=== PATIENT | male | born 1960 | race Caucasian/White ===

== ENCOUNTER 2016-12-16 00:48 | Inpatient (IN) | payer MEDICAID ==
[2016-12-16 01:35] LABS: HEMATOCRIT 40.6 % (37.9-51.0); HEMOGLOBIN 13.3 g/dL (13.5-17.0); HGB HCT DIFFERENCE -0.7; MEAN CORPUSCULAR HEMOGLOBIN 31.7 pg (27.0-33.4); MEAN CORPUSCULAR HGB CONC 32.8 g/dL (32.0-36.0); MEAN CORPUSCULAR VOLUME 97 fl (80-97); RED BLOOD COUNT 4.21 10^6/uL (4.35-5.55); WHITE BLOOD COUNT 7.3 10^3/uL (4.0-10.5)
[2016-12-16 01:45] LABS: ALANINE AMINOTRANSFERASE 27 U/L (21-72); ALBUMIN 4.4 g/dL (3.5-5.0); ALKALINE PHOSPHATASE 61 U/L (38-126); ANION GAP 14 (5-19); ASPARTATE AMINO TRANSFERASE 22 U/L (17-59); BILIRUBIN,TOTAL 0.7 mg/dL (0.2-1.3); BLOOD UREA NITROGEN 18 mg/dL (7-20); CALCIUM 9.4 mg/dL (8.4-10.2); CARBON DIOXIDE 29 mmol/L (22-30); CHLORIDE 100 mmol/L (98-107); CREATININE RESULT 1.23 mg/dL (0.52-1.25); GLUCOSE 163 mg/dL (75-110); POTASSIUM 4.7 mmol/L (3.6-5.0); SODIUM 142.6 mmol/L (137-145); TOTAL PROTEIN 7.7 g/dL (6.3-8.2)
[2016-12-16 01:57] LABS: BAND NEUTROPHILS % (MANUAL) 8 % (3-5); BASOPHILS % (MANUAL) 0 % (0-2); EOSINOPHILS % (MANUAL) 0 % (0-6); LYMPHOCYTES % (MANUAL) 5 % (13-45); TOTAL CELLS COUNTED 100
[2016-12-16 01:58] LABS: ANISOCYTOSIS 2+; TOXIC GRANULATION SLIGHT; TOXIC VACUOLATION PRESENT
[2016-12-16] MEDS ORDERED: ALBUTEROL SULFATE 0.083% NEB 2.5 MG/3 ML AMPUL NEB ONE ×2 (02:32→04:13)
--- NOTE | 2016-12-16 02:34 | ER Document Report ---
ED Respiratory Problem - General Chief Complaint: Breathing Difficulty Stated Complaint: DIFFICULTY BREATHING Time seen by provider: 02:32 Mode of Arrival: Stretcher Information source: Patient TRAVEL OUTSIDE OF THE [place] IN LAST 30 DAYS: No - HPI Patient complains to provider of: COPD, Cough, Short of breath Onset: Just prior to arrival Duration: Better Quality of pain: No pain Severity: Mild Context: Hx COPD Short of Breath: Moderate Chest pain/discomfort: Tightness Cough: Nonproductive Sputum amount: None EMS treatments: Bronchodilators, Solumedrol Associated symptoms: Congestion, Cough, Extertional dyspnea, Wheezing. denies: Chest pain/discomfort Similar symptoms previously: Yes Recently seen / treated by doctor: Yes Notes: Patient is a 56-year-old male with a history of COPD and lung cancer, he was brought to the emergency room by EMS for difficulty breathing that started shortly before arrival, he denies any chest pain, he reports a nonproductive cough, and 2 episodes of vomiting while in route to the hospital, patient denies a fever, he reports he was walking to the bathroom and on his way back to bed he feels as though he lost his breath, he became very panicky and has a history of anxiety attacks as well, which seemed to escalate his symptoms, he denies any chest pain, no abdominal pain, no nausea at the current time - Related Data Allergies/Adverse Reactions: No Known Allergies Allergy (Verified 10/09/13 20:20) Past Medical History - Social History Smoking Status: Current Every Day Smoker Frequency of alcohol use: None Drug Abuse: None Family History: DM, Hypertension - Past Medical History Cardiac Medical History: Reports: Hx Hypercholesterolemia, Hx Hypertension Pulmonary Medical History: Reports: Hx COPD Neurological Medical History: Denies: Hx Cerebrovascular Accident Endocrine Medical History: Reports: Hx Diabetes Mellitus Type 2 Renal/ Medical History: Denies: Hx Peritoneal Dialysis Malignancy Medical History: Reports Hx Bone Cancer, Reports Hx Lung Cancer GI Medical History: Denies: Hx Liver Failure Past Surgical History: Reports: Hx Vascular Surgery - Immunizations Hx Diphtheria, Pertussis, Tetanus Vaccination: Yes Physical Exam - Vital signs Vitals: Resp Pulse Ox 25 H 88 L 12/16/16 00:55 12/16/16 00:55 Course - Re-evaluation Re-evalutation: 12/16/16 04:13 Nursing staff attempted ambulate patient with pulse ox, he became short of breath, hypoxic and lightheaded, he was immediately returned to his stretcher, he has a history of cancer, he is a former smoker, however on exam I do not hear a great deal of wheezing, he is also hypotensive slightly, therefore a CTA has been ordered to rule out pulmonary emboli or other intrathoracic pathology 12/16/16 06:44 Patient continues to have hypotension despite 2 L of IV fluids, although his blood pressure is improved, he is resting comfortably, reports his breathing feels quite a bit better, however at times he has periods of hypoxia and requires oxygen at the present time, CTA shows no evidence of pulmonary embolism , see report for full details, plan to admit patient to hospitalist service for further evaluation and treatment 12/16/16 07:08 Patient was discussed with oncologist, Dr. Bojorquez and advised that patient will be admitted, he is in agreement 12/16/16 07:09 Shearer Helper requested to page Dr. Sullivan 12/16/16 07:14 Patient was discussed with Dr. Sullivan who knows patient well, recommends patient continue receiving IV fluids, 1 g of cefepime, agrees with admission - Vital Signs Vital signs: Temp Pulse Resp BP Pulse Ox 99.2 F 21 H 81/61 L 94 12/16/16 01:28 12/16/16 07:01 12/16/16 07:00 12/16/16 07:01 - Laboratory Result Diagrams: 12/16/16 01:10 12/16/16 01:10 Laboratory results interpreted by me: 12/16/16 12/16/16 12/16/16 01:10 01:10 02:35 RBC 4.21 L Hgb 13.3 L RDW 18.0 H Plt Count 126 L Seg Neuts % (Manual) 86 H Band Neutrophils % 8 H Lymphocytes % (Manual) 5 L Monocytes % (Manual) 1 L Abs Lymphs (Manual) 0.4 L Glucose 163 H Urine Protein 30 H - Diagnostic Test Radiology reviewed: Image reviewed, Reports reviewed - EKG Interpretation by Me EKG shows normal: Sinus rhythm Rate: Tachycardia Heart block present: 1st Degree - Transfer of Care Care transferred to following provider: Dr Sullivan Critical Care Note - Critical Care Note Total time excluding time spent on procedures (mins): 60 Comments: Patient with hypoxia, oxygen dependent, and hypotensive, requiring admission, consultation with specialists and primary care provider Discharge - Discharge Clinical Impression: COPD exacerbation, Hypoxia Hypotension Qualifiers: Hypotension type: unspecified hypotension type Qualified Code(s): I95.9 - Hypotension, unspecified Condition: Serious Disposition: ADMITTED INPATIENT Admitting Provider: Nick Unit Admitted: IM Referrals: JAMES SULLIVAN MD [Primary Care Provider] - Follow up as needed
[2016-12-16 02:57] LABS: APPEARANCE,URINE CLEAR; BILIRUBIN,URINE NEGATIVE (NEGATIVE); GLUCOSE, URINE NEGATIVE (NEGATIVE); KETONES,URINE NEGATIVE (NEGATIVE); LEUKOCYTE ESTERASE,URINE NEGATIVE (NEGATIVE); NITRITE,URINE NEGATIVE (NEGATIVE); PROTEIN,URINE 30 mg/dL (NEGATIVE); URINE SPECIFIC GRAVITY 1.017; UROBILINOGEN,URINE NEGATIVE mg/dL (<2.0)
[2016-12-16] MEDS: NORMAL SALINE 1000 ML 1,000 ML IV PRN ×4 (04:40→22:34)
[2016-12-16] MEDS ORDERED: NORMAL SALINE 1000 ML 1,000 ML IV PRN ×3 (05:33→07:16)
[2016-12-16] MEDS ORDERED: IPRATROPIUM/ALBUTEROL 0.5-2.5 MG/3 ML AMPUL NEB ONE (06:45)
[2016-12-16 06:53] LABS: CREATINE KINASE MB 2.14 ng/mL (<4.55)
[2016-12-16 06:54] LABS: TROPONIN I < 0.012 ng/mL
--- NOTE | 2016-12-16 08:09 | EKG REPORT ---
SEVERITY:- ABNORMAL ECG - SINUS TACHYCARDIA FIRST DEGREE AV BLOCK LEFT ANTERIOR FASCICULAR BLOCK LOW VOLTAGE IN FRONTAL LEADS BORDERLINE T ABNORMALITIES, ANT-LAT LEADS : Confirmed by: Chas Patino MD 16-Dec-2016 08:08:47
[2016-12-16] MEDS ORDERED: ONDANSETRON HCL INJ/PF 4 MG/2 ML SDV IV PRN (08:17)
[2016-12-16] MEDS ORDERED: ACETAMINOPHEN 325 MG TABLET PO PRN (08:17)
[2016-12-16] MEDS ORDERED: OXYCODONE-ACETAMINOPHEN 5-325 MG TABLET PO PRN (08:20)
--- NOTE | 2016-12-16 09:15 | PDOC H&P ---
History of Present Illness Admission Date/PCP: 12/16/16 08:17 JAMES SULLIVAN MD Patient complains of: Shortness of the breath History of Present Illness: ADRIEN BELTRAN is a 56 year old malT is a 56-year-old male with a significant history of a stage IV lung cancer currently immunotherapy also history of the COPD and hypothyroidism and a history of the stroke came to the emergency department with the complaining of shortness of the breath since last couple of days with cough and congestions with a yellowish greenish productivity. denied any fever. In the emergency departments patient was hypoxic and patient was hypotensive also and patient's also underwent for the CT angiogram to rule out any pulmonary embolism and it was negative patient also received 3 L of IV fluid and patient's current systolic blood pressure is 90. Patient's denied any chest pain denied any abdominal pain no nausea no vomiting. Patients also have a significant history of the anxiety attack currently put on a BuSpar for that. His last immunotherapy was 2 weeks back. I saw the patient's patient is comfortably lying in a bed and denied any chest pain no short of breath and feeling okay. At this point admitting in the IMCU for further evaluations for the hypoxia and hypotension and rule out any sepsis. Past Medical History Cardiac Medical History: Reports: Hyperlipidema, Hypertension Pulmonary Medical History: Reports: Chronic Obstructive Pulmonary Disease (COPD) Neurological Medical History: Reports: Ischemic CVA Endocrine Medical History: Reports: Diabetes Mellitus Type 2 Malignancy Medical History: Reports: Bone Cancer, Lung Cancer Musculoskeltal Medical History: Reports: Arthritis, Other - Chronic back pain Psychiatric Medical History: Reports: Depression, Other Psychiatric History Note: Panic anxiety disorder Past Surgical History Past Surgical History: Reports: Vascular Surgery Social History Smoking Status: Current Every Day Smoker Frequency of Alcohol Use: Occasional Hx Recreational Drug Use: No Hx Prescription Drug Abuse: No - Advance Directive Resuscitation Status: Full Code Family History Family History: Reviewed & Not Pertinent, DM, Hypertension Parental Family History Reviewed: Yes Children Family History Reviewed: Yes Sibling(s) Family History Reviewed.: Yes Medication/Allergy Home Medications: Oxycodone HCl/Acetaminophen [Percocet 5-325 mg Tablet] 1 - 2 tab PO ASDIR PRN # 25 tablet 02/10/14 Oxycodone HCl/Acetaminophen [Percocet 5-325 mg Tablet] 1 - 2 tab PO ASDIR PRN # 15 tablet 03/06/14 Magnesium Oxide [Magox] 400 mg PO BID #30 tablet 10/24/16 Allergies/Adverse Reactions: No Known Allergies Allergy (Verified 10/09/13 20:20) Review of Systems Constitutional: PRESENT: fatigue, weakness Cardiovascular: PRESENT: dyspnea on exertion Respiratory: PRESENT: cough, dyspnea, sputum Gastrointestinal: ABSENT: as per HPI, abdominal pain, bloating, coffee ground emesis, constipation, diarrhea, dysphagia, heartburn, hematemesis, hematochezia , melena, nausea, vomiting, other Genitourinary: ABSENT: as per HPI, difficulty urinating, dysuria, hematuria, nocturia, other Musculoskeletal: PRESENT: back pain Integumentary: ABSENT: as per HPI, diaphoresis, erythema, lesions, pruritus, rash, wounds, other Neurological: ABSENT: as per HPI, abnormal gait, abnormal movements, abnormal speech, confusion, convulsions, dizziness, focal weakness, frequent falls, lack of coordination, memory loss, numbness, paresthesias, restless legs, syncope, tingling, tremor(s), vertigo, weakness, other Psychiatric: PRESENT: anxiety Physical Exam Vital Signs: Temp Pulse Resp BP Pulse Ox 99.2 F 20 100/68 95 12/16/16 01:28 12/16/16 08:01 12/16/16 08:11 12/16/16 08:01 General appearance: PRESENT: no acute distress Head exam: PRESENT: normocephalic Eye exam: PRESENT: PERRLA Mouth exam: PRESENT: neck supple Respiratory exam: PRESENT: decreased breath sounds, wheezes Cardiovascular exam: PRESENT: +S1, +S2, tachycardia GI/Abdominal exam: PRESENT: normal bowel sounds, soft. ABSENT: tenderness Extremities exam: ABSENT: pedal edema Neurological exam: PRESENT: alert, awake, oriented to person, oriented to place , oriented to time, reflexes normal, normal gait Skin exam: PRESENT: dry Results Impressions: Chest X-Ray 12/16/16 01:19 IMPRESSION: NO ACUTE RADIOGRAPHIC FINDING IN THE CHEST. Chest/Abdomen CTA 12/16/16 04:13 IMPRESSION: UNREMARKABLE CTA CHEST WITHOUT PULMONARY EMBOLI IDENTIFIED. ENLARGING CLUSTER OF ADJACENT NODULES WITHIN THE LEFT UPPER LOBE RAISING CONCERN FOR NEOPLASTIC PROCESS. BIOPSY IS RECOMMENDED. NEW 4 MM PULMONARY NODULE LEFT LOWER LOBE. RECOMMEND ATTENTION ON FOLLOW-UP STUDIES. Assessment & Plan - Diagnosis (1) Hypotension Qualifiers: Hypotension type: unspecified hypotension type Qualified Code(s): I95.9 - Hypotension, unspecified Is this a current diagnosis for this admission?: YesPlan: Continues to IV fluid rule out the sepsis start the patient on IV antibiotic until the cultures come back (2) COPD exacerbation Is this a current diagnosis for this admission?: YesPlan: Start the patient in the nebulizer treatment (3) Lung cancer Qualifiers: Lung location: unspecified part of lung Is this a current diagnosis for this admission?: YesPlan: Stage IV lung cancer currently on immunotherapy (4) Type 2 diabetes mellitus Qualifiers: Diabetes mellitus complication status: with unspecified complications Is this a current diagnosis for this admission?: YesPlan: Continues the sliding scale and hold the metformin due to the IV contrast (5) Anxiety disorder Qualifiers: Anxiety disorder type: generalized anxiety disorder Qualified Code(s ): F41.1 - Generalized anxiety disorder Is this a current diagnosis for this admission?: YesPlan: Continues the BuSpar 5 mg p.o. q. 8 (6) Hypoxia Is this a current diagnosis for this admission?: YesPlan: Patient was not on oxygen in the past patient CTA is negative for any pulmonary emboli will order the echocardiogram and also for the patient on 3 L nasal cannula (7) Thyroid disorder Is this a current diagnosis for this admission?: YesPlan: Patient was hyperthyroidism but currently running hypo-and patient is currently on levothyroxine supplement will get the ultrasound of the thyroid - Time Time Spent: 50 to 70 Minutes Medications reviewed and adjusted accordingly: Yes Anticipated discharge: Home - Inpatient Certification Medical Necessity: Significant Comorbidiites Make Outpatient Treatment Too Risky , Need For IV Fluids, Need for IV Antibiotics Post Hospital Care: D/C Policy Change Clerk Documentation - Plan Summary Plan Summary: Admit the patient in IMCU to rule out sepsis start patient on broad-spectrum antibiotic and await further culture also patient was put on the COPD with acute exacerbations protocol and continues to monitor the patient discussed with the patient and the family emergency department with consult to Dr. Vo and also ordered a 2D echo
[2016-12-16 10:03] LABS: CREATINE KINASE MB 2.29 ng/mL (<4.55)
[2016-12-16 10:07] LABS: TROPONIN I < 0.012 ng/mL
--- NOTE | 2016-12-16 10:17 | XCELERA REPORT ---
[address] [address] Transthoracic Echocardiogram Report Name: ADRIEN BELTRAN Age: 56 yrs Gender: Male : 1960 Patient Status: Inpatient Patient Location: [id number] Study Date: 12/16/2016 09:10 AM Height: 71 in Weight: 220 lb BSA: 2.2 m2 Procedure: A complete two-dimensional transthoracic echocardiogram was performed (2D, M-mode, spectral and color flow Doppler). The study was technically difficult with many images being suboptimal in quality. Reason For Study: hypotension Ordering Physician: JAMES SULLIVAN Performed By: Hillary Hanna Interpretation Summary The study was technically difficult with many images being suboptimal in quality. The left ventricular ejection fraction is normal. There is borderline concentric left ventricular hypertrophy. The left ventricle is grossly normal size. LV diastolic function could not be adequately assessed. Wall motion cannot be accurately commented on, but no definite regional wall motion abnormalities noted. The right ventricle appears to be hypertrophied The right ventricle is mildly dilated. The right ventricular systolic function is normal. Borderline right atrial enlargement. The left atrial size is normal. There is no mitral valve stenosis. There is a trace amount of mitral regurgitation There is no aortic valve stenosis No aortic regurgitation is present. There is a trace or physiologic amount of tricuspid regurgitation Tricuspid regurgitation jet envelope not well defined to measure RV systolic pressure accurately. The aortic root is not well visualized. The inferior vena cava was not visualized There is no pericardial effusion. MMode/2D Measurements \T\ Calculations RVDd: 3.2 cm LVIDd: 4.9 cm FS: 37.2 % Ao root diam: 2.6 cm IVSd: 1.0 cm LVIDs: 3.1 cm EDV(Teich): 110.5 ml LVPWd: 0.97 cm ESV(Teich): 36.5 ml Ao root area: 5.4 cm2 EF(Teich): 67.0 % LA dimension: 2.9 cm Doppler Measurements \T\ Calculations MV E max alejandrina: MV P1/2t max alejandrina: Ao V2 max: LV V1 max P.2 cm/sec 99.7 cm/sec 159.8 cm/sec 2.4 mmHg MV A max alejandrina: MV P1/2t: 75.4 msec Ao max PG: LV V1 max: 74.0 cm/sec 10.2 mmHg 77.0 cm/sec MV E/A: 1.3 MVA(P1/2t): 2.9 cm2 MV dec slope: 387.4 cm/sec2 MV dec time: 0.24 sec PA V2 max: TR max alejandrina: 86.4 cm/sec 259.7 cm/sec PA max PG: TR max P.0 mmHg 3.0 mmHg Left Ventricle The left ventricle is grossly normal size. There is borderline concentric left ventricular hypertrophy. The left ventricular ejection fraction is normal. LV diastolic function could not be adequately assessed. Wall motion cannot be accurately commented on, but no definite regional wall motion abnormalities noted. Right Ventricle The right ventricle is mildly dilated. The right ventricle appears to be hypertrophied. The right ventricular systolic function is normal. Atria Borderline right atrial enlargement. The left atrial size is normal. Interarterial septum not well visualized and not well dopplered. Cannot comment on ASD/PFO presence. Mitral Valve The mitral valve is grossly normal. There is no mitral valve stenosis. There is a trace amount of mitral regurgitation. Aortic Valve The aortic valve is grossly normal. There is no aortic valve stenosis. No aortic regurgitation is present. Tricuspid Valve The tricuspid valve is not well visualized, but is grossly normal. There is no tricuspid stenosis. There is a trace or physiologic amount of tricuspid regurgitation. Tricuspid regurgitation jet envelope not well defined to measure RV systolic pressure accurately. Pulmonic Valve The pulmonic valve is not well visualized. Great Vessels The aortic root is not well visualized. The inferior vena cava was not visualized. Effusions There is no pericardial effusion. : JAMES SULLIVAN > Eva Schafer
[2016-12-16] MEDS: DOCUSATE SODIUM 100 MG CAPSULE PO SCH ×2 (11:18→17:30)
[2016-12-16] MEDS: CEFEPIME 1 GM/D5W RTU 50 ML IV SCH ×2 (11:19→22:32)
[2016-12-16] MEDS: MAGNESIUM OXIDE 400 MG TABLET PO SCH ×2 (11:19→17:30)
[2016-12-16] MEDS: IPRATROPIUM/ALBUTEROL 0.5-2.5 MG/3 ML AMPUL NEB SCH ×2 (13:51→20:03)
[2016-12-16 15:25] LABS: CREATINE KINASE MB 2.41 ng/mL (<4.55)
[2016-12-16 15:29] LABS: TROPONIN I < 0.012 ng/mL
[2016-12-16] MEDS: LANSOPRAZOLE 15 MG TAB.RAP.DR PO SCH (17:00)
[2016-12-16] MEDS ORDERED: (PENDING PHARMACY ID) (Buspirone Hcl [Buspar 5 Mg Tablet] 5 MG) PO SCH (18:00)
[2016-12-16 21:20] LABS: CREATINE KINASE MB 3.43 ng/mL (<4.55)
[2016-12-16 21:25] LABS: TROPONIN I < 0.012 ng/mL
[2016-12-16] MEDS: BUSPIRONE HCL 10 MG TABLET PO SCH (22:33)
[2016-12-16] MEDS: ATORVASTATIN CALCIUM 10 MG TABLET PO SCH (22:33)
[2016-12-17] MEDS: BUSPIRONE HCL 10 MG TABLET PO SCH ×3 (05:27→21:22)
[2016-12-17] MEDS: LANSOPRAZOLE 15 MG TAB.RAP.DR PO SCH ×2 (05:28→16:35)
[2016-12-17 05:43] LABS: ALANINE AMINOTRANSFERASE 30 U/L (21-72); ALKALINE PHOSPHATASE 41 U/L (38-126); ANION GAP 8 (5-19); ASPARTATE AMINO TRANSFERASE 22 U/L (17-59); BILIRUBIN,TOTAL 0.4 mg/dL (0.2-1.3); BLOOD UREA NITROGEN 23 mg/dL (7-20); CALCIUM 8.1 mg/dL (8.4-10.2); CARBON DIOXIDE 26 mmol/L (22-30); CHLORIDE 104 mmol/L (98-107); CREATININE RESULT 1.21 mg/dL (0.52-1.25); GLUCOSE 118 mg/dL (75-110); MAGNESIUM 2.2 mg/dL (1.6-2.3); POTASSIUM 4.8 mmol/L (3.6-5.0); SODIUM 138.2 mmol/L (137-145); TOTAL PROTEIN 5.8 g/dL (6.3-8.2)
[2016-12-17 05:44] LABS: HEMATOCRIT 28.3 % (37.9-51.0); HGB HCT DIFFERENCE 0.5; MEAN CORPUSCULAR HEMOGLOBIN 32.1 pg (27.0-33.4); MEAN CORPUSCULAR HGB CONC 33.9 g/dL (32.0-36.0); MEAN CORPUSCULAR VOLUME 95 fl (80-97); RED BLOOD COUNT 2.99 10^6/uL (4.35-5.55); RED CELL DISTRIBUTION WIDTH 17.7 % (11.5-14.0); WHITE BLOOD COUNT 6.1 10^3/uL (4.0-10.5)
[2016-12-17 06:20] LABS: HEMOGLOBIN 9.6 g/dL (13.5-17.0)
[2016-12-17 06:23] LABS: BAND NEUTROPHILS % (MANUAL) 1 % (3-5); BASOPHILS % (MANUAL) 0 % (0-2); EOSINOPHILS % (MANUAL) 0 % (0-6); LYMPHOCYTES % (MANUAL) 2 % (13-45); TOTAL CELLS COUNTED 100
[2016-12-17 06:24] LABS: ANISOCYTOSIS 1+
[2016-12-17] MEDS ORDERED: DEXTROSE 50%-WATER 25 GM/50 ML DISP.SYRIN IV PRN ×2 (07:54)
[2016-12-17] MEDS ORDERED: DEXTROSE 40% GEL 15 GM TUBE PO PRN ×2 (07:54)
[2016-12-17] MEDS ORDERED: GLUCAGON,HUMAN RECOMB 1 MG INJ IM PRN (07:54)
[2016-12-17] MEDS ORDERED: INSULIN LISPRO 100 UNIT/ML 3 ML VIAL SUBCUT PRN (07:54)
[2016-12-17] MEDS ORDERED: POLYETHYLENE GLYCOL 3350 POWDER 17 GM/1 PACKET PO PRN (07:54)
--- NOTE | 2016-12-17 08:10 | PDOC PROGRESS REPORT ---
Subjective Progress Note for:: 12/17/16 Subjective:: Patient is is doing fair complaining some mild cough and congestions other than that denied any abdominal pain no chest pain no shortness of the breath .his blood processes still running in 90 range. Patient's initial all blood cultures so far negative. Patient's otherwise no fever. Physical Exam Vital Signs: Temp Pulse Resp BP Pulse Ox 98.0 F 65 24 H 95/50 L 100 12/17/16 07:24 12/17/16 07:24 12/17/16 07:24 12/17/16 07:24 12/17/16 07:24 Intake & Output 12/16/16 12/17/16 12/18/16 06:59 06:59 06:59 Intake Total 3292 Output Total 2000 Balance 1292 Weight 104.1 kg General appearance: PRESENT: no acute distress, well-developed, well-nourished Head exam: PRESENT: atraumatic, normocephalic Eye exam: PRESENT: conjunctiva pink, EOMI, PERRLA. ABSENT: scleral icterus Ear exam: PRESENT: normal external ear exam Mouth exam: PRESENT: moist, tongue midline Neck exam: PRESENT: full ROM. ABSENT: carotid bruit, JVD, lymphadenopathy, thyromegaly Cardiovascular exam: PRESENT: RRR. ABSENT: diastolic murmur, rubs, systolic murmur Pulses: PRESENT: normal dorsalis pedis pul, +2 pedal pulses bilateral Vascular exam: PRESENT: normal capillary refill GI/Abdominal exam: PRESENT: normal bowel sounds, soft. ABSENT: distended, guarding, mass, organolmegaly, rebound, tenderness Rectal exam: PRESENT: deferred Neurological exam: PRESENT: alert, awake, oriented to person, oriented to place , oriented to time, oriented to situation, CN II-XII grossly intact. ABSENT: motor sensory deficit Psychiatric exam: PRESENT: appropriate affect, normal mood. ABSENT: homicidal ideation, suicidal ideation Skin exam: PRESENT: dry, intact, warm. ABSENT: cyanosis, rash Results Laboratory Results: 12/17/16 05:13 12/17/16 05:13 12/16/16 12/16/16 12/17/16 10:45 15:35 05:13 WBC 6.1 RBC 2.99 L Hgb 9.6 L D Hct 28.3 L MCV 95 MCH 32.1 MCHC 33.9 RDW 17.7 H Plt Count 95 L Seg Neutrophils % Not Reportable Lymphocytes % Not Reportable Monocytes % Not Reportable Eosinophils % Not Reportable Basophils % Not Reportable Absolute Neutrophils Not Reportable Absolute Lymphocytes Not Reportable Absolute Monocytes Not Reportable Absolute Eosinophils Not Reportable Absolute Basophils Not Reportable Sodium Potassium Chloride Carbon Dioxide Anion Gap BUN Creatinine Est GFR ( Amer) Est GFR (Non-Af Amer) Glucose Lactic Acid 2.3 H 2.5 H Calcium Magnesium Total Bilirubin AST ALT Alkaline Phosphatase Total Protein Albumin 12/17/16 05:13 WBC RBC Hgb Hct MCV MCH MCHC RDW Plt Count Seg Neutrophils % Lymphocytes % Monocytes % Eosinophils % Basophils % Absolute Neutrophils Absolute Lymphocytes Absolute Monocytes Absolute Eosinophils Absolute Basophils Sodium 138.2 Potassium 4.8 Chloride 104 Carbon Dioxide 26 Anion Gap 8 BUN 23 H Creatinine 1.21 Est GFR ( Amer) > 60 Est GFR (Non-Af Amer) > 60 Glucose 118 H Lactic Acid Calcium 8.1 L Magnesium 2.2 Total Bilirubin 0.4 AST 22 ALT 30 Alkaline Phosphatase 41 Total Protein 5.8 L Albumin 3.0 L 12/16/16 12/16/16 12/16/16 09:06 09:06 14:34 Creatine Kinase 104 109 CK-MB (CK-2) 2.29 Troponin I < 0.012 12/16/16 12/16/16 12/16/16 14:34 20:35 20:35 Creatine Kinase 131 CK-MB (CK-2) 2.41 3.43 Troponin I < 0.012 < 0.012 Impressions: Chest X-Ray 12/16/16 01:19 IMPRESSION: NO ACUTE RADIOGRAPHIC FINDING IN THE CHEST. Chest/Abdomen CTA 12/16/16 04:13 IMPRESSION: UNREMARKABLE CTA CHEST WITHOUT PULMONARY EMBOLI IDENTIFIED. ENLARGING CLUSTER OF ADJACENT NODULES WITHIN THE LEFT UPPER LOBE RAISING CONCERN FOR NEOPLASTIC PROCESS. BIOPSY IS RECOMMENDED. NEW 4 MM PULMONARY NODULE LEFT LOWER LOBE. RECOMMEND ATTENTION ON FOLLOW-UP STUDIES. Assessment & Plan - Diagnosis (1) Hypotension Qualifiers: Hypotension type: unspecified hypotension type Qualified Code(s): I95.9 - Hypotension, unspecified Is this a current diagnosis for this admission?: YesPlan: Unclear etiology echocardiogram is stable. Possible sepsis with the elevated band 8 will continues to IV antibiotic and IV fluid and ordered a CT of the abdomen and pelvis rule out other etiology (2) COPD exacerbation Is this a current diagnosis for this admission?: YesPlan: With acute bronchitis continues the nebulizer treatments and add the Zithromax (3) Lung cancer Qualifiers: Lung location: unspecified part of lung Is this a current diagnosis for this admission?: YesPlan: Stage IV lung cancer currently on immunotherapy (4) Type 2 diabetes mellitus Qualifiers: Diabetes mellitus complication status: with unspecified complications Is this a current diagnosis for this admission?: YesPlan: Continues the sliding scale and hold the metformin due to the IV contrast (5) Anxiety disorder Qualifiers: Anxiety disorder type: generalized anxiety disorder Qualified Code(s ): F41.1 - Generalized anxiety disorder Is this a current diagnosis for this admission?: YesPlan: Continues the BuSpar 5 mg p.o. q. 8 (6) Hypoxia Is this a current diagnosis for this admission?: YesPlan: Patient was not on oxygen in the past patient CTA is negative for any pulmonary emboli will order the echocardiogram and also for the patient on 3 L nasal cannula (7) Thyroid disorder Is this a current diagnosis for this admission?: YesPlan: Patient was hyperthyroidism but currently running hypo-and patient is currently on levothyroxine supplement will get the ultrasound of the thyroid - Time Time Spent with patient: 15-24 minutes Medications reviewed and adjusted accordingly: Yes Anticipated discharge: Home Within: Other - Inpatient Certification Medical Necessity: Need For IV Fluids, Need for IV Antibiotics Post Hospital Care: D/C Criminal Justice Professor Documentation - Plan Summary Plan Summary: Part of the CT head and CT abdomen and pelvis check the urine culture and continues the current medication
[2016-12-17] MEDS: IPRATROPIUM/ALBUTEROL 0.5-2.5 MG/3 ML AMPUL NEB SCH ×3 (08:32→20:20)
--- NOTE | 2016-12-17 08:35 | PDOC CONSULTATION ---
Consultation Consult Date: 12/17/16 Attending physician:: JAMES SULLIVAN Consult reason:: Known stage IV lung cancer, here with acute onset shortness of breath, cough, hypotension History of Present Illness Admission Date/PCP: 12/16/16 08:17 JAMES SULLIVAN MD Patient complains of: As above History of Present Illness: 56-year-old male with known history of stage IV lung cancer, currently on immunotherapy with OPDIVO, tolerating it well with stable disease noted on recent imaging. He E presented with acute onset shortness of breath. Over the last couple weeks he's been having increasing shortness of breath, rapid breathing, his TSH was very elevated consistent with hypothyroidism, adjustments were made in medications so initially that was thought to be the issue, however 24 hours prior to admission, he had acute onset shortness of breath, presented to the ED, was hypoxic in the 70s and 80s, was also hypotensive and tachycardic, there was concern of sepsis. He had a CT of the chest, there is no pneumonia noted, there is no PE, there is no pneumonitis noted, there are pulmonary nodules that looked generally stable to me. Past Medical History Cardiac Medical History: Reports: Hyperlipidema, Hypertension Pulmonary Medical History: Reports: Chronic Obstructive Pulmonary Disease (COPD) Neurological Medical History: Reports: Ischemic CVA Endocrine Medical History: Reports: Diabetes Mellitus Type 2 Malignancy Medical History: Reports: Bone Cancer, Lung Cancer Musculoskeltal Medical History: Reports: Arthritis, Other - Chronic back pain Psychiatric Medical History: Reports: Depression, Other Past Surgical History Past Surgical History: Reports: Vascular Surgery Social History Smoking Status: Former Smoker Frequency of Alcohol Use: Occasional Hx Recreational Drug Use: No Hx Prescription Drug Abuse: No - Advance Directive Resuscitation Status: Full Code Family History Family History: Reviewed & Not Pertinent, DM, Hypertension Parental Family History Reviewed: Yes Children Family History Reviewed: Yes Sibling(s) Family History Reviewed.: Yes Medication/Allergy Home Medications: Buspirone HCl [Buspar 5 mg Tablet] 5 mg PO TID 12/16/16 Clopidogrel Bisulfate [Plavix] 75 mg PO DAILY 12/16/16 Levothyroxine Sodium [Synthroid 0.05 mg Tablet] 0.05 mg PO DAILY 12/16/16 Metoprolol Succinate [Toprol Xl 50 mg Tab.sr] 50 mg PO DAILY 12/16/16 Pravastatin Sodium [Pravachol] 20 mg PO DAILY 12/16/16 Allergies/Adverse Reactions: No Known Allergies Allergy (Verified 10/09/13 20:20) Review of Systems Constitutional: ABSENT: chills, fever(s), headache(s), weight gain, weight loss Eyes: ABSENT: visual disturbances Ears: ABSENT: hearing changes Cardiovascular: PRESENT: dyspnea on exertion Respiratory: PRESENT: cough, dyspnea, sputum Gastrointestinal: ABSENT: abdominal pain, constipation, diarrhea, hematemesis, hematochezia, nausea, vomiting Genitourinary: ABSENT: dysuria, hematuria Musculoskeletal: ABSENT: joint swelling Integumentary: ABSENT: rash, wounds Neurological: ABSENT: abnormal gait, abnormal speech, confusion, dizziness, focal weakness, syncope Psychiatric: ABSENT: anxiety, depression, homidical ideation, suicidal ideation Endocrine: ABSENT: cold intolerance, heat intolerance, polydipsia, polyuria Hematologic/Lymphatic: ABSENT: easy bleeding, easy bruising Physical Exam Vital Signs: Temp Pulse Resp BP Pulse Ox 98.0 F 65 24 H 95/50 L 100 12/17/16 07:24 12/17/16 07:24 12/17/16 07:24 12/17/16 07:24 12/17/16 07:24 Intake & Output 12/16/16 12/17/16 12/18/16 06:59 06:59 06:59 Intake Total 3292 Output Total 2000 Balance 1292 Weight 104.1 kg General appearance: PRESENT: no acute distress, well-developed, well-nourished Head exam: PRESENT: atraumatic, normocephalic Eye exam: PRESENT: conjunctiva pink, EOMI, PERRLA. ABSENT: scleral icterus Ear exam: PRESENT: normal external ear exam Mouth exam: PRESENT: moist, tongue midline Neck exam: ABSENT: carotid bruit, JVD, lymphadenopathy, thyromegaly Respiratory exam: PRESENT: crackles, rhonchi Cardiovascular exam: PRESENT: RRR. ABSENT: diastolic murmur, rubs, systolic murmur Pulses: PRESENT: normal dorsalis pedis pul Vascular exam: PRESENT: normal capillary refill GI/Abdominal exam: PRESENT: normal bowel sounds, soft. ABSENT: distended, guarding, mass, organolmegaly, rebound, tenderness Rectal exam: PRESENT: deferred Extremities exam: PRESENT: full ROM. ABSENT: calf tenderness, clubbing, pedal edema Neurological exam: PRESENT: alert, awake, oriented to person, oriented to place , oriented to time, oriented to situation, CN II-XII grossly intact. ABSENT: motor sensory deficit Psychiatric exam: PRESENT: appropriate affect, normal mood. ABSENT: homicidal ideation, suicidal ideation Skin exam: PRESENT: dry, intact, warm. ABSENT: cyanosis, rash Results Laboratory Results: 12/17/16 05:13 12/17/16 05:13 12/16/16 12/16/16 12/17/16 10:45 15:35 05:13 WBC 6.1 RBC 2.99 L Hgb 9.6 L D Hct 28.3 L MCV 95 MCH 32.1 MCHC 33.9 RDW 17.7 H Plt Count 95 L Seg Neutrophils % Not Reportable Lymphocytes % Not Reportable Monocytes % Not Reportable Eosinophils % Not Reportable Basophils % Not Reportable Absolute Neutrophils Not Reportable Absolute Lymphocytes Not Reportable Absolute Monocytes Not Reportable Absolute Eosinophils Not Reportable Absolute Basophils Not Reportable Sodium Potassium Chloride Carbon Dioxide Anion Gap BUN Creatinine Est GFR ( Amer) Est GFR (Non-Af Amer) Glucose Lactic Acid 2.3 H 2.5 H Calcium Magnesium Total Bilirubin AST ALT Alkaline Phosphatase Total Protein Albumin 12/17/16 05:13 WBC RBC Hgb Hct MCV MCH MCHC RDW Plt Count Seg Neutrophils % Lymphocytes % Monocytes % Eosinophils % Basophils % Absolute Neutrophils Absolute Lymphocytes Absolute Monocytes Absolute Eosinophils Absolute Basophils Sodium 138.2 Potassium 4.8 Chloride 104 Carbon Dioxide 26 Anion Gap 8 BUN 23 H Creatinine 1.21 Est GFR ( Amer) > 60 Est GFR (Non-Af Amer) > 60 Glucose 118 H Lactic Acid Calcium 8.1 L Magnesium 2.2 Total Bilirubin 0.4 AST 22 ALT 30 Alkaline Phosphatase 41 Total Protein 5.8 L Albumin 3.0 L 12/16/16 12/16/16 12/16/16 09:06 09:06 14:34 Creatine Kinase 104 109 CK-MB (CK-2) 2.29 Troponin I < 0.012 12/16/16 12/16/16 12/16/16 14:34 20:35 20:35 Creatine Kinase 131 CK-MB (CK-2) 2.41 3.43 Troponin I < 0.012 < 0.012 Impressions: Chest X-Ray 12/16/16 01:19 IMPRESSION: NO ACUTE RADIOGRAPHIC FINDING IN THE CHEST. Chest/Abdomen CTA 12/16/16 04:13 IMPRESSION: UNREMARKABLE CTA CHEST WITHOUT PULMONARY EMBOLI IDENTIFIED. ENLARGING CLUSTER OF ADJACENT NODULES WITHIN THE LEFT UPPER LOBE RAISING CONCERN FOR NEOPLASTIC PROCESS. BIOPSY IS RECOMMENDED. NEW 4 MM PULMONARY NODULE LEFT LOWER LOBE. RECOMMEND ATTENTION ON FOLLOW-UP STUDIES. Status: Image reviewed by me Assessment & Plan - Diagnosis (1) Hypoxia Is this a current diagnosis for this admission?: YesPlan: Patient with hypoxia, possibly multifactorial, probably related to COPD exacerbation, bronchitis, unlikely related to drug effect. Continue with current management per primary team. (2) Lung cancer Qualifiers: Laterality: right Lung location: upper lobe of lung Qualified Code(s): C34.11 - Malignant neoplasm of upper lobe, right bronchus or lung Is this a current diagnosis for this admission?: YesPlan: Stage IV lung cancer, currently on immunotherapy, don't believe the immunotherapies having any relation with current symptomatology, continue with current management, continue therapy as an outpatient. He is due for treatment this week, we will reschedule. (3) Pain, neoplasm-related Plan: Pain related to bone metastasis, Dr. Sullivan will restart his fentanyl patch, we will watch the hypotension closely. - Time Time Spent: Greater than 70 Minutes Critical Time spent with patient: 35 or more minutes Medications reviewed and adjusted accordingly: Yes - Inpatient Certification Based on my medical assessment, after consideration of the patient's comorbidities, presenting symptoms, or acuity I expect that the services needed warrant INPATIENT care.: Yes I certify that my determination is in accordance with my understanding of Medicare's requirements for reasonable and necessary INPATIENT services [42 CFR 412.3e].: Yes Medical Necessity: Failure to Improve With Outpatient Therapy, Need For Continuous Telemetry Monitoring, Risk of Complication if Not Cared For in Hospital
[2016-12-17] MEDS ORDERED: METOPROLOL SUCCINATE 50 MG TAB.SR.24H PO SCH (10:00)
[2016-12-17] MEDS: CLOPIDOGREL BISULFATE 75 MG TABLET PO SCH (10:55)
[2016-12-17] MEDS: CEFEPIME 1 GM/D5W RTU 50 ML IV SCH ×2 (10:56→21:22)
[2016-12-17] MEDS: MAGNESIUM OXIDE 400 MG TABLET PO SCH ×2 (10:56→16:35)
[2016-12-17] MEDS: AZITHROMYCIN 250 MG TABLET PO SCH (10:56)
[2016-12-17] MEDS: DOCUSATE SODIUM 100 MG CAPSULE PO SCH ×2 (10:56→16:34)
[2016-12-17] MEDS: LEVOTHYROXINE SODIUM 0.05 MG TABLET PO SCH (10:56)
[2016-12-17] MEDS: FENTANYL 50 MCG/HR PATCH.TD72 TD SCH (12:15)
--- NOTE | 2016-12-17 14:00 | PDOC CONSULTATION ---
History of Present Illness Admission Date/PCP: 12/16/16 08:17 JAMES SULLIVAN MD History of Present Illness: 56-year-old male with stage IV lung cancer currently undergoing was sounds like immunotherapy currently in the hospital for evaluation of the respiratory symptoms. Patient was noted to be hypotensive and was given copious amount of IV fluids last night. Following which the his hematocrit the decreased CONSISTENT with hemodilution. A CT scan was ordered of his abdomen. However patient has had no GI complaints. No abdominal pain. No bowel habit changes. No loss of appetite. CT scan demonstrated a dilated appendix was small amount of fluid in this area but there was also mild amount of fluid noted on the opposite side as well. Again patient is completely asymptomatic in regards to his abdomen. Past Medical History Cardiac Medical History: Reports: Hyperlipidema, Hypertension Pulmonary Medical History: Reports: Chronic Obstructive Pulmonary Disease (COPD) Neurological Medical History: Reports: Ischemic CVA Endocrine Medical History: Reports: Diabetes Mellitus Type 2 Malignancy Medical History: Reports: Bone Cancer, Lung Cancer Musculoskeltal Medical History: Reports: Arthritis, Other - Chronic back pain Psychiatric Medical History: Reports: Depression, Other Past Surgical History Past Surgical History: Reports: Vascular Surgery Social History Smoking Status: Former Smoker Frequency of Alcohol Use: Occasional Hx Recreational Drug Use: No Hx Prescription Drug Abuse: No - Advance Directive Resuscitation Status: Full Code Family History Family History: Reviewed & Not Pertinent, DM, Hypertension Parental Family History Reviewed: No Children Family History Reviewed: No Sibling(s) Family History Reviewed.: No Medication/Allergy Home Medications: Buspirone HCl [Buspar 5 mg Tablet] 5 mg PO TID 12/16/16 Clopidogrel Bisulfate [Plavix] 75 mg PO DAILY 12/16/16 Levothyroxine Sodium [Synthroid 0.05 mg Tablet] 0.05 mg PO DAILY 12/16/16 Metoprolol Succinate [Toprol Xl 50 mg Tab.sr] 50 mg PO DAILY 12/16/16 Pravastatin Sodium [Pravachol] 20 mg PO DAILY 12/16/16 Allergies/Adverse Reactions: No Known Allergies Allergy (Verified 10/09/13 20:20) Physical Exam Vital Signs: Temp Pulse Resp BP Pulse Ox 98.8 F 64 24 H 92/47 L 97 12/17/16 11:33 12/17/16 11:33 12/17/16 11:33 12/17/16 11:33 12/17/16 11:33 Intake & Output 12/16/16 12/17/16 12/18/16 06:59 06:59 06:59 Intake Total 3292 Output Total 1999 Balance 1292 Weight 104.1 kg General appearance: PRESENT: no acute distress, cooperative GI/Abdominal exam: PRESENT: other - soft, nondistended, nontender to palpation. Specifically absolutely no right lower quadrant abdominal tenderness. Neurological exam: PRESENT: alert, awake Psychiatric exam: PRESENT: appropriate affect Results Laboratory Results: 12/17/16 05:13 12/17/16 05:13 12/16/16 12/17/16 12/17/16 15:35 05:13 05:13 WBC 6.1 RBC 2.99 L Hgb 9.6 L D Hct 28.3 L MCV 95 MCH 32.1 MCHC 33.9 RDW 17.7 H Plt Count 95 L Seg Neutrophils % Not Reportable Lymphocytes % Not Reportable Monocytes % Not Reportable Eosinophils % Not Reportable Basophils % Not Reportable Absolute Neutrophils Not Reportable Absolute Lymphocytes Not Reportable Absolute Monocytes Not Reportable Absolute Eosinophils Not Reportable Absolute Basophils Not Reportable Sodium 138.2 Potassium 4.8 Chloride 104 Carbon Dioxide 26 Anion Gap 8 BUN 23 H Creatinine 1.21 Est GFR ( Amer) > 60 Est GFR (Non-Af Amer) > 60 Glucose 118 H Lactic Acid 2.5 H Calcium 8.1 L Magnesium 2.2 Total Bilirubin 0.4 AST 22 ALT 30 Alkaline Phosphatase 41 Total Protein 5.8 L Albumin 3.0 L 12/16/16 12/16/16 12/16/16 09:06 09:06 14:34 Creatine Kinase 104 109 CK-MB (CK-2) 2.29 Troponin I < 0.012 12/16/16 12/16/16 12/16/16 14:34 20:35 20:35 Creatine Kinase 131 CK-MB (CK-2) 2.41 3.43 Troponin I < 0.012 < 0.012 Impressions: Chest X-Ray 12/16/16 01:19 IMPRESSION: NO ACUTE RADIOGRAPHIC FINDING IN THE CHEST. Chest/Abdomen CTA 12/16/16 04:13 IMPRESSION: UNREMARKABLE CTA CHEST WITHOUT PULMONARY EMBOLI IDENTIFIED. ENLARGING CLUSTER OF ADJACENT NODULES WITHIN THE LEFT UPPER LOBE RAISING CONCERN FOR NEOPLASTIC PROCESS. BIOPSY IS RECOMMENDED. NEW 4 MM PULMONARY NODULE LEFT LOWER LOBE. RECOMMEND ATTENTION ON FOLLOW-UP STUDIES. Abdomen/Pelvis CT 12/17/16 00:00 IMPRESSION: Question acute appendicitis. Findings discussed with Dr. Sullivan Head CT 12/17/16 00:00 IMPRESSION: Old stable infarcts in the left posterior temporal/ occipital white matter, and inferior right cerebellar hemisphere. Assessment & Plan - Diagnosis (1) Abnormal finding on CT scan Is this a current diagnosis for this admission?: YesPlan: CT scan demonstrating mildly dilated appendix the but no real inflammatory changes seen, only small amount of fluid in this area that is also seen on the other side CONSISTENT with the aggressive fluid resuscitation patient received yesterday. Patient has no abdominal pain and has no tenderness on exam therefore I do not think he has appendicitis. I do not recommend any surgical intervention. Furthermore I am skeptical of the diagnosis of sepsis. Patient had no tachycardia and no leukocytosis. He was only noted with hypotension which has many possible etiologies other than sepsis. I do recommend the outpatient referral to gastroenterology for his anemia however. Please call us if there is any concerns or problems
[2016-12-17] MEDS: ATORVASTATIN CALCIUM 10 MG TABLET PO SCH (21:22)
[2016-12-18] MEDS: LANSOPRAZOLE 15 MG TAB.RAP.DR PO SCH ×2 (05:35→17:40)
[2016-12-18] MEDS: BUSPIRONE HCL 10 MG TABLET PO SCH ×3 (05:35→22:13)
[2016-12-18 06:08] LABS: HEMATOCRIT 28.7 % (37.9-51.0); HEMOGLOBIN 9.7 g/dL (13.5-17.0); HGB HCT DIFFERENCE 0.4; MEAN CORPUSCULAR HEMOGLOBIN 31.7 pg (27.0-33.4); MEAN CORPUSCULAR HGB CONC 33.7 g/dL (32.0-36.0); MEAN CORPUSCULAR VOLUME 94 fl (80-97); RED BLOOD COUNT 3.06 10^6/uL (4.35-5.55); RED CELL DISTRIBUTION WIDTH 17.7 % (11.5-14.0); WHITE BLOOD COUNT 4.1 10^3/uL (4.0-10.5)
[2016-12-18 06:29] LABS: BASOPHILS % (MANUAL) 0 % (0-2); EOSINOPHILS % (MANUAL) 5 % (0-6); LYMPHOCYTES % (MANUAL) 8 % (13-45); TOTAL CELLS COUNTED 100
[2016-12-18 06:30] LABS: ANISOCYTOSIS 1+; OVALOCYTES SLIGHT; TEAR DROP CELLS SLIGHT; TOXIC GRANULATION SLIGHT
--- NOTE | 2016-12-18 08:00 | PDOC PROGRESS REPORT ---
Subjective Progress Note for:: 12/18/16 Subjective:: Still feeling SOB at times, positional sometimes, does not seem worsened on exertion Physical Exam Vital Signs: Temp Pulse Resp BP Pulse Ox 98.6 F 69 20 107/65 98 12/18/16 04:24 12/18/16 07:00 12/18/16 04:24 12/18/16 04:24 12/18/16 04:24 Intake & Output 12/17/16 12/18/16 12/19/16 06:59 06:59 06:59 Intake Total 3292 3430 Output Total 2000 2500 Balance 1292 930 Weight 104.1 kg 104.4 kg General appearance: PRESENT: no acute distress, well-developed, well-nourished Head exam: PRESENT: atraumatic, normocephalic Eye exam: PRESENT: conjunctiva pink, EOMI, PERRLA. ABSENT: scleral icterus Ear exam: PRESENT: normal external ear exam Mouth exam: PRESENT: moist, tongue midline Neck exam: ABSENT: carotid bruit, JVD, lymphadenopathy, thyromegaly Respiratory exam: PRESENT: clear to auscultation leida. ABSENT: rales, rhonchi, wheezes Cardiovascular exam: PRESENT: RRR. ABSENT: diastolic murmur, rubs, systolic murmur Pulses: PRESENT: normal dorsalis pedis pul Vascular exam: PRESENT: normal capillary refill GI/Abdominal exam: PRESENT: normal bowel sounds, soft. ABSENT: distended, guarding, mass, organolmegaly, rebound, tenderness Rectal exam: PRESENT: deferred Extremities exam: PRESENT: full ROM. ABSENT: calf tenderness, clubbing, pedal edema Neurological exam: PRESENT: alert, awake, oriented to person, oriented to place , oriented to time, oriented to situation, CN II-XII grossly intact. ABSENT: motor sensory deficit Psychiatric exam: PRESENT: appropriate affect, normal mood. ABSENT: homicidal ideation, suicidal ideation Skin exam: PRESENT: dry, intact, warm. ABSENT: cyanosis, rash Results Laboratory Results: 12/18/16 05:16 12/17/16 05:13 12/17/16 12/18/16 14:00 05:16 WBC 4.1 RBC 3.06 L Hgb 9.7 L Hct 28.7 L MCV 94 MCH 31.7 MCHC 33.7 RDW 17.7 H Plt Count 95 L Seg Neutrophils % Not Reportable Lymphocytes % Not Reportable Monocytes % Not Reportable Eosinophils % Not Reportable Basophils % Not Reportable Absolute Neutrophils Not Reportable Absolute Lymphocytes Not Reportable Absolute Monocytes Not Reportable Absolute Eosinophils Not Reportable Absolute Basophils Not Reportable Stool Occult Blood NEGATIVE 12/16/16 12/16/16 12/16/16 09:06 09:06 14:34 Creatine Kinase 104 109 CK-MB (CK-2) 2.29 Troponin I < 0.012 12/16/16 12/16/16 12/16/16 14:34 20:35 20:35 Creatine Kinase 131 CK-MB (CK-2) 2.41 3.43 Troponin I < 0.012 < 0.012 Impressions: Chest X-Ray 12/16/16 01:19 IMPRESSION: NO ACUTE RADIOGRAPHIC FINDING IN THE CHEST. Chest/Abdomen CTA 12/16/16 04:13 IMPRESSION: UNREMARKABLE CTA CHEST WITHOUT PULMONARY EMBOLI IDENTIFIED. ENLARGING CLUSTER OF ADJACENT NODULES WITHIN THE LEFT UPPER LOBE RAISING CONCERN FOR NEOPLASTIC PROCESS. BIOPSY IS RECOMMENDED. NEW 4 MM PULMONARY NODULE LEFT LOWER LOBE. RECOMMEND ATTENTION ON FOLLOW-UP STUDIES. Abdomen/Pelvis CT 12/17/16 00:00 IMPRESSION: Question acute appendicitis. Findings discussed with Dr. 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 Assessment & Plan - Diagnosis (1) Hypoxia Is this a current diagnosis for this admission?: YesPlan: Still likely related to bronchitis vs COPD exac but pneumonitis maybe possibility, will be holding OPDIVO as outpt until this resolves (2) Lung cancer Qualifiers: Laterality: right Lung location: upper lobe of lung Qualified Code(s): C34.11 - Malignant neoplasm of upper lobe, right bronchus or lung Is this a current diagnosis for this admission?: YesPlan: OPDIVO being held, overall stable disease (3) Pain, neoplasm-related Plan: Con't w/ current regimen, seems to be controlling pain well - Time Time Spent with patient: 15-24 minutes Critical Time spent with patient: 15-24 minutes - Inpatient Certification Based on my medical assessment, after consideration of the patient's comorbidities, presenting symptoms, or acuity I expect that the services needed warrant INPATIENT care.: Yes I certify that my determination is in accordance with my understanding of Medicare's requirements for reasonable and necessary INPATIENT services [42 CFR 412.3e].: Yes Medical Necessity: Failure to Improve With Outpatient Therapy, Need for IV Antibiotics
[2016-12-18] MEDS: IPRATROPIUM/ALBUTEROL 0.5-2.5 MG/3 ML AMPUL NEB SCH ×3 (08:20→20:34)
[2016-12-18] MEDS: LEVOTHYROXINE SODIUM 0.05 MG TABLET PO SCH (09:13)
[2016-12-18] MEDS: AZITHROMYCIN 250 MG TABLET PO SCH (09:13)
[2016-12-18] MEDS: DOCUSATE SODIUM 100 MG CAPSULE PO SCH ×2 (09:13→17:40)
[2016-12-18] MEDS: CLOPIDOGREL BISULFATE 75 MG TABLET PO SCH (09:13)
[2016-12-18] MEDS: CEFEPIME 1 GM/D5W RTU 50 ML IV SCH ×2 (09:14→22:13)
[2016-12-18] MEDS: MAGNESIUM OXIDE 400 MG TABLET PO SCH ×2 (09:14→17:40)
--- NOTE | 2016-12-18 13:10 | PDOC PROGRESS REPORT ---
Subjective Progress Note for:: 12/18/16 Subjective:: Patient is doing fair patient is CT abdomen and pelvis so some appendicitis patient does not have any abdominal symptoms and was seen by general surgeon and suggest no need for any further intervention. Patient's denied any chest without any shortness of the. Still have a lot of anxiety. His blood pressures remained stable Physical Exam Vital Signs: Temp Pulse Resp BP Pulse Ox 98.9 F 72 16 107/63 98 12/18/16 07:48 12/18/16 08:20 12/18/16 08:20 12/18/16 07:48 12/18/16 08:20 Intake & Output 12/17/16 12/18/16 12/19/16 06:59 06:59 06:59 Intake Total 3292 3430 Output Total 2000 2500 Balance 1292 930 Weight 104.1 kg 104.4 kg General appearance: PRESENT: no acute distress, well-developed, well-nourished Head exam: PRESENT: atraumatic, normocephalic Eye exam: PRESENT: conjunctiva pink, EOMI, PERRLA. ABSENT: scleral icterus Ear exam: PRESENT: normal external ear exam Mouth exam: PRESENT: moist, tongue midline Neck exam: PRESENT: full ROM. ABSENT: carotid bruit, JVD, lymphadenopathy, thyromegaly Cardiovascular exam: PRESENT: RRR. ABSENT: diastolic murmur, rubs, systolic murmur Pulses: PRESENT: normal dorsalis pedis pul, +2 pedal pulses bilateral Vascular exam: PRESENT: normal capillary refill GI/Abdominal exam: PRESENT: normal bowel sounds, soft. ABSENT: distended, guarding, mass, organolmegaly, rebound, tenderness Rectal exam: PRESENT: deferred Neurological exam: PRESENT: alert, awake, oriented to person, oriented to place , oriented to time, oriented to situation, CN II-XII grossly intact. ABSENT: motor sensory deficit Psychiatric exam: PRESENT: appropriate affect, normal mood. ABSENT: homicidal ideation, suicidal ideation Skin exam: PRESENT: dry, intact, warm. ABSENT: cyanosis, rash Results Laboratory Results: 12/18/16 05:16 12/17/16 05:13 12/17/16 12/18/16 14:00 05:16 WBC 4.1 RBC 3.06 L Hgb 9.7 L Hct 28.7 L MCV 94 MCH 31.7 MCHC 33.7 RDW 17.7 H Plt Count 95 L Seg Neutrophils % Not Reportable Lymphocytes % Not Reportable Monocytes % Not Reportable Eosinophils % Not Reportable Basophils % Not Reportable Absolute Neutrophils Not Reportable Absolute Lymphocytes Not Reportable Absolute Monocytes Not Reportable Absolute Eosinophils Not Reportable Absolute Basophils Not Reportable Stool Occult Blood NEGATIVE 12/16/16 12/16/16 12/16/16 09:06 09:06 14:34 Creatine Kinase 104 109 CK-MB (CK-2) 2.29 Troponin I < 0.012 12/16/16 12/16/16 12/16/16 14:34 20:35 20:35 Creatine Kinase 131 CK-MB (CK-2) 2.41 3.43 Troponin I < 0.012 < 0.012 Impressions: Chest X-Ray 12/16/16 01:19 IMPRESSION: NO ACUTE RADIOGRAPHIC FINDING IN THE CHEST. Chest/Abdomen CTA 12/16/16 04:13 IMPRESSION: UNREMARKABLE CTA CHEST WITHOUT PULMONARY EMBOLI IDENTIFIED. ENLARGING CLUSTER OF ADJACENT NODULES WITHIN THE LEFT UPPER LOBE RAISING CONCERN FOR NEOPLASTIC PROCESS. BIOPSY IS RECOMMENDED. NEW 4 MM PULMONARY NODULE LEFT LOWER LOBE. RECOMMEND ATTENTION ON FOLLOW-UP STUDIES. Abdomen/Pelvis CT 12/17/16 00:00 IMPRESSION: Question acute appendicitis. Findings discussed with Dr. 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 Assessment & Plan - Diagnosis (1) Hypotension Qualifiers: Hypotension type: unspecified hypotension type Qualified Code(s): I95.9 - Hypotension, unspecified Is this a current diagnosis for this admission?: YesPlan: No sign of any infection so far will stop the IV fluid I think he probably most likely a from the pain medication fentanyl patch (2) COPD exacerbation Is this a current diagnosis for this admission?: YesPlan: With acute bronchitis continues the nebulizer treatments and add the Zithromax (3) Lung cancer Qualifiers: Laterality: right Lung location: upper lobe of lung Qualified Code(s): C34.11 - Malignant neoplasm of upper lobe, right bronchus or lung Is this a current diagnosis for this admission?: YesPlan: Stage IV lung cancer currently on immunotherapy (4) Type 2 diabetes mellitus Qualifiers: Diabetes mellitus complication status: with unspecified complications Is this a current diagnosis for this admission?: YesPlan: Continues the sliding scale and hold the metformin due to the IV contrast (5) Anxiety disorder Qualifiers: Anxiety disorder type: generalized anxiety disorder Qualified Code(s ): F41.1 - Generalized anxiety disorder Is this a current diagnosis for this admission?: YesPlan: Continues the BuSpar 5 mg p.o. q. 8 (6) Hypoxia Is this a current diagnosis for this admission?: YesPlan: Still needed 3 L of oxygen (7) Thyroid disorder Is this a current diagnosis for this admission?: YesPlan: Patient was hyperthyroidism but currently running hypo-and patient is currently on levothyroxine supplement will get the ultrasound of the thyroid - Time Time Spent with patient: 15-24 minutes Medications reviewed and adjusted accordingly: Yes Anticipated discharge: Home - Inpatient Certification Medical Necessity: Significant Comorbidiites Make Outpatient Treatment Too Risky Post Hospital Care: D/C [employer] Documentation - Plan Summary Plan Summary: Stop the IV fluid physical therapy evaluation and wean him from the oxygen. Maybe consider stop the IV antibiotic if remains afebrile and start on the Keflex and he feels remained stable and be discharged home soon
[2016-12-18] MEDS: ATORVASTATIN CALCIUM 10 MG TABLET PO SCH (22:13)
[2016-12-19 04:43] LABS: ABSOLUTE EOSINOPHILS # (AUTO) 0.1 10^3/uL (0.0-0.6); ABSOLUTE LYMPHOCYTES (AUTO) 0.3 10^3/uL (0.5-4.7); ABSOLUTE NEUT (AUTO) 2.2 10^3/uL (1.7-8.2); HEMOGLOBIN 10.2 g/dL (13.5-17.0)
[2016-12-19 04:57] LABS: ABSOLUTE MONOCYTES (AUTO) 0.3 10^3/uL (0.1-1.4); BASOPHILS % (AUTO) 0.4 % (0-2); EOSINOPHILS % (AUTO) 2.4 % (0-6); HEMATOCRIT 29.3 % (37.9-51.0); HGB HCT DIFFERENCE 1.3; LYMPHOCYTES % (AUTO) 10.9 % (13-45); MEAN CORPUSCULAR HGB CONC 34.7 g/dL (32.0-36.0); MEAN CORPUSCULAR VOLUME 92 fl (80-97); MONOCYTES % (AUTO) 9.2 % (3-13); RED BLOOD COUNT 3.17 10^6/uL (4.35-5.55); RED CELL DISTRIBUTION WIDTH 17.5 % (11.5-14.0); SEGMENTED NEUTROPHILS % (AUTO) 77.1 % (42-78)
[2016-12-19 04:59] LABS: WHITE BLOOD COUNT 2.8 10^3/uL (4.0-10.5)
[2016-12-19] MEDS: BUSPIRONE HCL 10 MG TABLET PO SCH ×3 (05:38→21:47)
[2016-12-19] MEDS: LANSOPRAZOLE 15 MG TAB.RAP.DR PO SCH ×2 (05:39→17:01)
[2016-12-19] MEDS: LEVOTHYROXINE SODIUM 0.05 MG TABLET PO SCH (08:15)
[2016-12-19] MEDS: IPRATROPIUM/ALBUTEROL 0.5-2.5 MG/3 ML AMPUL NEB SCH ×3 (08:17→20:37)
--- NOTE | 2016-12-19 10:08 | PDOC PROGRESS REPORT ---
Subjective Progress Note for:: 12/19/16 Subjective:: Feels better and thinks he may go home today. Wants to make sure that he gets the lower dose of Fentanyl patches Physical Exam Vital Signs: Temp Pulse Resp BP Pulse Ox 97.9 F 65 22 H 101/58 L 99 12/19/16 07:29 12/19/16 07:29 12/19/16 07:29 12/19/16 07:29 12/19/16 07:29 Intake & Output 12/18/16 12/19/16 12/20/16 06:59 06:59 06:59 Intake Total 3430 1137 Output Total 2500 750 Balance 930 387 Weight 104.4 kg 100.3 kg General appearance: PRESENT: no acute distress Head exam: PRESENT: normocephalic Eye exam: PRESENT: EOMI, PERRLA Ear exam: PRESENT: normal external ear exam Respiratory exam: PRESENT: clear to auscultation leida, unlabored Cardiovascular exam: PRESENT: RRR GI/Abdominal exam: PRESENT: normal bowel sounds, soft Neurological exam: PRESENT: alert, awake, oriented to person, oriented to place , oriented to time, oriented to situation Results Laboratory Results: 12/19/16 04:23 12/17/16 05:13 12/19/16 04:23 WBC 2.8 L D RBC 3.17 L Hgb 10.2 L Hct 29.3 L MCV 92 MCH 32.0 MCHC 34.7 RDW 17.5 H Plt Count 106 L Seg Neutrophils % 77.1 Lymphocytes % 10.9 L Monocytes % 9.2 Eosinophils % 2.4 Basophils % 0.4 Absolute Neutrophils 2.2 Absolute Lymphocytes 0.3 L Absolute Monocytes 0.3 Absolute Eosinophils 0.1 Absolute Basophils 0.0 12/16/16 12/16/16 12/16/16 09:06 09:06 14:34 Creatine Kinase 104 109 CK-MB (CK-2) 2.29 Troponin I < 0.012 12/16/16 12/16/16 12/16/16 14:34 20:35 20:35 Creatine Kinase 131 CK-MB (CK-2) 2.41 3.43 Troponin I < 0.012 < 0.012 Impressions: Chest X-Ray 12/16/16 01:19 IMPRESSION: NO ACUTE RADIOGRAPHIC FINDING IN THE CHEST. Chest/Abdomen CTA 12/16/16 04:13 IMPRESSION: UNREMARKABLE CTA CHEST WITHOUT PULMONARY EMBOLI IDENTIFIED. ENLARGING CLUSTER OF ADJACENT NODULES WITHIN THE LEFT UPPER LOBE RAISING CONCERN FOR NEOPLASTIC PROCESS. BIOPSY IS RECOMMENDED. NEW 4 MM PULMONARY NODULE LEFT LOWER LOBE. RECOMMEND ATTENTION ON FOLLOW-UP STUDIES. Abdomen/Pelvis CT 12/17/16 00:00 IMPRESSION: Question acute appendicitis. Findings discussed with Dr. 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 Assessment & Plan - Diagnosis (1) Hypoxia Is this a current diagnosis for this admission?: YesPlan: Improved (2) Lung cancer Qualifiers: Laterality: right Lung location: upper lobe of lung Qualified Code(s): C34.11 - Malignant neoplasm of upper lobe, right bronchus or lung Is this a current diagnosis for this admission?: YesPlan: Reassess as an outpatient prior to resuming Opdivo (3) Pain, neoplasm-related Is this a current diagnosis for this admission?: YesPlan: Reduce Fentanyl patch dosing on discharge and continue breakthrough - Time Time Spent with patient: 25-34 minutes Critical Time spent with patient: 15-24 minutes Medications reviewed and adjusted accordingly: Yes Anticipated discharge: Home Within: within 48 hours
[2016-12-19] MEDS: AZITHROMYCIN 250 MG TABLET PO SCH (10:32)
[2016-12-19] MEDS: DOCUSATE SODIUM 100 MG CAPSULE PO SCH ×2 (10:33→17:02)
[2016-12-19] MEDS: CEFEPIME 1 GM/D5W RTU 50 ML IV SCH ×2 (10:33→21:47)
[2016-12-19] MEDS: MAGNESIUM OXIDE 400 MG TABLET PO SCH ×2 (10:33→17:01)
[2016-12-19] MEDS: CLOPIDOGREL BISULFATE 75 MG TABLET PO SCH (10:33)
[2016-12-19] MEDS: FENTANYL 50 MCG/HR PATCH.TD72 TD SCH (10:35)
--- NOTE | 2016-12-19 16:08 | PDOC PROGRESS REPORT ---
Subjective Progress Note for:: 12/19/16 Subjective:: Patient continue to request oxygen supplementation. There is associated chest congestion with minimally productive coughing. He denied any chest pain. No nausea, vomiting or abdominal pain. Patient denied fever or chills. Physical Exam Vital Signs: Temp Pulse Resp BP Pulse Ox 98.1 F 69 14 107/66 98 12/19/16 11:59 12/19/16 13:56 12/19/16 13:56 12/19/16 11:59 12/19/16 13:56 Intake & Output 12/18/16 12/19/16 12/20/16 06:59 06:59 06:59 Intake Total 3430 1137 237 Output Total 2500 750 Balance 930 387 237 Weight 104.4 kg 100.3 kg Physical Exam: General appearance: PRESENT: no acute distress, well-developed, well-nourished Head exam: PRESENT: atraumatic, normocephalic Eye exam: PRESENT: conjunctiva pink, EOMI, PERRLA. ABSENT: scleral icterus Ear exam: PRESENT: normal external ear exam Mouth exam: PRESENT: moist, tongue midline Neck exam: PRESENT: full ROM. ABSENT: carotid bruit, JVD, lymphadenopathy, thyromegaly Cardiovascular exam: PRESENT: RRR. ABSENT: diastolic murmur, rubs, systolic murmur Pulses: PRESENT: normal dorsalis pedis pul, +2 pedal pulses bilateral Vascular exam: PRESENT: normal capillary refill GI/Abdominal exam: PRESENT: normal bowel sounds, soft. ABSENT: distended, guarding, mass, organolmegaly, rebound, tenderness Rectal exam: PRESENT: deferred Neurological exam: PRESENT: alert, awake, oriented to person, oriented to place , oriented to time, oriented to situation, CN II-XII grossly intact. ABSENT: motor sensory deficit Psychiatric exam: PRESENT: appropriate affect, normal mood. ABSENT: homicidal ideation, suicidal ideation Skin exam: PRESENT: dry, intact, warm. ABSENT: cyanosis, rash Results Laboratory Results: 12/19/16 04:23 12/17/16 05:13 12/19/16 04:23 WBC 2.8 L D RBC 3.17 L Hgb 10.2 L Hct 29.3 L MCV 92 MCH 32.0 MCHC 34.7 RDW 17.5 H Plt Count 106 L Seg Neutrophils % 77.1 Lymphocytes % 10.9 L Monocytes % 9.2 Eosinophils % 2.4 Basophils % 0.4 Absolute Neutrophils 2.2 Absolute Lymphocytes 0.3 L Absolute Monocytes 0.3 Absolute Eosinophils 0.1 Absolute Basophils 0.0 12/16/16 12/16/16 12/16/16 09:06 09:06 14:34 Creatine Kinase 104 109 CK-MB (CK-2) 2.29 Troponin I < 0.012 12/16/16 12/16/16 12/16/16 14:34 20:35 20:35 Creatine Kinase 131 CK-MB (CK-2) 2.41 3.43 Troponin I < 0.012 < 0.012 Impressions: Chest X-Ray 12/16/16 01:19 IMPRESSION: NO ACUTE RADIOGRAPHIC FINDING IN THE CHEST. Chest/Abdomen CTA 12/16/16 04:13 IMPRESSION: UNREMARKABLE CTA CHEST WITHOUT PULMONARY EMBOLI IDENTIFIED. ENLARGING CLUSTER OF ADJACENT NODULES WITHIN THE LEFT UPPER LOBE RAISING CONCERN FOR NEOPLASTIC PROCESS. BIOPSY IS RECOMMENDED. NEW 4 MM PULMONARY NODULE LEFT LOWER LOBE. RECOMMEND ATTENTION ON FOLLOW-UP STUDIES. Abdomen/Pelvis CT 12/17/16 00:00 IMPRESSION: Question acute appendicitis. Findings discussed with Dr. 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 Assessment & Plan - Diagnosis (1) COPD exacerbation Is this a current diagnosis for this admission?: YesPlan: Continue current medical management. Obtain ambulatory pulse oximetry to qualify for home oxygen upon discharge. (2) Lung cancer Qualifiers: Laterality: right Lung location: upper lobe of lung Qualified Code(s): C34.11 - Malignant neoplasm of upper lobe, right bronchus or lung Is this a current diagnosis for this admission?: YesPlan: Continue current medical management. (3) Type 2 diabetes mellitus Qualifiers: Diabetes mellitus complication status: with unspecified complications Is this a current diagnosis for this admission?: Yes - Time Time Spent with patient: 25-34 minutes Medications reviewed and adjusted accordingly: Yes Anticipated discharge: Home with Homehealth - Inpatient Certification Based on my medical assessment, after consideration of the patient's comorbidities, presenting symptoms, or acuity I expect that the services needed warrant INPATIENT care.: Yes I certify that my determination is in accordance with my understanding of Medicare's requirements for reasonable and necessary INPATIENT services [42 CFR 412.3e].: Yes Medical Necessity: Need For IV Fluids, Need for Nebulizer Therapy and Monitoring of Response, Need for IV Antibiotics, Risk of Diagnosis Which Will Require Inpatient Eval/Care/Monitoring 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
[2016-12-19] MEDS: ATORVASTATIN CALCIUM 10 MG TABLET PO SCH (21:47)
[2016-12-20] MEDS: LANSOPRAZOLE 15 MG TAB.RAP.DR PO SCH ×2 (05:37→17:50)
[2016-12-20] MEDS: BUSPIRONE HCL 10 MG TABLET PO SCH ×3 (05:38→21:35)
[2016-12-20] MEDS: LEVOTHYROXINE SODIUM 0.05 MG TABLET PO SCH (07:19)
[2016-12-20] MEDS: IPRATROPIUM/ALBUTEROL 0.5-2.5 MG/3 ML AMPUL NEB SCH ×3 (08:25→20:08)
[2016-12-20] MEDS: MAGNESIUM OXIDE 400 MG TABLET PO SCH ×2 (09:20→17:50)
[2016-12-20] MEDS: AZITHROMYCIN 250 MG TABLET PO SCH (09:20)
[2016-12-20] MEDS: CEFEPIME 1 GM/D5W RTU 50 ML IV SCH ×2 (09:20→21:33)
[2016-12-20] MEDS: CLOPIDOGREL BISULFATE 75 MG TABLET PO SCH (09:20)
[2016-12-20] MEDS: DOCUSATE SODIUM 100 MG CAPSULE PO SCH ×2 (09:21→17:50)
--- NOTE | 2016-12-20 15:54 | PDOC PROGRESS REPORT ---
Subjective Progress Note for:: 12/20/16 Subjective:: Patient continue to request oxygen supplementation with ambulation. Her demonstrated desaturation off supplemental oxygen to around 89% off supplemental oxygen. He denied any chest pain. Improved chest congestion. No nausea, vomiting or abdominal pain. Patient denied fever or chills. Physical Exam Vital Signs: Temp Pulse Resp BP Pulse Ox 98.6 F 77 14 92/54 L 95 12/20/16 11:42 12/20/16 14:03 12/20/16 14:03 12/20/16 11:42 12/20/16 14:03 Intake & Output 12/19/16 12/20/16 12/21/16 06:59 06:59 06:59 Intake Total 1137 1172 237 Output Total 750 Balance 387 1172 237 Weight 100.3 kg 99.2 kg Physical Exam: General appearance: PRESENT: no acute distress, well-developed, well-nourished Head exam: PRESENT: atraumatic, normocephalic Eye exam: PRESENT: conjunctiva pink, EOMI, PERRLA. ABSENT: scleral icterus Ear exam: PRESENT: normal external ear exam Mouth exam: PRESENT: moist, tongue midline Neck exam: PRESENT: full ROM. ABSENT: carotid bruit, JVD, lymphadenopathy, thyromegaly Cardiovascular exam: PRESENT: RRR. ABSENT: diastolic murmur, rubs, systolic murmur Pulses: PRESENT: normal dorsalis pedis pul, +2 pedal pulses bilateral Vascular exam: PRESENT: normal capillary refill GI/Abdominal exam: PRESENT: normal bowel sounds, soft. ABSENT: distended, guarding, mass, organolmegaly, rebound, tenderness Rectal exam: PRESENT: deferred Neurological exam: PRESENT: alert, awake, oriented to person, oriented to place , oriented to time, oriented to situation, CN II-XII grossly intact. ABSENT: motor sensory deficit Psychiatric exam: PRESENT: appropriate affect, normal mood. ABSENT: homicidal ideation, suicidal ideation Skin exam: PRESENT: dry, intact, warm. ABSENT: cyanosis, rash Results Laboratory Results: 12/19/16 04:23 12/17/16 05:13 12/16/16 12/16/16 12/16/16 09:06 09:06 14:34 Creatine Kinase 104 109 CK-MB (CK-2) 2.29 Troponin I < 0.012 12/16/16 12/16/16 12/16/16 14:34 20:35 20:35 Creatine Kinase 131 CK-MB (CK-2) 2.41 3.43 Troponin I < 0.012 < 0.012 Impressions: Chest X-Ray 12/16/16 01:19 IMPRESSION: NO ACUTE RADIOGRAPHIC FINDING IN THE CHEST. Chest/Abdomen CTA 12/16/16 04:13 IMPRESSION: UNREMARKABLE CTA CHEST WITHOUT PULMONARY EMBOLI IDENTIFIED. ENLARGING CLUSTER OF ADJACENT NODULES WITHIN THE LEFT UPPER LOBE RAISING CONCERN FOR NEOPLASTIC PROCESS. BIOPSY IS RECOMMENDED. NEW 4 MM PULMONARY NODULE LEFT LOWER LOBE. RECOMMEND ATTENTION ON FOLLOW-UP STUDIES. Abdomen/Pelvis CT 12/17/16 00:00 IMPRESSION: Question acute appendicitis. Findings discussed with Dr. 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 Assessment & Plan - Diagnosis (1) COPD exacerbation Is this a current diagnosis for this admission?: YesPlan: Continue current medical management. (2) Lung cancer Qualifiers: Laterality: right Lung location: upper lobe of lung Qualified Code(s): C34.11 - Malignant neoplasm of upper lobe, right bronchus or lung Is this a current diagnosis for this admission?: YesPlan: Continue current medical management. (3) Type 2 diabetes mellitus Qualifiers: Diabetes mellitus complication status: with unspecified complications Diabetes mellitus shelter insulin use: without termite treater helper use Qualified Code(s): E11.8 - Type 2 diabetes mellitus with unspecified complications Is this a current diagnosis for this admission?: YesPlan: See covering attending physician orders. 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
[2016-12-20] MEDS: ATORVASTATIN CALCIUM 10 MG TABLET PO SCH (21:35)
[2016-12-21 05:04] LABS: ABSOLUTE EOSINOPHILS # (AUTO) 0.1 10^3/uL (0.0-0.6); ABSOLUTE LYMPHOCYTES (AUTO) 0.6 10^3/uL (0.5-4.7); ABSOLUTE MONOCYTES (AUTO) 0.3 10^3/uL (0.1-1.4); ABSOLUTE NEUT (AUTO) 2.3 10^3/uL (1.7-8.2); BASOPHILS % (AUTO) 0.6 % (0-2); EOSINOPHILS % (AUTO) 3.2 % (0-6); HEMATOCRIT 28.5 % (37.9-51.0); HGB HCT DIFFERENCE 1.5; LYMPHOCYTES % (AUTO) 17.5 % (13-45); MEAN CORPUSCULAR VOLUME 92 fl (80-97); MONOCYTES % (AUTO) 7.9 % (3-13); RED BLOOD COUNT 3.11 10^6/uL (4.35-5.55); RED CELL DISTRIBUTION WIDTH 17.2 % (11.5-14.0); SEGMENTED NEUTROPHILS % (AUTO) 70.8 % (42-78); WHITE BLOOD COUNT 3.3 10^3/uL (4.0-10.5)
[2016-12-21 05:23] LABS: ANION GAP 11 (5-19); BLOOD UREA NITROGEN 16 mg/dL (7-20); CALCIUM 8.9 mg/dL (8.4-10.2); CARBON DIOXIDE 27 mmol/L (22-30); CHLORIDE 102 mmol/L (98-107); CREATININE RESULT 1.05 mg/dL (0.52-1.25); GLUCOSE 92 mg/dL (75-110); POTASSIUM 3.6 mmol/L (3.6-5.0); SODIUM 140.1 mmol/L (137-145)
[2016-12-21] MEDS: LANSOPRAZOLE 15 MG TAB.RAP.DR PO SCH ×2 (06:07→18:17)
[2016-12-21] MEDS: BUSPIRONE HCL 10 MG TABLET PO SCH ×3 (06:07→22:00)
--- NOTE | 2016-12-21 07:43 | PDOC PROGRESS REPORT ---
Subjective Progress Note for:: 12/21/16 Subjective:: Feeling better today, some increased pain today Physical Exam Vital Signs: Temp Pulse Resp BP Pulse Ox 98.0 F 69 16 98/65 L 97 12/21/16 03:31 12/21/16 03:31 12/21/16 03:31 12/21/16 03:31 12/21/16 03:31 Intake & Output 12/20/16 12/21/16 12/22/16 06:59 06:59 06:59 Intake Total 1172 1882 Balance 1172 1882 Weight 99.2 kg 98.1 kg General appearance: PRESENT: no acute distress, well-developed, well-nourished Head exam: PRESENT: atraumatic, normocephalic Eye exam: PRESENT: conjunctiva pink, EOMI, PERRLA. ABSENT: scleral icterus Ear exam: PRESENT: normal external ear exam Mouth exam: PRESENT: moist, tongue midline Neck exam: ABSENT: carotid bruit, JVD, lymphadenopathy, thyromegaly Respiratory exam: PRESENT: clear to auscultation leida. ABSENT: rales, rhonchi, wheezes Cardiovascular exam: PRESENT: RRR. ABSENT: diastolic murmur, rubs, systolic murmur Pulses: PRESENT: normal dorsalis pedis pul Vascular exam: PRESENT: normal capillary refill GI/Abdominal exam: PRESENT: normal bowel sounds, soft. ABSENT: distended, guarding, mass, organolmegaly, rebound, tenderness Rectal exam: PRESENT: deferred Extremities exam: PRESENT: full ROM. ABSENT: calf tenderness, clubbing, pedal edema Neurological exam: PRESENT: alert, awake, oriented to person, oriented to place , oriented to time, oriented to situation, CN II-XII grossly intact. ABSENT: motor sensory deficit Psychiatric exam: PRESENT: appropriate affect, normal mood. ABSENT: homicidal ideation, suicidal ideation Skin exam: PRESENT: dry, intact, warm. ABSENT: cyanosis, rash Results Laboratory Results: 12/21/16 04:34 12/21/16 04:34 12/21/16 12/21/16 04:34 04:34 WBC 3.3 L RBC 3.11 L Hgb 10.0 L Hct 28.5 L MCV 92 MCH 32.0 MCHC 35.0 RDW 17.2 H Plt Count 111 L Seg Neutrophils % 70.8 Lymphocytes % 17.5 Monocytes % 7.9 Eosinophils % 3.2 Basophils % 0.6 Absolute Neutrophils 2.3 Absolute Lymphocytes 0.6 Absolute Monocytes 0.3 Absolute Eosinophils 0.1 Absolute Basophils 0.0 Sodium 140.1 Potassium 3.6 Chloride 102 Carbon Dioxide 27 Anion Gap 11 BUN 16 Creatinine 1.05 Est GFR ( Amer) > 60 Est GFR (Non-Af Amer) > 60 Glucose 92 Calcium 8.9 12/16/16 12/16/16 12/16/16 09:06 09:06 14:34 Creatine Kinase 104 109 CK-MB (CK-2) 2.29 Troponin I < 0.012 12/16/16 12/16/16 12/16/16 14:34 20:35 20:35 Creatine Kinase 131 CK-MB (CK-2) 2.41 3.43 Troponin I < 0.012 < 0.012 Impressions: Chest X-Ray 12/16/16 01:19 IMPRESSION: NO ACUTE RADIOGRAPHIC FINDING IN THE CHEST. Chest/Abdomen CTA 12/16/16 04:13 IMPRESSION: UNREMARKABLE CTA CHEST WITHOUT PULMONARY EMBOLI IDENTIFIED. ENLARGING CLUSTER OF ADJACENT NODULES WITHIN THE LEFT UPPER LOBE RAISING CONCERN FOR NEOPLASTIC PROCESS. BIOPSY IS RECOMMENDED. NEW 4 MM PULMONARY NODULE LEFT LOWER LOBE. RECOMMEND ATTENTION ON FOLLOW-UP STUDIES. Abdomen/Pelvis CT 12/17/16 00:00 IMPRESSION: Question acute appendicitis. Findings discussed with Dr. 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 Assessment & Plan - Diagnosis (1) Hypoxia Is this a current diagnosis for this admission?: YesPlan: Likely COPD exacerbation, now improved, setting up home 02 today (2) Lung cancer Qualifiers: Laterality: right Lung location: upper lobe of lung Qualified Code(s): C34.11 - Malignant neoplasm of upper lobe, right bronchus or lung Is this a current diagnosis for this admission?: YesPlan: Further rx as outpt, pt will have f/u in office this wednesday for treatment continuation. (3) Pain, neoplasm-related Is this a current diagnosis for this admission?: YesPlan: Fentanyl continued, adding back dilaudid today - Time Time Spent with patient: 25-34 minutes Critical Time spent with patient: 25-34 minutes Anticipated discharge: Home Within: within 24 hours
[2016-12-21] MEDS: IPRATROPIUM/ALBUTEROL 0.5-2.5 MG/3 ML AMPUL NEB SCH ×3 (08:15→20:53)
[2016-12-21] MEDS: LEVOTHYROXINE SODIUM 0.05 MG TABLET PO SCH (08:44)
[2016-12-21] MEDS: MAGNESIUM OXIDE 400 MG TABLET PO SCH ×2 (09:29→18:17)
[2016-12-21] MEDS: DOCUSATE SODIUM 100 MG CAPSULE PO SCH ×2 (09:30→18:18)
[2016-12-21] MEDS: CLOPIDOGREL BISULFATE 75 MG TABLET PO SCH (09:30)
[2016-12-21] MEDS: CEFEPIME 1 GM/D5W RTU 50 ML IV SCH ×2 (09:30→22:01)
[2016-12-21] MEDS: AZITHROMYCIN 250 MG TABLET PO SCH (09:30)
[2016-12-21] MEDS: HYDROMORPHONE HCL 2 MG TABLET PO PRN (09:31)
--- NOTE | 2016-12-21 10:26 | PDOC PROGRESS REPORT ---
Subjective Progress Note for:: 12/21/16 Subjective:: Patient is doing much better patient's blood pressure is stable patients denied any abdominal no nausea no vomiting. Patient still needed oxygen Physical Exam Vital Signs: Temp Pulse Resp BP Pulse Ox 97.8 F 72 18 105/63 99 12/21/16 08:00 12/21/16 08:15 12/21/16 08:15 12/21/16 08:00 12/21/16 08:15 Intake & Output 12/20/16 12/21/16 12/22/16 06:59 06:59 06:59 Intake Total 1172 1882 Balance 1172 1882 Weight 99.2 kg 98.1 kg General appearance: PRESENT: no acute distress, well-developed, well-nourished Head exam: PRESENT: atraumatic, normocephalic Eye exam: PRESENT: conjunctiva pink, EOMI, PERRLA. ABSENT: scleral icterus Ear exam: PRESENT: normal external ear exam Mouth exam: PRESENT: moist, tongue midline Neck exam: PRESENT: full ROM. ABSENT: carotid bruit, JVD, lymphadenopathy, thyromegaly Cardiovascular exam: PRESENT: RRR. ABSENT: diastolic murmur, rubs, systolic murmur Pulses: PRESENT: normal dorsalis pedis pul, +2 pedal pulses bilateral Vascular exam: PRESENT: normal capillary refill GI/Abdominal exam: PRESENT: normal bowel sounds, soft. ABSENT: distended, guarding, mass, organolmegaly, rebound, tenderness Rectal exam: PRESENT: deferred Neurological exam: PRESENT: alert, awake, oriented to person, oriented to place , oriented to time, oriented to situation, CN II-XII grossly intact. ABSENT: motor sensory deficit Psychiatric exam: PRESENT: appropriate affect, normal mood. ABSENT: homicidal ideation, suicidal ideation Skin exam: PRESENT: dry, intact, warm. ABSENT: cyanosis, rash Results Laboratory Results: 12/21/16 04:34 12/21/16 04:34 12/21/16 12/21/16 04:34 04:34 WBC 3.3 L RBC 3.11 L Hgb 10.0 L Hct 28.5 L MCV 92 MCH 32.0 MCHC 35.0 RDW 17.2 H Plt Count 111 L Seg Neutrophils % 70.8 Lymphocytes % 17.5 Monocytes % 7.9 Eosinophils % 3.2 Basophils % 0.6 Absolute Neutrophils 2.3 Absolute Lymphocytes 0.6 Absolute Monocytes 0.3 Absolute Eosinophils 0.1 Absolute Basophils 0.0 Sodium 140.1 Potassium 3.6 Chloride 102 Carbon Dioxide 27 Anion Gap 11 BUN 16 Creatinine 1.05 Est GFR ( Amer) > 60 Est GFR (Non-Af Amer) > 60 Glucose 92 Calcium 8.9 12/16/16 12/16/16 12/16/16 09:06 09:06 14:34 Creatine Kinase 104 109 CK-MB (CK-2) 2.29 Troponin I < 0.012 12/16/16 12/16/16 12/16/16 14:34 20:35 20:35 Creatine Kinase 131 CK-MB (CK-2) 2.41 3.43 Troponin I < 0.012 < 0.012 Impressions: Chest X-Ray 12/16/16 01:19 IMPRESSION: NO ACUTE RADIOGRAPHIC FINDING IN THE CHEST. Chest/Abdomen CTA 12/16/16 04:13 IMPRESSION: UNREMARKABLE CTA CHEST WITHOUT PULMONARY EMBOLI IDENTIFIED. ENLARGING CLUSTER OF ADJACENT NODULES WITHIN THE LEFT UPPER LOBE RAISING CONCERN FOR NEOPLASTIC PROCESS. BIOPSY IS RECOMMENDED. NEW 4 MM PULMONARY NODULE LEFT LOWER LOBE. RECOMMEND ATTENTION ON FOLLOW-UP STUDIES. Abdomen/Pelvis CT 12/17/16 00:00 IMPRESSION: Question acute appendicitis. Findings discussed with Dr. 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 Assessment & Plan - Diagnosis (1) Hypotension Qualifiers: Hypotension type: unspecified hypotension type Qualified Code(s): I95.9 - Hypotension, unspecified Is this a current diagnosis for this admission?: YesPlan: Currently all stableNo sign of any sepsis (2) COPD exacerbation Is this a current diagnosis for this admission?: YesPlan: With acute bronchitis continues the nebulizer treatments and add the Zithromax (3) Lung cancer Qualifiers: Laterality: right Lung location: upper lobe of lung Qualified Code(s): C34.11 - Malignant neoplasm of upper lobe, right bronchus or lung Is this a current diagnosis for this admission?: YesPlan: Stage IV lung cancer currently on immunotherapy (4) Type 2 diabetes mellitus Qualifiers: Diabetes mellitus complication status: with unspecified complications Diabetes mellitus parts counterman insulin use: without alf use Qualified Code(s): E11.8 - Type 2 diabetes mellitus with unspecified complications; Z79.4 - intermodal dispatcher (current) use of insulin Is this a current diagnosis for this admission?: YesPlan: Continues the sliding scale and hold the metformin due to the IV contrast (5) Anxiety disorder Qualifiers: Anxiety disorder type: generalized anxiety disorder Qualified Code(s ): F41.1 - Generalized anxiety disorder Is this a current diagnosis for this admission?: YesPlan: Continues the BuSpar 5 mg p.o. q. 8 (6) Hypoxia Is this a current diagnosis for this admission?: YesPlan: Arrange the oxygen at home (7) Thyroid disorder Is this a current diagnosis for this admission?: Yes - Time Time Spent with patient: 15-24 minutes Medications reviewed and adjusted accordingly: Yes Anticipated discharge: Home Within: within 24 hours - Inpatient Certification Medical Necessity: Significant Comorbidiites Make Outpatient Treatment Too Risky - Plan Summary Plan Summary: We will make arrangement for the oxygen and hopefully patients can discharge next 24 hours
[2016-12-21] MEDS: ATORVASTATIN CALCIUM 10 MG TABLET PO SCH (22:01)
[2016-12-22] MEDS: HYDROMORPHONE HCL 2 MG TABLET PO PRN (01:11)
[2016-12-22] MEDS: LANSOPRAZOLE 15 MG TAB.RAP.DR PO SCH (06:03)
[2016-12-22] MEDS: BUSPIRONE HCL 10 MG TABLET PO SCH (06:03)
--- NOTE | 2016-12-22 07:49 | PDOC PROGRESS REPORT ---
Subjective Progress Note for:: 12/22/16 Subjective:: No acute events overnight, pt w/ con't SOB but ok on , home o2 being set up Physical Exam Vital Signs: Temp Pulse Resp BP Pulse Ox 98.0 F 67 16 94/59 L 96 12/22/16 04:08 12/22/16 04:08 12/22/16 04:08 12/22/16 04:08 12/22/16 04:08 Intake & Output 12/21/16 12/22/16 12/23/16 06:59 06:59 06:59 Intake Total 1882 2122 Balance 1882122 Weight 98.1 kg 99.7 kg General appearance: PRESENT: no acute distress, well-developed, well-nourished Head exam: PRESENT: atraumatic, normocephalic Eye exam: PRESENT: conjunctiva pink, EOMI, PERRLA. ABSENT: scleral icterus Ear exam: PRESENT: normal external ear exam Mouth exam: PRESENT: moist, tongue midline Neck exam: ABSENT: carotid bruit, JVD, lymphadenopathy, thyromegaly Respiratory exam: PRESENT: clear to auscultation leida. ABSENT: rales, rhonchi, wheezes Cardiovascular exam: PRESENT: RRR. ABSENT: diastolic murmur, rubs, systolic murmur Pulses: PRESENT: normal dorsalis pedis pul Vascular exam: PRESENT: normal capillary refill GI/Abdominal exam: PRESENT: normal bowel sounds, soft. ABSENT: distended, guarding, mass, organolmegaly, rebound, tenderness Rectal exam: PRESENT: deferred Extremities exam: PRESENT: full ROM. ABSENT: calf tenderness, clubbing, pedal edema Neurological exam: PRESENT: alert, awake, oriented to person, oriented to place , oriented to time, oriented to situation, CN II-XII grossly intact. ABSENT: motor sensory deficit Psychiatric exam: PRESENT: appropriate affect, normal mood. ABSENT: homicidal ideation, suicidal ideation Skin exam: PRESENT: dry, intact, warm. ABSENT: cyanosis, rash Results Laboratory Results: 12/21/16 04:34 12/21/16 04:34 12/16/16 12/16/16 12/16/16 09:06 09:06 14:34 Creatine Kinase 104 109 CK-MB (CK-2) 2.29 Troponin I < 0.012 02/06/2412/16/16 12/16/16 14:34 20:35 20:35 Creatine Kinase 131 CK-MB (CK-2) 2.41 3.43 Troponin I < 0.012 < 0.012 Impressions: Chest X-Ray 12/16/16 01:19 IMPRESSION: NO ACUTE RADIOGRAPHIC FINDING IN THE CHEST. Chest/Abdomen CTA 12/16/16 04:13 IMPRESSION: UNREMARKABLE CTA CHEST WITHOUT PULMONARY EMBOLI IDENTIFIED. ENLARGING CLUSTER OF ADJACENT NODULES WITHIN THE LEFT UPPER LOBE RAISING CONCERN FOR NEOPLASTIC PROCESS. BIOPSY IS RECOMMENDED. NEW 4 MM PULMONARY NODULE LEFT LOWER LOBE. RECOMMEND ATTENTION ON FOLLOW-UP STUDIES. Abdomen/Pelvis CT 12/17/16 00:00 IMPRESSION: Question acute appendicitis. Findings discussed with Dr. 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 Assessment & Plan - Diagnosis (1) Hypoxia Is this a current diagnosis for this admission?: YesPlan: Most likely COPD exac, con't per medical team but hopeful d/c soon on home (2) Lung cancer Qualifiers: Laterality: right Lung location: upper lobe of lung Qualified Code(s): C34.11 - Malignant neoplasm of upper lobe, right bronchus or lung Is this a current diagnosis for this admission?: YesPlan: Further rx w/ [facility] as outpt, has f/u this wednesday (3) Pain, neoplasm-related Is this a current diagnosis for this admission?: YesPlan: Cont current regimen, does have pain meds at home as well so should not need rx - Time Time Spent with patient: 25-34 minutes Critical Time spent with patient: 25-34 minutes Anticipated discharge: Home Within: within 24 hours
[2016-12-22] MEDS: IPRATROPIUM/ALBUTEROL 0.5-2.5 MG/3 ML AMPUL NEB SCH (08:48)
[2016-12-22] MEDS: DOCUSATE SODIUM 100 MG CAPSULE PO SCH (09:49)
[2016-12-22] MEDS: LEVOTHYROXINE SODIUM 0.05 MG TABLET PO SCH (09:49)
[2016-12-22] MEDS: AZITHROMYCIN 250 MG TABLET PO SCH (09:49)
[2016-12-22] MEDS: CLOPIDOGREL BISULFATE 75 MG TABLET PO SCH (09:50)
[2016-12-22] MEDS: MAGNESIUM OXIDE 400 MG TABLET PO SCH (09:50)
[2016-12-22] MEDS: CEFEPIME 1 GM/D5W RTU 50 ML IV SCH (09:52)
[2016-12-22] MEDS ORDERED: FENTANYL 50 MCG/HR PATCH.TD72 TD SCH (10:00)
[2016-12-22 10:20] VITALS: BP 100/68
--- NOTE | 2016-12-22 12:57 | PDOC DISCHARGE SUMMARY ---
General - Admit/Disc Date/PCP Admission Date/Primary Care Provider: 12/16/16 08:17 JAMES SULLIVAN MD Discharge Date: 12/22/16 - Discharge Diagnosis (1) Hypotension Is this a current diagnosis for this admission?: YesSummary: All stable and no sign of any sepsis possible from the pain medications (2) COPD exacerbation Is this a current diagnosis for this admission?: YesSummary: All improving continues on as needed nebulizer and start the patient's on the anro elipta (3) Lung cancer Is this a current diagnosis for this admission?: YesSummary: Currently on immunotherapy (4) Type 2 diabetes mellitus Is this a current diagnosis for this admission?: YesSummary: Continues the current medications (5) Anxiety disorder Is this a current diagnosis for this admission?: YesSummary: Continues on the BuSpar (6) Hypoxia Is this a current diagnosis for this admission?: YesSummary: From COPD will start the patient on 3 L nasal cannula (7) Thyroid disorder Is this a current diagnosis for this admission?: Yes - Additional Information Resuscitation Status: Full Code Discharge Diet: Regular Discharge Activity: Activity As Tolerated Home Medications: Buspirone HCl [Buspar 5 mg Tablet] 5 mg PO TID 12/16/16 Clopidogrel Bisulfate [Plavix] 75 mg PO DAILY 12/16/16 Levothyroxine Sodium [Synthroid 0.05 mg Tablet] 0.05 mg PO DAILY 12/16/16 Pravastatin Sodium [Pravachol] 20 mg PO DAILY 12/16/16 History of Present Illness History of Present Illness: ADRIEN BELTRAN is a 56 year old malThis is a 56-year-old male with a significant history of a stage IV lung cancer currently immunotherapy also history of the COPD and hypothyroidism and a history of the stroke came to the emergency department with the complaining of shortness of the breath since last couple of days with cough and congestions with a yellowish greenish productivity. denied any fever. In the emergency departments patient was hypoxic and patient was hypotensive also and patient's also underwent for the CT angiogram to rule out any pulmonary embolism and it was negative patient also received 3 L of IV fluid and patient's current systolic blood pressure is 90. Patient's denied any chest pain denied any abdominal pain no nausea no vomiting. Patients also have a significant history of the anxiety attack currently put on a BuSpar for that. His last immunotherapy was 2 weeks back. I saw the patient's patient is comfortably lying in a bed and denied any chest pain no short of breath and feeling okay. At this point admitting in the IMCU for further evaluations for the hypoxia and hypotension and rule out any sepsis. Hospital Course Hospital Course: This is a 56-year-old male is with a significant history of lung cancer COPD and history of the thyroid disorder came to the emergency department with complaint of shortness of the and not feeling and patient's initial workup was all stable Patient was hypoxic and patient's blood pressure was low. She was admitted to rule out any sepsis due to the immunotherapy and also the CT angiogram is negative for any pulmonary embolism and also did a CT abdomen and pelvis is also negative. There was some concern on the CT scan about a pending but patient does not have any symptoms in the general surgery was consulted and suggested no need for further intervention. Patient's otherwise remained stable p.o. intake is good patient's date of physical therapy around in the patient's need oxygen at home and the patient's blood pressure medication was DC 'd and followed in the follow in the outpatient in 1 week. Discussed with the family about the patient's current condition and make an arrangement with the home health and oxygen arrangement at home to Physical Exam Vital Signs: Temp Pulse Resp BP Pulse Ox 97.9 F 78 16 100/68 98 12/22/16 10:18 12/22/16 10:18 12/22/16 10:18 12/22/16 10:18 12/22/16 10:18 Intake & Output 12/21/16 12/22/16 12/23/16 06:59 06:59 06:59 Intake Total 1881 2122 Balance 1881 2122 Weight 98.1 kg 99.7 kg General appearance: PRESENT: no acute distress, well-developed, well-nourished Head exam: PRESENT: atraumatic, normocephalic Eye exam: PRESENT: conjunctiva pink, EOMI, PERRLA. ABSENT: scleral icterus Ear exam: PRESENT: normal external ear exam Mouth exam: PRESENT: moist, tongue midline Neck exam: PRESENT: full ROM. ABSENT: carotid bruit, JVD, lymphadenopathy, thyromegaly Respiratory exam: PRESENT: clear to auscultation leida Cardiovascular exam: PRESENT: RRR. ABSENT: diastolic murmur, rubs, systolic murmur Pulses: PRESENT: normal dorsalis pedis pul, +2 pedal pulses bilateral Vascular exam: PRESENT: normal capillary refill GI/Abdominal exam: PRESENT: normal bowel sounds, soft. ABSENT: distended, guarding, mass, organolmegaly, rebound, tenderness Rectal exam: PRESENT: deferred Neurological exam: PRESENT: alert, awake, oriented to person, oriented to place , oriented to time, oriented to situation, CN II-XII grossly intact. ABSENT: motor sensory deficit Psychiatric exam: PRESENT: appropriate affect, normal mood. ABSENT: homicidal ideation, suicidal ideation Skin exam: PRESENT: dry, intact, warm. ABSENT: cyanosis, rash Results Laboratory Results: 12/21/16 04:34 12/21/16 04:34 12/16/16 12/16/16 12/16/16 09:06 09:06 14:34 Creatine Kinase 104 109 CK-MB (CK-2) 2.29 Troponin I < 0.012 12/16/16 12/16/16 12/16/16 14:34 20:35 20:35 Creatine Kinase 131 CK-MB (CK-2) 2.41 3.43 Troponin I < 0.012 < 0.012 Impressions: Chest X-Ray 12/16/16 01:19 IMPRESSION: NO ACUTE RADIOGRAPHIC FINDING IN THE CHEST. Chest/Abdomen CTA 12/16/16 04:13 IMPRESSION: UNREMARKABLE CTA CHEST WITHOUT PULMONARY EMBOLI IDENTIFIED. ENLARGING CLUSTER OF ADJACENT NODULES WITHIN THE LEFT UPPER LOBE RAISING CONCERN FOR NEOPLASTIC PROCESS. BIOPSY IS RECOMMENDED. NEW 4 MM PULMONARY NODULE LEFT LOWER LOBE. RECOMMEND ATTENTION ON FOLLOW-UP STUDIES. Abdomen/Pelvis CT 12/17/16 00:00 IMPRESSION: Question acute appendicitis. Findings discussed with Dr. Sullivan Head CT 12/17/16 00:00 IMPRESSION: Old stable infarcts in the left posterior temporal/ occipital white matter, and inferior right cerebellar hemisphere. Plan Time Spent: Greater than 30 Minutes - Patient had a very extensive workup including a CT scan echocardiogram and all cultures everything was negative so far and patients remained stable and I think back to the baseline and discharged home and follow as outpatients
== END 2016-12-22 12:27 | disposition home health service (06) | DRG 315 ==
LOC: ER 00:48 → UNDOADMIN 08:05 → EH 08:05 → 3W 09:42
PROVIDERS: ADMIT Family Medicine; ATTEND Family Medicine
DX: I95.9 Hypotension, unspecified (principal); J44.1 Chronic obstructive pulmonary disease with (acute) exacerbation; C41.9 Malignant neoplasm of bone and articular cartilage, unspecified; C34.11 Malignant neoplasm of upper lobe, right bronchus or lung; R09.02 Hypoxemia; G89.3 Neoplasm related pain (acute) (chronic); E07.9 Disorder of thyroid, unspecified; E78.5 Hyperlipidemia, unspecified; I10 Essential (primary) hypertension; E11.9 Type 2 diabetes mellitus without complications; F32.9 Major depressive disorder, single episode, unspecified; F41.0 Panic disorder [episodic paroxysmal anxiety]; M19.90 Unspecified osteoarthritis, unspecified site; Z86.73 Personal history of transient ischemic attack (TIA), and cerebral infarction without residual deficits
CPT/HCPCS: 36415; 70450; 71010; 71275; 74177; 80048; 80053; 81001; 82272; 82550; 82553; 82962; 83605; 83735; 83880; 84484; 85025; 87040; 87804; 93005; 93010; 93306; 94640; 96360; 96361; 99291; J0692; J3490; J7030; J7620

== ENCOUNTER 2017-01-12 21:23 | Emergency (ER) | payer MEDICAID ==
[2017-01-12 21:49] LABS: ABSOLUTE BASOPHILS # (AUTO) 0.1 10^3/uL (0.0-0.2); ABSOLUTE EOSINOPHILS # (AUTO) 0.1 10^3/uL (0.0-0.6); ABSOLUTE LYMPHOCYTES (AUTO) 0.6 10^3/uL (0.5-4.7); ABSOLUTE MONOCYTES (AUTO) 0.2 10^3/uL (0.1-1.4); ABSOLUTE NEUT (AUTO) 2.5 10^3/uL (1.7-8.2); BASOPHILS % (AUTO) 1.5 % (0-2); EOSINOPHILS % (AUTO) 4.1 % (0-6); HEMATOCRIT 33.1 % (37.9-51.0); HEMOGLOBIN 11.2 g/dL (13.5-17.0); HGB HCT DIFFERENCE 0.5; LYMPHOCYTES % (AUTO) 17.1 % (13-45); MEAN CORPUSCULAR HEMOGLOBIN 31.9 pg (27.0-33.4); MEAN CORPUSCULAR VOLUME 94 fl (80-97); MONOCYTES % (AUTO) 6.2 % (3-13); RED BLOOD COUNT 3.52 10^6/uL (4.35-5.55); RED CELL DISTRIBUTION WIDTH 17.3 % (11.5-14.0); SEGMENTED NEUTROPHILS % (AUTO) 71.1 % (42-78); WHITE BLOOD COUNT 3.5 10^3/uL (4.0-10.5)
[2017-01-12 22:11] LABS: ALANINE AMINOTRANSFERASE 29 U/L (21-72); ALBUMIN 4.6 g/dL (3.5-5.0); ALKALINE PHOSPHATASE 57 U/L (38-126); ANION GAP 12 (5-19); ASPARTATE AMINO TRANSFERASE 22 U/L (17-59); BILIRUBIN,TOTAL 0.6 mg/dL (0.2-1.3); BLOOD UREA NITROGEN 17 mg/dL (7-20); CALCIUM 10.6 mg/dL (8.4-10.2); CARBON DIOXIDE 33 mmol/L (22-30); CHLORIDE 97 mmol/L (98-107); CREATINE KINASE 78 U/L (55-170); CREATININE RESULT 1.01 mg/dL (0.52-1.25); GLUCOSE 113 mg/dL (75-110); POTASSIUM 4.4 mmol/L (3.6-5.0); SODIUM 141.8 mmol/L (137-145); TOTAL PROTEIN 7.6 g/dL (6.3-8.2)
[2017-01-12 22:22] LABS: CREATINE KINASE MB 1.92 ng/mL (<4.55)
[2017-01-12 22:23] LABS: TROPONIN I < 0.012 ng/mL
--- NOTE | 2017-01-12 22:36 | ER Document Report ---
ED General - General Chief Complaint: Shortness Of Breath Stated Complaint: SHORTNESS OF BREATH Notes: Patient is a 56-year-old male with past medical history of stage IV lung cancer and COPD with a baseline oxygen requirement of 2 L by nasal cannula who presents with a brief episode of shortness of breath. States that he began to feel one of his "typical panic attacks" earlier this evening. States that he is normally able to "fight it off on my own" but became more anxious and decided to contact EMS. States that while EMS was at his house he had a brief "twinge" in his chest that lasted for several seconds and then spontaneously resolved. States that the episode is identical to prior episodes of panic attacks. Nothing and improves his symptoms when they are present. He denies any obvious trigger for today's episode. He has not seen his primary care doctor regarding today's concerns. At time of my evaluation he denies any complaints. TRAVEL OUTSIDE OF THE [place] IN LAST 30 DAYS: No - Related Data Allergies/Adverse Reactions: No Known Allergies Allergy (Verified 10/09/13 20:20) Past Medical History - General Information source: Patient - Social History Smoking Status: Former Smoker Frequency of alcohol use: None Drug Abuse: None Lives with: Alone Family History: Reviewed & Not Pertinent, DM, Hypertension - Past Medical History Cardiac Medical History: Reports: Hx Hypercholesterolemia, Hx Hypertension Pulmonary Medical History: Reports: Hx COPD Neurological Medical History: Denies: Hx Cerebrovascular Accident Endocrine Medical History: Reports: Hx Diabetes Mellitus Type 2 Renal/ Medical History: Denies: Hx Peritoneal Dialysis Malignancy Medical History: Reports Hx Bone Cancer, Reports Hx Lung Cancer GI Medical History: Denies: Hx Liver Failure Musculoskeltal Medical History: Reports Hx Arthritis Psychiatric Medical History: Reports: Hx Depression Past Surgical History: Reports: Hx Vascular Surgery - Immunizations Hx Diphtheria, Pertussis, Tetanus Vaccination: Yes Review of Systems - Review of Systems Notes: Constitutional: Negative for fever. HENT: Negative for sore throat. Eyes: Negative for visual changes. Cardiovascular: Negative for chest pain. Respiratory: Negative for shortness of breath. Gastrointestinal: Negative for abdominal pain, vomiting or diarrhea. Genitourinary: Negative for dysuria. Musculoskeletal: Negative for back pain. Skin: Negative for rash. Neurological: Negative for headaches, weakness or numbness. 10 point ROS negative except as marked above and in HPI. Physical Exam - Vital signs Vitals: Pulse Ox 98 03/07/17 21:27 Interpretation: Normal Notes: PHYSICAL EXAMINATION: GENERAL: Well-appearing, but appears older than stated age. No distress. HEAD: Atraumatic, normocephalic. EYES: Pupils equal round and reactive to light, extraocular movements intact, sclera anicteric, conjunctiva are normal. ENT: nares patent, oropharynx clear without exudates. Moist mucous membranes. NECK: Normal range of motion, supple without lymphadenopathy LUNGS: Breath sounds clear to auscultation bilaterally and equal. No wheezes rales or rhonchi. HEART: Regular rate and rhythm without murmurs ABDOMEN: Soft, nontender, normoactive bowel sounds. No guarding, no rebound. No masses appreciated. EXTREMITIES: Normal range of motion, no pitting or edema. No cyanosis. NEUROLOGICAL: No focal neurological deficits. Moves all extremities spontaneously and on command. PSYCH: Normal mood, normal affect. SKIN: Warm, Dry, normal turgor, no rashes or lesions noted. Course - Re-evaluation Re-evalutation: 01/12/17 22:33 Patient presents with concerns of shortness of breath which he describes as being typical for one of his panic attacks. At the time of my evaluation, the patient denies any complaints at all sitting he feels like himself and like to go home. Denies any shortness of breath or chest pain. States and EMS was initially on site, he felt "a twinge" in his chest but it resolved after just several seconds. EKG is unremarkable here without ST changes and unchanged from prior. EKG from EMS was likewise reviewed and noted to not show any signs of ischemia. Chest x-ray is clear. Patient's laboratories obtained in triage are likewise unremarkable including a troponin. I do not suspect pulmonary embolus, ACS, acute pneumonia, or pneumothorax based on patient's clinical history, exam, vitals, and evaluation with laboratories and imaging here today. At this time will discharge with return precautions and follow-up recommendations. Verbal discharge instructions given a the bedside and opportunity for questions given. Medication warnings reviewed. Patient is in agreement with this plan and has verbalized understanding of return precautions and the need for primary care follow-up in the next 24-72 hours. - Vital Signs Vital signs: Temp Pulse Resp BP Pulse Ox 98 F 12 119/75 98 01/12/17 22:41 01/12/17 22:41 01/12/17 22:41 01/12/17 22:41 - Laboratory Result Diagrams: 01/12/17 21:36 01/12/17 21:36 Laboratory results interpreted by me: 01/12/17 01/12/17 21:36 21:36 WBC 3.5 L RBC 3.52 L Hgb 11.2 L Hct 33.1 L RDW 17.3 H Chloride 97 L Carbon Dioxide 33 H Glucose 113 H Calcium 10.6 H - Diagnostic Test Radiology reviewed: Image reviewed, Reports reviewed Radiology results interpreted by me: 01/12/17 22:34 Chest x-ray: No acute infiltrate or pneumothorax - EKG Interpretation by Me Additional EKG results interpreted by me: 01/12/17 22:34 Normal sinus rhythm. Rate 71. No ST elevations or depressions. QTC is 426. There is a first-degree AV block. Discharge - Discharge Clinical Impression: Shortness of breath Condition: Good Disposition: HOME, SELF-CARE Additional Instructions: Please follow-up with your primary care doctor at your earliest ability.Please return to the emergency room immediately if you experience any concerning symptoms including high fevers, severe headache, chest pain, difficulty breathing, abdominal pain, slurred speech, numbness or weakness in your arms or legs, or any other symptom that concerns you. Referrals: JAMES SULLIVAN MD [Primary Care Provider] - Follow up as needed
--- NOTE | 2017-01-12 22:50 | EKG REPORT ---
SEVERITY:- ABNORMAL ECG - SINUS RHYTHM FIRST DEGREE AV BLOCK LAD, CONSIDER LEFT ANTERIOR FASCICULAR BLOCK LOW VOLTAGE THROUGHOUT BORDERLINE T ABNORMALITIES, ANT-LAT LEADS : Confirmed by: Eva Schafer 12-Jan-2017 22:50:23
[2017-01-12 22:52] VITALS: BP 119/75
== END 2017-01-12 23:10 | disposition home or self-care (01) ==
LOC: ER 21:23
DX: R06.02 Shortness of breath (principal); J44.9 Chronic obstructive pulmonary disease, unspecified; Z87.891 Personal history of nicotine dependence; F41.9 Anxiety disorder, unspecified
CPT/HCPCS: 36415; 71010; 80053; 82550; 82553; 84484; 85025; 93005; 93010; 99285

== ENCOUNTER → 2017-03-17 | Outpatient (CLI) | payer MEDICAID | LOC: RAD 09:31 | PROVIDERS: ATTEND Internal Medicine | DX: C34.12 Malignant neoplasm of upper lobe, left bronchus or lung (principal) | CPT/HCPCS: 71260; 74177 ==

== ENCOUNTER → 2017-04-26 | Outpatient (CLI) | payer MEDICAID ==
--- NOTE | 2017-04-26 11:16 | RADIOLOGY REPORT (SQ) ---
EXAM DESCRIPTION: SHOULDER LEFT 2 OR MORE VIEWS COMPLETED DATE/TIME: 04/26/2017 10:18 am REASON FOR STUDY: LEFT SHOULDER PAIN (M25.512) M25.512 PAIN IN LEFT SHOULDER COMPARISON: None. NUMBER OF VIEWS: Three views. TECHNIQUE: Internal rotation, external rotation, and Y view images acquired of the left shoulder. LIMITATIONS: None. FINDINGS: MINERALIZATION: Normal. BONES: There is remodeling of the proximal humerus probably related to old injury. There is no acute fracture dislocation. No suspicious lesions. JOINTS: No dislocation. VISUALIZED LUNGS AND RIBS: No pneumothorax. No rib fracture. SOFT TISSUES: No radiopaque foreign body. OTHER: [id number] is in place. IMPRESSION: No acute findings in the left shoulder. TECHNICAL DOCUMENTATION: JOB ID: [id number]- All Rights Reserved
== END ==
LOC: RAD 09:56
PROVIDERS: ATTEND Specialist
DX: M25.512 Pain in left shoulder (principal)

== ENCOUNTER → 2017-06-21 | Outpatient (CLI) | payer MEDICAID ==
--- NOTE | 2017-06-21 16:29 | RADIOLOGY REPORT (SQ) ---
EXAM DESCRIPTION: CT CHEST WITH COMPLETED DATE/TIME: 06/21/2017 3:42 pm REASON FOR STUDY: LUNG CA C34.12 MALIGNANT NEOPLASM OF UPPER LOBE, LEFT BRONCHUS OR SHARON COMPARISON: 03/17/2017 TECHNIQUE: CT scan of the chest performed using helical scanning technique with dynamic intravenous contrast injection. Images reviewed with lung, soft tissue and bone windows. Reconstructed coronal and sagittal MPR images reviewed. All images stored on PACS. All CT scanners at this facility use dose modulation, iterative reconstruction, and/or weight based d osing when appropriate to reduce radiation dose to as low as reasonably achievable (ALARA). [facility]: Dose Right [facility]: CareDose [facility]: Dose Right [facility]: Teradose 4D [facility]: [employer] CONTRAST TYPE AND DOSE: 100 cc Isovue 370- low osmolar. RENAL FUNCTION: Creatinine 1.0 BUN 14 RADIATION DOSE: Up-to-date CT equipment and radiation dose reduction techniques were employed. CTDIv ol: 18.4 - 22.5 mGy. DLP: 3310 mGy-cm. . LIMITATIONS: None. FINDINGS: LUNGS AND PLEURA: There is an 11 mm paramediastinal nodule on image 30 series 6 on the lef t. This is new. A couple of ill-defined 5 mm nodules seen in the medial left upper lobe on image 41 . These are slightly more prominent. Stable 4 mm subpleural nodule in the right lower lobe on image 81. HILAR AND MEDIASTINAL STRUCTURES: No identified masses or abnormal nodes. HEART AND VASCULAR STRUCTURES: No aneurysm or dissection. No central pulmonary emboli. No pericardi al effusion. HARDWARE: None in the chest. UPPER ABDOMEN: See separate report of the CT of the abdomen. THYROID AND OTHER SOFT TISSUES: No masses. No adenopathy. BONES: There appear to be perhaps old thoracotomy changes in the right posterior ribs versus old rib fractures. OTHER: No other significant finding. IMPRESSION: There are some small pulmonary nodules as described. The most significant finding is th at of an 11 mm paramediastinal nodule at the level of the aortic arch on the left. This is a new fin ding. Recommend PET-CT TECHNICAL DOCUMENTATION: JOB ID: [id number] Quality ID # 436: Final reports with documentation of one or more dose reduction techniques (e.g., Au tomated exposure control, adjustment of the mA and/or kV according to patient size, use of iterative reconstruction technique) 2010 [employer]- All Rights Reserved
--- NOTE | 2017-06-21 16:43 | RADIOLOGY REPORT (SQ) ---
EXAM DESCRIPTION: CT ABD/PELVIS WITH IV ONLY COMPLETED DATE/TIME: 06/21/2017 3:42 pm REASON FOR STUDY: LUNG CA C34.12 MALIGNANT NEOPLASM OF UPPER LOBE, LEFT BRONCHUS OR SHARON COMPARISON: 03/17/2017 TECHNIQUE: CT scan of the abdomen and pelvis performed using helical scanning technique with dynamic intravenous contrast injection. No oral contrast. Images reviewed with lung, soft tissue, and bone windows. Reconstructed coronal and sagittal MPR images reviewed. Delayed images for evaluation of the urinary system also acquired. All images stored on PACS. All CT scanners at this facility use dose modulation, iterative reconstruction, and/or weight based d osing when appropriate to reduce radiation dose to as low as reasonably achievable (ALARA). [facility]: Dose Right [facility]: CareDose [facility]: Dose Right [facility]: Teradose 4D [facility]: [employer] CONTRAST TYPE AND DOSE: contrast/concentration: Isovue 370.00 mg/ml; Total Contrast Delivered: 100.0 ml; Total Saline Delivered: 69.0 ml RENAL FUNCTION: Creatinine 1.0 BUN 14 RADIATION DOSE: 3309.7 mGy cm total DLP for both studies. LIMITATIONS: None. FINDINGS: LOWER CHEST: See separate report of the CT of the chest. LIVER: Normal size. No masses. No dilated ducts. SPLEEN: Normal size. No focal lesions. PANCREAS: No masses. No significant calcifications. No adjacent inflammation or peripancreatic fluid collections. Pancreatic duct not dilated. GALLBLADDER: No identified stones by CT criteria. No inflammatory changes to suggest cholecystitis. ADRENAL GLANDS: No significant masses or asymmetry. RIGHT KIDNEY AND URETER: No solid masses. No significant calcifications. No hydronephrosis or hyd roureter. LEFT KIDNEY AND URETER: No solid masses. No significant calcifications. No hydronephrosis or hydr oureter. AORTA AND VESSELS: Moderate aortoiliac atherosclerosis. No significant stenosis of the celiac, SMA, renal arteries. RETROPERITONEUM: No retroperitoneal adenopathy, hemorrhage or masses. BOWEL AND PERITONEAL CAVITY: No masses or inflammatory changes. No free fluid or peritoneal masses. APPENDIX: Normal. PELVIS: The urinary bladder is normal. The prostate gland and seminal vesicles appear normal. ABDOMINAL WALL: No masses. No hernias. BONES: There is irregular mineralization of the posterior elements of the L3 vertebra. This appears stable back to 10/28/2016. There is heterogeneous mineralization of the right femoral neck. This ap pears stable. OTHER: No other significant finding. IMPRESSION: 1. No metastases seen within the abdomen or pelvis. 2. There is heterogeneous mineralization of the posterior elements of L3 vertebra and of the right f emoral neck. These findings appear stable but metastatic disease cannot be excluded. Consider nucle wi medicine bone scan for further evaluation. TECHNICAL DOCUMENTATION: JOB ID: [id number] Quality ID # 436: Final reports with documentation of one or more dose reduction techniques (e.g., Au tomated exposure control, adjustment of the mA and/or kV according to patient size, use of iterative reconstruction technique) 2010 [employer]- All Rights Reserved
== END ==
LOC: RAD 15:01
PROVIDERS: ATTEND Internal Medicine Hematology & Oncology
DX: C34.12 Malignant neoplasm of upper lobe, left bronchus or lung (principal)
CPT/HCPCS: 71260; 74177

== ENCOUNTER 2017-08-10 09:40 | Outpatient (CLI) | payer MEDICAID ==
[~2017-08-10 09:40] MED LIST: NIVOLUMAB IV PRN; NORMAL SALINE 250 ML IV PRN; NORMAL SALINE IV PRN
[2017-08-10 10:09] LABS: ABSOLUTE EOSINOPHILS # (AUTO) 0.1 10^3/uL (0.0-0.6); ABSOLUTE LYMPHOCYTES (AUTO) 0.6 10^3/uL (0.5-4.7); ABSOLUTE MONOCYTES (AUTO) 0.3 10^3/uL (0.1-1.4); ABSOLUTE NEUT (AUTO) 5.2 10^3/uL (1.7-8.2); BASOPHILS % (AUTO) 0.6 % (0-2); EOSINOPHILS % (AUTO) 2.3 % (0-6); HEMATOCRIT 37.3 % (37.9-51.0); HEMOGLOBIN 12.6 g/dL (13.5-17.0); HGB HCT DIFFERENCE 0.5; LYMPHOCYTES % (AUTO) 9.5 % (13-45); MEAN CORPUSCULAR HEMOGLOBIN 29.9 pg (27.0-33.4); MEAN CORPUSCULAR HGB CONC 33.8 g/dL (32.0-36.0); MEAN CORPUSCULAR VOLUME 88 fl (80-97); MONOCYTES % (AUTO) 4.8 % (3-13); RED BLOOD COUNT 4.22 10^6/uL (4.35-5.55); RED CELL DISTRIBUTION WIDTH 17.3 % (11.5-14.0); SEGMENTED NEUTROPHILS % (AUTO) 82.8 % (42-78); WHITE BLOOD COUNT 6.3 10^3/uL (4.0-10.5)
[2017-08-10 10:47] VITALS: BP 139/85
== END 2017-08-10 13:30 | disposition home or self-care (01) ==
LOC: II 09:40 → 5TH 09:41 → II 13:30
PROVIDERS: ATTEND Internal Medicine
PROC: 3E0430M Introduction of Antineoplastic, Monoclonal Antibody, into Central Vein, Percutaneous Approach (ICD-10-PCS; principal; 2017-08-10)
DX: Z51.11 Encounter for antineoplastic chemotherapy (principal); C34.12 Malignant neoplasm of upper lobe, left bronchus or lung
CPT/HCPCS: 36415; 83735; 85025; 96413; 96375; J9299

== ENCOUNTER 2017-08-24 13:45 | Outpatient (CLI) | payer MEDICAID ==
[~2017-08-24 13:45] MED LIST changes: +NIVOLUMAB 200 MG, NIVOLUMAB 40 MG in NORMAL SALINE 100 ML IV PRN; -NIVOLUMAB IV PRN; -NORMAL SALINE IV PRN
[2017-08-24 14:28] VITALS: BP 118/72
[2017-08-24 14:45] LABS: ALANINE AMINOTRANSFERASE 49 U/L (21-72); ALBUMIN 4.8 g/dL (3.5-5.0); ALKALINE PHOSPHATASE 57 U/L (38-126); ANION GAP 13 (5-19); ASPARTATE AMINO TRANSFERASE 32 U/L (17-59); BILIRUBIN,DIRECT 0.4 mg/dL (0.0-0.4); BILIRUBIN,TOTAL 0.5 mg/dL (0.2-1.3); BLOOD UREA NITROGEN 17 mg/dL (7-20); CALCIUM 9.9 mg/dL (8.4-10.2); CARBON DIOXIDE 32 mmol/L (22-30); CHLORIDE 98 mmol/L (98-107); CREATININE RESULT 0.96 mg/dL (0.52-1.25); GLUCOSE 112 mg/dL (75-110); MAGNESIUM 1.7 mg/dL (1.6-2.3); POTASSIUM 4.6 mmol/L (3.6-5.0); SODIUM 143.2 mmol/L (137-145); TOTAL PROTEIN 7.5 g/dL (6.3-8.2)
== END 2017-08-24 16:34 | disposition home or self-care (01) ==
LOC: II 13:45 → 5TH 13:50 → II 16:34
PROVIDERS: ATTEND Internal Medicine
PROC: 3E0330M Introduction of Antineoplastic, Monoclonal Antibody, into Peripheral Vein, Percutaneous Approach (ICD-10-PCS; principal; 2017-08-24)
DX: Z51.11 Encounter for antineoplastic chemotherapy (principal); C34.12 Malignant neoplasm of upper lobe, left bronchus or lung; J44.9 Chronic obstructive pulmonary disease, unspecified; Z99.81 Dependence on supplemental oxygen; Z79.899 Other long term (current) drug therapy
CPT/HCPCS: 36415; 83735; 80053; 96413; 96375; J9299 ×2

== ENCOUNTER → 2017-12-27 | Outpatient (CLI) | payer MEDICARE, MEDICAID ==
--- NOTE | 2017-12-27 17:10 | RADIOLOGY REPORT (SQ) ---
EXAM DESCRIPTION: CT CHEST WITH; CT ABD/PELVIS WITH IV ONLY COMPLETED DATE/TIME: 12/27/2017 10:34 am REASON FOR STUDY: LUNG CA W/METS (C34.12, C79.51) C34.12 MALIGNANT NEOPLASM OF UPPER LOBE, LEFT BRO NCHUS OR SHARON COMPARISON: CT chest abdomen and pelvis 10/28/2016, 03/17/2017, 06/21/2017, 09/23/2017 CONTRAST TYPE AND DOSE: contrast/concentration: Isovue 370.00 mg/ml; Total Contrast Delivered: 98.0 ml; Total Saline Delivered: 72.0 ml RENAL FUNCTION: Creatinine 1.0 TECHNIQUE: CT scan of the chest performed using helical scanning technique with dynamic intravenous contrast injection. Images reviewed with lung, soft tissue and bone windows. Reconstructed coronal a nd sagittal MPR images reviewed. All images stored on PACS. CT scan of the abdomen and pelvis performed with intravenous and with oral contrastusing helical scan khalida technique with dynamic intravenous contrast injection. Images reviewed with lung, soft tissue a nd bone windows. Reconstructed coronal and sagittal MPR images reviewed. Delayed images for evaluat ion of the urinary system also acquired and evaluated. All images stored on PACS. All CT scanners at this facility use dose modulation, iterative reconstruction, and/or weight based d osing when appropriate to reduce radiation dose to as low as reasonably achievable (ALARA). [facility]: Dose Right [facility]: CareDose [facility]: Dose Right [facility]: Teradose 4D [facility]: [employer] RADIATION DOSE: CT Rad equipment meets quality standard of care and radiation dose reduction techniq ues were employed. CTDIvol: 14.0 - 19.8 mGy. DLP: 2772 mGy-cm. . LIMITATIONS: None. FINDINGS: CHEST: LUNGS AND PLEURA: On axial images 37-43, a stable small cluster of less than 5 mm noncalcified nodule s is present. These are smaller as compared to chest CT exams dating back to 10/24/2016. No CT evid ence of acute infiltrates. No pleural effusion. No pneumothorax. Stable bandlike scarring at the l ingular apex. No pleural calcifications. No pleural nodules. HILAR AND MEDIASTINAL STRUCTURES: No identified masses or abnormal nodes. HEART AND VASCULAR STRUCTURES: No aneurysm or dissection. No central pulmonary emboli. No pericardi al effusion. HARDWARE: None. THYROID AND OTHER SOFT TISSUES: No masses. No adenopathy. BONES: Old trauma, with old healed right and left rib fractures and old right clavicle fracture. OTHER: No other significant finding. ABDOMEN AND PELVIS: LIVER: Normal size. No masses. No dilated ducts. Low attenuation from fatty infiltration. SPLEEN: Normal size. No focal lesions. PANCREAS: No masses. No significant calcifications. No adjacent inflammation or peripancreatic fluid collections. Pancreatic duct not dilated. GALLBLADDER: No identified stones by CT criteria. No inflammatory changes to suggest cholecystitis. ADRENAL GLANDS: No significant masses or asymmetry. RIGHT KIDNEY AND URETER: No solid masses. No significant calcification. No hydronephrosis or hydroure ter. LEFT KIDNEY AND URETER: No solid masses. No significant calcification. No hydronephrosis or hydrouret er. AORTA AND VESSELS: No aneurysm. No dissection. Renal arteries, SMA, celiac without stenosis. RETROPERITONEUM: No retroperitoneal adenopathy, hemorrhage or masses. BOWEL AND PERITONEAL CAVITY: No masses or inflammatory changes. No free fluid or peritoneal masses. APPENDIX: Normal. ABDOMINAL WALL: No masses. No hernias. PELVIS: No mass or free fluid. Normal bladder. BONES: No significant or acute findings. OTHER: No other significant finding. IMPRESSION: Tiny cluster of less than 5 mm nodules in the medial left upper lobe, smaller than on pr evious exams. Old posttraumatic changes of the right clavicle and bilateral ribs No CT evidence of metastatic disease to the abdomen or pelvis. TECHNICAL DOCUMENTATION: JOB ID: [id number] Quality ID # [id number]: Final reports with documentation of one or more dose reduction techniques (e.g., Au tomated exposure control, adjustment of the mA and/or kV according to patient size, use of iterative reconstruction technique) 2010 [employer]- All Rights Reserved
== END ==
LOC: RAD 09:20
PROVIDERS: ATTEND Internal Medicine
DX: C34.12 Malignant neoplasm of upper lobe, left bronchus or lung (principal); C79.51 Secondary malignant neoplasm of bone
CPT/HCPCS: 71260; 74177

== ENCOUNTER → 2018-01-20 | Outpatient (CLI) | payer MEDICARE, MEDICAID ==
--- NOTE | 2018-01-20 18:36 | XCELERA REPORT ---
[address] [address] Transthoracic Echocardiogram Report Name: ADRIEN BELTRAN Age: 57 yrs Gender: Male : 1960 Patient Status: Outpatient Patient Location: Study Date: 01/20/2018 01:14 PM Height: 71 in Weight: 245 lb BSA: 2.3 m2 Procedure: A complete two-dimensional transthoracic echocardiogram was performed (2D, M-mode, spectral and color flow Doppler). The study was technically difficult with many images being suboptimal in quality. Reason For Study: SOB Ordering Physician: JAMES SULLIVAN Performed By: Analilia Hernandez Interpretation Summary The study was technically difficult with many images being suboptimal in quality. The left ventricular ejection fraction is preserved. Consider additional methods to assess LVEF such as MUGA scan, CTA heart, cardiac MRI, MATT, etc. if clinically indicated. Doppler measurements suggest impaired left ventricular relaxation, which is associated with grade I/IV or mild diastolic dysfunction There is borderline concentric left ventricular hypertrophy. The left ventricle is grossly normal size. Regional wall motion abnormalities cannot be excluded due to limited visualization. The right ventricular systolic function is normal. The left atrial size is normal. The right atrium is normal. There is no mitral regurgitation noted. There is no mitral valve stenosis. No aortic regurgitation is present. There is no aortic valve stenosis No tricuspid regurgitation. There is no tricuspid stenosis. The aortic root is not well visualized but is probably normal size. The inferior vena cava was not well visualized There is no pericardial effusion. MMode/2D Measurements & Calculations RVDd: 4.2 cm LVIDd: 4.6 cm FS: 39.8 % Ao root diam: 3.0 cm IVSd: 1.0 cm LVIDs: 2.8 cm EDV(Teich): 97.9 ml LVPWd: 1.00 cm ESV(Teich): 28.9 ml Ao root area: 7.2 cm2 EF(Teich): 70.4 % LA dimension: 3.3 cm Doppler Measurements & Calculations MV E max alejandrina: MV P1/2t max alejandrina: Ao V2 max: LV V1 max P.6 cm/sec 71.3 cm/sec 113.2 cm/sec 2.1 mmHg MV A max alejandrina: MV P1/2t: 74.7 msec Ao max PG: LV V1 max: 94.5 cm/sec 5.1 mmHg 73.3 cm/sec MV E/A: 0.75 MVA(P1/2t): 2.9 cm2 MV dec slope: 279.9 cm/sec2 PA V2 max: 100.7 cm/sec PA max P.1 mmHg Left Ventricle The left ventricle is grossly normal size. There is borderline concentric left ventricular hypertrophy. The left ventricular ejection fraction is preserved. Consider additional methods to assess LVEF such as MUGA scan, CTA heart, cardiac MRI, MATT, etc. if clinically indicated. Doppler measurements suggest impaired left ventricular relaxation, which is associated with grade I/IV or mild diastolic dysfunction. Regional wall motion abnormalities cannot be excluded due to limited visualization. Right Ventricle The right ventricle is grossly normal size. There is normal right ventricular wall thickness. The right ventricular systolic function is normal. Atria The right atrium is normal. The left atrial size is normal. Interarterial septum not well visualized and not well dopplered. Cannot comment on ASD/PFO presence. Mitral Valve The mitral valve leaflets are sclerotic, but show no functional abnormalities. There is no mitral valve stenosis. There is no mitral regurgitation noted. Aortic Valve The aortic valve is not well visualized secondary to technical limitations. There is no aortic valve stenosis. No aortic regurgitation is present. Tricuspid Valve The tricuspid valve is not well visualized secondary to technical limitations. There is no tricuspid stenosis. No tricuspid regurgitation. Pulmonic Valve The pulmonic valve is not well visualized. Great Vessels The aortic root is not well visualized but is probably normal size. The inferior vena cava was not well visualized. Effusions There is no pericardial effusion. : JAMES SULLIVAN > Eva Schafer
== END ==
LOC: SP 13:01
PROVIDERS: ATTEND Family Medicine
DX: R06.02 Shortness of breath (principal)
CPT/HCPCS: 93306

== ENCOUNTER 2018-02-10 10:23 | Outpatient (CLI) | payer MEDICARE, MEDICAID ==
[2018-02-10 10:39] VITALS: BP 146/72
== END 2018-02-10 12:13 | disposition home or self-care (01) ==
LOC: II 10:23 → 5TH 10:26 → II 12:13
PROVIDERS: ATTEND Internal Medicine
PROC: 3E0430M Introduction of Antineoplastic, Monoclonal Antibody, into Central Vein, Percutaneous Approach (ICD-10-PCS; principal; 2018-02-10)
DX: Z51.11 Encounter for antineoplastic chemotherapy (principal); C34.12 Malignant neoplasm of upper lobe, left bronchus or lung
CPT/HCPCS: 36415; 83735; 96413; J9299 ×2; 96374

== ENCOUNTER 2018-02-24 11:36 | Outpatient (CLI) | payer MEDICARE, MEDICAID ==
[2018-02-24 12:02] VITALS: BP 122/81
== END 2018-02-24 13:54 | disposition home or self-care (01) ==
LOC: II 11:36 → 5TH 11:38 → II 13:54
PROVIDERS: ATTEND Internal Medicine
PROC: 3E0430M Introduction of Antineoplastic, Monoclonal Antibody, into Central Vein, Percutaneous Approach (ICD-10-PCS; principal; 2018-02-24)
DX: Z51.11 Encounter for antineoplastic chemotherapy (principal); C34.12 Malignant neoplasm of upper lobe, left bronchus or lung
CPT/HCPCS: 96413; J9299 ×2

== ENCOUNTER 2018-03-10 10:20 | Outpatient (CLI) | payer MEDICARE, MEDICAID ==
[~2018-03-10 10:20] MED LIST changes: +FERRIC CARBOXYMALTOSE 750 MG in NORMAL SALINE 250 ML IV PRN
[2018-03-10 10:44] VITALS: BP 120/80
== END 2018-03-10 12:52 | disposition home or self-care (01) ==
LOC: II 10:20 → 5TH 11:17 → II 12:52
PROVIDERS: ATTEND Internal Medicine
PROC: 3E0430M Introduction of Antineoplastic, Monoclonal Antibody, into Central Vein, Percutaneous Approach (ICD-10-PCS; principal; 2018-03-10)
PROC: 3E043GC Introduction of Other Therapeutic Substance into Central Vein, Percutaneous Approach (ICD-10-PCS; 2018-03-10)
DX: Z51.11 Encounter for antineoplastic chemotherapy (principal); C34.12 Malignant neoplasm of upper lobe, left bronchus or lung; D50.8 Other iron deficiency anemias; K90.9 Intestinal malabsorption, unspecified
CPT/HCPCS: 96413; 96365; 96374; J7050; J9299 ×2; J1439; 96367

== ENCOUNTER 2018-03-17 10:11 | Outpatient (CLI) | payer MEDICARE, MEDICAID ==
[~2018-03-17 10:11] MED LIST changes: -NIVOLUMAB 200 MG, NIVOLUMAB 40 MG in NORMAL SALINE 100 ML IV PRN
[2018-03-17 10:27] VITALS: BP 136/72
== END 2018-03-17 11:21 | disposition home or self-care (01) ==
LOC: II 10:11 → 5TH 10:24 → II 11:21
PROVIDERS: ATTEND Internal Medicine
PROC: 3E043GC Introduction of Other Therapeutic Substance into Central Vein, Percutaneous Approach (ICD-10-PCS; principal; 2018-03-17)
DX: D50.8 Other iron deficiency anemias (principal)
CPT/HCPCS: 96365; 96374; J7050; J1439

== ENCOUNTER → 2018-03-22 | Outpatient (CLI) | payer MEDICARE, MEDICAID ==
--- NOTE | 2018-03-22 16:16 | RADIOLOGY REPORT (SQ) ---
EXAM DESCRIPTION: CT CHEST WITH; CT ABD/PELVIS WITH IV ONLY COMPLETED DATE/TIME: 03/22/2018 1:06 pm REASON FOR STUDY: LUNG CANCER C34.12 MALIGNANT NEOPLASM OF UPPER LOBE, LEFT BRONCHUS OR SHARON COMPARISON: CT chest 10/24/2016 CT angio chest 12/16/2016 CT chest abdomen pelvis 06/21/2017, 09/13/2017, 12/27/2017 CONTRAST TYPE AND DOSE: 100 mL of IV Isovue 370- low osmolar. RENAL FUNCTION: Creatinine 1.0 TECHNIQUE: CT scan of the chest performed using helical scanning technique with dynamic intravenous contrast injection. Images reviewed with lung, soft tissue and bone windows. Reconstructed coronal a nd sagittal MPR images reviewed. All images stored on PACS. CT scan of the abdomen and pelvis performed with intravenous and with oral contrastusing helical scan khalida technique with dynamic intravenous contrast injection. Images reviewed with lung, soft tissue a nd bone windows. Reconstructed coronal and sagittal MPR images reviewed. Delayed images for evaluat ion of the urinary system also acquired and evaluated. All images stored on PACS. All CT scanners at this facility use dose modulation, iterative reconstruction, and/or weight based d osing when appropriate to reduce radiation dose to as low as reasonably achievable (ALARA). [facility]: Dose Right [facility]: CareDose [facility]: Dose Right [facility]: Teradose 4D [facility]: [employer] RADIATION DOSE: 60 mGy . LIMITATIONS: None. FINDINGS: CHEST: LUNGS AND PLEURA: Subcentimeter nodules in the medial left upper lobe on axial images 38 through 43 a re stable compared to previous exams. Lungs are hyperlucent and hyperinflated from obstructive disease. No pleural effusion. No pneumotho rax. Airways are patent. HILAR AND MEDIASTINAL STRUCTURES: No identified masses or abnormal nodes. HEART AND VASCULAR STRUCTURES: No aneurysm or dissection. No central pulmonary emboli. No pericardi al effusion. HARDWARE: Left-sided permanent central line tip superior vena cava THYROID AND OTHER SOFT TISSUES: No masses. No adenopathy. BONES: Multiple old bilateral rib fractures. Old right clavicle fracture OTHER: No other significant finding. ABDOMEN AND PELVIS: LIVER: Normal size. No masses. No dilated ducts. SPLEEN: Normal size. No focal lesions. PANCREAS: No masses. No significant calcifications. No adjacent inflammation or peripancreatic fluid collections. Pancreatic duct not dilated. GALLBLADDER: No identified stones by CT criteria. No inflammatory changes to suggest cholecystitis. ADRENAL GLANDS: No significant masses or asymmetry. RIGHT KIDNEY AND URETER: No solid masses. No significant calcification. No hydronephrosis or hydroure ter. LEFT KIDNEY AND URETER: No solid masses. No significant calcification. No hydronephrosis or hydrouret er. AORTA AND VESSELS: No aneurysm. No dissection. Renal arteries, SMA, celiac without stenosis. RETROPERITONEUM: No retroperitoneal adenopathy, hemorrhage or masses. BOWEL AND PERITONEAL CAVITY: No masses or inflammatory changes. No free fluid or peritoneal masses. APPENDIX: Normal. ABDOMINAL WALL: No masses. No hernias. PELVIS: No mass or free fluid. Normal bladder. BONES: No significant or acute findings. OTHER: No other significant finding. IMPRESSION: Stable small medial left upper lobe pulmonary nodules. No CT evidence of metastatic disease to the abdomen or pelvis TECHNICAL DOCUMENTATION: JOB ID: [id number] Quality ID # [id number]: Final reports with documentation of one or more dose reduction techniques (e.g., Au tomated exposure control, adjustment of the mA and/or kV according to patient size, use of iterative reconstruction technique) 2010 [employer]- All Rights Reserved Reading location - IP/workstation name: [email or web address]
== END ==
LOC: RAD 12:41
PROVIDERS: ATTEND Physician Assistant Medical
DX: C34.12 Malignant neoplasm of upper lobe, left bronchus or lung (principal)
CPT/HCPCS: 71260; 74177

== ENCOUNTER 2018-03-24 11:20 | Outpatient (CLI) | payer MEDICARE, MEDICAID ==
[~2018-03-24 11:20] MED LIST changes: -FERRIC CARBOXYMALTOSE 750 MG in NORMAL SALINE 250 ML IV PRN; +NIVOLUMAB 200 MG, NIVOLUMAB 40 MG in NORMAL SALINE 100 ML IV PRN
[2018-03-24 12:47] VITALS: BP 132/71
== END 2018-03-24 13:51 | disposition home or self-care (01) ==
LOC: II 11:20 → 5TH 11:23 → II 13:51
PROVIDERS: ATTEND Internal Medicine
PROC: 3E0430M Introduction of Antineoplastic, Monoclonal Antibody, into Central Vein, Percutaneous Approach (ICD-10-PCS; principal; 2018-03-24)
DX: Z51.11 Encounter for antineoplastic chemotherapy (principal); C34.12 Malignant neoplasm of upper lobe, left bronchus or lung
CPT/HCPCS: 96413; J9299 ×2

== ENCOUNTER 2018-04-07 09:59 | Outpatient (CLI) | payer MEDICARE, MEDICAID ==
[2018-04-07 10:10] VITALS: BP 128/76
== END 2018-04-07 12:05 | disposition home or self-care (01) ==
LOC: II 09:59 → 5TH 10:11 → II 12:05
PROVIDERS: ATTEND Internal Medicine
PROC: 3E0430M Introduction of Antineoplastic, Monoclonal Antibody, into Central Vein, Percutaneous Approach (ICD-10-PCS; principal; 2018-04-07)
DX: Z51.11 Encounter for antineoplastic chemotherapy (principal); C34.12 Malignant neoplasm of upper lobe, left bronchus or lung
CPT/HCPCS: 96413; 96374; J9299 ×2

== ENCOUNTER 2018-04-21 12:22 | Outpatient (CLI) | payer MEDICARE, MEDICAID ==
[2018-04-21 12:37] VITALS: BP 152/83
== END 2018-04-21 14:06 | disposition home or self-care (01) ==
LOC: II 12:22 → 5TH 12:31 → II 14:06
PROVIDERS: ATTEND Internal Medicine
PROC: 3E0430M Introduction of Antineoplastic, Monoclonal Antibody, into Central Vein, Percutaneous Approach (ICD-10-PCS; principal; 2018-04-21)
DX: Z51.11 Encounter for antineoplastic chemotherapy (principal); C34.12 Malignant neoplasm of upper lobe, left bronchus or lung
CPT/HCPCS: 96413; 96374; J9299 ×2

== ENCOUNTER 2018-05-05 10:06 | Outpatient (CLI) | payer MEDICARE, MEDICAID ==
[2018-05-05 10:21] VITALS: BP 103/85
== END 2018-05-05 11:41 | disposition home or self-care (01) ==
LOC: II 10:06 → 5TH 10:21 → II 11:41
PROVIDERS: ATTEND Internal Medicine
PROC: 3E0430M Introduction of Antineoplastic, Monoclonal Antibody, into Central Vein, Percutaneous Approach (ICD-10-PCS; principal; 2018-05-05)
DX: Z51.11 Encounter for antineoplastic chemotherapy (principal); C34.12 Malignant neoplasm of upper lobe, left bronchus or lung
CPT/HCPCS: 96413; 96374; J9299 ×2

== ENCOUNTER 2018-05-19 10:12 | Outpatient (CLI) | payer MEDICARE, MEDICAID ==
[2018-05-19 11:08] VITALS: BP 145/75
== END 2018-05-19 12:00 | disposition home or self-care (01) ==
LOC: II 10:12 → 5TH 10:16 → II 12:00
PROVIDERS: ATTEND Internal Medicine
PROC: 3E0430M Introduction of Antineoplastic, Monoclonal Antibody, into Central Vein, Percutaneous Approach (ICD-10-PCS; principal; 2018-05-19)
DX: Z51.11 Encounter for antineoplastic chemotherapy (principal); C34.12 Malignant neoplasm of upper lobe, left bronchus or lung
CPT/HCPCS: 96413; J9299 ×2

== ENCOUNTER 2018-06-02 10:04 | Outpatient (CLI) | payer MEDICARE, MEDICAID ==
[2018-06-02 10:28] VITALS: BP 105/67
== END 2018-06-02 12:16 | disposition home or self-care (01) ==
LOC: II 10:04 → 5TH 10:10 → II 12:16
PROVIDERS: ATTEND Internal Medicine
PROC: 3E0430M Introduction of Antineoplastic, Monoclonal Antibody, into Central Vein, Percutaneous Approach (ICD-10-PCS; principal; 2018-06-02)
DX: Z51.11 Encounter for antineoplastic chemotherapy (principal); C34.12 Malignant neoplasm of upper lobe, left bronchus or lung
CPT/HCPCS: 96413; J9299 ×2; 96374

== ENCOUNTER 2018-06-16 11:51 | Outpatient (CLI) | payer MEDICARE, MEDICAID ==
[2018-06-16 13:59] VITALS: BP 131/84
== END 2018-06-16 14:05 | disposition home or self-care (01) ==
LOC: II 11:51 → 5TH 11:54 → II 14:05
PROVIDERS: ATTEND Internal Medicine
PROC: 3E0430M Introduction of Antineoplastic, Monoclonal Antibody, into Central Vein, Percutaneous Approach (ICD-10-PCS; principal; 2018-06-16)
DX: Z51.11 Encounter for antineoplastic chemotherapy (principal); C34.12 Malignant neoplasm of upper lobe, left bronchus or lung
CPT/HCPCS: 96413; J9299 ×2

== ENCOUNTER → 2018-06-28 | Outpatient (CLI) | payer MEDICAID, MEDICARE ==
--- NOTE | 2018-06-28 10:00 | RADIOLOGY REPORT (SQ) ---
EXAM DESCRIPTION: CTA CHEST; CTA ABDOMEN COMPLETED DATE/TIME: 06/28/2018 9:15 am REASON FOR STUDY: LUNG CA (C34.12) C34.12 MALIGNANT NEOPLASM OF UPPER LOBE, LEFT BRONCHUS OR SHARON COMPARISON: None. CONTRAST TYPE AND DOSE: contrast/concentration: Isovue 350.00 mg/ml; Total Contrast Delivered: 61.0 ml; Total Saline Delivered: 80.0 ml RENAL FUNCTION: Creatinine 1.2 TECHNIQUE: CT ANGIO of the chest performed using helical scanning technique with dynamic intravenous contrast injection. Images reviewed with lung, soft tissue and bone windows. Reconstructed coronal and sagittal MPR through the pulmonary arteries and thoracic aorta images reviewed. All images store d on PACS. CT angio of the abdomen and pelvis performed with intravenous and without oral contrastusing helical scanning technique with dynamic intravenous contrast injection. Images reviewed with lung, soft tiss ue and bone windows. Reconstructed coronal and sagittal MPR images through the abdominal aorta revie wed. Delayed images for evaluation of the urinary system also acquired and evaluated. All images sto red on PACS. All CT scanners at this facility use dose modulation, iterative reconstruction, and/or weight based d osing when appropriate to reduce radiation dose to as low as reasonably achievable (ALARA). [facility]: Dose Right [facility]: CareDose [facility]: Dose Right [facility]: Teradose 4D [facility]: [employer] RADIATION DOSE: CT Rad equipment meets quality standard of care and radiation dose reduction techniq ues were employed. CTDIvol: 15.4 - 18.8 mGy. DLP: 1376 mGy-cm. . LIMITATIONS: None. FINDINGS: CHEST: LUNGS AND PLEURA: In the medial left upper lobe, abutting the mediastinum on axial image 26, there is a 1.4 x 1.1 cm nodule (was 0.7 x 0.[address] 09/13/2017). This would be difficult to biopsy because of its close proximity to the ascending aorta. Consider PET-CT for followup. Remainder of the lungs are otherwise unremarkable. No pleural effusions or pneumothorax. HILAR AND MEDIASTINAL STRUCTURES: No identified masses or abnormal nodes. HEART AND VASCULAR STRUCTURES: No aneurysm or dissection. No central pulmonary emboli. No pericardi al effusion. HARDWARE: Left-sided permanent central line tip superior vena cava THYROID AND OTHER SOFT TISSUES: No masses. No adenopathy. BONES: Multiple old posterior right rib fractures MULTIPLANAR RECONSTRUCTIONS/MPR: No other significant finding. ABDOMEN AND PELVIS: LIVER: Normal size. No masses. No dilated ducts. SPLEEN: Normal size. No focal lesions. PANCREAS: No masses. No significant calcifications. No adjacent inflammation or peripancreatic fluid collections. Pancreatic duct not dilated. GALLBLADDER: No identified stones by CT criteria. No inflammatory changes to suggest cholecystitis. ADRENAL GLANDS: No significant masses or asymmetry. RIGHT KIDNEY AND URETER: No solid masses. No significant calcification. No hydronephrosis or hydroure ter. LEFT KIDNEY AND URETER: No solid masses. No significant calcification. No hydronephrosis or hydrouret er. AORTA AND VESSELS: No aneurysm. No dissection. Renal arteries, SMA, celiac without stenosis. RETROPERITONEUM: No retroperitoneal adenopathy, hemorrhage or masses. BOWEL AND PERITONEAL CAVITY: No gross bowel obstruction. No upper abdominal free air or free fluid APPENDIX: Not in the field of view ABDOMINAL WALL: No masses. No hernias. BONES: No significant or acute findings. MULTIPLANAR RECONSTRUCTIONS/MPR: No other significant finding. IMPRESSION: Compared to imaging from 2017, there is increase in size of the nodule in the medial lef t upper lobe for which PET-CT is indicated for followup. Nodule is currently 1.4 x [address] evidence of metastatic disease to the abdomen given history of lung cancer. NORMAL CT OF THE ABDOMEN AND PELVIS WITH ORAL AND INTRAVENOUS CONTRAST. TECHNICAL DOCUMENTATION: JOB ID: [id number] Quality ID # [id number]: Final reports with documentation of one or more dose reduction techniques (e.g., Au tomated exposure control, adjustment of the mA and/or kV according to patient size, use of iterative reconstruction technique) 2010 [employer] ([employer])- All Rights Reserved Reading location - IP/workstation name: [facility]
== END ==
LOC: RAD 08:24
PROVIDERS: ATTEND Physician Assistant Medical
DX: C34.12 Malignant neoplasm of upper lobe, left bronchus or lung (principal)
CPT/HCPCS: 71275; 74175

== ENCOUNTER 2018-06-30 10:09 | Outpatient (CLI) | payer MEDICARE, MEDICAID ==
[2018-06-30 10:26] VITALS: BP 119/72
== END 2018-06-30 12:28 | disposition home or self-care (01) ==
LOC: 5TH 10:09 → II 10:09
PROVIDERS: ATTEND Internal Medicine
PROC: 3E0430M Introduction of Antineoplastic, Monoclonal Antibody, into Central Vein, Percutaneous Approach (ICD-10-PCS; principal; 2018-06-30)
DX: Z51.11 Encounter for antineoplastic chemotherapy (principal); C34.12 Malignant neoplasm of upper lobe, left bronchus or lung
CPT/HCPCS: 96413; J9299 ×2

== ENCOUNTER 2018-07-14 10:06 | Outpatient (CLI) | payer MEDICARE, MEDICAID ==
[2018-07-14 11:29] VITALS: BP 126/70
== END 2018-07-14 12:08 | disposition home or self-care (01) ==
LOC: II 10:06 → 5TH 11:27 → II 12:08
PROVIDERS: ATTEND Internal Medicine
PROC: 3E0430M Introduction of Antineoplastic, Monoclonal Antibody, into Central Vein, Percutaneous Approach (ICD-10-PCS; principal; 2018-07-14)
DX: Z51.11 Encounter for antineoplastic chemotherapy (principal); C34.12 Malignant neoplasm of upper lobe, left bronchus or lung
CPT/HCPCS: 96413; 96374; J9299 ×2

== ENCOUNTER 2018-07-22 20:33 | Emergency (ER) | payer MEDICARE, MEDICAID ==
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
--- NOTE | 2018-07-22 21:35 | RADIOLOGY REPORT (SQ) ---
XR CHEST 1 VIEW HISTORY: SOB. COMPARISON: None. FINDINGS/IMPRESSION: Left central venous catheter with the tip terminating near the cavoatrial junction. Normal cardiomediastinal silhouette. No pulmonary vascular congestion is seen. Atelectasis at the left lung base. No large pleural effusion. No acute osseous findings.
[2018-07-22 22:30] LABS: ABSOLUTE BASOPHILS # (AUTO) 0.1 10^3/uL (0.0-0.2); ABSOLUTE EOSINOPHILS # (AUTO) 0.2 10^3/uL (0.0-0.6); ABSOLUTE LYMPHOCYTES (AUTO) 0.7 10^3/uL (0.5-4.7); ABSOLUTE MONOCYTES (AUTO) 0.3 10^3/uL (0.1-1.4); ABSOLUTE NEUT (AUTO) 7.1 10^3/uL (1.7-8.2); BASOPHILS % (AUTO) 0.8 % (0-2); EOSINOPHILS % (AUTO) 2.1 % (0-6); HEMATOCRIT 37.2 % (37.9-51.0); HEMOGLOBIN 12.6 g/dL (13.5-17.0); MEAN CORPUSCULAR HEMOGLOBIN 29.2 pg (27.0-33.4); MEAN CORPUSCULAR HGB CONC 33.7 g/dL (32.0-36.0); MEAN CORPUSCULAR VOLUME 87 fl (80-97); MONOCYTES % (AUTO) 3.1 % (3-13); PLATELET COUNT 218 10^3/uL (150-450); RED CELL DISTRIBUTION WIDTH 16.1 % (11.5-14.0); TOTAL CELLS COUNTED % (AUTO) 100 %; WHITE BLOOD COUNT 8.2 10^3/uL (4.0-10.5)
[2018-07-22 22:55] LABS: ALANINE AMINOTRANSFERASE 41 U/L (21-72); ALBUMIN 4.6 g/dL (3.5-5.0); ALKALINE PHOSPHATASE 64 U/L (38-126); ANION GAP 11 (5-19); ASPARTATE AMINO TRANSFERASE 46 U/L (17-59); BILIRUBIN,DIRECT 0.5 mg/dL (0.0-0.4); BILIRUBIN,TOTAL 0.6 mg/dL (0.2-1.3); BLOOD UREA NITROGEN 26 mg/dL (7-20); CALCIUM 9.8 mg/dL (8.4-10.2); CARBON DIOXIDE 32 mmol/L (22-30); CHLORIDE 94 mmol/L (98-107); GLUCOSE 133 mg/dL (75-110); POTASSIUM 4.4 mmol/L (3.6-5.0); SODIUM 136.5 mmol/L (137-145); TOTAL PROTEIN 7.8 g/dL (6.3-8.2)
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
[2018-07-22 23:33] VITALS: BP 132/85
--- NOTE | 2018-07-22 23:59 | EKG REPORT ---
SEVERITY:- ABNORMAL ECG - SINUS RHYTHM LAHB : Confirmed by: Eva Schafer 22-Jul-2018 23:57:51
== END 2018-07-22 23:40 | disposition home or self-care (01) ==
LOC: ER 20:33
DX: J44.9 Chronic obstructive pulmonary disease, unspecified (principal); F41.9 Anxiety disorder, unspecified; I10 Essential (primary) hypertension; R06.02 Shortness of breath; E11.9 Type 2 diabetes mellitus without complications; Z85.830 Personal history of malignant neoplasm of bone; Z85.118 Personal history of other malignant neoplasm of bronchus and lung; Z65.5 Exposure to disaster, war and other hostilities
CPT/HCPCS: 36415; 71045; 80053; 84484; 85025; 93005; 93010; 99285

== ENCOUNTER 2018-07-28 10:31 | Outpatient (CLI) | payer MEDICARE, MEDICAID ==
[~2018-07-28 10:31] MED LIST changes: -NIVOLUMAB 200 MG, NIVOLUMAB 40 MG in NORMAL SALINE 100 ML IV PRN; +NIVOLUMAB IV PRN; +NORMAL SALINE IV PRN
[2018-07-28 11:43] VITALS: BP 133/86
[2018-07-28 12:15] LABS: ALANINE AMINOTRANSFERASE 42 U/L (21-72); ALBUMIN 4.3 g/dL (3.5-5.0); ALKALINE PHOSPHATASE 58 U/L (38-126); ANION GAP 10 (5-19); ASPARTATE AMINO TRANSFERASE 27 U/L (17-59); BILIRUBIN,DIRECT 0.5 mg/dL (0.0-0.4); BILIRUBIN,TOTAL 0.5 mg/dL (0.2-1.3); BLOOD UREA NITROGEN 12 mg/dL (7-20); CALCIUM 9.8 mg/dL (8.4-10.2); CARBON DIOXIDE 34 mmol/L (22-30); CHLORIDE 94 mmol/L (98-107); GLUCOSE 120 mg/dL (75-110); POTASSIUM 4.5 mmol/L (3.6-5.0); SODIUM 138.1 mmol/L (137-145); TOTAL PROTEIN 7.2 g/dL (6.3-8.2)
== END 2018-07-28 13:16 | disposition home or self-care (01) ==
LOC: II 10:31 → 5TH 10:32 → II 13:16
PROVIDERS: ATTEND Internal Medicine
PROC: 3E0430M Introduction of Antineoplastic, Monoclonal Antibody, into Central Vein, Percutaneous Approach (ICD-10-PCS; principal; 2018-07-28)
DX: Z51.11 Encounter for antineoplastic chemotherapy (principal); C34.12 Malignant neoplasm of upper lobe, left bronchus or lung
CPT/HCPCS: 36415; 83735; 80053; 96413; 96374; J9299

== ENCOUNTER 2018-08-11 10:03 | Outpatient (CLI) | payer MEDICARE, MEDICAID ==
[2018-08-11 10:19] VITALS: BP 114/77
== END 2018-08-11 12:04 | disposition home or self-care (01) ==
LOC: II 10:03 → 5TH 10:07 → II 12:04
PROVIDERS: ATTEND Internal Medicine
PROC: 3E0430M Introduction of Antineoplastic, Monoclonal Antibody, into Central Vein, Percutaneous Approach (ICD-10-PCS; principal; 2018-08-11)
DX: Z51.11 Encounter for antineoplastic chemotherapy (principal); C34.12 Malignant neoplasm of upper lobe, left bronchus or lung
CPT/HCPCS: 96413; 96374; J9299

== ENCOUNTER 2018-08-25 09:38 | Outpatient (CLI) | payer MEDICARE, MEDICAID ==
[2018-08-25 11:37] VITALS: BP 128/64
== END 2018-08-25 11:38 | disposition home or self-care (01) ==
LOC: II 09:38
PROVIDERS: ATTEND Internal Medicine
PROC: 3E0430M Introduction of Antineoplastic, Monoclonal Antibody, into Central Vein, Percutaneous Approach (ICD-10-PCS; principal; 2018-08-25)
DX: Z51.11 Encounter for antineoplastic chemotherapy (principal); C34.12 Malignant neoplasm of upper lobe, left bronchus or lung
CPT/HCPCS: 96413; 96374; 96360; J9299

== ENCOUNTER 2018-09-08 09:23 | Outpatient (CLI) | payer MEDICARE, MEDICAID ==
[~2018-09-08 09:23] MED LIST changes: +NIVOLUMAB 240 MG in NORMAL SALINE 50 ML IV PRN; -NIVOLUMAB IV PRN; -NORMAL SALINE IV PRN
[2018-09-08 09:58] VITALS: BP 118/66
== END 2018-09-08 11:25 | disposition home or self-care (01) ==
LOC: II 09:23 → 5TH 09:23 → II 11:25
PROVIDERS: ATTEND Internal Medicine
PROC: 3E0430M Introduction of Antineoplastic, Monoclonal Antibody, into Central Vein, Percutaneous Approach (ICD-10-PCS; principal; 2018-09-08)
DX: Z51.11 Encounter for antineoplastic chemotherapy (principal); C34.12 Malignant neoplasm of upper lobe, left bronchus or lung
CPT/HCPCS: 96413; J9299

== ENCOUNTER → 2018-09-18 | Outpatient (CLI) | payer MEDICAID, MEDICARE ==
--- NOTE | 2018-09-19 10:18 | RADIOLOGY REPORT (SQ) ---
EXAM DESCRIPTION: PET CT SKULL/THIGH COMPLETED DATE/TIME: 09/18/2018 10:15 pm REASON FOR STUDY: LUNG CANCER C34.12 MALIGNANT NEOPLASM OF UPPER LOBE, LEFT BRONCHUS OR SHARON COMPARISON: CT chest abdomen pelvis 06/28/2018, 03/22/2018, 12/27/2017, 09/13/2017 RADIONUCLIDE AND DOSE: 11.9 mCi F18 FDG The route of agent administration: Intravenous FASTING BLOOD SUGAR: 134 mg/dl CONTRAST TYPE AND DOSE: No CT contrast given. TECHNIQUE: Blood glucose level was verified. Above dose of FDG was injected intravenously. 2-D seg mented attenuation correction images were obtained from the base of the skull to the midthighs. Nonc ontrast CT images were obtained for attenuation correction and fusion with emission images. CT image s were performed without oral or intravenous contrast and are not sensitive for parenchymal lesions. A series of overlapping emission PET images were obtained. Images reviewed and manipulated at [facility] work station by the radiologist. Images stored on PACS. LIMITATIONS: None. FINDINGS: HEAD AND NECK: No areas of abnormal metabolic activity in the soft tissues of the head and neck. CHEST: No areas of abnormal metabolic activity in the chest. No lung parenchymal masses are identifi ed. No mediastinal adenopathy ABDOMEN AND PELVIS: In the right lower quadrant, there is diffuse inflammatory change at the expected location of the appendix, and increased activity along the cecum and appendix ranging from 4.388.3 S UV. Findings are worrisome for chronic inflammation. Tumor along the cecum could not be excluded. PROXIMAL LOWER EXTREMITIES: No areas of abnormal metabolic activity in the soft tissues of the lower extremities. BONES: No abnormal metabolic activity in the visualized skeleton. ADDITIONAL CT FINDINGS: Old nonunited right clavicle and multiple right posterior rib fractures. Lef t permanent central line tip superior vena cava. OTHER: Liver background activity 2.4 SUV. Blood pool background activity 1.9 SUV IMPRESSION: No PET-CT evidence of metastatic disease given history of lung cancer. Abnormal increased metabolic uptake along the right lower quadrant cecum and appendix with surroundin g inflammatory change in the adjacent right lower quadrant fat. Chronic inflammation is suspected. Tumor could not entirely be excluded. TECHNICAL DOCUMENTATION: JOB ID: [id number] [employer]- All Rights Reserved Reading location - IP/workstation name: [facility]
== END ==
LOC: RAD 09-11 17:13
PROVIDERS: ATTEND Internal Medicine
DX: C34.12 Malignant neoplasm of upper lobe, left bronchus or lung (principal)
CPT/HCPCS: 78815; A9552

== ENCOUNTER 2018-09-22 10:11 | Outpatient (CLI) | payer MEDICARE ==
[2018-09-22 10:32] VITALS: BP 134/68
== END 2018-09-22 11:50 | disposition home or self-care (01) ==
LOC: II 10:11 → 5TH 10:15 → II 11:50
PROVIDERS: ATTEND Internal Medicine
DX: Z51.11 Encounter for antineoplastic chemotherapy (principal); C34.12 Malignant neoplasm of upper lobe, left bronchus or lung
CPT/HCPCS: 96413; 96374; J9299

== ENCOUNTER 2018-10-04 15:10 | Day surgery (SDC) | payer MEDICARE, MEDICAID ==
[2018-10-04] MEDS ORDERED: DIPHENHYDRAMINE HCL 50 MG/ML VIAL ONE (15:47)
[2018-10-04] MEDS ORDERED: ONDANSETRON HCL INJ/PF 4 MG/2 ML SDV ONE (15:47)
[2018-10-04] MEDS ORDERED: NALOXONE HCL INJ/PF 0.4 MG/1 ML SDV ONE (15:48)
[2018-10-04] MEDS ORDERED: FLUMAZENIL INJ 0.5 MG/5 ML VIAL ONE (15:48)
[2018-10-04] MEDS ORDERED: EPINEPHRINE INJ 1 MG/10 ML DISP.SYRIN ONE (15:48)
[2018-10-04] MEDS ORDERED: FENTANYL CITRATE INJ/PF 100 MCG/2 ML AMPUL ONE (15:48)
[2018-10-04] MEDS ORDERED: GLUCAGON,HUMAN RECOMB 1 MG INJ ONE (15:49)
[2018-10-04] MEDS: MIDAZOLAM 2 MG/2 ML INJ ONE ×2 (16:00→16:03)
--- NOTE | 2018-10-04 16:40 | Operative Report ---
Operative Report DATE OF SURGERY: 10/04/18 Operative Report: Pre-op diagnosis: Abnormal right colon on a PET scan Post-op diagnosis: 1. Antral gastritis 2. Rectal polyp 3. Descending and ascending colon polyps 4. Cecal mass Surgery: Upper endoscopy with biopsy, Colonoscopy with polypectomy and biopsy Medications: Versed 4mg, Fentanyl 100mcg IV push Tissue removed: Antral and gastric body biopsy, colon polyps and colon mass biopsy Procedure: After informed consent obtained from patient, patient's pharynx was sprayed with Hurricane and conscious sedation was achieved. The upper endoscope was then inserted into the esophagus under direct vision and advanced into the stomach and further into the duodenum. Detailed examination of the duodenum, stomach and the esophagus was then performed. A digital rectal examination was performed and this was unremarkable. The colonoscope was inserted into the rectum and advanced to the terminal ileum. The appendiceal orifice and the terminal ileum were both identified. The mucosa was examined into details as the colonoscope was slowly pulled out of the patient. The endoscope was retroflexed in the rectum. Patient tolerated the procedure well. Findings Esophagus: Normal Stomach: Mild erythema in the antrum Duodenum: Normal Terminal ileum: This was entered and found to be normal Cecum: A bulky, friable, ulcerated mass was noted involving most of the cecum. Biopsy was taken Ascending colon: Multiple sessile polyps ranging from 10-18 mm. The 10 mm polyp was removed but there were 2 other poly[address] left in place. Transverse colon: Normal Descending colon: 6 mm polyp removed with a hot snare Sigmoid colon: Normal Rectum: 15 mm pedunculated polyp removed from the proximal rectal with a hot snare. Some hemorrhoids were also noted Plan: Await pathology. Would need referral to a surgeon and follow-up with Dr. Bojorquez OPERATION: .
[2018-10-04 17:34] VITALS: BP 126/82
== END 2018-10-04 17:25 | disposition home or self-care (01) ==
LOC: END 15:10
PROVIDERS: ATTEND Internal Medicine Gastroenterology
DX: C18.0 Malignant neoplasm of cecum (principal); D12.2 Benign neoplasm of ascending colon; D12.4 Benign neoplasm of descending colon; D12.8 Benign neoplasm of rectum; K59.01 Slow transit constipation; R10.10 Upper abdominal pain, unspecified; K29.50 Unspecified chronic gastritis without bleeding; K64.8 Other hemorrhoids; J44.9 Chronic obstructive pulmonary disease, unspecified; E11.9 Type 2 diabetes mellitus without complications; E78.00 Pure hypercholesterolemia, unspecified; E03.9 Hypothyroidism, unspecified; E66.9 Obesity, unspecified; Z86.73 Personal history of transient ischemic attack (TIA), and cerebral infarction without residual deficits; Z86.718 Personal history of other venous thrombosis and embolism; Z79.01 Long term (current) use of anticoagulants; Z85.118 Personal history of other malignant neoplasm of bronchus and lung; Z68.33 Body mass index [BMI] 33.0-33.9, adult; Z99.81 Dependence on supplemental oxygen
CPT/HCPCS: 43239; 45385; 82962; 88342 ×2; 88305 ×2; J2250; J3010; J0171; J1200; J1610; J2310; J2405; J3490

== ENCOUNTER 2018-10-27 23:48 | Emergency (ER) | payer MEDICARE, MEDICAID ==
--- NOTE | 2018-10-28 00:21 | ER Document Report ---
ED General - General Stated Complaint: BLOOD PRESSURE ISSUE Time Seen by Provider: 10/27/18 23:57 Notes: Patient is a 58-year-old male with a past medical history of stage IV metastatic lung cancer, colonic cancer COPD, hypertension, who presents with complaints of having felt warm and flushed earlier this evening. Patient states that he was sitting in his recliner when this occurred. States that he checked his blood pressure and found it to be high prompting him to contact 911. The patient denies any current symptoms at the time of my assessment although EMS does report that he had multiple PVCs in route to the hospital and each time he would have these to complain of a recurring sensation of either heat or feeling flushed. Patient denies a history of similar symptoms in the past. Nothing seems to improve or worsen his symptoms. Denies any new medication or medication noncompliance. He has not contacted his primary care physician regarding today's concerns. He denies any associated shortness of breath, chest pain, lightheadedness or syncope. At the time of my evaluation he denies any symptoms of any kind. TRAVEL OUTSIDE OF THE [place] IN LAST 30 DAYS: No - Related Data Allergies/Adverse Reactions: No Known Allergies Allergy (Verified 10/04/18 15:41) Past Medical History - General Information source: Patient - Social History Smoking Status: Former Smoker Frequency of alcohol use: None Drug Abuse: None - Please also Lives with: Alone Family History: Reviewed & Not Pertinent, DM, Hypertension - Past Medical History Cardiac Medical History: Reports: Hx Hypercholesterolemia, Hx Hypertension Denies: Hx Coronary Artery Disease, Hx Heart Attack Pulmonary Medical History: Reports: Hx COPD Denies: Hx Asthma, Hx Bronchitis, Hx Pneumonia Neurological Medical History: Reports: Hx Cerebrovascular Accident. Denies: Hx Seizures Endocrine Medical History: Reports: Hx Diabetes Mellitus Type 2 Renal/ Medical History: Denies: Hx Peritoneal Dialysis Malignancy Medical History: Reports Hx Bone Cancer, Reports Hx Lung Cancer GI Medical History: Denies: Hx Liver Failure Musculoskeletal Medical History: Reports Hx Arthritis Psychiatric Medical History: Reports: Hx Depression Past Surgical History: Reports: Hx Vascular Surgery - Immunizations Hx Diphtheria, Pertussis, Tetanus Vaccination: Yes Review of Systems - Review of Systems Notes: Constitutional: Negative for fever. HENT: Negative for sore throat. Eyes: Negative for visual changes. Cardiovascular: Negative for chest pain. Positive palpitations Respiratory: Negative for shortness of breath. Gastrointestinal: Negative for abdominal pain, vomiting or diarrhea. Genitourinary: Negative for dysuria. Musculoskeletal: Negative for back pain. Skin: Negative for rash. Neurological: Negative for headaches, weakness or numbness. 10 point ROS negative except as marked above and in HPI. Physical Exam - Vital signs Vitals: Resp BP 21 H 176/91 H 10/27/18 23:53 10/27/18 23:53 Interpretation: Hypertensive Notes: PHYSICAL EXAMINATION: GENERAL: Appears older than stated age but in no acute distress HEAD: Atraumatic, normocephalic. EYES: Pupils equal round and reactive to light, extraocular movements intact, sclera anicteric, conjunctiva are normal. ENT: nares patent, oropharynx clear without exudates. Moderately dry mucous membranes. NECK: Normal range of motion, supple without lymphadenopathy LUNGS: Breath sounds clear to auscultation bilaterally and equal. Faint wheezing in all lung carr[place]. HEART: Regular rate and rhythm without murmurs ABDOMEN: Soft, nontender, normoactive bowel sounds. No guarding, no rebound. No masses appreciated. EXTREMITIES: Normal range of motion, no pitting or edema. No cyanosis. NEUROLOGICAL: No focal neurological deficits. Moves all extremities spo ntaneously and on command. PSYCH: Normal mood, normal affect. SKIN: Warm, Dry, normal turgor, no rashes or lesions noted. Course - Re-evaluation Re-evalutation: 10/27/18 23:58 Patient presents with complaints of intermittent chest tightness that started earlier tonight. He checked his blood pressure, found to be elevated prompting him to call 911. The patient currently denies any symptoms of any kind including shortness of breath or chest tightness. EMS reports the patient starts to state that he feels "bad" each time he throws multiple PVCs in a row and then his symptoms resolved thereafter. The patient denies any pleuritic pain, unilateral leg swelling, or any dyspnea of any kind. He does have a history of cancer but his clinical history is overall not suspicious for an acute pulmonary embolus and I will not pursue this diagnosis based on his current exam. Clinical history is likewise not suspicious for ACS. EKG without ischemic changes. Troponin assay pending. Chest x-ray pending will reassess after initial laboratories and x-ray have been completed. 10/28/18 01:57 Patient has remained completely symptomatic throughout his duration here in the emergency department over the last 2 hours. Laboratories head as well as chest x-ray are unremarkable. Patient continues to deny any chest pain or shortness of breath. States he continues to feel completely fine. I do not see an indication for repeat troponin as a testing as the patient never endorsed chest pain at any time and said complaining more about a sensation of heat or dizziness. I do suspect some of the symptoms may have been related to frequent PVCs as when he was having symptoms for EMS he was having recurrent PVCs and while he has been here he has had no notable PVCs on monitor and does not had any additional symptoms. At this time will discharge with return precautions and follow-up recommendations. Verbal discharge instructions given a the bedside and opportunity for questions given. Medication warnings reviewed. Patient is in agreement with this plan and has verbalized understanding of return precautions and the need for primary care follow-up in the next 24-72 hours. - Vital Signs Vital signs: Temp Pulse Resp BP Pulse Ox 98.8 F 101 H 24 H 163/92 H 95 10/28/18 00:02 10/28/18 00:02 10/28/18 01:27 10/28/18 01:27 10/28/18 01:27 - Laboratory Result Diagrams: 10/28/18 00:30 10/28/18 00:30 Laboratory results interpreted by me: 10/28/18 10/28/18 00:30 00:30 Hgb 10.8 L Hct 34.2 L MCV 79 L MCH 24.7 L MCHC 31.5 L RDW 18.5 H Seg Neuts % (Manual) 86 H Lymphocytes % (Manual) 6 L Monocytes % (Manual) 2 L Abs Neuts (Manual) 8.6 H Sodium 133.8 L Chloride 91 L Carbon Dioxide 34 H Glucose 142 H - Diagnostic Test Radiology reviewed: Image reviewed, Reports reviewed Radiology results interpreted by me: 10/28/18 01:57 Chest x-ray: No acute infiltrate or pneumothorax - EKG Interpretation by Me Additional EKG results interpreted by me: 10/28/18 01:58 Sinus rhythm. Rate 98. No ST elevations or depressions. Left fascicular block present. Unchanged from prior. QTC 450. Discharge - Discharge Clinical Impression: Palpitations Hypertension Qualifiers: Hypertension type: unspecified Qualified Code(s): I10 - Essential (primary) hypertension Condition: Good Disposition: HOME, SELF-CARE Additional Instructions: Please follow-up with your primary care doctor or a mounted police officer regarding your palpitations. Return if you develop chest pain, shortness of breath, pass out, or have any other symptoms that are worrisome to you.
[2018-10-28 00:45] LABS: HEMATOCRIT 34.2 % (37.9-51.0); HEMOGLOBIN 10.8 g/dL (13.5-17.0); MEAN CORPUSCULAR HEMOGLOBIN 24.7 pg (27.0-33.4); MEAN CORPUSCULAR HGB CONC 31.5 g/dL (32.0-36.0); MEAN CORPUSCULAR VOLUME 79 fl (80-97); PLATELET COUNT 311 10^3/uL (150-450); RED BLOOD COUNT 4.35 10^6/uL (4.35-5.55); RED CELL DISTRIBUTION WIDTH 18.5 % (11.5-14.0)
[2018-10-28 00:55] LABS: ANION GAP 9 (5-19); BLOOD UREA NITROGEN 12 mg/dL (7-20); CALCIUM 8.9 mg/dL (8.4-10.2); CARBON DIOXIDE 34 mmol/L (22-30); CHLORIDE 91 mmol/L (98-107); GLUCOSE 142 mg/dL (75-110); POTASSIUM 4.4 mmol/L (3.6-5.0); SODIUM 133.8 mmol/L (137-145)
[2018-10-28 01:03] LABS: ABSOLUTE LYMPHOCYTES# (MANUAL) 0.6 10^3/uL (0.5-4.7); ABSOLUTE MONOCYTES # (MANUAL) 0.2 10^3/uL (0.1-1.4); ABSOLUTE NEUTROPHILS# (MANUAL) 8.6 10^3/uL (1.7-8.2); BASOPHILS % (MANUAL) 0 % (0-2); EOSINOPHILS % (MANUAL) 6 % (0-6); LYMPHOCYTES % (MANUAL) 6 % (13-45); MONOCYTES % (MANUAL) 2 % (3-13); SEGMENTED NEUTROPHILS % (MAN) 86 % (42-78); TOTAL CELLS COUNTED 100
[2018-10-28 01:04] LABS: ANISOCYTOSIS 2+; POIKILOCYTOSIS SLIGHT; SCHISTOCYTES 1+; TEAR DROP CELLS SLIGHT; TOXIC GRANULATION 1+
[2018-10-28 01:05] LABS: PLATELET COMMENT ADEQUATE; PLATELET LARGE PRESENT
--- NOTE | 2018-10-28 01:35 | RADIOLOGY REPORT (SQ) ---
XR CHEST 1 VIEW HISTORY: Chest tightness. COMPARISON: 07/22/2018 FINDINGS: Stable left IJ line. Normal heart size. The lungs are clear. No pleural effusion or pneumothorax is identified. There are multiple old right-sided rib fractures. IMPRESSION: No acute cardiopulmonary abnormality.
[2018-10-28 02:38] VITALS: BP 159/90
--- NOTE | 2018-10-28 07:54 | EKG REPORT ---
SEVERITY:- ABNORMAL ECG - SINUS RHYTHM LEFT ANTERIOR FASCICULAR BLOCK BORDERLINE T ABNORMALITIES, ANT-LAT LEADS : Confirmed by: Chas Patino MD 28-Oct-2018 07:54:07
== END 2018-10-28 03:30 | disposition home or self-care (01) ==
LOC: ER 23:48
DX: R00.2 Palpitations (principal); I10 Essential (primary) hypertension; E78.00 Pure hypercholesterolemia, unspecified; E11.9 Type 2 diabetes mellitus without complications; J44.9 Chronic obstructive pulmonary disease, unspecified; Z86.73 Personal history of transient ischemic attack (TIA), and cerebral infarction without residual deficits; Z85.118 Personal history of other malignant neoplasm of bronchus and lung; Z85.830 Personal history of malignant neoplasm of bone
CPT/HCPCS: 36415; 71045; 80048; 84484; 85025; 93005; 93010; 99285

== ENCOUNTER 2018-11-08 16:59 | Emergency (ER) | payer MEDICARE, MEDICAID ==
[2018-11-08] MEDS ORDERED: ONDANSETRON HCL INJ/PF 4 MG/2 ML SDV IV ONE (18:49)
--- NOTE | 2018-11-08 18:49 | ER Document Report ---
ED Medical Screen (RME) - General Chief Complaint: Abdominal Pain Stated Complaint: NAUSEA/VOMITING Time Seen by Provider: 11/08/18 18:45 Notes: Patient says he has been vomiting for the past 4 days, about twice a day, anytime he puts food in his stomach. He is unable to keep anything down. He says he has had some watery diarrhea. Has not seen blood in either the vomitus or the bowel movements. Has some abdominal pains throughout the entire abdomen. Patient says he was diagnosed with colon cancer by colonoscopy about 6 weeks ago. He is being evaluated to determine if he is capable of undergoing the surgery for the cancer. He also has a history of previous lung cancer and is getting chemotherapy under the care of Dr. Bojorquez. Patient was brought in by EMS and they gave him 8 mg of Zofran and 500 mL of saline IV on the TRAVEL OUTSIDE OF THE [place] IN LAST 30 DAYS: No - Related Data Allergies/Adverse Reactions: No Known Allergies Allergy (Verified 10/04/18 15:41) Past Medical History - Social History Chew tobacco use (# tins/day): No Frequency of alcohol use: None Drug Abuse: None - Past Medical History Cardiac Medical History: Reports: Hx Hypercholesterolemia, Hx Hypertension Denies: Hx Coronary Artery Disease, Hx Heart Attack Pulmonary Medical History: Reports: Hx COPD Denies: Hx Asthma, Hx Bronchitis, Hx Pneumonia Neurological Medical History: Reports: Hx Cerebrovascular Accident. Denies: Hx Seizures Endocrine Medical History: Reports: Hx Diabetes Mellitus Type 2 Renal/ Medical History: Denies: Hx Peritoneal Dialysis Malignancy Medical History: Reports Hx Bone Cancer, Reports Hx Lung Cancer GI Medical History: Denies: Hx Liver Failure Musculoskeltal Medical History: Reports Hx Arthritis Psychiatric Medical History: Reports: Hx Depression Past Surgical History: Reports: Hx Vascular Surgery - Immunizations Hx Diphtheria, Pertussis, Tetanus Vaccination: Yes Physical Exam - Vital signs Vitals: Temp Pulse Resp BP Pulse Ox 97.8 F 96 18 141/69 H 93 11/08/18 17:06 11/08/18 17:06 11/08/18 17:06 11/08/18 17:06 11/08/18 17:06 Course - Vital Signs Vital signs: Temp Pulse Resp BP Pulse Ox 97.8 F 96 18 141/69 H 93 11/08/18 17:06 11/08/18 17:06 11/08/18 17:06 11/08/18 17:06 11/08/18 17:06 Doctor's Discharge - Discharge Referrals: JAMES SULLIVAN MD [Primary Care Provider] - Follow up as needed
[2018-11-08 19:09] LABS: HEMATOCRIT 35.8 % (37.9-51.0); HEMOGLOBIN 11.3 g/dL (13.5-17.0); MEAN CORPUSCULAR HEMOGLOBIN 23.9 pg (27.0-33.4); MEAN CORPUSCULAR HGB CONC 31.4 g/dL (32.0-36.0); MEAN CORPUSCULAR VOLUME 76 fl (80-97); PLATELET COUNT 478 10^3/uL (150-450); RED BLOOD COUNT 4.72 10^6/uL (4.35-5.55); RED CELL DISTRIBUTION WIDTH 19.5 % (11.5-14.0); WHITE BLOOD COUNT 15.2 10^3/uL (4.0-10.5)
[2018-11-08 19:23] LABS: ALANINE AMINOTRANSFERASE 17 U/L (21-72); ALKALINE PHOSPHATASE 82 U/L (38-126); ANION GAP 16 (5-19); ASPARTATE AMINO TRANSFERASE 52 U/L (17-59); BILIRUBIN,DIRECT 0.4 mg/dL (0.0-0.4); BILIRUBIN,TOTAL 0.6 mg/dL (0.2-1.3); BLOOD UREA NITROGEN 34 mg/dL (7-20); CALCIUM 9.5 mg/dL (8.4-10.2); CARBON DIOXIDE 34 mmol/L (22-30); CHLORIDE 81 mmol/L (98-107); GLUCOSE 135 mg/dL (75-110); LIPASE 208.3 U/L (23-300); POTASSIUM 4.7 mmol/L (3.6-5.0); SODIUM 131.1 mmol/L (137-145); TOTAL PROTEIN 7.1 g/dL (6.3-8.2)
[2018-11-08 19:27] LABS: ABSOLUTE LYMPHOCYTES# (MANUAL) 0.5 10^3/uL (0.5-4.7); ABSOLUTE MONOCYTES # (MANUAL) 0.3 10^3/uL (0.1-1.4); ABSOLUTE NEUTROPHILS# (MANUAL) 14.3 10^3/uL (1.7-8.2); BASOPHILS % (MANUAL) 0 % (0-2); EOSINOPHILS % (MANUAL) 1 % (0-6); LYMPHOCYTES % (MANUAL) 3 % (13-45); MONOCYTES % (MANUAL) 2 % (3-13); SEGMENTED NEUTROPHILS % (MAN) 94 % (42-78); TOTAL CELLS COUNTED 100
[2018-11-08 19:28] LABS: PLATELET COMMENT ADEQUATE; PLATELET LARGE PRESENT
[2018-11-08 19:29] LABS: ANISOCYTOSIS 2+; OVALOCYTES SLIGHT; POIKILOCYTOSIS SLIGHT
[2018-11-08 19:31] LABS: AMORPHOUS SEDIMENT,URINE TRACE /HPF; APPEARANCE,URINE CLOUDY; BILIRUBIN,URINE NEGATIVE (NEGATIVE); COLOR,URINE YELLOW; GLUCOSE, URINE NEGATIVE (NEGATIVE); KETONES,URINE TRACE mg/dL (NEGATIVE); LEUKOCYTE ESTERASE,URINE NEGATIVE (NEGATIVE); NITRITE,URINE NEGATIVE (NEGATIVE); PROTEIN,URINE 30 mg/dL (NEGATIVE); URINE SPECIFIC GRAVITY 1.021; UROBILINOGEN,URINE NEGATIVE mg/dL (<2.0)
--- NOTE | 2018-11-08 22:31 | ER Document Report ---
ED GI/ - General Chief Complaint: Abdominal Pain Stated Complaint: NAUSEA/VOMITING Time Seen by Provider: 11/08/18 22:31 Information source: Patient Notes: Patient is a 58-year-old male with a history of COPD, hypertension, lung cancer, metastatic colon cancer currently on chemotherapy who presents with abdominal pa in associated with nonbloody and nonbilious emesis. Patient reports last normal bowel movement was approximately 1 week ago, since then he has had intermittent episodes of liquid stool, abdominal pain started 2 days ago and got worse today. He has had several episodes of nausea and reports that he "cannot keep anything down." He denies known injury or trauma. He denies chest pain, shortness of breath, fevers, chills, or new medications. TRAVEL OUTSIDE OF THE [place] IN LAST 30 DAYS: No - HPI Patient complains to provider of: Abdominal pain Onset: Yesterday Timing/Duration: Sudden Quality of pain: Achy Severity at maximum: Moderate Severity in ED: Mild Pain Level: 2 Context: Other - History of colon cancer Location: RUQ, RLQ Sexual history: Inactive Associated symptoms: Diarrhea, Nausea, Vomiting. denies: Blood in emesis, Blood in stool Exacerbated by: Denies Relieved by: Denies Similar symptoms previously: No Recently seen / treated by doctor: No - Related Data Allergies/Adverse Reactions: No Known Allergies Allergy (Verified 10/04/18 15:41) Past Medical History - General Information source: Patient - Social History Smoking Status: Former Smoker Chew tobacco use (# tins/day): No Frequency of alcohol use: None Drug Abuse: None Lives with: Alone Family History: Reviewed & Not Pertinent, DM, Hypertension Patient has suicidal ideation: No Patient has homicidal ideation: No - Past Medical History Cardiac Medical History: Reports: Hx Hypercholesterolemia, Hx Hypertension Denies: Hx Coronary Artery Disease, Hx Heart Attack Pulmonary Medical History: Reports: Hx COPD Denies: Hx Asthma, Hx Bronchitis, Hx Pneumonia EENT Medical History: Reports: None Neurological Medical History: Reports: Hx Cerebrovascular Accident. Denies: Hx Seizures Endocrine Medical History: Reports: Hx Diabetes Mellitus Type 2 Renal/ Medical History: Reports: None. Denies: Hx Peritoneal Dialysis Malignancy Medical History: Reports Hx Bone Cancer, Reports Hx Lung Cancer GI Medical History: Reports: Other - History of colon cancer. Denies: Hx Liver Failure Musculoskeletal Medical History: Reports Hx Arthritis Skin Medical History: Reports None Psychiatric Medical History: Reports: Hx Depression Traumatic Medical History: Reports: None Infectious Medical History: Reports: None Past Surgical History: Reports: Hx Vascular Surgery - Immunizations Immunizations up to date: Yes Hx Diphtheria, Pertussis, Tetanus Vaccination: Yes Review of Systems - Review of Systems Constitutional: No symptoms reported EENT: No symptoms reported Cardiovascular: No symptoms reported Respiratory: No symptoms reported Gastrointestinal: See HPI, Abdominal pain, Diarrhea, Nausea, Vomiting, Constipation. denies: Blood in vomit, Black stools, Rectal bleeding Genitourinary: No symptoms reported Male Genitourinary: No symptoms reported Musculoskeletal: No symptoms reported Skin: No symptoms reported Hematologic/Lymphatic: No symptoms reported Neurological/Psychological: No symptoms reported Physical Exam - Vital signs Vitals: Temp Pulse Resp BP Pulse Ox 97.8 F 96 18 141/69 H 93 11/08/18 17:06 11/08/18 17:06 11/08/18 17:06 11/08/18 17:06 11/08/18 17:06 Interpretation: Normal - Notes Notes: Patient appears uncomfortable but is in no acute distress - General General appearance: Appears well, Alert - HEENT Head: Normocephalic, Atraumatic Eyes: Normal Pupils: PERRL - Respiratory Respiratory status: No respiratory distress Chest status: Nontender Breath sounds: Normal Chest palpation: Normal - Cardiovascular Rhythm: Regular Heart sounds: Normal auscultation Murmur: No - Abdominal Inspection: Normal Distension: Distended - Mild. No: Tympanitic Bowel sounds: Normal Tenderness: Tender - Mild tenderness throughout. No: Guarding, Rebound Organomegaly: No organomegaly - Rectal Notes: Deferred - Genitourinary Notes: Deferred - Back Back: Normal, Nontender - Extremities General upper extremity: Normal inspection, Nontender, Normal color, Normal ROM, Normal temperature General lower extremity: Normal inspection, Nontender, Normal color, Normal ROM, Normal temperature, Normal weight bearing. No: Maria Del Carmen's sign - Neurological Neuro grossly intact: Yes Cognition: Normal Orientation: AAOx4 [place] Coma Scale Eye Opening: Spontaneous [place] Coma Scale Verbal: Oriented [place] Coma Scale Motor: Obeys Commands [place] Coma Scale Total: 15 Speech: Normal Motor strength normal: LUE, RUE, LLE, RLE Sensory: Normal - Psychological Associated symptoms: Normal affect, Normal mood - Skin Skin Temperature: Warm Skin Moisture: Dry Skin Color: Normal Course - Re-evaluation Re-evalutation: 11/08/17 23:51 Concern for intra-abdominal pathology such as obstruction versus colitis. Will obtain CT scan, labs, and reassess. 11/09/18 01:07 CT scan shows evidence of small bowel obstruction. Labs are grossly unremarkable. Patient has been admitted by surgery. - Vital Signs Vital signs: Temp Pulse Resp BP Pulse Ox 97.9 F 93 17 144/88 H 93 11/09/18 00:10 11/09/18 00:10 11/09/18 00:10 11/09/18 00:10 11/09/18 00:10 - Laboratory Result Diagrams: 11/08/18 16:25 11/08/18 16:25 Laboratory results interpreted by me: 11/08/18 11/08/18 11/08/18 16:25 16:25 19:05 WBC 15.2 H Hgb 11.3 L Hct 35.8 L MCV 76 L MCH 23.9 L MCHC 31.4 L RDW 19.5 H Plt Count 478 H Seg Neuts % (Manual) 94 H Lymphocytes % (Manual) 3 L Monocytes % (Manual) 2 L Abs Neuts (Manual) 14.3 H Sodium 131.1 L Chloride 81 L Carbon Dioxide 34 H BUN 34 H Glucose 135 H ALT 17 L Urine Protein 30 H Urine Ketones TRACE H - Diagnostic Test Radiology reviewed: Reports reviewed - Consults Dr. Rome Time consulted: 00:31 - place NGT, will admit Consulted provider: will come to ER Discharge - Discharge Clinical Impression: Small bowel obstruction Abdominal pain Qualifiers: Abdominal location: generalized Qualified Code(s): R10.84 - Generalized abdominal pain Condition: Stable Disposition: ADMITTED INPATIENT Admitting Provider: Surgicalist Unit Admitted: Surgical Floor Referrals: JAMES SULLIVAN MD [Primary Care Provider] - Follow up as needed
--- NOTE | 2018-11-08 22:44 | RADIOLOGY REPORT (SQ) ---
CT ABDOMEN PELVIS WITH IV CONTRAST HISTORY: Abdominal pain, Hx colon cancer Dx 6 wks. COMPARISON: None. TECHNIQUE: CT scan of the abdomen and pelvis with IV contrast. This exam was performed according to our departmental dose-optimization program, which includes automated exposure control, adjustment of the mA and/or kV according to patient size and/or use of iterative reconstruction technique. FINDINGS: There is a small area of groundglass opacity at the left lung base. No pleural or pericardial effusions. The liver has nodular contour consistent with cirrhosis. No gallstones by CT criteria. No adrenal masses are identified. Both kidneys are symmetric, without hydronephrosis. The prostate gland and seminal vesicles are unremarkable. There are dilated loops of small bowel measuring up to 4.2 cm predominantly in the left abdomen. There are also collapsed distal small bowel loops in the right lower quadrant is a significant transition point in this region. The colon is fluid-filled suggesting a diarrheal illness. There is diffuse soft tissue nodules throughout the peritoneum and omentum likely representing metastatic disease. There is a moderate amount of abdominal and pelvic free fluid. No free air is seen however. The aorta is normal caliber and contains atherosclerotic calcifications. No suspicious IMPRESSION: 1. Small bowel obstruction with a transition point in the right lower quadrant. 2. Metastatic disease involving the omentum and peritoneum. Correlate with prior PET scan. 3. Fluid-filled colon suggesting a diarrheal illness. 4. Nodular contour of the liver which may represent cirrhosis. 5. Moderate abdominal and pelvic ascites.
[2018-11-09] MEDS ORDERED: PIPERACILLIN/TAZOBACTAM 3.375 GM VIAL IV ONE (00:17)
[2018-11-09] MEDS ORDERED: MORPHINE SULFATE 10 MG/ML INJ IV PRN (00:17)
[2018-11-09] MEDS ORDERED: METOCLOPRAMIDE HCL INJ/PF 10 MG/2 ML SDV IV ONE (00:17)
[2018-11-09 01:00] LABS: INTERNATIONAL RATION (INR) 1.47; PROTHROMBIN TIME 18.6 SEC (11.4-15.4)
--- NOTE | 2018-11-09 02:26 | PDOC CONSULTATION ---
Consultation Consult Date: 11/09/18 Attending physician:: ASHOK BERRIOS Consult reason:: Small bowel obstruction History of Present Illness Admission Date/PCP: 11/09/18 01:16 JAMES SULLIVAN MD Patient complains of: Abdominal pain nausea and vomiting History of Present Illness: ADRIEN BELTRAN is a 58 year old male Who presents to the emergency department via ground rescue complaining of a several week history of abdominal pain nausea vomiting, difficulty moving his bowels. He was evaluated in the emergency department where he had a CT scan of the abdomen and pelvis with IV and oral contrast which suggested findings of a small bowel obstruction with a transition point in the right lower quadrant. CT scan also interpreted as having evidence of metastatic disease. Surgery was consulted, and opinion sought. Placement of nasogastric tube was recommended. Of note the patient has a history of left upper lobe lung malignancy, status post chemo and immunotherapy, originally diagnosed 3 years ago, managed by [facility] oncology group. Patient has had multiple CT and PET scans as recently as September, showing no evidence of metastatic disease; there was an area of increased uptake in the right colon prompting a colonoscopy by Dr. Msaon Alberto, intermediate card tender, on number [id number] which revealed a cecal mass and multiple polyps. 2 of the polyps were removed revealing tubular adenomas, cecal mass biopsy showed moderately differentiated adenocarcinoma of the colon. Patient was seen at [facility] recently. Past Medical History Cardiac Medical History: Reports: Hyperlipidema, Hypertension Denies: Coronary Artery Disease, Myocardial Infarction Pulmonary Medical History: Reports: Chronic Obstructive Pulmonary Disease (COPD) Denies: Asthma, Bronchitis, Pneumonia EENT Medical History: Reports: None Neurological Medical History: Denies: Seizures Endocrine Medical History: Reports: Diabetes Mellitus Type 2 Renal/ Medical History: Reports: None Malignancy Medical History: Reports: Bone Cancer, Lung Cancer GI Medical History: Reports: Other - History of colon cancer Musculoskeltal Medical History: Reports: Arthritis Skin Medical History: Reports: None Psychiatric Medical History: Reports: Depression Traumatic Medical History: Reports: None Hematology: Denies: Anemia Infectious Medical History: Reports: None Past Surgical History Past Surgical History: Reports: Vascular Surgery Social History Lives with: Alone Smoking Status: Former Smoker Frequency of Alcohol Use: Occasional Hx Recreational Drug Use: No Hx Prescription Drug Abuse: No Family History Family History: Reviewed & Not Pertinent, DM, Hypertension Parental Family History Reviewed: Yes Children Family History Reviewed: Yes Sibling(s) Family History Reviewed.: Yes Medication/Allergy Home Medications: Buspirone HCl [Buspar 5 mg Tablet] 5 mg PO TID 12/16/16 Clopidogrel Bisulfate [Plavix] 75 mg PO DAILY 12/16/16 Levothyroxine Sodium [Synthroid 0.05 mg Tablet] 0.05 mg PO DAILY 12/16/16 Pravastatin Sodium [Pravachol] 20 mg PO QHS 12/16/16 Albuterol Sulfate [Proair Hfa Inhalation Aerosol 8.5 gm Mdi] 200 puff IH ASDIR PRN 10/04/18 Aspirin [Aspirin 325 mg Tablet] 325 mg PO DAILY 10/04/18 Calcium Carbonate/Vitamin D3 [Calcium 600 + Vit D Tablet] 1 tab PO BID 10/04/18 Cholecalciferol (Vitamin D3) [Vitamin D3] 5,000 unit PO DAILY 10/04/18 Fentanyl [Duragesic 50 Mcg/Hr Transdermal Patch] 1 each TD Q3D 10/04/18 Fluticasone/Umeclidin/Vilanter [Trelegy 100-62.5-25 Mcg Ellipta 14 Dose/Dpi] 1 each IH DAILY 10/04/18 Gabapentin [Neurontin 300 mg Capsule] 300 mg PO TID 10/04/18 Hydromorphone HCl 4 mg PO TID 10/04/18 Ipratropium/Albuterol Sulfate [Duoneb 3 ml Ampul] 3 ml NEB RTQ6 10/04/18 Magnesium Oxide [Magnesium] 400 mg PO BID 10/04/18 Metformin HCl 1,000 mg PO BID 10/04/18 Pyridoxine HCl [Vitamin B-6] 100 mg PO DAILY 10/04/18 Allergies/Adverse Reactions: No Known Allergies Allergy (Verified 10/04/18 15:41) Review of Systems Constitutional: PRESENT: as per HPI Eyes: ABSENT: visual disturbances Ears: ABSENT: hearing changes Gastrointestinal: PRESENT: as per HPI Physical Exam Vital Signs: Temp Pulse Resp BP Pulse Ox 97.9 F 93 17 144/88 H 93 11/09/18 00:10 11/09/18 00:10 11/09/18 00:10 11/09/18 00:10 11/09/18 00:10 Intake & Output 11/07/18 11/08/18 11/09/18 06:59 06:59 06:59 Weight 108.862 kg General appearance: PRESENT: other - Patient looks chronically ill, chronic shortness of breath Head exam: PRESENT: normocephalic Eye exam: PRESENT: EOMI Mouth exam: PRESENT: dry mucosa Neck exam: PRESENT: full ROM Respiratory exam: PRESENT: other - Chronic shortness of breath bilaterally Cardiovascular exam: PRESENT: RRR Pulses: PRESENT: normal carotid pulses, normal radial pulses, normal femoral pulses Rectal exam: PRESENT: deferred Extremities exam: PRESENT: +2 edema Neurological exam: PRESENT: alert, awake, oriented to person, oriented to place Psychiatric exam: PRESENT: anxious Results Laboratory Results: 11/08/18 16:25 11/08/18 16:25 11/08/18 11/08/18 11/08/18 16:25 16:25 19:05 WBC 15.2 H RBC 4.72 Hgb 11.3 L Hct 35.8 L MCV 76 L MCH 23.9 L MCHC 31.4 L RDW 19.5 H Plt Count 478 H Seg Neutrophils % Not Reportable Lymphocytes % Not Reportable Monocytes % Not Reportable Eosinophils % Not Reportable Basophils % Not Reportable Absolute Neutrophils Not Reportable Absolute Lymphocytes Not Reportable Absolute Monocytes Not Reportable Absolute Eosinophils Not Reportable Absolute Basophils Not Reportable Sodium 131.1 L Potassium 4.7 Chloride 81 L Carbon Dioxide 34 H Anion Gap 16 BUN 34 H Creatinine 1.14 Est GFR ( Amer) > 60 Est GFR (Non-Af Amer) > 60 Glucose 135 H Calcium 9.5 Total Bilirubin 0.6 AST 52 ALT 17 L Alkaline Phosphatase 82 Total Protein 7.1 Albumin 4.0 Lipase 208.3 Urine Color YELLOW Urine Appearance CLOUDY Urine pH 6.0 Ur Specific [place] 1.021 Urine Protein 30 H Urine Glucose (UA) NEGATIVE Urine Ketones TRACE H Urine Blood NEGATIVE Urine Nitrite NEGATIVE Ur Leukocyte Esterase NEGATIVE Urine WBC (Auto) 1 Urine RBC (Auto) 3 Blood Type Antibody Screen 11/09/18 00:39 WBC RBC Hgb Hct MCV MCH MCHC RDW Plt Count Seg Neutrophils % Lymphocytes % Monocytes % Eosinophils % Basophils % Absolute Neutrophils Absolute Lymphocytes Absolute Monocytes Absolute Eosinophils Absolute Basophils Sodium Potassium Chloride Carbon Dioxide Anion Gap BUN Creatinine Est GFR ( Amer) Est GFR (Non-Af Amer) Glucose Calcium Total Bilirubin AST ALT Alkaline Phosphatase Total Protein Albumin Lipase Urine Color Urine Appearance Urine pH Ur Specific [place] Urine Protein Urine Glucose (UA) Urine Ketones Urine Blood Urine Nitrite Ur Leukocyte Esterase Urine WBC (Auto) Urine RBC (Auto) Blood Type B POSITIVE Antibody Screen NEGATIVE Impressions: Abdomen/Pelvis CT 11/08/18 00:00 IMPRESSION: 1. Small bowel obstruction with a transition point in the right lower quadrant. 2. Metastatic disease involving the omentum and peritoneum. Correlate with prior PET scan. 3. Fluid-filled colon suggesting a diarrheal illness. 4. Nodular contour of the liver which may represent cirrhosis. 5. Moderate abdominal and pelvic ascites. Assessment & Plan - Diagnosis (1) Carcinoma of cecum Is this a current diagnosis for this admission?: Yes Plan: Impression: Recently diagnosed on colonoscopy by Dr. Kim, October 04, 2018, moderately differentiated histology; seen at [facility]. Now with CAT scan demonstrating ascites, and masses suggesting diffuse intra- abdominal metastases Recommendations: 1. Patient needs admission to the hospital, clarification of extent of malignancy specifically the patient has intra-abdominal metastatic. If so, the patient's prognosis is extremely poor, and palliative care may be the most appropriate direction; patient most appropriately managed by a medical service with surgery consulting and this was discussed with Dr. Ashok Berrios 2. Conversely ascites may be secondary to liver insufficiency, and alternative management may be appropriate. 3. The interpretation of a bowel obstruction may also need to be revisited; patient may benefit from nasogastric decompression. 4. No immediate indication for surgical intervention until above issues clarified. (3) Abdominal pain Qualifiers: Abdominal location: generalized Qualified Code(s): R10.84 - Generalized abdominal pain Is this a current diagnosis for this admission?: Yes (5) COPD exacerbation Is this a current diagnosis for this admission?: Yes (6) Lung cancer Qualifiers: Laterality: left Lung location: upper lobe of lung Qualified Code(s): C34.12 - Malignant neoplasm of upper lobe, left bronchus or lung Is this a current diagnosis for this admission?: No Plan: Previously treated with chemo and immunotherapy via left subclavian port; PET scan September 18 showing no evidence of metastatic disease. (7) Anasarca Is this a current diagnosis for this admission?: Yes (8) Ascites Is this a current diagnosis for this admission?: Yes (9) Former smoker Is this a current diagnosis for this admission?: Yes (10) Alcohol abuse Is this a current diagnosis for this admission?: Yes - Time Time Spent: 50 to 70 Minutes Smoking Cessation Education: over 10 minutes Medications reviewed and adjusted accordingly: Yes Anticipated discharge: Home - Inpatient Certification Based on my medical assessment, after consideration of the patient's comorbidities, presenting symptoms, or acuity I expect that the services needed warrant INPATIENT care.: Yes I certify that my determination is in accordance with my understanding of Medicare's requirements for reasonable and necessary INPATIENT services [42 CFR 412.3e].: Yes Medical Necessity: Need For IV Fluids, Need for Pain Control
[2018-11-09] MEDS ORDERED: FENTANYL CITRATE INJ/PF 100 MCG/2 ML AMPUL IV ONE (09:56)
--- NOTE | 2018-11-09 09:57 | ER Document Report ---
Doctor's Note Notes: 11/09/18 09:56 Patient seen and examined, just prior to transport, transfer team from [facility] has arrived, transfer care given, patient was having some discomfort, 50 mcg of IV fentanyl was ordered, questions answered from patient and patient is stable for discharge at this time.
[2018-11-09 10:07] VITALS: BP 144/87
== END 2018-11-09 10:07 | disposition short-term general hospital (02) ==
LOC: ER 16:59 → EH 11-09 01:16 → UNDOADMIN 11-09 01:16
DX: K56.609 Unspecified intestinal obstruction, unspecified as to partial versus complete obstruction (principal); C78.5 Secondary malignant neoplasm of large intestine and rectum; K59.00 Constipation, unspecified; R10.84 Generalized abdominal pain; J44.9 Chronic obstructive pulmonary disease, unspecified; R11.2 Nausea with vomiting, unspecified; R19.7 Diarrhea, unspecified; E11.9 Type 2 diabetes mellitus without complications; I10 Essential (primary) hypertension; Z87.891 Personal history of nicotine dependence
CPT/HCPCS: 99285; 96375; 96365; 86900; 86901; 36415; 86850; 83690; 85025; 85610; 80053; 81001; 74177; J3010; J2765; J2270; J2405; J2543

== ENCOUNTER 2018-12-07 07:31 | Day surgery (SDC) | payer MEDICARE, MEDICAID ==
[2018-12-07 08:46] LABS: INTERNATIONAL RATION (INR) 1.07; PROTHROMBIN TIME 14.5 SEC (11.4-15.4)
[2018-12-07 08:47] LABS: HEMATOCRIT 32.4 % (37.9-51.0); HEMOGLOBIN 10.2 g/dL (13.5-17.0); MEAN CORPUSCULAR HGB CONC 31.5 g/dL (32.0-36.0); MEAN CORPUSCULAR VOLUME 76 fl (80-97); PARTIAL THROMBOPLASTIN TIME 31.5 SEC (23.5-35.8); PLATELET COUNT 241 10^3/uL (150-450); RED BLOOD COUNT 4.25 10^6/uL (4.35-5.55); WHITE BLOOD COUNT 8.6 10^3/uL (4.0-10.5)
[2018-12-07 08:55] LABS: BLOOD UREA NITROGEN 21 mg/dL (7-20)
[2018-12-07] MEDS ORDERED: ALBUMIN HUMAN 25 GM/100 ML RTUINJ IV PRN ×2 (12:00)
--- NOTE | 2018-12-07 12:28 | RADIOLOGY REPORT (SQ) ---
EXAM DESCRIPTION: U/S ABD PARACENTESIS COMPLETED DATE/TIME: 12/07/2018 11:37 am REASON FOR STUDY: ASCITES COMPARISON CT abdomen and pelvis 11/08/2018 LIMITATIONS: None. PROCEDURE: After obtaining informed consent, the patient was brought to the ultrasound suite. The p rocedure was performed with the patient on a gurney. Ultrasound was used to identify a prominent poc ket of ascites in the right lower quadrant. An appropriate access site was selected. The patient wa s prepped and draped in usual sterile fashion. The access site was anesthetized with 7 mL 1% lidoca ine. A Txyf-O-Jknoptox needle was advanced into the fluid. After aspiration of fluid the needle, th e catheter was advanced off the needle into the fluid. A total of 7,500 mL of clear yellow fluid was removed. The patient tolerated the procedure well left the department in satisfactory condition. Patient received IV albumin after the procedure IMPRESSION: Successful ultrasound-guided paracentesis COMMENT: Patient medication list reviewed: Yes- Quality ID# [id number]:Eligible professional attests to doc umenting in the medical record they obtained, updated, or reviewed the patient's current medications. TECHNICAL DOCUMENTATION: JOB ID: [id number] [employer]- All Rights Reserved Reading location - IP/workstation name: [email or web address]
[2018-12-07 13:28] VITALS: BP 120/74
== END 2018-12-07 13:15 | disposition home or self-care (01) ==
LOC: RAD 07:31
PROVIDERS: ATTEND Family Medicine
DX: R18.0 Malignant ascites (principal); Z85.038 Personal history of other malignant neoplasm of large intestine; E11.9 Type 2 diabetes mellitus without complications; I10 Essential (primary) hypertension; J44.9 Chronic obstructive pulmonary disease, unspecified; E78.5 Hyperlipidemia, unspecified; I73.9 Peripheral vascular disease, unspecified; Z86.73 Personal history of transient ischemic attack (TIA), and cerebral infarction without residual deficits; Z79.82 Long term (current) use of aspirin; Z79.891 Long term (current) use of opiate analgesic; Z79.899 Other long term (current) drug therapy; Z79.51 Long term (current) use of inhaled steroids; Z79.02 Long term (current) use of antithrombotics/antiplatelets; Z79.84 Long term (current) use of oral hypoglycemic drugs
CPT/HCPCS: 36415; 82962; 84520; 82565; 85027; 85610; 85730; 49083; P9047

== ENCOUNTER 2018-12-08 09:18 | Inpatient (IN) | payer MEDICARE, MEDICAID ==
--- NOTE | 2018-12-08 09:42 | ER Document Report ---
ED General - General Chief Complaint: Nausea/Vomiting Stated Complaint: NAUSEA/VOMITING Time Seen by Provider: 12/08/18 09:23 Mode of Arrival: Medic Information source: Patient Notes: This is a 58-year-old man with a history of lung cancer, stage IV colon cancer with metastatic disease. Patient is brought in by EMS because of nausea and vomiting. Patient completed chemotherapy 2 days ago (5-FU, leucovorin, Oxaloplatin). Patient also had a large volume paracentesis yesterday. Patient denies fever. Patient does have chronic pain. He denies any increased in any of his pain. TRAVEL OUTSIDE OF THE [place] IN LAST 30 DAYS: No - HPI Onset: Last week Onset/Duration: Gradual Quality of pain: Dull Severity: Moderate Pain Level: 2 Associated symptoms: Nausea, Vomiting. denies: Diarrhea, Fever, Shortness of breath Exacerbated by: Denies Relieved by: Denies Similar symptoms previously: Yes Recently seen / treated by doctor: Yes - Related Data Allergies/Adverse Reactions: No Known Allergies Allergy (Verified 12/08/18 09:38) Past Medical History - General Information source: Patient - Social History Smoking Status: Unknown if Ever Smoked Cigarette use (# per day): No Chew tobacco use (# tins/day): No Frequency of alcohol use: None Drug Abuse: None Lives with: Family Family History: Reviewed & Not Pertinent, DM, Hypertension Patient has suicidal ideation: No Patient has homicidal ideation: No - Past Medical History Cardiac Medical History: Reports: Hx Coronary Artery Disease, Hx Hypercholesterolemia, Hx Hypertension Denies: Hx Heart Attack Pulmonary Medical History: Reports: Hx COPD Denies: Hx Asthma, Hx Bronchitis, Hx Pneumonia Neurological Medical History: Denies: Hx Cerebrovascular Accident, Hx Seizures Endocrine Medical History: Reports: Hx Diabetes Mellitus Type 2 Renal/ Medical History: Denies: Hx Peritoneal Dialysis Malignancy Medical History: Reports Hx Bone Cancer, Reports Hx Lung Cancer GI Medical History: Denies: Hx Liver Failure Musculoskeletal Medical History: Reports Hx Arthritis Psychiatric Medical History: Reports: Hx Depression Past Surgical History: Reports: Hx Vascular Surgery - LEFT CHEST PORT - Immunizations Immunizations up to date: Yes Hx Diphtheria, Pertussis, Tetanus Vaccination: No Review of Systems - Review of Systems Constitutional: denies: Chills, Fever EENT: No symptoms reported Cardiovascular: No symptoms reported Respiratory: No symptoms reported Gastrointestinal: See HPI Genitourinary: No symptoms reported Male Genitourinary: No symptoms reported Musculoskeletal: No symptoms reported Skin: No symptoms reported Hematologic/Lymphatic: No symptoms reported Neurological/Psychological: No symptoms reported Physical Exam - Vital signs Vitals: Temp BP 98.3 F 120/83 12/08/18 09:20 12/08/18 09:20 Notes: Physical exam: GENERAL: She is alert and oriented x3, he does appear dehydrated. Complaining of nausea. HEAD: Atraumatic, normocephalic. EYES: Pupils equal round and reactive to light, extraocular movements intact, sclera anicteric, conjunctiva are normal. ENT: TMs normal, nares patent, oropharynx clear without exudates. Moist mucous membranes. NECK: Normal range of motion, supple without obvious mass or JVD. LUNGS: Breath sounds clear to auscultation bilaterally and equal. No wheezes rales or rhonchi. HEART: Regular rate and rhythm without murmurs, rubs or gallops. ABDOMEN: Soft, normoactive bowel sounds. She has paracentesis site which is clear. There is some ascites in his abdomen but its relatively soft (i.e. no tense ascites). No tenderness to palpation. No guarding, no rebound. No masses appreciated. EXTREMITIES: Normal range of motion, no pitting or edema. No clubbing or cyanosis. NEUROLOGICAL: Cranial nerves II through XII grossly intact. Normal speech, moving all extremities. PSYCH: Normal mood, normal affect. SKIN: Warm, Dry, normal turgor, no rashes or lesions noted. Course - Re-evaluation Re-evalutation: 12/08/18 12:41 Note: Patient is persisted to have nausea and just does not feel well. He does have bowel sounds on exam. He does not have any significant abdominal tenderness on exam. I discussed the case with Dr. De Luna who is covering for Dr. Bojorquez who agreed to see the patient in consult and that the patient should be admitted. Dr. Lamar is covering for Dr. Romero and he is willing to see the patient in the hospital. I will admit the patient to Dr. Romero service with Dr. Lamar covering. - Vital Signs Vital signs: Temp Pulse Resp BP Pulse Ox 98.3 F 90 17 143/92 H 98 12/08/18 16:48 12/08/18 16:48 12/08/18 16:48 12/08/18 16:48 12/08/18 16:48 - Laboratory Result Diagrams: 12/08/18 09:20 12/08/18 09:20 Laboratory results interpreted by me: 12/08/18 12/08/18 09:20 09:20 WBC 11.3 H RBC 4.29 L Hgb 10.4 L Hct 32.8 L MCV 76 L MCH 24.2 L MCHC 31.6 L RDW 22.0 H Seg Neuts % (Manual) 92 H Band Neutrophils % 2 L Lymphocytes % (Manual) 5 L Monocytes % (Manual) 1 L Abs Neuts (Manual) 10.6 H Sodium 133.3 L Chloride 91 L Carbon Dioxide 32 H BUN 21 H Glucose 123 H Calcium 8.0 L AST 61 H ALT 20 L Lactate Dehydrogenase 276 H Total Protein 5.3 L Albumin 3.0 L - Diagnostic Test Radiology reviewed: Image reviewed, Reports reviewed - Chest x-ray shows no infiltrates - EKG Interpretation by Me Rate: Normal Rhythm: NSR - EKG shows normal sinus rhythm with a rate of 98, no acute ST-T wave changes Discharge - Discharge Clinical Impression: Intractable nausea and vomiting, Status post chemotherapy Condition: Stable Disposition: ADMITTED OBSERVATION Admitting Provider: Nick Bonner is covering Unit Admitted: Telemetry
[2018-12-08] MEDS ORDERED: HYDROMORPHONE HCL INJ/PF 2 MG/ML AMPULE IV ONE ×2 (09:43→13:22)
[2018-12-08] MEDS ORDERED: NORMAL SALINE 1000 ML 1,000 ML IV ONE (09:43)
[2018-12-08] MEDS ORDERED: METOCLOPRAMIDE HCL INJ/PF 10 MG/2 ML SDV IV ONE (09:43)
[2018-12-08] MEDS ORDERED: DIPHENHYDRAMINE HCL 50 MG/ML VIAL IV ONE (09:44)
[2018-12-08 09:51] LABS: HEMATOCRIT 32.8 % (37.9-51.0); HEMOGLOBIN 10.4 g/dL (13.5-17.0); MEAN CORPUSCULAR HEMOGLOBIN 24.2 pg (27.0-33.4); MEAN CORPUSCULAR HGB CONC 31.6 g/dL (32.0-36.0); MEAN CORPUSCULAR VOLUME 76 fl (80-97); PLATELET COUNT 242 10^3/uL (150-450); RED BLOOD COUNT 4.29 10^6/uL (4.35-5.55); WHITE BLOOD COUNT 11.3 10^3/uL (4.0-10.5)
[2018-12-08 09:57] LABS: INTERNATIONAL RATION (INR) 1.07; PROTHROMBIN TIME 14.5 SEC (11.4-15.4)
[2018-12-08 10:08] LABS: ALANINE AMINOTRANSFERASE 20 U/L (21-72); ALKALINE PHOSPHATASE 86 U/L (38-126); ANION GAP 10 (5-19); ASPARTATE AMINO TRANSFERASE 61 U/L (17-59); BILIRUBIN,DIRECT 0.4 mg/dL (0.0-0.4); BILIRUBIN,TOTAL 0.6 mg/dL (0.2-1.3); BLOOD UREA NITROGEN 21 mg/dL (7-20); CARBON DIOXIDE 32 mmol/L (22-30); CHLORIDE 91 mmol/L (98-107); GLUCOSE 123 mg/dL (75-110); LIPASE 110.3 U/L (23-300); POTASSIUM 4.7 mmol/L (3.6-5.0); SODIUM 133.3 mmol/L (137-145); TOTAL PROTEIN 5.3 g/dL (6.3-8.2)
[2018-12-08 11:01] LABS: ABSOLUTE LYMPHOCYTES# (MANUAL) 0.6 10^3/uL (0.5-4.7); ABSOLUTE MONOCYTES # (MANUAL) 0.1 10^3/uL (0.1-1.4); ABSOLUTE NEUTROPHILS# (MANUAL) 10.6 10^3/uL (1.7-8.2); BAND NEUTROPHILS % (MANUAL) 2 % (3-5); BASOPHILS % (MANUAL) 0 % (0-2); EOSINOPHILS % (MANUAL) 0 % (0-6); LYMPHOCYTES % (MANUAL) 5 % (13-45); MONOCYTES % (MANUAL) 1 % (3-13); SEGMENTED NEUTROPHILS % (MAN) 92 % (42-78); TOTAL CELLS COUNTED 100
--- NOTE | 2018-12-08 11:01 | RADIOLOGY REPORT (SQ) ---
EXAM DESCRIPTION: CHEST SINGLE VIEW COMPLETED DATE/TIME: 12/08/2018 10:47 am REASON FOR STUDY: chest pain COMPARISON: CT chest 12/27/2017, 03/22/2018, 06/28/2018 Chest films 07/22/2018 EXAM PARAMETERS: NUMBER OF VIEWS: One view. TECHNIQUE: Single frontal radiographic view of the chest acquired. RADIATION DOSE: NA LIMITATIONS: None. FINDINGS: LUNGS AND PLEURA: No opacities, masses or pneumothorax. No pleural effusion. MEDIASTINUM AND HILAR STRUCTURES: No masses. Contour normal. HEART AND VASCULAR STRUCTURES: Heart normal in size. Normal vasculature. BONES: Multiple old healed right rib fractures, old right clavicle fracture. HARDWARE: Left-sided permanent central line tip superior vena cava OTHER: No other significant finding. IMPRESSION: NO ACUTE RADIOGRAPHIC FINDING IN THE CHEST. TECHNICAL DOCUMENTATION: JOB ID: [id number] [employer]- All Rights Reserved Reading location - IP/workstation name: [email or web address]
[2018-12-08 11:02] LABS: ANISOCYTOSIS 2+; PLATELET COMMENT ADEQUATE; POLYCHROMASIA 1+; TOXIC GRANULATION 2+; TOXIC VACUOLATION PRESENT
[2018-12-08] MEDS ORDERED: CALCIUM GLUCONATE 1000 MG/10 ML INJ IV ONE (12:40)
--- NOTE | 2018-12-08 13:24 | EKG REPORT ---
SEVERITY:- ABNORMAL ECG - SINUS RHYTHM MULTIPLE PREMATURE COMPLEXES, SUPRAVEN LEFT AXIS DEVIATION BORDERLINE T ABNORMALITIES, ANT-LAT LEADS : Confirmed by: Chas Patino MD 08-Dec-2018 13:23:47
[2018-12-08] MEDS ORDERED: ONDANSETRON HCL INJ/PF 4 MG/2 ML SDV IV ONE (13:58)
[2018-12-08 16:11] LABS: APPEARANCE,URINE SLIGHTLY-CLOUDY; BILIRUBIN,URINE NEGATIVE (NEGATIVE); COLOR,URINE YELLOW; GLUCOSE, URINE NEGATIVE (NEGATIVE); KETONES,URINE 20 mg/dL (NEGATIVE); LEUKOCYTE ESTERASE,URINE NEGATIVE (NEGATIVE); NITRITE,URINE NEGATIVE (NEGATIVE); PROTEIN,URINE 30 mg/dL (NEGATIVE); URINE SPECIFIC GRAVITY 1.028; UROBILINOGEN,URINE NEGATIVE mg/dL (<2.0)
[2018-12-08] MEDS ORDERED: ONDANSETRON HCL 8 MG TABLET PO PRN (18:21)
[2018-12-08] MEDS: PROMETHAZINE HCL 25 MG TABLET PO PRN (19:04)
[2018-12-08] MEDS ORDERED: HYDROMORPHONE HCL 2 MG TABLET PO PRN (19:04)
[2018-12-08] MEDS: HYDROMORPHONE HCL INJ/PF 2 MG/ML AMPULE IV PRN (20:50)
[2018-12-08] MEDS: ONDANSETRON HCL INJ/PF 4 MG/2 ML SDV IV PRN (20:51)
--- NOTE | 2018-12-08 21:21 | PDOC H&P ---
History of Present Illness Admission Date/PCP: 12/08/18 13:04 JAMES SULLIVAN MD History of Present Illness: ADRIEN BELTRAN is a 58 year old male,Unfortunate male with history of stage IV colon cancer on active chemotherapy, he also recently had large volume abdominal paracentesis done, he came to the emergency room for evaluation of persistent, intractable vomiting Past Medical History Cardiac Medical History: Reports: Coronary Artery Disease, Hyperlipidema, Hypertension Pulmonary Medical History: Reports: Chronic Obstructive Pulmonary Disease (COPD) Endocrine Medical History: Reports: Diabetes Mellitus Type 2 Malignancy Medical History: Reports: Bone Cancer, Colorectal Cancer, Lung Cancer Musculoskeltal Medical History: Reports: Arthritis Psychiatric Medical History: Reports: Depression Hematology: Denies: Anemia Past Surgical History Past Surgical History: Reports: Vascular Surgery - LEFT CHEST PORT Social History Lives with: Family Smoking Status: Unknown if Ever Smoked Frequency of Alcohol Use: Occasional Hx Recreational Drug Use: No Hx Prescription Drug Abuse: No Family History Family History: Reviewed & Not Pertinent, DM, Hypertension Parental Family History Reviewed: Yes Children Family History Reviewed: Yes Sibling(s) Family History Reviewed.: Yes Medication/Allergy Home Medications: Buspirone HCl [Buspar 10 mg Tablet] 10 mg PO Q8 12/08/18 Clopidogrel Bisulfate [Plavix 75 mg Tablet] 75 mg PO DAILY 12/08/18 Diltiazem HCl [Diltiazem 24Hr ER] 120 mg PO DAILY 12/08/18 Fentanyl [Duragesic 50 Mcg/Hr Transdermal Patch] 50 mcg TOP Q3D 12/08/18 Fluticasone/Umeclidin/Vilanter [Trelegy 100-62.5-25 Mcg Ellipta 14 Dose/Dpi] 1 puff IH DAILY 12/08/18 Gabapentin [Neurontin 300 mg Capsule] 300 mg PO Q8 12/08/18 Hydromorphone HCl [Dilaudid] 4 mg PO Q8HP PRN 12/08/18 Levothyroxine Sodium [Synthroid] 175 mcg PO Q6AM 12/08/18 Metformin HCl [Glucophage] 1,000 mg PO BID 12/08/18 Ondansetron HCl [Zofran] 8 mg PO Q8HP PRN 12/08/18 Pantoprazole Sodium [Protonix] 40 mg PO DAILY 12/08/18 Promethazine HCl [Phenergan 25 mg Tablet] 25 mg PO Q6HP PRN 12/08/18 Allergies/Adverse Reactions: No Known Allergies Allergy (Verified 12/08/18 09:38) Review of Systems Constitutional: PRESENT: anorexia. ABSENT: chills, fever(s), headache(s), weight gain, weight loss Eyes: ABSENT: visual disturbances Ears: ABSENT: hearing changes Cardiovascular: ABSENT: chest pain, dyspnea on exertion, edema, orthropnea, palpitations Respiratory: ABSENT: cough, hemoptysis Gastrointestinal: PRESENT: vomiting. ABSENT: abdominal pain, constipation, diarrhea, hematemesis, hematochezia, nausea Genitourinary: ABSENT: dysuria, hematuria Musculoskeletal: PRESENT: back pain. ABSENT: joint swelling Integumentary: ABSENT: rash, wounds Neurological: ABSENT: abnormal gait, abnormal speech, confusion, dizziness, focal weakness, syncope Psychiatric: ABSENT: anxiety, depression, homidical ideation, suicidal ideation Endocrine: ABSENT: cold intolerance, heat intolerance, menstrual abnormalities, polydipsia, polyuria Hematologic/Lymphatic: ABSENT: easy bleeding, easy bruising, lymphadenopathy Physical Exam Vital Signs: Temp Pulse Resp BP Pulse Ox 98.3 F 90 17 143/92 H 98 12/08/18 16:48 12/08/18 16:48 12/08/18 16:48 12/08/18 16:48 12/08/18 16:48 Intake & Output 12/07/18 12/08/18 12/09/18 06:59 06:59 06:59 Intake Total 1000 Balance 1000 Weight 108.862 kg General appearance: PRESENT: mild distress Head exam: PRESENT: atraumatic, normocephalic Eye exam: PRESENT: PERRLA Ear exam: PRESENT: normal external ear exam Mouth exam: PRESENT: moist, tongue midline Neck exam: PRESENT: full ROM Respiratory exam: PRESENT: clear to auscultation leida Cardiovascular exam: PRESENT: RRR, +S1, +S2 Vascular exam: PRESENT: normal capillary refill GI/Abdominal exam: PRESENT: normal bowel sounds, soft Rectal exam: PRESENT: deferred Neurological exam: PRESENT: alert, CN II-XII grossly intact Psychiatric exam: PRESENT: appropriate affect, normal mood Skin exam: PRESENT: dry, intact, warm Results Laboratory Results: 12/08/18 09:20 12/08/18 09:20 12/08/18 12/08/18 12/08/18 09:20 09:20 15:50 WBC 11.3 H RBC 4.29 L Hgb 10.4 L Hct 32.8 L MCV 76 L MCH 24.2 L MCHC 31.6 L RDW 22.0 H Plt Count 242 Seg Neutrophils % Not Reportable Lymphocytes % Not Reportable Monocytes % Not Reportable Eosinophils % Not Reportable Basophils % Not Reportable Absolute Neutrophils Not Reportable Absolute Lymphocytes Not Reportable Absolute Monocytes Not Reportable Absolute Eosinophils Not Reportable Absolute Basophils Not Reportable Sodium 133.3 L Potassium 4.7 Chloride 91 L Carbon Dioxide 32 H Anion Gap 10 BUN 21 H Creatinine 0.92 Est GFR ( Amer) > 60 Est GFR (Non-Af Amer) > 60 Glucose 123 H Calcium 8.0 L Total Bilirubin 0.6 AST 61 H ALT 20 L Alkaline Phosphatase 86 Total Protein 5.3 L Albumin 3.0 L Lipase 110.3 Urine Color YELLOW Urine Appearance SLIGHTLY-CLOUDY Urine pH 6.0 Ur Specific [place] 1.028 Urine Protein 30 H Urine Glucose (UA) NEGATIVE Urine Ketones 20 H Urine Blood NEGATIVE Urine Nitrite NEGATIVE Ur Leukocyte Esterase NEGATIVE Urine WBC (Auto) 2 Urine RBC (Auto) 0 Impressions: Chest X-Ray 12/08/18 10:19 IMPRESSION: NO ACUTE RADIOGRAPHIC FINDING IN THE CHEST. Assessment & Plan - Diagnosis (1) Intractable vomiting Qualifiers: Vomiting type: unspecified Nausea presence: with nausea Qualified Code(s): R11.2 - Nausea with vomiting, unspecified Is this a current diagnosis for this admission?: Yes Plan: Patient is admitted for management (2) Colon cancer metastasized to lung Is this a current diagnosis for this admission?: Yes Plan: Per oncology
[2018-12-09] MEDS: BUSPIRONE HCL 10 MG TABLET PO SCH ×4 (01:16→22:35)
[2018-12-09] MEDS: GABAPENTIN 300 MG CAPSULE PO SCH ×4 (01:16→22:34)
[2018-12-09] MEDS: HYDROMORPHONE HCL INJ/PF 2 MG/ML AMPULE IV PRN ×6 (01:18→22:33)
[2018-12-09] MEDS: ONDANSETRON HCL INJ/PF 4 MG/2 ML SDV IV PRN ×6 (01:19→22:34)
[2018-12-09] MEDS: NORMAL SALINE 1000 ML 1,000 ML IV PRN ×2 (01:42→17:13)
[2018-12-09] MEDS: ENOXAPARIN SODIUM INJ 40 MG/0.4 ML DISP.SYRIN SUBCUT SCH ×2 (01:54→22:35)
[2018-12-09] MEDS: LANSOPRAZOLE 30 MG TAB.RAP.DR PO SCH (05:24)
[2018-12-09] MEDS: LEVOTHYROXINE SODIUM 0.1 MG TABLET PO SCH (05:24)
[2018-12-09] MEDS: LEVOTHYROXINE SODIUM 0.075 MG TABLET PO SCH (05:26)
[2018-12-09] MEDS ORDERED: (PENDING PHARMACY ID) (Levothyroxine Sodium [Synthroid] 175 MCG) PO SCH (06:00)
[2018-12-09] MEDS: METFORMIN HCL 500 MG TABLET PO SCH ×2 (08:39→17:14)
--- NOTE | 2018-12-09 09:00 | PDOC CONSULTATION ---
Consultation Consult Date: 12/09/18 Consult reason:: Hematology/Oncology consultation was requested for patient on active chemotherapy for colon cancer. History of Present Illness Admission Date/PCP: 12/08/18 13:04 JAMES SULLIVAN MD History of Present Illness: ADRIEN BELTRAN is a 58 year old unfortunate male who was originally diagnosed with Stage IV Lung cancer in 08/2015. He was treated for this and remained with stable disease until 09/2018 when he was found to have a new primary colon cancer, stage IV with omental mets. He was started on FOLFOX chemotherapy for the colon cancer and received Cycle #2 12/05/2018. He presented to the ED last night with intractable nausea and vomiting, thought to be due to chemo. This morning, he states that he is still nauseated, but the medications are helping. He denies any other complaints. His last BM was 2 days ago. Past Medical History Cardiac Medical History: Reports: Coronary Artery Disease, Hyperlipidema, Hypertension Denies: Myocardial Infarction Pulmonary Medical History: Reports: Chronic Obstructive Pulmonary Disease (COPD) Denies: Asthma, Bronchitis, Pneumonia Neurological Medical History: Denies: Seizures Endocrine Medical History: Reports: Diabetes Mellitus Type 2 Malignancy Medical History: Reports: Bone Cancer, Colorectal Cancer, Lung Cancer Musculoskeltal Medical History: Reports: Arthritis Psychiatric Medical History: Reports: Depression Hematology: Denies: Anemia Past Surgical History Past Surgical History: Reports: Vascular Surgery - LEFT CHEST PORT Social History Lives with: Family Smoking Status: Unknown if Ever Smoked Frequency of Alcohol Use: Occasional Hx Recreational Drug Use: No Drugs: None Hx Prescription Drug Abuse: No - Advance Directive Resuscitation Status: Full Code Family History Family History: Reviewed & Not Pertinent, DM, Hypertension Parental Family History Reviewed: Yes - Both . Children Family History Reviewed: No Sibling(s) Family History Reviewed.: No Medication/Allergy Home Medications: Buspirone HCl [Buspar 10 mg Tablet] 10 mg PO Q8 12/08/18 Clopidogrel Bisulfate [Plavix 75 mg Tablet] 75 mg PO DAILY 12/08/18 Diltiazem HCl [Diltiazem 24Hr ER] 120 mg PO DAILY 12/08/18 Fentanyl [Duragesic 50 Mcg/Hr Transdermal Patch] 50 mcg TOP Q3D 12/08/18 Fluticasone/Umeclidin/Vilanter [Trelegy 100-62.5-25 Mcg Ellipta 14 Dose/Dpi] 1 puff IH DAILY 12/08/18 Gabapentin [Neurontin 300 mg Capsule] 300 mg PO Q8 12/08/18 Hydromorphone HCl [Dilaudid] 4 mg PO Q8HP PRN 12/08/18 Levothyroxine Sodium [Synthroid] 175 mcg PO Q6AM 12/08/18 Metformin HCl [Glucophage] 1,000 mg PO BID 12/08/18 Ondansetron HCl [Zofran] 8 mg PO Q8HP PRN 12/08/18 Pantoprazole Sodium [Protonix] 40 mg PO DAILY 12/08/18 Promethazine HCl [Phenergan 25 mg Tablet] 25 mg PO Q6HP PRN 12/08/18 Allergies/Adverse Reactions: No Known Allergies Allergy (Verified 12/08/18 09:38) Review of Systems Constitutional: ABSENT: fever(s), headache(s) Eyes: ABSENT: visual disturbances Ears: ABSENT: hearing changes Nose, Mouth, and Throat: ABSENT: sore throat Cardiovascular: ABSENT: chest pain Respiratory: ABSENT: dyspnea Gastrointestinal: PRESENT: nausea, vomiting Genitourinary: ABSENT: dysuria Musculoskeletal: ABSENT: back pain Integumentary: ABSENT: rash Neurological: PRESENT: weakness Physical Exam Vital Signs: Temp Pulse Resp BP Pulse Ox 98.0 F 88 18 137/84 H 97 12/08/18 23:41 12/08/18 23:41 12/08/18 23:41 12/08/18 23:41 12/08/18 23:41 Intake & Output 12/08/18 12/09/18 12/10/18 06:59 06:59 06:59 Intake Total 1000 Balance 1000 Weight 99.7 kg General appearance: PRESENT: no acute distress, well-developed, well-nourished Exam: 58 year old male. Head exam: PRESENT: normocephalic Eye exam: PRESENT: EOMI Mouth exam: PRESENT: tongue midline Neck exam: ABSENT: lymphadenopathy, tenderness Respiratory exam: PRESENT: clear to auscultation leida, unlabored Cardiovascular exam: PRESENT: RRR. ABSENT: systolic murmur GI/Abdominal exam: PRESENT: soft, tenderness - RLQ. ABSENT: organolmegaly Extremities exam: ABSENT: pedal edema Musculoskeletal exam: PRESENT: normal inspection Neurological exam: PRESENT: alert, awake Psychiatric exam: PRESENT: appropriate affect Skin exam: PRESENT: normal color Results Laboratory Results: 12/08/18 09:20 12/08/18 09:20 12/08/18 12/08/18 12/08/18 09:20 09:20 15:50 WBC 11.3 H RBC 4.29 L Hgb 10.4 L Hct 32.8 L MCV 76 L MCH 24.2 L MCHC 31.6 L RDW 22.0 H Plt Count 242 Seg Neutrophils % Not Reportable Lymphocytes % Not Reportable Monocytes % Not Reportable Eosinophils % Not Reportable Basophils % Not Reportable Absolute Neutrophils Not Reportable Absolute Lymphocytes Not Reportable Absolute Monocytes Not Reportable Absolute Eosinophils Not Reportable Absolute Basophils Not Reportable Sodium 133.3 L Potassium 4.7 Chloride 91 L Carbon Dioxide 32 H Anion Gap 10 BUN 21 H Creatinine 0.92 Est GFR ( Amer) > 60 Est GFR (Non-Af Amer) > 60 Glucose 123 H Calcium 8.0 L Total Bilirubin 0.6 AST 61 H ALT 20 L Alkaline Phosphatase 86 Total Protein 5.3 L Albumin 3.0 L Lipase 110.3 Urine Color YELLOW Urine Appearance SLIGHTLY-CLOUDY Urine pH 6.0 Ur Specific [place] 1.028 Urine Protein 30 H Urine Glucose (UA) NEGATIVE Urine Ketones 20 H Urine Blood NEGATIVE Urine Nitrite NEGATIVE Ur Leukocyte Esterase NEGATIVE Urine WBC (Auto) 2 Urine RBC (Auto) 0 Impressions: Chest X-Ray 12/08/18 10:19 IMPRESSION: NO ACUTE RADIOGRAPHIC FINDING IN THE CHEST. Status: Image reviewed by me Assessment & Plan - Diagnosis (1) Colon cancer Qualifiers: Colon location: ascending Qualified Code(s): C18.2 - Malignant neoplasm of ascending colon Is this a current diagnosis for this admission?: Yes Plan: Received FOLFOX 12/05/2018. No further planned for 2 weeks. (2) Intractable vomiting Qualifiers: Vomiting type: unspecified Nausea presence: with nausea Qualified Code(s): R11.2 - Nausea with vomiting, unspecified Is this a current diagnosis for this admission?: Yes Plan: Most likely due to chemo, but if continues, consider acute abdominal series or repeat CT. Continue IV antiemetics. He is currently using ondansetron and phenergan. Consider adding ativan or reglan as well. Lipase was normal. (3) Pain, neoplasm-related Is this a current diagnosis for this admission?: Yes Plan: Continue home pain regimen. - Plan Summary Plan Summary: Continue IV fluids. Watch electrolytes and blood counts. Will continue to follow. Patient was discussed with Dr. Way.
[2018-12-09] MEDS: CLOPIDOGREL BISULFATE 75 MG TABLET PO SCH (09:38)
[2018-12-09] MEDS: DILTIAZEM HCL 120 MG CAP.SR.24H PO SCH (09:38)
[2018-12-09] MEDS: FLUTICASONE/UMECLIDIN/VILANTER 100-62.5-25 MCG/DOSE IH SCH (10:58)
[2018-12-10] MEDS: HYDROMORPHONE HCL INJ/PF 2 MG/ML AMPULE IV PRN ×6 (02:23→22:49)
[2018-12-10] MEDS: ONDANSETRON HCL INJ/PF 4 MG/2 ML SDV IV PRN ×6 (02:23→22:49)
[2018-12-10] MEDS: NORMAL SALINE 1000 ML 1,000 ML IV PRN (03:23)
[2018-12-10] MEDS: LANSOPRAZOLE 30 MG TAB.RAP.DR PO SCH (06:34)
[2018-12-10] MEDS: LEVOTHYROXINE SODIUM 0.075 MG TABLET PO SCH (06:35)
[2018-12-10] MEDS: LEVOTHYROXINE SODIUM 0.1 MG TABLET PO SCH (06:35)
[2018-12-10] MEDS: BUSPIRONE HCL 10 MG TABLET PO SCH ×3 (06:35→21:45)
[2018-12-10] MEDS: GABAPENTIN 300 MG CAPSULE PO SCH ×3 (06:35→21:44)
[2018-12-10] MEDS: METFORMIN HCL 500 MG TABLET PO SCH ×2 (09:41→18:20)
[2018-12-10] MEDS: FLUTICASONE/UMECLIDIN/VILANTER 100-62.5-25 MCG/DOSE IH SCH (09:41)
[2018-12-10] MEDS: CLOPIDOGREL BISULFATE 75 MG TABLET PO SCH (09:42)
[2018-12-10] MEDS: DILTIAZEM HCL 120 MG CAP.SR.24H PO SCH (09:42)
--- NOTE | 2018-12-10 10:48 | PDOC PROGRESS REPORT ---
Subjective Progress Note for:: 12/10/18 Subjective:: Nausea is a little bit better, but still comes every 4-6 hours. He was able to tolerate some food yesterday and was able to eat this morning as well. He is having bowel movements and passing gas. Reason For Visit: INTRACTABLE VOMITING, STAGE 4 COLON CANCER Physical Exam Vital Signs: Temp Pulse Resp BP Pulse Ox 98.0 F 80 16 107/56 L 96 12/10/18 08:00 12/10/18 08:00 12/10/18 08:00 12/10/18 08:00 12/10/18 08:00 Intake & Output 12/09/18 12/10/18 12/11/18 06:59 06:59 06:59 Intake Total 1000 3091 1147 Output Total 400 175 Balance 1000 2691 972 Weight 99.7 kg 102.2 kg General appearance: PRESENT: no acute distress, well-developed, well-nourished Head exam: PRESENT: atraumatic, normocephalic Eye exam: PRESENT: conjunctiva pink, EOMI, PERRLA. ABSENT: scleral icterus Ear exam: PRESENT: normal external ear exam Mouth exam: PRESENT: moist, tongue midline Neck exam: ABSENT: carotid bruit, JVD, lymphadenopathy, thyromegaly Respiratory exam: PRESENT: clear to auscultation leida. ABSENT: rales, rhonchi, wheezes Cardiovascular exam: PRESENT: RRR. ABSENT: diastolic murmur, rubs, systolic murmur Pulses: PRESENT: normal dorsalis pedis pul Vascular exam: PRESENT: normal capillary refill GI/Abdominal exam: PRESENT: normal bowel sounds, soft. ABSENT: distended, guarding, mass, organolmegaly, rebound, tenderness Rectal exam: PRESENT: deferred Extremities exam: PRESENT: full ROM. ABSENT: calf tenderness, clubbing, pedal edema Neurological exam: PRESENT: alert, awake, oriented to person, oriented to place, oriented to time, oriented to situation, CN II-XII grossly intact. ABSENT: motor sensory deficit Psychiatric exam: PRESENT: appropriate affect, normal mood. ABSENT: homicidal ideation, suicidal ideation Skin exam: PRESENT: dry, intact, warm. ABSENT: cyanosis, rash Results Laboratory Results: 12/08/18 09:20 12/08/18 09:20 Impressions: Chest X-Ray 12/08/18 10:19 IMPRESSION: NO ACUTE RADIOGRAPHIC FINDING IN THE CHEST. Assessment & Plan - Diagnosis (1) Intractable vomiting Qualifiers: Vomiting type: cyclical vomiting Nausea presence: with nausea Qualified Code(s): G43.A1 - Cyclical vomiting, intractable Is this a current diagnosis for this admission?: Yes Plan: Secondary to chemotherapy, will improve over time, continue with antiemetics and IV fluids for now. He may need another 24-48 hours before this passes. (2) Colon cancer Qualifiers: Colon location: ascending Qualified Code(s): C18.2 - Malignant neoplasm of ascending colon Is this a current diagnosis for this admission?: Yes Plan: Stage IV colon cancer with omental metastasis, status post cycle #3 of FOLFOX, this past week. Continue chemotherapy as an outpatient. - Time Time Spent with patient: 35 or more minutes - Inpatient Certification Based on my medical assessment, after consideration of the patient's comorbidities, presenting symptoms, or acuity I expect that the services needed warrant INPATIENT care.: Yes I certify that my determination is in accordance with my understanding of Medicare's requirements for reasonable and necessary INPATIENT services [42 CFR 412.3e].: Yes Medical Necessity: Need For IV Fluids, Risk of Complication if Not Cared For in Hospital
[2018-12-10] MEDS ORDERED: GLUCAGON,HUMAN RECOMB 1 MG INJ IM PRN (16:38)
[2018-12-10] MEDS ORDERED: DEXTROSE 50%-WATER 25 GM/50 ML DISP.SYRIN IV PRN ×2 (16:38)
[2018-12-10] MEDS ORDERED: DEXTROSE 40% GEL 15 GM TUBE PO PRN ×2 (16:38)
--- NOTE | 2018-12-10 16:38 | PDOC PROGRESS REPORT ---
Subjective Progress Note for:: 12/10/18 Subjective:: Patient reported persisting nausea but no vomiting. Episode of diarrhea this morning. No fever or chills. No chest pain or difficulty with breathing. Reason For Visit: INTRACTABLE VOMITING, STAGE 4 COLON CANCER Physical Exam Vital Signs: Temp Pulse Resp BP Pulse Ox 98.1 F 79 18 95/58 L 96 12/10/18 12:00 12/10/18 14:00 12/10/18 12:00 12/10/18 12:00 12/10/18 12:00 Intake & Output 12/09/18 12/10/18 12/11/18 06:59 06:59 06:59 Intake Total 1000 3091 1147 Output Total 400 175 Balance 1000 2691 972 Weight 99.7 kg 102.2 kg General appearance: PRESENT: no acute distress, obese Head exam: PRESENT: atraumatic, normocephalic Eye exam: PRESENT: conjunctiva pink, EOMI, PERRLA. ABSENT: scleral icterus Ear exam: PRESENT: normal external ear exam Mouth exam: PRESENT: moist Respiratory exam: PRESENT: clear to auscultation leida, decreased breath sounds - at lung bases Cardiovascular exam: PRESENT: RRR, +S1, +S2 Vascular exam: PRESENT: normal capillary refill. ABSENT: pallor GI/Abdominal exam: PRESENT: normal bowel sounds, soft. ABSENT: tenderness Extremities exam: ABSENT: pedal edema Neurological exam: PRESENT: alert, awake, oriented to person, oriented to place, oriented to time, oriented to situation, CN II-XII grossly intact. ABSENT: motor sensory deficit Psychiatric exam: PRESENT: appropriate affect, normal mood. ABSENT: homicidal ideation, suicidal ideation Skin exam: PRESENT: dry, warm Results Laboratory Results: 12/08/18 09:20 12/08/18 09:20 Impressions: Chest X-Ray 12/08/18 10:19 IMPRESSION: NO ACUTE RADIOGRAPHIC FINDING IN THE CHEST. Assessment & Plan - Diagnosis (1) Intractable vomiting Qualifiers: Vomiting type: cyclical vomiting Nausea presence: with nausea Qualified Code(s): G43.A1 - Cyclical vomiting, intractable Is this a current diagnosis for this admission?: Yes (2) Colon cancer metastasized to lung Is this a current diagnosis for this admission?: Yes (3) Type 2 diabetes mellitus Qualifiers: Diabetes mellitus intermodal customer service insulin use: without intermodal customer service use Diabetes mellitus complication status: with unspecified complications Qualified Code(s): E11.8 - Type 2 diabetes mellitus with unspecified complications Is this a current diagnosis for this admission?: Yes - Time Time Spent with patient: 25-34 minutes Medications reviewed and adjusted accordingly: Yes Anticipated discharge: Home with Homehealth, SNF Within: Other - Inpatient Certification Based on my medical assessment, after consideration of the patient's comorb idities, presenting symptoms, or acuity I expect that the services needed warrant INPATIENT care.: Yes I certify that my determination is in accordance with my understanding of Medicare's requirements for reasonable and necessary INPATIENT services [42 CFR 412.3e].: Yes Medical Necessity: Need Close Monitoring Due to Risk of Patient Decompensation, Need For IV Fluids, Need For Continuous Telemetry Monitoring, Risk of Complication if Not Cared For in Hospital, Risk of Diagnosis Which Will Require Inpatient Eval/Care/Monitoring Post Hospital Care: D/C [facility] W[facility] Documentation, D/C or Transfer Summary - Plan Summary Plan Summary: Continue IV Zofran therapy. Maintain on IV fluid support and Dilaudid for pain management. Start on accuchek qachs with sliding scale humalog insulin coverage. Overall prognosis remain guarded.
[2018-12-10] MEDS: PROMETHAZINE HCL 25 MG TABLET PO PRN (16:45)
[2018-12-10] MEDS: LOPERAMIDE HCL 2 MG CAPSULE PO PRN (18:21)
[2018-12-10] MEDS: INSULIN LISPRO 100 UNIT/ML 3 ML VIAL SUBCUT SCH (21:45)
[2018-12-10] MEDS: ENOXAPARIN SODIUM INJ 40 MG/0.4 ML DISP.SYRIN SUBCUT SCH (21:46)
[2018-12-11] MEDS: NORMAL SALINE 1000 ML 1,000 ML IV PRN (01:14)
[2018-12-11] MEDS: LOPERAMIDE HCL 2 MG CAPSULE PO PRN ×2 (01:15→20:26)
[2018-12-11] MEDS: HYDROMORPHONE HCL INJ/PF 2 MG/ML AMPULE IV PRN ×5 (02:52→20:15)
[2018-12-11] MEDS: ONDANSETRON HCL INJ/PF 4 MG/2 ML SDV IV PRN ×4 (02:52→20:15)
[2018-12-11] MEDS: GABAPENTIN 300 MG CAPSULE PO SCH ×3 (06:55→22:24)
[2018-12-11] MEDS: BUSPIRONE HCL 10 MG TABLET PO SCH ×3 (06:55→22:24)
[2018-12-11] MEDS: LANSOPRAZOLE 30 MG TAB.RAP.DR PO SCH (06:55)
[2018-12-11] MEDS: LEVOTHYROXINE SODIUM 0.075 MG TABLET PO SCH (06:56)
[2018-12-11] MEDS: LEVOTHYROXINE SODIUM 0.1 MG TABLET PO SCH (06:56)
[2018-12-11] MEDS: INSULIN LISPRO 100 UNIT/ML 3 ML VIAL SUBCUT SCH ×4 (08:20→22:25)
[2018-12-11] MEDS: METFORMIN HCL 500 MG TABLET PO SCH ×2 (08:25→16:49)
[2018-12-11] MEDS: CLOPIDOGREL BISULFATE 75 MG TABLET PO SCH (10:20)
[2018-12-11] MEDS: FENTANYL 50 MCG/HR PATCH.TD72 TOP SCH (10:21)
[2018-12-11] MEDS: DILTIAZEM HCL 120 MG CAP.SR.24H PO SCH (10:21)
[2018-12-11] MEDS: FLUTICASONE/UMECLIDIN/VILANTER 100-62.5-25 MCG/DOSE IH SCH (10:21)
--- NOTE | 2018-12-11 11:06 | PDOC PROGRESS REPORT ---
Subjective Progress Note for:: 12/11/18 Subjective:: Feeling better today, nausea is improving Reason For Visit: INTRACTABLE VOMITING, STAGE 4 COLON CANCER Physical Exam Vital Signs: Temp Pulse Resp BP Pulse Ox 98.1 F 81 16 105/69 96 12/11/18 07:55 12/11/18 07:55 12/11/18 07:55 12/11/18 07:55 12/11/18 07:55 Intake & Output 12/10/18 12/11/18 12/12/18 06:59 06:59 06:59 Intake Total 3091 3397 Output Total 400 911 Balance 2691 2486 Weight 102.2 kg 106 kg General appearance: PRESENT: no acute distress, well-developed, well-nourished Head exam: PRESENT: atraumatic, normocephalic Eye exam: PRESENT: conjunctiva pink, EOMI, PERRLA. ABSENT: scleral icterus Ear exam: PRESENT: normal external ear exam Mouth exam: PRESENT: moist, tongue midline Neck exam: ABSENT: carotid bruit, JVD, lymphadenopathy, thyromegaly Respiratory exam: PRESENT: clear to auscultation leida. ABSENT: rales, rhonchi, wheezes Cardiovascular exam: PRESENT: RRR. ABSENT: diastolic murmur, rubs, systolic murmur Pulses: PRESENT: normal dorsalis pedis pul Vascular exam: PRESENT: normal capillary refill GI/Abdominal exam: PRESENT: normal bowel sounds, soft. ABSENT: distended, guarding, mass, organolmegaly, rebound, tenderness Rectal exam: PRESENT: deferred Extremities exam: PRESENT: full ROM. ABSENT: calf tenderness, clubbing, pedal edema Neurological exam: PRESENT: alert, awake, oriented to person, oriented to place, oriented to time, oriented to situation, CN II-XII grossly intact. ABSENT: motor sensory deficit Psychiatric exam: PRESENT: appropriate affect, normal mood. ABSENT: homicidal ideation, suicidal ideation Skin exam: PRESENT: dry, intact, warm. ABSENT: cyanosis, rash Results Laboratory Results: 12/08/18 09:20 12/08/18 09:20 Impressions: Chest X-Ray 12/08/18 10:19 IMPRESSION: NO ACUTE RADIOGRAPHIC FINDING IN THE CHEST. Assessment & Plan - Diagnosis (1) Intractable vomiting Qualifiers: Vomiting type: cyclical vomiting Nausea presence: with nausea Qualified Code(s): G43.A1 - Cyclical vomiting, intractable Is this a current diagnosis for this admission?: Yes Plan: Secondary to chemotherapy, we will discontinue IV hydration today and see how he does orally for the next 24 hours, if he does well with that then he should be discharged home tomorrow (2) Colon cancer Qualifiers: Colon location: ascending Qualified Code(s): C18.2 - Malignant neoplasm of ascending colon Is this a current diagnosis for this admission?: Yes Plan: Continued chemotherapy as an outpatient, we will need to adjust oxaliplatin dosing most likely because of the severe nausea on the cycle
--- NOTE | 2018-12-11 13:31 | PDOC PROGRESS REPORT ---
Subjective Progress Note for:: 12/11/18 Subjective:: Patient reported persisting premeal nausea with relief from IV Zofran usage. No abdominal pain, vomiting, or recurrent diarrhea. No fever or chills. No chest pain or difficulty with breathing. Reason For Visit: INTRACTABLE VOMITING, STAGE 4 COLON CANCER Physical Exam Vital Signs: Temp Pulse Resp BP Pulse Ox 98.1 F 82 17 106/66 97 12/11/18 12:00 12/11/18 12:00 12/11/18 12:00 12/11/18 12:00 12/11/18 12:00 Intake & Output 12/10/18 12/11/18 12/12/18 06:59 06:59 06:59 Intake Total 3091 3397 1000 Output Total 400 911 Balance 2691 2486 1000 Weight 102.2 kg 106 kg Physical Exam: General appearance: PRESENT: no acute distress, obese Head exam: PRESENT: atraumatic, normocephalic Eye exam: PRESENT: conjunctiva pink, EOMI, PERRLA. ABSENT: pallor, scleral icterus Ear exam: PRESENT: normal external ear exam Mouth exam: PRESENT: moist Respiratory exam: PRESENT: clear to auscultation leida, decreased breath sounds - at lung bases Cardiovascular exam: PRESENT: RRR, +S1, +S2 GI/Abdominal exam: PRESENT: normal bowel sounds, soft. ABSENT: tenderness Extremities exam: ABSENT: pedal edema Neurological exam: PRESENT: alert, awake, oriented to person, oriented to place, oriented to time, oriented to situation, CN II-XII grossly intact. ABSENT: motor sensory deficit Psychiatric exam: PRESENT: appropriate affect, normal mood. ABSENT: homicidal ideation, suicidal ideation Skin exam: PRESENT: dry, warm Results Laboratory Results: 12/08/18 09:20 12/08/18 09:20 Impressions: Chest X-Ray 12/08/18 10:19 IMPRESSION: NO ACUTE RADIOGRAPHIC FINDING IN THE CHEST. Assessment & Plan - Diagnosis (1) Intractable vomiting Qualifiers: Vomiting type: cyclical vomiting Nausea presence: with nausea Qualified Code(s): G43.A1 - Cyclical vomiting, intractable Is this a current diagnosis for this admission?: Yes (2) Colon cancer metastasized to lung Is this a current diagnosis for this admission?: Yes (3) Type 2 diabetes mellitus Qualifiers: Diabetes mellitus watermaster insulin use: without watermaster use Diabetes mellitus complication status: with unspecified complications Qualified Code(s): E11.8 - Type 2 diabetes mellitus with unspecified complications Is this a current diagnosis for this admission?: Yes - Time Time Spent with patient: 25-34 minutes Medications reviewed and adjusted accordingly: Yes Anticipated discharge: Home with Homehealth Within: Other - Inpatient Certification Based on my medical assessment, after consideration of the patient's comorbid ities, presenting symptoms, or acuity I expect that the services needed warrant INPATIENT care.: Yes I certify that my determination is in accordance with my understanding of Medicare's requirements for reasonable and necessary INPATIENT services [42 CFR 412.3e].: Yes Medical Necessity: Need Close Monitoring Due to Risk of Patient Decompensation, Need For IV Fluids, Need For Continuous Telemetry Monitoring, Risk of Complication if Not Cared For in Hospital Post Hospital Care: D/C [facility] Documentation - Plan Summary Plan Summary: Continue current mediation management. Monitor for bleeding complication in view of Lovenox, Heparin and Plavix usage for several different indications.
[2018-12-11] MEDS: ENOXAPARIN SODIUM INJ 40 MG/0.4 ML DISP.SYRIN SUBCUT SCH (22:25)
[2018-12-12] MEDS: ONDANSETRON HCL INJ/PF 4 MG/2 ML SDV IV PRN ×6 (00:27→20:55)
[2018-12-12] MEDS: HYDROMORPHONE HCL INJ/PF 2 MG/ML AMPULE IV PRN ×6 (00:36→20:55)
[2018-12-12 05:28] LABS: HEMATOCRIT 24.9 % (37.9-51.0); HEMOGLOBIN 8.1 g/dL (13.5-17.0); MEAN CORPUSCULAR HEMOGLOBIN 24.7 pg (27.0-33.4); MEAN CORPUSCULAR HGB CONC 32.6 g/dL (32.0-36.0); MEAN CORPUSCULAR VOLUME 76 fl (80-97); PLATELET COUNT 123 10^3/uL (150-450); RED BLOOD COUNT 3.29 10^6/uL (4.35-5.55); RED CELL DISTRIBUTION WIDTH 21.2 % (11.5-14.0); WHITE BLOOD COUNT 7.5 10^3/uL (4.0-10.5)
[2018-12-12 05:57] LABS: BLOOD UREA NITROGEN 13 mg/dL (7-20); CALCIUM 7.4 mg/dL (8.4-10.2); GLUCOSE 110 mg/dL (75-110)
[2018-12-12 06:34] LABS: ANION GAP 6 (5-19); CARBON DIOXIDE 30 mmol/L (22-30); CHLORIDE 98 mmol/L (98-107); SODIUM 133.8 mmol/L (137-145)
[2018-12-12] MEDS: INSULIN LISPRO 100 UNIT/ML 3 ML VIAL SUBCUT SCH ×4 (07:44→21:24)
[2018-12-12] MEDS: LANSOPRAZOLE 30 MG TAB.RAP.DR PO SCH (07:51)
[2018-12-12] MEDS: GABAPENTIN 300 MG CAPSULE PO SCH ×3 (07:51→21:38)
[2018-12-12] MEDS: BUSPIRONE HCL 10 MG TABLET PO SCH ×3 (07:51→21:38)
[2018-12-12] MEDS: METFORMIN HCL 500 MG TABLET PO SCH ×2 (07:51→16:34)
[2018-12-12] MEDS: LEVOTHYROXINE SODIUM 0.1 MG TABLET PO SCH (07:51)
[2018-12-12] MEDS: LEVOTHYROXINE SODIUM 0.075 MG TABLET PO SCH (07:54)
--- NOTE | 2018-12-12 08:11 | PDOC PROGRESS REPORT ---
Subjective Progress Note for:: 12/12/18 Subjective:: Pt had a bit of emesis this am but overall doing better Reason For Visit: INTRACTABLE VOMITING, STAGE 4 COLON CANCER Physical Exam Vital Signs: Temp Pulse Resp BP Pulse Ox 98.1 F 88 19 134/77 H 97 12/12/18 04:11 12/12/18 04:11 12/12/18 04:11 12/12/18 04:11 12/12/18 04:11 Intake & Output 12/11/18 12/12/18 12/13/18 06:59 06:59 06:59 Intake Total 3397 2110 Output Total 911 750 Balance 2486 1360 Weight 106 kg 105.7 kg General appearance: PRESENT: no acute distress, well-developed, well-nourished Head exam: PRESENT: atraumatic, normocephalic Eye exam: PRESENT: conjunctiva pink, EOMI, PERRLA. ABSENT: scleral icterus Ear exam: PRESENT: normal external ear exam Mouth exam: PRESENT: moist, tongue midline Neck exam: ABSENT: carotid bruit, JVD, lymphadenopathy, thyromegaly Respiratory exam: PRESENT: clear to auscultation leida. ABSENT: rales, rhonchi, wheezes Cardiovascular exam: PRESENT: RRR. ABSENT: diastolic murmur, rubs, systolic murmur Pulses: PRESENT: normal dorsalis pedis pul Vascular exam: PRESENT: normal capillary refill GI/Abdominal exam: PRESENT: normal bowel sounds, soft. ABSENT: distended, guarding, mass, organolmegaly, rebound, tenderness Rectal exam: PRESENT: deferred Extremities exam: PRESENT: full ROM. ABSENT: calf tenderness, clubbing, pedal edema Neurological exam: PRESENT: alert, awake, oriented to person, oriented to place, oriented to time, oriented to situation, CN II-XII grossly intact. ABSENT: motor sensory deficit Psychiatric exam: PRESENT: appropriate affect, normal mood. ABSENT: homicidal ideation, suicidal ideation Skin exam: PRESENT: dry, intact, warm. ABSENT: cyanosis, rash Results Laboratory Results: 12/12/18 05:03 12/12/18 05:03 12/12/18 12/12/18 05:03 05:03 WBC 7.5 RBC 3.29 L Hgb 8.1 L Hct 24.9 L MCV 76 L MCH 24.7 L MCHC 32.6 RDW 21.2 H Plt Count 123 L Sodium 133.8 L Potassium 4.0 Chloride 98 Carbon Dioxide 30 Anion Gap 6 BUN 13 Creatinine 0.76 Est GFR ( Amer) > 60 Est GFR (Non-Af Amer) > 60 Glucose 110 Calcium 7.4 L Impressions: Chest X-Ray 12/08/18 10:19 IMPRESSION: NO ACUTE RADIOGRAPHIC FINDING IN THE CHEST. Assessment & Plan - Diagnosis (1) Intractable vomiting Qualifiers: Vomiting type: cyclical vomiting Nausea presence: with nausea Qualified Code(s): G43.A1 - Cyclical vomiting, intractable Is this a current diagnosis for this admission?: Yes Plan: Improved, ready medically for d/c (2) Colon cancer Qualifiers: Colon location: ascending Qualified Code(s): C18.2 - Malignant neoplasm of ascending colon Is this a current diagnosis for this admission?: Yes Plan: Cont chemo as outpt has close f/u w/ us (3) Antineoplastic chemotherapy induced anemia Is this a current diagnosis for this admission?: Yes Plan: 2nd to chemo induced anemia, hb 8 so no need for transfusion yet, will add iron studies to labs today, will f/u hb this in office - Time Time Spent with patient: 35 or more minutes Medications reviewed and adjusted accordingly: Yes Anticipated discharge: Home Within: within 24 hours - Inpatient Certification Based on my medical assessment, after consideration of the patient's comorbidities, presenting symptoms, or acuity I expect that the services needed warrant INPATIENT care.: Yes I certify that my determination is in accordance with my understanding of Medicare's requirements for reasonable and necessary INPATIENT services [42 CFR 412.3e].: Yes
[2018-12-12] MEDS: DILTIAZEM HCL 120 MG CAP.SR.24H PO SCH (09:28)
[2018-12-12] MEDS: CLOPIDOGREL BISULFATE 75 MG TABLET PO SCH (09:28)
[2018-12-12 09:29] LABS: IRON(TIBC) 18.3 ug/dL (49-181)
[2018-12-12] MEDS: FLUTICASONE/UMECLIDIN/VILANTER 100-62.5-25 MCG/DOSE IH SCH (09:31)
[2018-12-12] MEDS: PROMETHAZINE HCL 25 MG TABLET PO PRN ×2 (14:04→23:40)
[2018-12-12] MEDS: ENOXAPARIN SODIUM INJ 40 MG/0.4 ML DISP.SYRIN SUBCUT SCH (21:38)
[2018-12-13] MEDS: ONDANSETRON HCL INJ/PF 4 MG/2 ML SDV IV PRN ×5 (01:17→22:48)
[2018-12-13] MEDS: HYDROMORPHONE HCL INJ/PF 2 MG/ML AMPULE IV PRN ×5 (01:17→22:48)
[2018-12-13] MEDS: BUSPIRONE HCL 10 MG TABLET PO SCH ×3 (05:30→22:41)
[2018-12-13] MEDS: LANSOPRAZOLE 30 MG TAB.RAP.DR PO SCH (05:30)
[2018-12-13] MEDS: LEVOTHYROXINE SODIUM 0.1 MG TABLET PO SCH (05:30)
[2018-12-13] MEDS: GABAPENTIN 300 MG CAPSULE PO SCH ×3 (05:30→22:41)
[2018-12-13] MEDS: LEVOTHYROXINE SODIUM 0.075 MG TABLET PO SCH (05:35)
[2018-12-13] MEDS: METFORMIN HCL 500 MG TABLET PO SCH ×2 (07:51→16:38)
[2018-12-13] MEDS: INSULIN LISPRO 100 UNIT/ML 3 ML VIAL SUBCUT SCH ×4 (07:53→22:39)
[2018-12-13] MEDS: FLUTICASONE/UMECLIDIN/VILANTER 100-62.5-25 MCG/DOSE IH SCH (09:39)
[2018-12-13] MEDS: DILTIAZEM HCL 120 MG CAP.SR.24H PO SCH (09:39)
[2018-12-13] MEDS: CLOPIDOGREL BISULFATE 75 MG TABLET PO SCH (09:39)
[2018-12-13] MEDS: PROMETHAZINE HCL 25 MG TABLET PO PRN (16:38)
--- NOTE | 2018-12-13 20:09 | RADIOLOGY REPORT (SQ) ---
EXAM DESCRIPTION: CT ABDOMEN PELVIS WITH IV CONTRAST COMPLETED DATE/TME: 12/13/2018 00:00 CLINICAL HISTORY: 58 years, Male, Stage 4 colon cancer. This exam was performed according to our departmental dose-optimization program which includes automated exposure control, adjustment of the mA and/or kVp according to patient size and/or use of iterative reconstruction technique where applicable. Compared to CT abdomen and pelvis dated 11/08/2018. FINDINGS: Visualized lung bases are within normal limits. Marked amount of abdominal and pelvic ascites. Liver, spleen, pancreas, gallbladder, adrenal glands and kidneys are within normal limits. No hydronephrosis or biliary dilatation. No dilated loops of bowel to suggest obstruction. Extensive carcinomatosis with soft tissue in the mesentery is noted, worsening compared to the prior study. No retroperitoneal lymphadenopathy. Abdominal aorta moderately disease without aneurysm. IMPRESSION: Extensive peritoneal carcinomatosis and large amount of abdominal and pelvic ascites, worsening neoplastic findings. No evidence for small bowel obstruction.
--- NOTE | 2018-12-13 20:33 | PDOC PROGRESS REPORT ---
Subjective Progress Note for:: 12/13/18 Subjective:: Patient was seen by the bedside, he was seen by the oncologist Dr. Bojorquez this morning he ordered CT scan of the pelvis and abdomen, it demonstrated severe peritoneal carcinomatosis with huge malignant ascites, this patient prognosis is very poor but I will leave that to the oncologist Reason For Visit: INTRACTABLE VOMITING, STAGE 4 COLON CANCER Physical Exam Vital Signs: Temp Pulse Resp BP Pulse Ox 98.1 F 91 15 120/74 97 12/13/18 16:03 12/13/18 16:03 12/13/18 16:03 12/13/18 16:03 12/13/18 16:03 Intake & Output 12/12/18 12/13/18 12/14/18 06:59 06:59 06:59 Intake Total 2110 230 118 Output Total 750 200 Balance 1360 30 118 Weight 105.7 kg 106.3 kg General appearance: PRESENT: no acute distress Eye exam: PRESENT: PERRLA Respiratory exam: PRESENT: clear to auscultation leida Cardiovascular exam: PRESENT: +S1, +S2 GI/Abdominal exam: PRESENT: distended Results Laboratory Results: 12/12/18 05:03 12/12/18 05:03 Impressions: Chest X-Ray 12/08/18 10:19 IMPRESSION: NO ACUTE RADIOGRAPHIC FINDING IN THE CHEST. Abdomen/Pelvis CT 12/13/18 00:00 IMPRESSION: Extensive peritoneal carcinomatosis and large amount of abdominal and pelvic ascites, worsening neoplastic findings. No evidence for small bowel obstruction. Assessment & Plan - Diagnosis (1) Intractable vomiting Qualifiers: Vomiting type: cyclical vomiting Nausea presence: with nausea Qualified Code(s): G43.A1 - Cyclical vomiting, intractable Is this a current diagnosis for this admission?: Yes Plan: Continue antiemetics (2) Colon cancer metastasized to lung Is this a current diagnosis for this admission?: Yes (3) Peritoneal carcinomatosis Is this a current diagnosis for this admission?: Yes (4) Malignant ascites Is this a current diagnosis for this admission?: Yes Plan: Patient may need abdominal paracentesis, the vomiting could be related to the huge ascites (5) Colon cancer Qualifiers: Colon location: unspecified part of colon Qualified Code(s): C18.9 - Malignant neoplasm of colon, unspecified Is this a current diagnosis for this admission?: Yes (6) Lung cancer Qualifiers: Laterality: unspecified laterality Lung location: unspecified part of lung Qualified Code(s): C34.90 - Malignant neoplasm of unspecified part of unspecified bronchus or lung Is this a current diagnosis for this admission?: Yes
[2018-12-13] MEDS: ENOXAPARIN SODIUM INJ 40 MG/0.4 ML DISP.SYRIN SUBCUT SCH ×2 (22:40→22:50)
[2018-12-14] MEDS: ONDANSETRON HCL INJ/PF 4 MG/2 ML SDV IV PRN ×5 (03:10→19:54)
[2018-12-14] MEDS: HYDROMORPHONE HCL INJ/PF 2 MG/ML AMPULE IV PRN ×5 (03:11→19:53)
[2018-12-14] MEDS: LEVOTHYROXINE SODIUM 0.1 MG TABLET PO SCH (05:45)
[2018-12-14] MEDS: BUSPIRONE HCL 10 MG TABLET PO SCH ×3 (05:45→22:31)
[2018-12-14] MEDS: LEVOTHYROXINE SODIUM 0.075 MG TABLET PO SCH (05:46)
[2018-12-14] MEDS: GABAPENTIN 300 MG CAPSULE PO SCH ×3 (05:46→22:31)
[2018-12-14] MEDS: LANSOPRAZOLE 30 MG TAB.RAP.DR PO SCH (05:46)
[2018-12-14] MEDS: INSULIN LISPRO 100 UNIT/ML 3 ML VIAL SUBCUT SCH ×4 (07:17→22:31)
[2018-12-14] MEDS: METFORMIN HCL 500 MG TABLET PO SCH ×2 (07:17→17:03)
[2018-12-14] MEDS: CLOPIDOGREL BISULFATE 75 MG TABLET PO SCH (08:40)
[2018-12-14] MEDS: DILTIAZEM HCL 120 MG CAP.SR.24H PO SCH (08:40)
[2018-12-14] MEDS: FENTANYL 50 MCG/HR PATCH.TD72 TOP SCH (08:40)
[2018-12-14] MEDS: FLUTICASONE/UMECLIDIN/VILANTER 100-62.5-25 MCG/DOSE IH SCH (08:41)
--- NOTE | 2018-12-14 08:59 | PDOC PROGRESS REPORT ---
Subjective Progress Note for:: 12/14/18 Subjective:: OVer last 48 hours pt w/ increased N/V, so we did CT A/P w/ IV and oral contrast yesterday, there is inc carcinomatosis compared to imaging done 1m ago but no small bowel obstruction and no new organ involvement as of yet. He ate some this am. Was very weaK OVER LAST 2 days, will have PT eval pt. Had long disvcussion w/ pt and family today about next steps of care. Reason For Visit: INTRACTABLE VOMITING, STAGE 4 COLON CANCER Physical Exam Vital Signs: Temp Pulse Resp BP Pulse Ox 98.0 F 77 20 110/67 98 12/14/18 07:47 12/14/18 07:47 12/14/18 07:47 12/14/18 07:47 12/14/18 07:47 Intake & Output 12/13/18 12/14/18 12/15/18 06:59 06:59 06:59 Intake Total 230 646 Output Total 200 200 Balance 30 446 Weight 106.3 kg 105.2 kg General appearance: PRESENT: no acute distress, well-developed, well-nourished Head exam: PRESENT: atraumatic, normocephalic Eye exam: PRESENT: conjunctiva pink, EOMI, PERRLA. ABSENT: scleral icterus Ear exam: PRESENT: normal external ear exam Mouth exam: PRESENT: moist, tongue midline Neck exam: ABSENT: carotid bruit, JVD, lymphadenopathy, thyromegaly Respiratory exam: PRESENT: clear to auscultation leida. ABSENT: rales, rhonchi, wheezes Cardiovascular exam: PRESENT: RRR. ABSENT: diastolic murmur, rubs, systolic murmur Pulses: PRESENT: normal dorsalis pedis pul Vascular exam: PRESENT: normal capillary refill GI/Abdominal exam: PRESENT: normal bowel sounds, soft. ABSENT: distended, guarding, mass, organolmegaly, rebound, tenderness Rectal exam: PRESENT: deferred Extremities exam: PRESENT: full ROM. ABSENT: calf tenderness, clubbing, pedal edema Neurological exam: PRESENT: alert, awake, oriented to person, oriented to place, oriented to time, oriented to situation, CN II-XII grossly intact. ABSENT: motor sensory deficit Psychiatric exam: PRESENT: appropriate affect, normal mood. ABSENT: homicidal ideation, suicidal ideation Skin exam: PRESENT: dry, intact, warm. ABSENT: cyanosis, rash Results Laboratory Results: 12/12/18 05:03 12/12/18 05:03 Impressions: Chest X-Ray 12/08/18 10:19 IMPRESSION: NO ACUTE RADIOGRAPHIC FINDING IN THE CHEST. Abdomen/Pelvis CT 12/13/18 00:00 IMPRESSION: Extensive peritoneal carcinomatosis and large amount of abdominal and pelvic ascites, worsening neoplastic findings. No evidence for small bowel obstruction. Assessment & Plan - Diagnosis (1) Intractable vomiting Qualifiers: Vomiting type: cyclical vomiting Nausea presence: with nausea Qualified Code(s): G43.A1 - Cyclical vomiting, intractable Is this a current diagnosis for this admission?: Yes Plan: Improved chemo induced as well as disease induced, cont IVF, con't current antiemetics. will need 24-48 more hours in most likely (2) Colon cancer Qualifiers: Colon location: ascending Qualified Code(s): C18.2 - Malignant neoplasm of ascending colon Is this a current diagnosis for this admission?: Yes Plan: Had long discussion w/ pt and family, at present want to cont f/u with us and cont current care. Will have family discussion continued. (3) Antineoplastic chemotherapy induced anemia Is this a current diagnosis for this admission?: Yes Plan: Hb low, ferritin high. Will repeat cbc in am - Time Time Spent with patient: 35 or more minutes - Inpatient Certification Based on my medical assessment, after consideration of the patient's comorbidities, presenting symptoms, or acuity I expect that the services needed warrant INPATIENT care.: Yes I certify that my determination is in accordance with my understanding of Medicare's requirements for reasonable and necessary INPATIENT services [42 CFR 412.3e].: Yes Medical Necessity: Risk of Complication if Not Cared For in Hospital
[2018-12-14] MEDS ORDERED: ALBUMIN HUMAN 25 GM/100 ML RTUINJ IV PRN (09:23)
--- NOTE | 2018-12-14 10:08 | PDOC PROGRESS REPORT ---
Subjective Progress Note for:: 12/14/18 Subjective:: Patient is currently doing fair Patient CT scan of the abdomen and pelvis suggested some recurrent ascites Patient removed almost 8 L of the fluid last week Patient is going for another paracentesis today As per discussed with the oncologist discussed the patient about continues chemo versus hospice Reason For Visit: INTRACTABLE VOMITING, STAGE 4 COLON CANCER Physical Exam Vital Signs: Temp Pulse Resp BP Pulse Ox 98.0 F 77 20 110/67 98 12/14/18 07:47 12/14/18 07:47 12/14/18 07:47 12/14/18 07:47 12/14/18 07:47 Intake & Output 12/13/18 12/14/18 12/15/18 06:59 06:59 06:59 Intake Total 230 646 Output Total 200 200 Balance 30 446 Weight 106.3 kg 105.2 kg General appearance: PRESENT: no acute distress, well-developed, well-nourished Head exam: PRESENT: atraumatic, normocephalic Eye exam: PRESENT: conjunctiva pink, EOMI, PERRLA. ABSENT: scleral icterus Ear exam: PRESENT: normal external ear exam Mouth exam: PRESENT: moist, tongue midline Neck exam: PRESENT: full ROM. ABSENT: carotid bruit, JVD, lymphadenopathy, thyromegaly Respiratory exam: PRESENT: clear to auscultation leida Cardiovascular exam: PRESENT: RRR. ABSENT: diastolic murmur, rubs, systolic murmur Vascular exam: PRESENT: normal capillary refill GI/Abdominal exam: PRESENT: ascites, normal bowel sounds, soft. ABSENT: distended, guarding, mass, organolmegaly, rebound, tenderness Rectal exam: PRESENT: deferred Neurological exam: PRESENT: alert, awake, oriented to person, oriented to place, oriented to time, oriented to situation, CN II-XII grossly intact. ABSENT: motor sensory deficit Psychiatric exam: PRESENT: appropriate affect, normal mood. ABSENT: homicidal ideation, suicidal ideation Skin exam: PRESENT: dry, intact, warm. ABSENT: cyanosis, rash Results Laboratory Results: 12/12/18 05:03 12/12/18 05:03 Impressions: Chest X-Ray 12/08/18 10:19 IMPRESSION: NO ACUTE RADIOGRAPHIC FINDING IN THE CHEST. Abdomen/Pelvis CT 12/13/18 00:00 IMPRESSION: Extensive peritoneal carcinomatosis and large amount of abdominal and pelvic ascites, worsening neoplastic findings. No evidence for small bowel obstruction. Assessment & Plan - Diagnosis (1) Colon cancer metastasized to lung Is this a current diagnosis for this admission?: Yes (2) Intractable vomiting Qualifiers: Vomiting type: cyclical vomiting Nausea presence: with nausea Qualified Code(s): G43.A1 - Cyclical vomiting, intractable Is this a current diagnosis for this admission?: Yes (3) Lung cancer Qualifiers: Laterality: unspecified laterality Lung location: unspecified part of lung Qualified Code(s): C34.90 - Malignant neoplasm of unspecified part of unspecified bronchus or lung Is this a current diagnosis for this admission?: Yes (4) Malignant ascites Is this a current diagnosis for this admission?: Yes (5) Peritoneal carcinomatosis Is this a current diagnosis for this admission?: Yes - Time Time Spent with patient: 15-24 minutes Medications reviewed and adjusted accordingly: Yes Anticipated discharge: Other Within: Other - Plan Summary Plan Summary: Will get the paracentesis today Continues to follow with the oncology
[2018-12-14] MEDS: ENOXAPARIN SODIUM INJ 40 MG/0.4 ML DISP.SYRIN SUBCUT SCH (22:32)
[2018-12-15] MEDS: HYDROMORPHONE HCL INJ/PF 2 MG/ML AMPULE IV PRN ×6 (00:03→23:26)
[2018-12-15] MEDS: ONDANSETRON HCL INJ/PF 4 MG/2 ML SDV IV PRN ×6 (00:04→22:22)
[2018-12-15] MEDS: LEVOTHYROXINE SODIUM 0.1 MG TABLET PO SCH (05:47)
[2018-12-15] MEDS: LEVOTHYROXINE SODIUM 0.075 MG TABLET PO SCH (05:47)
[2018-12-15] MEDS: BUSPIRONE HCL 10 MG TABLET PO SCH ×3 (05:47→22:22)
[2018-12-15] MEDS: GABAPENTIN 300 MG CAPSULE PO SCH ×3 (05:47→22:22)
[2018-12-15] MEDS: LANSOPRAZOLE 30 MG TAB.RAP.DR PO SCH (05:48)
[2018-12-15 07:42] LABS: HEMATOCRIT 23.7 % (37.9-51.0); MEAN CORPUSCULAR HEMOGLOBIN 24.5 pg (27.0-33.4); MEAN CORPUSCULAR VOLUME 77 fl (80-97); PLATELET COUNT 133 10^3/uL (150-450); RED BLOOD COUNT 3.09 10^6/uL (4.35-5.55); RED CELL DISTRIBUTION WIDTH 22.2 % (11.5-14.0)
[2018-12-15 08:04] LABS: ABSOLUTE LYMPHOCYTES# (MANUAL) 0.1 10^3/uL (0.5-4.7); ABSOLUTE MONOCYTES # (MANUAL) 0.4 10^3/uL (0.1-1.4); ABSOLUTE NEUTROPHILS# (MANUAL) 9.4 10^3/uL (1.7-8.2); BAND NEUTROPHILS % (MANUAL) 2 % (3-5); BASOPHILS % (MANUAL) 1 % (0-2); EOSINOPHILS % (MANUAL) 0 % (0-6); LYMPHOCYTES % (MANUAL) 1 % (13-45); MONOCYTES % (MANUAL) 4 % (3-13); SEGMENTED NEUTROPHILS % (MAN) 92 % (42-78); TOTAL CELLS COUNTED 100
[2018-12-15 08:05] LABS: ANISOCYTOSIS 3+; HYPOCHROMASIA SLIGHT
[2018-12-15 08:06] LABS: HEMOGLOBIN 7.6 g/dL (13.5-17.0); OVALOCYTES SLIGHT; PLATELET COMMENT DECREASED; POIKILOCYTOSIS SLIGHT; TEAR DROP CELLS SLIGHT
[2018-12-15 08:07] LABS: ALANINE AMINOTRANSFERASE 19 U/L (21-72); ALBUMIN 2.3 g/dL (3.5-5.0); ALKALINE PHOSPHATASE 80 U/L (38-126); ANION GAP 7 (5-19); ASPARTATE AMINO TRANSFERASE 35 U/L (17-59); BILIRUBIN,DIRECT 0.3 mg/dL (0.0-0.4); BILIRUBIN,TOTAL 0.3 mg/dL (0.2-1.3); BLOOD UREA NITROGEN 11 mg/dL (7-20); CALCIUM 7.4 mg/dL (8.4-10.2); CARBON DIOXIDE 31 mmol/L (22-30); CHLORIDE 96 mmol/L (98-107); GLUCOSE 98 mg/dL (75-110); SODIUM 133.5 mmol/L (137-145); TOTAL PROTEIN 4.3 g/dL (6.3-8.2)
[2018-12-15] MEDS: INSULIN LISPRO 100 UNIT/ML 3 ML VIAL SUBCUT SCH ×4 (08:19→22:36)
[2018-12-15] MEDS: METFORMIN HCL 500 MG TABLET PO SCH ×2 (08:19→17:38)
--- NOTE | 2018-12-15 08:44 | PDOC PROGRESS REPORT ---
Subjective Progress Note for:: 12/15/18 Subjective:: Patient is currently doing fair Patient unable to get the paracentesis because this on the Plavix Patient's otherwise denied any nausea no vomiting Patient is going to talk to the oncologist with the family about the hospice versus continues chemo Reason For Visit: INTRACTABLE VOMITING, STAGE 4 COLON CANCER Physical Exam Vital Signs: Temp Pulse Resp BP Pulse Ox 97.4 F 81 17 102/66 97 12/15/18 08:00 12/15/18 08:00 12/15/18 08:00 12/15/18 08:00 12/15/18 08:00 Intake & Output 12/14/18 12/15/18 12/16/18 06:59 06:59 06:59 Intake Total 646 1567 Output Total 200 300 Balance 446 1267 Weight 105.2 kg 105.1 kg General appearance: PRESENT: no acute distress, well-developed, well-nourished Head exam: PRESENT: atraumatic, normocephalic Eye exam: PRESENT: conjunctiva pink, EOMI, PERRLA. ABSENT: scleral icterus Ear exam: PRESENT: normal external ear exam Mouth exam: PRESENT: moist, tongue midline Neck exam: PRESENT: full ROM. ABSENT: carotid bruit, JVD, lymphadenopathy, thyr omegaly Respiratory exam: PRESENT: clear to auscultation leida Cardiovascular exam: PRESENT: RRR. ABSENT: diastolic murmur, rubs, systolic murmur Pulses: PRESENT: normal dorsalis pedis pul, +2 pedal pulses bilateral Vascular exam: PRESENT: normal capillary refill GI/Abdominal exam: PRESENT: ascites, normal bowel sounds, soft. ABSENT: distended, guarding, mass, organolmegaly, rebound, tenderness Rectal exam: PRESENT: deferred Neurological exam: PRESENT: alert, awake, oriented to person, oriented to place, oriented to time, oriented to situation, CN II-XII grossly intact. ABSENT: motor sensory deficit Psychiatric exam: PRESENT: appropriate affect, normal mood. ABSENT: homicidal ideation, suicidal ideation Skin exam: PRESENT: dry, intact, warm. ABSENT: cyanosis, rash Results Laboratory Results: 12/15/18 06:40 12/15/18 06:40 12/15/18 12/15/18 06:40 06:40 WBC 10.0 RBC 3.09 L Hgb 7.6 L Hct 23.7 L MCV 77 L MCH 24.5 L MCHC 32.0 RDW 22.2 H Plt Count 133 L Seg Neutrophils % Not Reportable Lymphocytes % Not Reportable Monocytes % Not Reportable Eosinophils % Not Reportable Basophils % Not Reportable Absolute Neutrophils Not Reportable Absolute Lymphocytes Not Reportable Absolute Monocytes Not Reportable Absolute Eosinophils Not Reportable Absolute Basophils Not Reportable Sodium 133.5 L Potassium 4.0 Chloride 96 L Carbon Dioxide 31 H Anion Gap 7 BUN 11 Creatinine 0.67 Est GFR ( Amer) > 60 Est GFR (Non-Af Amer) > 60 Glucose 98 Calcium 7.4 L Total Bilirubin 0.3 AST 35 ALT 19 L Alkaline Phosphatase 80 Total Protein 4.3 L Albumin 2.3 L Impressions: Chest X-Ray 12/08/18 10:19 IMPRESSION: NO ACUTE RADIOGRAPHIC FINDING IN THE CHEST. Abdomen/Pelvis CT 12/13/18 00:00 IMPRESSION: Extensive peritoneal carcinomatosis and large amount of abdominal and pelvic ascites, worsening neoplastic findings. No evidence for small bowel obstruction. Assessment & Plan - Diagnosis (1) Colon cancer metastasized to lung Is this a current diagnosis for this admission?: Yes (2) Intractable vomiting Qualifiers: Vomiting type: cyclical vomiting Nausea presence: with nausea Qualified Code(s): G43.A1 - Cyclical vomiting, intractable Is this a current diagnosis for this admission?: Yes (3) Lung cancer Qualifiers: Laterality: unspecified laterality Lung location: unspecified part of lung Qualified Code(s): C34.90 - Malignant neoplasm of unspecified part of unspecified bronchus or lung Is this a current diagnosis for this admission?: Yes (4) Malignant ascites Is this a current diagnosis for this admission?: Yes (5) Peritoneal carcinomatosis Is this a current diagnosis for this admission?: Yes - Time Time Spent with patient: 15-24 minutes Medications reviewed and adjusted accordingly: Yes Anticipated discharge: Other Within: Other - Plan Summary Plan Summary: Continues current medications
[2018-12-15] MEDS: FLUTICASONE/UMECLIDIN/VILANTER 100-62.5-25 MCG/DOSE IH SCH (09:42)
[2018-12-15] MEDS: DILTIAZEM HCL 120 MG CAP.SR.24H PO SCH (10:52)
--- NOTE | 2018-12-15 14:48 | PDOC PROGRESS REPORT ---
Subjective Progress Note for:: 12/15/18 Subjective:: Patient without new complaints this morning. He states that he is still trying to decide what to do after his discussion yesterday with Dr. Bojorquez. His family is coming this morning to discuss as well. Reason For Visit: INTRACTABLE VOMITING, STAGE 4 COLON CANCER Physical Exam Vital Signs: Temp Pulse Resp BP Pulse Ox 98.1 F 87 18 106/66 97 12/15/18 12:00 12/15/18 12:00 12/15/18 12:00 12/15/18 12:00 12/15/18 12:00 Intake & Output 12/14/18 12/15/18 12/16/18 06:59 06:59 06:59 Intake Total 646 1567 Output Total 200 300 Balance 446 1267 Weight 105.2 kg 105.1 kg General appearance: PRESENT: obese Head exam: PRESENT: normocephalic Respiratory exam: PRESENT: clear to auscultation leida Cardiovascular exam: PRESENT: RRR GI/Abdominal exam: PRESENT: ascites, soft Extremities exam: PRESENT: +2 edema Psychiatric exam: PRESENT: appropriate affect Skin exam: PRESENT: normal color Results Laboratory Results: 12/15/18 06:40 12/15/18 06:40 12/15/18 12/15/18 06:40 06:40 WBC 10.0 RBC 3.09 L Hgb 7.6 L Hct 23.7 L MCV 77 L MCH 24.5 L MCHC 32.0 RDW 22.2 H Plt Count 133 L Seg Neutrophils % Not Reportable Lymphocytes % Not Reportable Monocytes % Not Reportable Eosinophils % Not Reportable Basophils % Not Reportable Absolute Neutrophils Not Reportable Absolute Lymphocytes Not Reportable Absolute Monocytes Not Reportable Absolute Eosinophils Not Reportable Absolute Basophils Not Reportable Sodium 133.5 L Potassium 4.0 Chloride 96 L Carbon Dioxide 31 H Anion Gap 7 BUN 11 Creatinine 0.67 Est GFR ( Amer) > 60 Est GFR (Non-Af Amer) > 60 Glucose 98 Calcium 7.4 L Total Bilirubin 0.3 AST 35 ALT 19 L Alkaline Phosphatase 80 Total Protein 4.3 L Albumin 2.3 L Impressions: Chest X-Ray 12/08/18 10:19 IMPRESSION: NO ACUTE RADIOGRAPHIC FINDING IN THE CHEST. Abdomen/Pelvis CT 12/13/18 00:00 IMPRESSION: Extensive peritoneal carcinomatosis and large amount of abdominal and pelvic ascites, worsening neoplastic findings. No evidence for small bowel obstruction. Assessment & Plan - Diagnosis (1) Colon cancer Qualifiers: Colon location: ascending Qualified Code(s): C18.2 - Malignant neoplasm of ascending colon Is this a current diagnosis for this admission?: Yes Plan: Patient is considering further treatment vs. palliative care with Hospice. (2) Intractable vomiting Qualifiers: Vomiting type: cyclical vomiting Nausea presence: with nausea Qualified Code(s): G43.A1 - Cyclical vomiting, intractable Is this a current diagnosis for this admission?: Yes Plan: Now improved. (3) Pain, neoplasm-related Is this a current diagnosis for this admission?: Yes Plan: Improved with current medications. - Plan Summary Plan Summary: Will support patient in his decision making process.
[2018-12-15] MEDS: ENOXAPARIN SODIUM INJ 40 MG/0.4 ML DISP.SYRIN SUBCUT SCH (22:23)
[2018-12-16] MEDS: ONDANSETRON HCL INJ/PF 4 MG/2 ML SDV IV PRN ×5 (03:36→21:13)
[2018-12-16] MEDS: HYDROMORPHONE HCL INJ/PF 2 MG/ML AMPULE IV PRN ×5 (03:36→21:13)
[2018-12-16] MEDS ORDERED: FUROSEMIDE INJ/PF 20 MG/2 ML SDV IV PRN (05:00)
[2018-12-16] MEDS: BUSPIRONE HCL 10 MG TABLET PO SCH ×3 (06:13→21:13)
[2018-12-16] MEDS: LEVOTHYROXINE SODIUM 0.1 MG TABLET PO SCH (06:13)
[2018-12-16] MEDS: GABAPENTIN 300 MG CAPSULE PO SCH ×3 (06:13→21:12)
[2018-12-16] MEDS: LEVOTHYROXINE SODIUM 0.075 MG TABLET PO SCH (06:14)
[2018-12-16] MEDS: LANSOPRAZOLE 30 MG TAB.RAP.DR PO SCH (06:15)
[2018-12-16] MEDS: METFORMIN HCL 500 MG TABLET PO SCH ×2 (08:05→16:38)
[2018-12-16] MEDS: INSULIN LISPRO 100 UNIT/ML 3 ML VIAL SUBCUT SCH ×4 (08:05→21:46)
--- NOTE | 2018-12-16 08:11 | PDOC PROGRESS REPORT ---
Subjective Progress Note for:: 12/16/18 Subjective:: Today had long discussion with the patient and family, discussed his case with his brother yesterday extensively as well, spent greater than 45 minutes in discussion and coordination, he would like to continue on current therapy. We will plan for dose reduced FOLFOX chemotherapy next week. He requires paracentesis but because of Plavix they could not do it until Wednesday, this will be done then. Reason For Visit: INTRACTABLE VOMITING, STAGE 4 COLON CANCER Physical Exam Vital Signs: Temp Pulse Resp BP Pulse Ox 98.2 F 79 16 118/69 96 12/16/18 00:04 12/16/18 02:00 12/16/18 00:04 12/16/18 00:04 12/16/18 00:04 Intake & Output 12/15/18 12/16/18 12/17/18 06:59 06:59 06:59 Intake Total 1567 1762 Output Total 300 1000 Balance 1267 762 Weight 105.1 kg 107.5 kg General appearance: PRESENT: no acute distress, well-developed, well-nourished Head exam: PRESENT: atraumatic, normocephalic Eye exam: PRESENT: conjunctiva pink, EOMI, PERRLA. ABSENT: scleral icterus Ear exam: PRESENT: normal external ear exam Mouth exam: PRESENT: moist, tongue midline Neck exam: ABSENT: carotid bruit, JVD, lymphadenopathy, thyromegaly Respiratory exam: PRESENT: clear to auscultation leida. ABSENT: rales, rhonchi, wheezes Cardiovascular exam: PRESENT: RRR. ABSENT: diastolic murmur, rubs, systolic murmur Pulses: PRESENT: normal dorsalis pedis pul Vascular exam: PRESENT: normal capillary refill GI/Abdominal exam: PRESENT: normal bowel sounds, soft. ABSENT: distended, guarding, mass, organolmegaly, rebound, tenderness Rectal exam: PRESENT: deferred Extremities exam: PRESENT: full ROM. ABSENT: calf tenderness, clubbing, pedal edema Neurological exam: PRESENT: alert, awake, oriented to person, oriented to place, oriented to time, oriented to situation, CN II-XII grossly intact. ABSENT: motor sensory deficit Psychiatric exam: PRESENT: appropriate affect, normal mood. ABSENT: homicidal ideation, suicidal ideation Skin exam: PRESENT: dry, intact, warm. ABSENT: cyanosis, rash Results Laboratory Results: 12/15/18 06:40 12/15/18 06:40 12/15/18 06:40 Sodium 133.5 L Potassium 4.0 Chloride 96 L Carbon Dioxide 31 H Anion Gap 7 BUN 11 Creatinine 0.67 Est GFR ( Amer) > 60 Est GFR (Non-Af Amer) > 60 Glucose 98 Calcium 7.4 L Total Bilirubin 0.3 AST 35 ALT 19 L Alkaline Phosphatase 80 Total Protein 4.3 L Albumin 2.3 L Impressions: Chest X-Ray 12/08/18 10:19 IMPRESSION: NO ACUTE RADIOGRAPHIC FINDING IN THE CHEST. Abdomen/Pelvis CT 12/13/18 00:00 IMPRESSION: Extensive peritoneal carcinomatosis and large amount of abdominal and pelvic ascites, worsening neoplastic findings. No evidence for small bowel obstruction. Assessment & Plan - Diagnosis (1) Intractable vomiting Qualifiers: Vomiting type: cyclical vomiting Nausea presence: with nausea Qualified Code(s): G43.A1 - Cyclical vomiting, intractable Is this a current diagnosis for this admission?: Yes Plan: Improved, but worsened again because of the reaccumulation of ascites, needs paracentesis. Continue with antiemetics. (2) Colon cancer Qualifiers: Colon location: ascending Qualified Code(s): C18.2 - Malignant neoplasm of ascending colon Is this a current diagnosis for this admission?: Yes Plan: Long discussion with patient and family, he wants to continue with aggressive therapy, continue with plan, plan for chemotherapy with dose reduced FOLFOX next week. (3) Antineoplastic chemotherapy induced anemia Is this a current diagnosis for this admission?: Yes Plan: Hemoglobin dropped to 7.6, plan for transfusion of 1 unit of packed red blood cell. (4) Malignant ascites Is this a current diagnosis for this admission?: Yes Plan: Plan for paracentesis on Wednesday (5) Physical deconditioning Is this a current diagnosis for this admission?: Yes Plan: Continue PT - Time Time Spent with patient: 35 or more minutes - Inpatient Certification Based on my medical assessment, after consideration of the patient's comorbidities, presenting symptoms, or acuity I expect that the services needed warrant INPATIENT care.: Yes I certify that my determination is in accordance with my understanding of Medicare's requirements for reasonable and necessary INPATIENT services [42 CFR 412.3e].: Yes Medical Necessity: Risk of Complication if Not Cared For in Hospital
--- NOTE | 2018-12-16 08:16 | PDOC PROGRESS REPORT ---
Subjective Progress Note for:: 12/16/18 Subjective:: Patient is currently doing fair Patient denied any chest pain to than any shortness of the breath No abdominal pain Patient's p.o. intake is fair Reason For Visit: INTRACTABLE VOMITING, STAGE 4 COLON CANCER Physical Exam Vital Signs: Temp Pulse Resp BP Pulse Ox 98.2 F 79 16 118/69 96 12/16/18 00:04 12/16/18 02:00 12/16/18 00:04 12/16/18 00:04 12/16/18 00:04 Intake & Output 12/15/18 12/16/18 12/17/18 06:59 06:59 06:59 Intake Total 1567 1762 Output Total 300 1000 Balance 1267 762 Weight 105.1 kg 107.5 kg General appearance: PRESENT: no acute distress, well-developed, well-nourished Head exam: PRESENT: atraumatic, normocephalic Eye exam: PRESENT: conjunctiva pink, EOMI, PERRLA. ABSENT: scleral icterus Ear exam: PRESENT: normal external ear exam Mouth exam: PRESENT: moist, tongue midline Neck exam: PRESENT: full ROM. ABSENT: carotid bruit, JVD, lymphadenopathy, thyr omegaly Respiratory exam: PRESENT: clear to auscultation leida Cardiovascular exam: PRESENT: RRR. ABSENT: diastolic murmur, rubs, systolic murmur Vascular exam: PRESENT: normal capillary refill GI/Abdominal exam: PRESENT: ascites, distended, normal bowel sounds, soft. ABSENT: guarding, mass, organolmegaly, rebound, tenderness Rectal exam: PRESENT: deferred Musculoskeletal exam: PRESENT: ambulatory Neurological exam: PRESENT: alert, awake, oriented to person, oriented to place, oriented to time, oriented to situation, CN II-XII grossly intact. ABSENT: motor sensory deficit Psychiatric exam: PRESENT: appropriate affect, normal mood. ABSENT: homicidal ideation, suicidal ideation Skin exam: PRESENT: dry, intact, warm. ABSENT: cyanosis, rash Results Laboratory Results: 12/15/18 06:40 12/15/18 06:40 Impressions: Chest X-Ray 12/08/18 10:19 IMPRESSION: NO ACUTE RADIOGRAPHIC FINDING IN THE CHEST. Abdomen/Pelvis CT 12/13/18 00:00 IMPRESSION: Extensive peritoneal carcinomatosis and large amount of abdominal and pelvic ascites, worsening neoplastic findings. No evidence for small bowel obstruction. Assessment & Plan - Diagnosis (1) Colon cancer metastasized to lung Is this a current diagnosis for this admission?: Yes (2) Intractable vomiting Qualifiers: Vomiting type: cyclical vomiting Nausea presence: with nausea Qualified Code(s): G43.A1 - Cyclical vomiting, intractable Is this a current diagnosis for this admission?: Yes (3) Lung cancer Qualifiers: Laterality: unspecified laterality Lung location: unspecified part of lung Qualified Code(s): C34.90 - Malignant neoplasm of unspecified part of unspecified bronchus or lung Is this a current diagnosis for this admission?: Yes (4) Malignant ascites Is this a current diagnosis for this admission?: Yes (5) Peritoneal carcinomatosis Is this a current diagnosis for this admission?: Yes - Time Time Spent with patient: 25-34 minutes Medications reviewed and adjusted accordingly: Yes Anticipated discharge: Home Within: Other - Plan Summary Plan Summary: As per discussed with the patient and the oncology patient is going to stay in the hospital schedule paracentesis on a Wednesday and schedule the chemotherapy on a Wednesday
[2018-12-16] MEDS: DOCUSATE SODIUM 100 MG CAPSULE PO SCH (10:10)
[2018-12-16] MEDS: DILTIAZEM HCL 120 MG CAP.SR.24H PO SCH (10:10)
[2018-12-16] MEDS: POLYETHYLENE GLYCOL 3350 POWDER 17 GM/1 PACKET PO SCH (10:10)
[2018-12-16] MEDS: FLUTICASONE/UMECLIDIN/VILANTER 100-62.5-25 MCG/DOSE IH SCH (10:13)
[2018-12-16 11:53] LABS: HEMATOCRIT 27.7 % (37.9-51.0); HEMOGLOBIN 8.8 g/dL (13.5-17.0); MEAN CORPUSCULAR HEMOGLOBIN 24.2 pg (27.0-33.4); MEAN CORPUSCULAR HGB CONC 31.6 g/dL (32.0-36.0); MEAN CORPUSCULAR VOLUME 77 fl (80-97); PLATELET COUNT 139 10^3/uL (150-450); RED BLOOD COUNT 3.61 10^6/uL (4.35-5.55); RED CELL DISTRIBUTION WIDTH 21.8 % (11.5-14.0); WHITE BLOOD COUNT 8.7 10^3/uL (4.0-10.5)
[2018-12-16 21:10] LABS: HEMATOCRIT 30.9 % (37.9-51.0); MEAN CORPUSCULAR HEMOGLOBIN 25.6 pg (27.0-33.4); MEAN CORPUSCULAR HGB CONC 32.5 g/dL (32.0-36.0); MEAN CORPUSCULAR VOLUME 79 fl (80-97); PLATELET COUNT 134 10^3/uL (150-450); RED BLOOD COUNT 3.92 10^6/uL (4.35-5.55); RED CELL DISTRIBUTION WIDTH 23.3 % (11.5-14.0); WHITE BLOOD COUNT 9.7 10^3/uL (4.0-10.5)
[2018-12-16] MEDS: ENOXAPARIN SODIUM INJ 40 MG/0.4 ML DISP.SYRIN SUBCUT SCH (21:13)
[2018-12-16 21:26] LABS: ABSOLUTE LYMPHOCYTES# (MANUAL) 0.4 10^3/uL (0.5-4.7); ABSOLUTE MONOCYTES # (MANUAL) 0.6 10^3/uL (0.1-1.4); ABSOLUTE NEUTROPHILS# (MANUAL) 8.7 10^3/uL (1.7-8.2); BASOPHILS % (MANUAL) 0 % (0-2); EOSINOPHILS % (MANUAL) 0 % (0-6); LYMPHOCYTES % (MANUAL) 4 % (13-45); MONOCYTES % (MANUAL) 6 % (3-13); SEGMENTED NEUTROPHILS % (MAN) 90 % (42-78); TOTAL CELLS COUNTED 100
[2018-12-16 21:27] LABS: ANISOCYTOSIS 2+; HYPOCHROMASIA SLIGHT; PLATELET COMMENT DECREASED; POIKILOCYTOSIS 1+; TOXIC GRANULATION SLIGHT
[2018-12-17] MEDS: ONDANSETRON HCL INJ/PF 4 MG/2 ML SDV IV PRN ×6 (02:22→23:09)
[2018-12-17] MEDS: HYDROMORPHONE HCL INJ/PF 2 MG/ML AMPULE IV PRN ×6 (02:22→23:11)
[2018-12-17] MEDS: LANSOPRAZOLE 30 MG TAB.RAP.DR PO SCH (06:02)
[2018-12-17] MEDS: LEVOTHYROXINE SODIUM 0.075 MG TABLET PO SCH (06:02)
[2018-12-17] MEDS: GABAPENTIN 300 MG CAPSULE PO SCH ×3 (06:02→22:09)
[2018-12-17] MEDS: LEVOTHYROXINE SODIUM 0.1 MG TABLET PO SCH (06:02)
[2018-12-17] MEDS: BUSPIRONE HCL 10 MG TABLET PO SCH ×3 (06:02→22:09)
[2018-12-17] MEDS: METFORMIN HCL 500 MG TABLET PO SCH ×2 (08:40→17:22)
[2018-12-17] MEDS: DILTIAZEM HCL 120 MG CAP.SR.24H PO SCH (09:56)
[2018-12-17] MEDS: POLYETHYLENE GLYCOL 3350 POWDER 17 GM/1 PACKET PO SCH (09:56)
[2018-12-17] MEDS: FENTANYL 50 MCG/HR PATCH.TD72 TOP SCH (09:56)
[2018-12-17] MEDS: DOCUSATE SODIUM 100 MG CAPSULE PO SCH (09:57)
[2018-12-17] MEDS: INSULIN LISPRO 100 UNIT/ML 3 ML VIAL SUBCUT SCH ×4 (10:02→22:13)
[2018-12-17] MEDS: FLUTICASONE/UMECLIDIN/VILANTER 100-62.5-25 MCG/DOSE IH SCH (10:03)
--- NOTE | 2018-12-17 12:12 | PDOC PROGRESS REPORT ---
Subjective Progress Note for:: 12/17/18 Subjective:: Patient sleeping peacefully in the chair, but has rattle on expiration. He awakens with tactile stimulus. He tells me that the paracentesis is planned for Wednesday then further chemo on . He is happy with this decision. Reason For Visit: INTRACTABLE VOMITING, STAGE 4 COLON CANCER Physical Exam Vital Signs: Temp Pulse Resp BP Pulse Ox 97.4 F 87 18 113/73 97 12/17/18 08:00 12/17/18 08:00 12/17/18 08:00 12/17/18 08:00 12/17/18 08:00 Intake & Output 12/16/18 12/17/18 12/18/18 06:59 06:59 06:59 Intake Total 1762 816 Output Total 1000 846 Balance 762 -30 Weight 107.5 kg 106.7 kg General appearance: PRESENT: other - Cachectic but with massive ascites all over. Head exam: PRESENT: normocephalic Respiratory exam: PRESENT: other - Expiratory rattle. Cardiovascular exam: PRESENT: RRR GI/Abdominal exam: PRESENT: ascites Neurological exam: PRESENT: awake Psychiatric exam: PRESENT: appropriate affect Results Laboratory Results: 12/16/18 20:40 12/15/18 06:40 12/16/18 12/16/18 11:18 20:40 WBC 9.7 RBC 3.92 L Hgb 10.0 L Hct 30.9 L MCV 79 L MCH 25.6 L MCHC 32.5 RDW 23.3 H Plt Count 134 L Seg Neutrophils % Not Reportable Lymphocytes % Not Reportable Monocytes % Not Reportable Eosinophils % Not Reportable Basophils % Not Reportable Absolute Neutrophils Not Reportable Absolute Lymphocytes Not Reportable Absolute Monocytes Not Reportable Absolute Eosinophils Not Reportable Absolute Basophils Not Reportable Blood Type B POSITIVE Antibody Screen NEGATIVE Impressions: Chest X-Ray 12/08/18 10:19 IMPRESSION: NO ACUTE RADIOGRAPHIC FINDING IN THE CHEST. Abdomen/Pelvis CT 12/13/18 00:00 IMPRESSION: Extensive peritoneal carcinomatosis and large amount of abdominal and pelvic ascites, worsening neoplastic findings. No evidence for small bowel obstruction. Assessment & Plan - Diagnosis (1) Colon cancer Qualifiers: Colon location: ascending Qualified Code(s): C18.2 - Malignant neoplasm of ascending colon Is this a current diagnosis for this admission?: Yes Plan: Plan for FOLFOX chemotherapy in 3 days. (2) Intractable vomiting Qualifiers: Vomiting type: cyclical vomiting Nausea presence: with nausea Qualified Code(s): G43.A1 - Cyclical vomiting, intractable Is this a current diagnosis for this admission?: Yes Plan: Now resolved. (3) Pain, neoplasm-related Is this a current diagnosis for this admission?: Yes (4) Ascites Is this a current diagnosis for this admission?: Yes Plan: Plan for paracentesis in 2 days. Lovenox will be held prior to procedure. - Plan Summary Plan Summary: Please call with any concerns.
--- NOTE | 2018-12-17 20:38 | PDOC PROGRESS REPORT ---
Subjective Progress Note for:: 12/17/18 Subjective:: patient is alert ,the abdominal paracenteis was not done because he is on anti- platelet ,schedule for paracentesis Reason For Visit: INTRACTABLE VOMITING, STAGE 4 COLON CANCER Physical Exam Vital Signs: Temp Pulse Resp BP Pulse Ox 97.6 F 90 18 98/61 L 99 12/17/18 17:26 12/17/18 17:26 12/17/18 17:26 12/17/18 17:26 12/17/18 17:26 Intake & Output 12/16/18 12/17/18 12/18/18 06:59 06:59 06:59 Intake Total 1762 816 960 Output Total 1000 846 700 Balance 762 -30 260 Weight 107.5 kg 106.7 kg General appearance: PRESENT: no acute distress Eye exam: PRESENT: PERRLA Respiratory exam: PRESENT: clear to auscultation leida Cardiovascular exam: PRESENT: +S1, +S2 Results Laboratory Results: 12/16/18 20:40 12/15/18 06:40 12/16/18 20:40 WBC 9.7 RBC 3.92 L Hgb 10.0 L Hct 30.9 L MCV 79 L MCH 25.6 L MCHC 32.5 RDW 23.3 H Plt Count 134 L Seg Neutrophils % Not Reportable Lymphocytes % Not Reportable Monocytes % Not Reportable Eosinophils % Not Reportable Basophils % Not Reportable Absolute Neutrophils Not Reportable Absolute Lymphocytes Not Reportable Absolute Monocytes Not Reportable Absolute Eosinophils Not Reportable Absolute Basophils Not Reportable Impressions: Chest X-Ray 12/08/18 10:19 IMPRESSION: NO ACUTE RADIOGRAPHIC FINDING IN THE CHEST. Abdomen/Pelvis CT 12/13/18 00:00 IMPRESSION: Extensive peritoneal carcinomatosis and large amount of abdominal and pelvic ascites, worsening neoplastic findings. No evidence for small bowel obstruction. Assessment & Plan - Diagnosis (1) Intractable vomiting Qualifiers: Vomiting type: cyclical vomiting Nausea presence: with nausea Qualified Code(s): G43.A1 - Cyclical vomiting, intractable Is this a current diagnosis for this admission?: Yes (2) Colon cancer metastasized to lung Is this a current diagnosis for this admission?: Yes (3) Peritoneal carcinomatosis Is this a current diagnosis for this admission?: Yes (4) Malignant ascites Is this a current diagnosis for this admission?: Yes (5) Colon cancer Qualifiers: Colon location: unspecified part of colon Qualified Code(s): C18.9 - Malignant neoplasm of colon, unspecified Is this a current diagnosis for this admission?: Yes (6) Lung cancer Qualifiers: Laterality: unspecified laterality Lung location: unspecified part of lung Qualified Code(s): C34.90 - Malignant neoplasm of unspecified part of unspecified bronchus or lung Is this a current diagnosis for this admission?: Yes
[2018-12-17] MEDS: ENOXAPARIN SODIUM INJ 40 MG/0.4 ML DISP.SYRIN SUBCUT SCH (22:10)
[2018-12-18] MEDS: LEVOTHYROXINE SODIUM 0.1 MG TABLET PO SCH (05:37)
[2018-12-18] MEDS: LEVOTHYROXINE SODIUM 0.075 MG TABLET PO SCH (05:37)
[2018-12-18] MEDS: LANSOPRAZOLE 30 MG TAB.RAP.DR PO SCH (05:37)
[2018-12-18] MEDS: GABAPENTIN 300 MG CAPSULE PO SCH ×3 (05:37→21:14)
[2018-12-18] MEDS: BUSPIRONE HCL 10 MG TABLET PO SCH ×3 (05:37→21:14)
[2018-12-18] MEDS: ONDANSETRON HCL INJ/PF 4 MG/2 ML SDV IV PRN ×5 (05:39→21:58)
[2018-12-18] MEDS: HYDROMORPHONE HCL INJ/PF 2 MG/ML AMPULE IV PRN ×5 (05:42→21:58)
[2018-12-18] MEDS: INSULIN LISPRO 100 UNIT/ML 3 ML VIAL SUBCUT SCH ×4 (08:59→21:14)
[2018-12-18] MEDS: DOCUSATE SODIUM 100 MG CAPSULE PO SCH (09:28)
[2018-12-18] MEDS: DILTIAZEM HCL 120 MG CAP.SR.24H PO SCH (09:42)
[2018-12-18] MEDS: POLYETHYLENE GLYCOL 3350 POWDER 17 GM/1 PACKET PO SCH (09:42)
[2018-12-18] MEDS: METFORMIN HCL 500 MG TABLET PO SCH ×2 (09:42→17:54)
[2018-12-18] MEDS: FLUTICASONE/UMECLIDIN/VILANTER 100-62.5-25 MCG/DOSE IH SCH (09:47)
--- NOTE | 2018-12-18 14:53 | PDOC PROGRESS REPORT ---
Subjective Progress Note for:: 12/18/18 Subjective:: patient is alert ,the abdominal paracenteis was not done because he is on anti- platelet ,schedule for paracentesis Reason For Visit: INTRACTABLE VOMITING, STAGE 4 COLON CANCER Physical Exam Vital Signs: Temp Pulse Resp BP Pulse Ox 97.4 F 81 18 108/67 98 12/18/18 11:24 12/18/18 11:24 12/18/18 11:24 12/18/18 11:24 12/18/18 11:24 Intake & Output 12/17/18 12/18/18 12/19/18 06:59 06:59 06:59 Intake Total 816 1210 757 Output Total 846 980 200 Balance -30 230 557 Weight 106.7 kg 106.8 kg General appearance: PRESENT: no acute distress Eye exam: PRESENT: PERRLA Respiratory exam: PRESENT: clear to auscultation leida Cardiovascular exam: PRESENT: +S1, +S2 GI/Abdominal exam: PRESENT: soft Neurological exam: PRESENT: alert Results Laboratory Results: 12/16/18 20:40 12/15/18 06:40 Impressions: Chest X-Ray 12/08/18 10:19 IMPRESSION: NO ACUTE RADIOGRAPHIC FINDING IN THE CHEST. Abdomen/Pelvis CT 12/13/18 00:00 IMPRESSION: Extensive peritoneal carcinomatosis and large amount of abdominal and pelvic ascites, worsening neoplastic findings. No evidence for small bowel obstruction. Assessment & Plan - Diagnosis (1) Intractable vomiting Qualifiers: Vomiting type: cyclical vomiting Nausea presence: with nausea Qualified Code(s): G43.A1 - Cyclical vomiting, intractable Is this a current diagnosis for this admission?: Yes (2) Colon cancer metastasized to lung Is this a current diagnosis for this admission?: Yes (3) Peritoneal carcinomatosis Is this a current diagnosis for this admission?: Yes (4) Malignant ascites Is this a current diagnosis for this admission?: Yes (5) Colon cancer Qualifiers: Colon location: unspecified part of colon Qualified Code(s): C18.9 - Malignant neoplasm of colon, unspecified Is this a current diagnosis for this admission?: Yes (6) Lung cancer Qualifiers: Laterality: unspecified laterality Lung location: unspecified part of lung Qualified Code(s): C34.90 - Malignant neoplasm of unspecified part of unspecified bronchus or lung Is this a current diagnosis for this admission?: Yes
[2018-12-18] MEDS: ENOXAPARIN SODIUM INJ 40 MG/0.4 ML DISP.SYRIN SUBCUT SCH (21:14)
[2018-12-19] MEDS: HYDROMORPHONE HCL INJ/PF 2 MG/ML AMPULE IV PRN ×6 (02:00→22:35)
[2018-12-19] MEDS: ONDANSETRON HCL INJ/PF 4 MG/2 ML SDV IV PRN ×6 (02:00→22:35)
[2018-12-19] MEDS: LEVOTHYROXINE SODIUM 0.075 MG TABLET PO SCH (06:03)
[2018-12-19] MEDS: BUSPIRONE HCL 10 MG TABLET PO SCH ×3 (06:03→21:25)
[2018-12-19] MEDS: LANSOPRAZOLE 30 MG TAB.RAP.DR PO SCH (06:04)
[2018-12-19] MEDS: LEVOTHYROXINE SODIUM 0.1 MG TABLET PO SCH (06:04)
[2018-12-19] MEDS: GABAPENTIN 300 MG CAPSULE PO SCH ×3 (06:04→21:25)
--- NOTE | 2018-12-19 08:39 | PDOC PROGRESS REPORT ---
Subjective Progress Note for:: 12/19/18 Subjective:: Patient is currently doing fair Denied any chest pain to than any shortness of the breath Patient's otherwise no other events happen Reason For Visit: INTRACTABLE VOMITING, STAGE 4 COLON CANCER Physical Exam Vital Signs: Temp Pulse Resp BP Pulse Ox 98.1 F 82 20 111/66 97 12/19/18 07:51 12/19/18 07:51 12/19/18 07:51 12/19/18 07:51 12/19/18 07:51 Intake & Output 12/18/18 12/19/18 12/20/18 06:59 06:59 06:59 Intake Total 1210 1007 Output Total 980 680 Balance 230 327 Weight 106.8 kg 109.2 kg General appearance: PRESENT: no acute distress, well-developed, well-nourished Head exam: PRESENT: atraumatic, normocephalic Eye exam: PRESENT: conjunctiva pink, EOMI, PERRLA. ABSENT: scleral icterus Ear exam: PRESENT: normal external ear exam Mouth exam: PRESENT: moist, tongue midline Neck exam: PRESENT: full ROM. ABSENT: carotid bruit, JVD, lymphadenopathy, thyromegaly Respiratory exam: PRESENT: clear to auscultation leida Cardiovascular exam: PRESENT: RRR. ABSENT: diastolic murmur, rubs, systolic murmur Vascular exam: PRESENT: normal capillary refill GI/Abdominal exam: PRESENT: ascites, normal bowel sounds, soft. ABSENT: distended, guarding, mass, organolmegaly, rebound, tenderness Rectal exam: PRESENT: deferred Neurological exam: PRESENT: alert, awake, oriented to person, oriented to place, oriented to time, oriented to situation, CN II-XII grossly intact. ABSENT: motor sensory deficit Psychiatric exam: PRESENT: appropriate affect, normal mood. ABSENT: homicidal ideation, suicidal ideation Skin exam: PRESENT: dry, intact, warm. ABSENT: cyanosis, rash Results Laboratory Results: 12/16/18 20:40 12/15/18 06:40 Impressions: Chest X-Ray 12/08/18 10:19 IMPRESSION: NO ACUTE RADIOGRAPHIC FINDING IN THE CHEST. Abdomen/Pelvis CT 12/13/18 00:00 IMPRESSION: Extensive peritoneal carcinomatosis and large amount of abdominal and pelvic ascites, worsening neoplastic findings. No evidence for small bowel obstruction. Assessment & Plan - Diagnosis (1) Colon cancer metastasized to lung Is this a current diagnosis for this admission?: Yes (2) Intractable vomiting Qualifiers: Vomiting type: cyclical vomiting Nausea presence: with nausea Qualified Code(s): G43.A1 - Cyclical vomiting, intractable Is this a current diagnosis for this admission?: Yes (3) Lung cancer Qualifiers: Laterality: unspecified laterality Lung location: unspecified part of lung Qualified Code(s): C34.90 - Malignant neoplasm of unspecified part of unspecified bronchus or lung Is this a current diagnosis for this admission?: Yes (4) Malignant ascites Is this a current diagnosis for this admission?: Yes (5) Peritoneal carcinomatosis Is this a current diagnosis for this admission?: Yes - Time Time Spent with patient: 15-24 minutes Medications reviewed and adjusted accordingly: Yes Within: Other - Plan Summary Plan Summary: Patient is scheduled for paracentesis today Patient scheduled for chemotherapy tomorrow
[2018-12-19] MEDS: INSULIN LISPRO 100 UNIT/ML 3 ML VIAL SUBCUT SCH ×4 (08:44→21:26)
--- NOTE | 2018-12-19 08:50 | PDOC PROGRESS REPORT ---
Subjective Progress Note for:: 12/19/18 Subjective:: No acute events overnight, plan for paracentesis today was able to eat over the weekend Reason For Visit: INTRACTABLE VOMITING, STAGE 4 COLON CANCER Physical Exam Vital Signs: Temp Pulse Resp BP Pulse Ox 98.1 F 82 20 111/66 97 12/19/18 07:51 12/19/18 07:51 12/19/18 07:51 12/19/18 07:51 12/19/18 07:51 Intake & Output 12/18/18 12/19/18 12/20/18 06:59 06:59 06:59 Intake Total 1210 1007 Output Total 980 680 Balance 230 327 Weight 106.8 kg 109.2 kg General appearance: PRESENT: no acute distress, well-developed, well-nourished Head exam: PRESENT: atraumatic, normocephalic Eye exam: PRESENT: conjunctiva pink, EOMI, PERRLA. ABSENT: scleral icterus Ear exam: PRESENT: normal external ear exam Mouth exam: PRESENT: moist, tongue midline Neck exam: ABSENT: carotid bruit, JVD, lymphadenopathy, thyromegaly Respiratory exam: PRESENT: clear to auscultation leida. ABSENT: rales, rhonchi, wheezes Cardiovascular exam: PRESENT: RRR. ABSENT: diastolic murmur, rubs, systolic murmur Pulses: PRESENT: normal dorsalis pedis pul Vascular exam: PRESENT: normal capillary refill GI/Abdominal exam: PRESENT: normal bowel sounds, soft. ABSENT: distended, guarding, mass, organolmegaly, rebound, tenderness Rectal exam: PRESENT: deferred Extremities exam: PRESENT: full ROM. ABSENT: calf tenderness, clubbing, pedal edema Neurological exam: PRESENT: alert, awake, oriented to person, oriented to place, oriented to time, oriented to situation, CN II-XII grossly intact. ABSENT: motor sensory deficit Psychiatric exam: PRESENT: appropriate affect, normal mood. ABSENT: homicidal ideation, suicidal ideation Skin exam: PRESENT: dry, intact, warm. ABSENT: cyanosis, rash Results Laboratory Results: 12/16/18 20:40 12/15/18 06:40 Impressions: Chest X-Ray 12/08/18 10:19 IMPRESSION: NO ACUTE RADIOGRAPHIC FINDING IN THE CHEST. Abdomen/Pelvis CT 12/13/18 00:00 IMPRESSION: Extensive peritoneal carcinomatosis and large amount of abdominal and pelvic ascites, worsening neoplastic findings. No evidence for small bowel obstruction. Assessment & Plan - Diagnosis (1) Intractable vomiting Qualifiers: Vomiting type: cyclical vomiting Nausea presence: with nausea Qualified Code(s): G43.A1 - Cyclical vomiting, intractable Is this a current diagnosis for this admission?: Yes Plan: Improved, continue to monitor (2) Colon cancer Qualifiers: Colon location: ascending Qualified Code(s): C18.2 - Malignant neoplasm of ascending colon Is this a current diagnosis for this admission?: Yes Plan: Plan for next cycle of chemotherapy this week, labs done today (3) Antineoplastic chemotherapy induced anemia Is this a current diagnosis for this admission?: Yes Plan: Hemoglobin stable, continue to monitor (4) Malignant ascites Is this a current diagnosis for this admission?: Yes Plan: Plan for paracentesis today (5) Physical deconditioning Is this a current diagnosis for this admission?: Yes Plan: Continue physical therapy - Time Time Spent with patient: 35 or more minutes - Inpatient Certification Based on my medical assessment, after consideration of the patient's comorbidities, presenting symptoms, or acuity I expect that the services needed warrant INPATIENT care.: Yes I certify that my determination is in accordance with my understanding of Medicare's requirements for reasonable and necessary INPATIENT services [42 CFR 412.3e].: Yes Medical Necessity: Need For IV Fluids, Need for Surgery, Risk of Complication if Not Cared For in Hospital
[2018-12-19] MEDS: METFORMIN HCL 500 MG TABLET PO SCH ×2 (10:14→17:22)
[2018-12-19] MEDS: DILTIAZEM HCL 120 MG CAP.SR.24H PO SCH (10:14)
[2018-12-19] MEDS: POLYETHYLENE GLYCOL 3350 POWDER 17 GM/1 PACKET PO SCH (10:14)
[2018-12-19] MEDS: FLUTICASONE/UMECLIDIN/VILANTER 100-62.5-25 MCG/DOSE IH SCH (10:15)
[2018-12-19] MEDS: DOCUSATE SODIUM 100 MG CAPSULE PO SCH (10:19)
[2018-12-19 10:54] LABS: HEMATOCRIT 27.5 % (37.9-51.0); HEMOGLOBIN 8.9 g/dL (13.5-17.0); MEAN CORPUSCULAR HEMOGLOBIN 25.6 pg (27.0-33.4); MEAN CORPUSCULAR HGB CONC 32.4 g/dL (32.0-36.0); MEAN CORPUSCULAR VOLUME 79 fl (80-97); PLATELET COUNT 186 10^3/uL (150-450); RED BLOOD COUNT 3.47 10^6/uL (4.35-5.55); RED CELL DISTRIBUTION WIDTH 23.9 % (11.5-14.0); WHITE BLOOD COUNT 6.3 10^3/uL (4.0-10.5)
[2018-12-19 11:16] LABS: ALANINE AMINOTRANSFERASE 26 U/L (21-72); ALBUMIN 2.4 g/dL (3.5-5.0); ALKALINE PHOSPHATASE 90 U/L (38-126); ASPARTATE AMINO TRANSFERASE 43 U/L (17-59); BILIRUBIN,DIRECT 0.2 mg/dL (0.0-0.4); BILIRUBIN,TOTAL 0.3 mg/dL (0.2-1.3); BLOOD UREA NITROGEN 12 mg/dL (7-20); CALCIUM 7.8 mg/dL (8.4-10.2); GLUCOSE 85 mg/dL (75-110); POTASSIUM 4.4 mmol/L (3.6-5.0); TOTAL PROTEIN 4.5 g/dL (6.3-8.2)
[2018-12-19 11:22] LABS: ANION GAP 4 (5-19); CARBON DIOXIDE 35 mmol/L (22-30); CHLORIDE 94 mmol/L (98-107); SODIUM 132.9 mmol/L (137-145)
[2018-12-19 11:40] LABS: ABSOLUTE LYMPHOCYTES# (MANUAL) 0.1 10^3/uL (0.5-4.7); ABSOLUTE MONOCYTES # (MANUAL) 0.1 10^3/uL (0.1-1.4); BASOPHILS % (MANUAL) 1 % (0-2); EOSINOPHILS % (MANUAL) 0 % (0-6); LYMPHOCYTES % (MANUAL) 2 % (13-45); MONOCYTES % (MANUAL) 2 % (3-13); SEGMENTED NEUTROPHILS % (MAN) 95 % (42-78); TOTAL CELLS COUNTED 100
[2018-12-19 11:41] LABS: ANISOCYTOSIS 3+; HYPOCHROMASIA SLIGHT; PLATELET COMMENT ADEQUATE; POIKILOCYTOSIS 1+; TEAR DROP CELLS 1+
--- NOTE | 2018-12-19 14:51 | RADIOLOGY REPORT (SQ) ---
EXAM DESCRIPTION: U/S ABD PARACENTESIS COMPLETED DATE/TIME: 12/19/2018 2:34 pm REASON FOR STUDY: ascites COMPARISON: None. LIMITATIONS: None. PROCEDURE: Procedure, risks, benefit, and alternative explained to patient who then gave written con sent. The right lower abdominal wall marked using ultrasound guidance. A time-out was called for co rrect marking verification. Abdomen prepped and draped using sterile technique. Local anesthesia ach ieved using 2.5 ml of 1% lidocaine injection. A 6fr Fqua-G-Ynemltbu set was introduced into the pedro toneal cavity. Fluid was drained. The catheter was removed and entry site was covered with sterile bandage. No immediate complications noted. Images acquired during the procedure were stored on PACS. FINDINGS: ENTRY SITE: Right lower quadrant FLUID VOLUME: 9,750 FLUID ANALYSIS: Straw OTHER: Therapeutic only. IMPRESSION: SUCCESSFUL ULTRASOUND GUIDED PARACENTESIS. COMMENT: Patient medication list reviewed:Yes- Quality ID# [id number]:Eligible professional attests to docu menting in the medical record they obtained, updated, or reviewed the patient's current medications. TECHNICAL DOCUMENTATION: JOB ID: [id number] [employer]- All Rights Reserved Reading location - IP/workstation name: [email or web address]
[2018-12-19] MEDS ORDERED: ALBUMIN HUMAN 25 GM/100 ML RTUINJ IV PRN (15:02)
[2018-12-19] MEDS: ENOXAPARIN SODIUM INJ 40 MG/0.4 ML DISP.SYRIN SUBCUT SCH (21:29)
[2018-12-20] MEDS: ONDANSETRON HCL INJ/PF 4 MG/2 ML SDV IV PRN ×5 (02:41→20:08)
[2018-12-20] MEDS: HYDROMORPHONE HCL INJ/PF 2 MG/ML AMPULE IV PRN ×5 (02:41→20:08)
[2018-12-20] MEDS ORDERED: DEXAMETHASONE SOD PHOSPHATE 10 MG in NORMAL SALINE 50 ML IV PRN (05:00)
[2018-12-20] MEDS ORDERED: DISPOSABLE IV PRN (05:00)
[2018-12-20] MEDS ORDERED: FLUOROURACIL IV PRN ×4 (05:00→12:39)
[2018-12-20] MEDS ORDERED: PALONOSETRON 0.25 MG/5 ML SDV IV PRN (05:00)
[2018-12-20] MEDS ORDERED: WATER IV PRN ×2 (05:00)
[2018-12-20] MEDS ORDERED: DEXTROSE 5% IV PRN ×2 (05:00)
[2018-12-20] MEDS ORDERED: OXALIPLATIN IV PRN (05:00)
[2018-12-20] MEDS ORDERED: LEUCOVORIN CALCIUM IV PRN (05:00)
[2018-12-20] MEDS ORDERED: CONTAINER EMPTY IV PRN ×3 (05:00→12:39)
[2018-12-20] MEDS ORDERED: DEXTROSE 5%-WATER 250 ML IV PRN (05:00)
[2018-12-20 05:48] LABS: HEMATOCRIT 27.5 % (37.9-51.0); HEMOGLOBIN 8.8 g/dL (13.5-17.0); MEAN CORPUSCULAR HEMOGLOBIN 25.2 pg (27.0-33.4); MEAN CORPUSCULAR HGB CONC 32.2 g/dL (32.0-36.0); MEAN CORPUSCULAR VOLUME 78 fl (80-97); PLATELET COUNT 198 10^3/uL (150-450); RED BLOOD COUNT 3.51 10^6/uL (4.35-5.55); RED CELL DISTRIBUTION WIDTH 24.1 % (11.5-14.0); WHITE BLOOD COUNT 5.8 10^3/uL (4.0-10.5)
[2018-12-20 05:50] LABS: INTERNATIONAL RATION (INR) 0.98; PROTHROMBIN TIME 13.5 SEC (11.4-15.4)
[2018-12-20 05:51] LABS: PARTIAL THROMBOPLASTIN TIME 41.9 SEC (23.5-35.8)
[2018-12-20 06:15] LABS: ABSOLUTE LYMPHOCYTES# (MANUAL) 0.3 10^3/uL (0.5-4.7); ABSOLUTE MONOCYTES # (MANUAL) 0.2 10^3/uL (0.1-1.4); ABSOLUTE NEUTROPHILS# (MANUAL) 5.2 10^3/uL (1.7-8.2); BASOPHILS % (MANUAL) 0 % (0-2); EOSINOPHILS % (MANUAL) 0 % (0-6); LYMPHOCYTES % (MANUAL) 6 % (13-45); MONOCYTES % (MANUAL) 4 % (3-13); SEGMENTED NEUTROPHILS % (MAN) 90 % (42-78); TOTAL CELLS COUNTED 100
[2018-12-20 06:16] LABS: ANISOCYTOSIS 4+; PLATELET COMMENT ADEQUATE; POLYCHROMASIA 3+
[2018-12-20] MEDS: LANSOPRAZOLE 30 MG TAB.RAP.DR PO SCH (06:37)
[2018-12-20] MEDS: LEVOTHYROXINE SODIUM 0.075 MG TABLET PO SCH (06:37)
[2018-12-20] MEDS: LEVOTHYROXINE SODIUM 0.1 MG TABLET PO SCH (06:37)
[2018-12-20] MEDS: GABAPENTIN 300 MG CAPSULE PO SCH ×3 (06:37→21:25)
[2018-12-20] MEDS: BUSPIRONE HCL 10 MG TABLET PO SCH ×3 (06:37→21:25)
[2018-12-20] MEDS: INSULIN LISPRO 100 UNIT/ML 3 ML VIAL SUBCUT SCH ×3 (07:50→15:57)
[2018-12-20] MEDS: METFORMIN HCL 500 MG TABLET PO SCH ×2 (07:59→18:41)
--- NOTE | 2018-12-20 08:40 | PDOC PROGRESS REPORT ---
Subjective Progress Note for:: 12/20/18 Subjective:: Patient underwent for the paracentesis in the 9 L of the fluid is removed Patient is scheduled for chemotherapy today Patient's denied any chest pain denied any shortness of the breath Reason For Visit: INTRACTABLE VOMITING, STAGE 4 COLON CANCER Physical Exam Vital Signs: Temp Pulse Resp BP Pulse Ox 97.6 F 82 19 98/60 L 98 12/19/18 23:30 12/20/18 07:00 12/19/18 23:30 12/19/18 23:30 12/19/18 23:30 Intake & Output 12/19/18 12/20/18 12/21/18 06:59 06:59 06:59 Intake Total 1007 2548 Output Total 680 300 Balance 327 2248 Weight 109.2 kg 100.4 kg General appearance: PRESENT: no acute distress, well-developed, well-nourished Head exam: PRESENT: atraumatic, normocephalic Eye exam: PRESENT: conjunctiva pink, EOMI, PERRLA. ABSENT: scleral icterus Ear exam: PRESENT: normal external ear exam Mouth exam: PRESENT: moist, tongue midline Neck exam: PRESENT: full ROM. ABSENT: carotid bruit, JVD, lymphadenopathy, thyromegaly Respiratory exam: PRESENT: clear to auscultation leida Cardiovascular exam: PRESENT: RRR. ABSENT: diastolic murmur, rubs, systolic murmur Pulses: PRESENT: normal dorsalis pedis pul, +2 pedal pulses bilateral Vascular exam: PRESENT: normal capillary refill GI/Abdominal exam: PRESENT: normal bowel sounds, soft. ABSENT: distended, guarding, mass, organolmegaly, rebound, tenderness Rectal exam: PRESENT: deferred Neurological exam: PRESENT: alert, awake, oriented to person, oriented to place, oriented to time, oriented to situation, CN II-XII grossly intact. ABSENT: motor sensory deficit Psychiatric exam: PRESENT: appropriate affect, normal mood. ABSENT: homicidal ideation, suicidal ideation Skin exam: PRESENT: dry, intact, warm. ABSENT: cyanosis, rash Results Laboratory Results: 12/20/18 05:13 12/19/18 10:17 12/19/18 12/19/18 12/20/18 10:17 10:17 05:13 WBC 6.3 5.8 RBC 3.47 L 3.51 L Hgb 8.9 L 8.8 L Hct 27.5 L 27.5 L MCV 79 L 78 L MCH 25.6 L 25.2 L MCHC 32.4 32.2 RDW 23.9 H 24.1 H Plt Count 186 198 Seg Neutrophils % Not Reportable Not Reportable Lymphocytes % Not Reportable Not Reportable Monocytes % Not Reportable Not Reportable Eosinophils % Not Reportable Not Reportable Basophils % Not Reportable Not Reportable Absolute Neutrophils Not Reportable Not Reportable Absolute Lymphocytes Not Reportable Not Reportable Absolute Monocytes Not Reportable Not Reportable Absolute Eosinophils Not Reportable Not Reportable Absolute Basophils Not Reportable Not Reportable Sodium 132.9 L Potassium 4.4 Chloride 94 L Carbon Dioxide 35 H Anion Gap 4 L BUN 12 Creatinine 0.73 Est GFR ( Amer) > 60 Est GFR (Non-Af Amer) > 60 Glucose 85 Calcium 7.8 L Total Bilirubin 0.3 AST 43 ALT 26 Alkaline Phosphatase 90 Total Protein 4.5 L Albumin 2.4 L Impressions: Chest X-Ray 12/08/18 10:19 IMPRESSION: NO ACUTE RADIOGRAPHIC FINDING IN THE CHEST. Abdomen/Pelvis CT 12/13/18 00:00 IMPRESSION: Extensive peritoneal carcinomatosis and large amount of abdominal and pelvic ascites, worsening neoplastic findings. No evidence for small bowel obstruction. Paracentesis Ultrasound 12/19/18 00:00 IMPRESSION: SUCCESSFUL ULTRASOUND GUIDED PARACENTESIS. Assessment & Plan - Diagnosis (1) Colon cancer metastasized to lung Is this a current diagnosis for this admission?: Yes (2) Intractable vomiting Qualifiers: Vomiting type: cyclical vomiting Nausea presence: with nausea Qualified Code(s): G43.A1 - Cyclical vomiting, intractable Is this a current diagnosis for this admission?: Yes (3) Lung cancer Qualifiers: Laterality: unspecified laterality Lung location: unspecified part of lung Qualified Code(s): C34.90 - Malignant neoplasm of unspecified part of unspecified bronchus or lung Is this a current diagnosis for this admission?: Yes (4) Malignant ascites Is this a current diagnosis for this admission?: Yes (5) Peritoneal carcinomatosis Is this a current diagnosis for this admission?: Yes - Time Time Spent with patient: 15-24 minutes Medications reviewed and adjusted accordingly: Yes - Plan Summary Plan Summary: Continues to current medication
--- NOTE | 2018-12-20 09:00 | PDOC PROGRESS REPORT ---
Subjective Progress Note for:: 12/20/18 Subjective:: Discussed patient with [facility] nursing techn, they may not be able to give chemotherapy today because of the fact they only have one chemo nurse. She was going to discuss with them further this morning. Otherwise had paracentesis and patient had 9 L out feels much better. Reviewed physical therapy notes and patient has a minimal assist so I encouraged him to get up and move around with help. I had a long conversation with family and brother about home situation, spent greater than 45 minutes in discussion Reason For Visit: INTRACTABLE VOMITING, STAGE 4 COLON CANCER Physical Exam Vital Signs: Temp Pulse Resp BP Pulse Ox 97.6 F 82 19 98/60 L 98 12/19/18 23:30 12/20/18 07:00 12/19/18 23:30 12/19/18 23:30 12/19/18 23:30 Intake & Output 12/19/18 12/20/18 12/21/18 06:59 06:59 06:59 Intake Total 1007 2548 Output Total 680 300 Balance 327 2248 Weight 109.2 kg 100.4 kg General appearance: PRESENT: no acute distress, well-developed, well-nourished Head exam: PRESENT: atraumatic, normocephalic Eye exam: PRESENT: conjunctiva pink, EOMI, PERRLA. ABSENT: scleral icterus Ear exam: PRESENT: normal external ear exam Mouth exam: PRESENT: moist, tongue midline Neck exam: ABSENT: carotid bruit, JVD, lymphadenopathy, thyromegaly Respiratory exam: PRESENT: clear to auscultation leida. ABSENT: rales, rhonchi, wheezes Cardiovascular exam: PRESENT: RRR. ABSENT: diastolic murmur, rubs, systolic murmur Pulses: PRESENT: normal dorsalis pedis pul Vascular exam: PRESENT: normal capillary refill GI/Abdominal exam: PRESENT: normal bowel sounds, soft. ABSENT: distended, guarding, mass, organolmegaly, rebound, tenderness Rectal exam: PRESENT: deferred Extremities exam: PRESENT: full ROM. ABSENT: calf tenderness, clubbing, pedal edema Neurological exam: PRESENT: alert, awake, oriented to person, oriented to place, oriented to time, oriented to situation, CN II-XII grossly intact. ABSENT: motor sensory deficit Psychiatric exam: PRESENT: appropriate affect, normal mood. ABSENT: homicidal ideation, suicidal ideation Skin exam: PRESENT: dry, intact, warm. ABSENT: cyanosis, rash Results Laboratory Results: 12/20/18 05:13 12/19/18 10:17 12/19/18 12/19/18 12/20/18 10:17 10:17 05:13 WBC 6.3 5.8 RBC 3.47 L 3.51 L Hgb 8.9 L 8.8 L Hct 27.5 L 27.5 L MCV 79 L 78 L MCH 25.6 L 25.2 L MCHC 32.4 32.2 RDW 23.9 H 24.1 H Plt Count 186 198 Seg Neutrophils % Not Reportable Not Reportable Lymphocytes % Not Reportable Not Reportable Monocytes % Not Reportable Not Reportable Eosinophils % Not Reportable Not Reportable Basophils % Not Reportable Not Reportable Absolute Neutrophils Not Reportable Not Reportable Absolute Lymphocytes Not Reportable Not Reportable Absolute Monocytes Not Reportable Not Reportable Absolute Eosinophils Not Reportable Not Reportable Absolute Basophils Not Reportable Not Reportable Sodium 132.9 L Potassium 4.4 Chloride 94 L Carbon Dioxide 35 H Anion Gap 4 L BUN 12 Creatinine 0.73 Est GFR ( Amer) > 60 Est GFR (Non-Af Amer) > 60 Glucose 85 Calcium 7.8 L Total Bilirubin 0.3 AST 43 ALT 26 Alkaline Phosphatase 90 Total Protein 4.5 L Albumin 2.4 L Impressions: Chest X-Ray 12/08/18 10:19 IMPRESSION: NO ACUTE RADIOGRAPHIC FINDING IN THE CHEST. Abdomen/Pelvis CT 12/13/18 00:00 IMPRESSION: Extensive peritoneal carcinomatosis and large amount of abdominal and pelvic ascites, worsening neoplastic findings. No evidence for small bowel obstruction. Paracentesis Ultrasound 12/19/18 00:00 IMPRESSION: SUCCESSFUL ULTRASOUND GUIDED PARACENTESIS. Assessment & Plan - Diagnosis (1) Intractable vomiting Qualifiers: Vomiting type: cyclical vomiting Nausea presence: with nausea Qualified Code(s): G43.A1 - Cyclical vomiting, intractable Is this a current diagnosis for this admission?: Yes Plan: Tinea with current hydration and antiemetics (2) Colon cancer Qualifiers: Colon location: ascending Qualified Code(s): C18.2 - Malignant neoplasm of ascending colon Is this a current diagnosis for this admission?: Yes Plan: Plan for chemotherapy reinitiation today (3) Antineoplastic chemotherapy induced anemia Is this a current diagnosis for this admission?: Yes Plan: Hemoglobin down to 8 but still appropriate, hold on transfusion (4) Malignant ascites Is this a current diagnosis for this admission?: Yes Plan: Status post paracentesis (5) Physical deconditioning Is this a current diagnosis for this admission?: Yes Plan: Continue work with physical therapy - Time Time Spent with patient: 35 or more minutes - Inpatient Certification Based on my medical assessment, after consideration of the patient's comorbidities, presenting symptoms, or acuity I expect that the services needed warrant INPATIENT care.: Yes I certify that my determination is in accordance with my understanding of Medicare's requirements for reasonable and necessary INPATIENT services [42 CFR 412.3e].: Yes Medical Necessity: Need For IV Fluids, Risk of Complication if Not Cared For in Hospital
[2018-12-20] MEDS: POLYETHYLENE GLYCOL 3350 POWDER 17 GM/1 PACKET PO SCH (10:11)
[2018-12-20] MEDS: DOCUSATE SODIUM 100 MG CAPSULE PO SCH (10:11)
[2018-12-20] MEDS: FENTANYL 50 MCG/HR PATCH.TD72 TD SCH (10:14)
[2018-12-20] MEDS: DILTIAZEM HCL 120 MG CAP.SR.24H PO SCH (10:15)
[2018-12-20] MEDS: FLUTICASONE/UMECLIDIN/VILANTER 100-62.5-25 MCG/DOSE IH SCH (10:15)
[2018-12-20] MEDS ORDERED: DIPHENHYDRAMINE HCL 50 MG/ML VIAL ONE (12:05)
[2018-12-20] MEDS: ENOXAPARIN SODIUM INJ 40 MG/0.4 ML DISP.SYRIN SUBCUT SCH (21:29)
[2018-12-21] MEDS: HYDROMORPHONE HCL INJ/PF 2 MG/ML AMPULE IV PRN ×6 (00:10→21:33)
[2018-12-21] MEDS: ONDANSETRON HCL INJ/PF 4 MG/2 ML SDV IV PRN ×6 (00:10→21:33)
[2018-12-21] MEDS: INSULIN LISPRO 100 UNIT/ML 3 ML VIAL SUBCUT SCH ×5 (00:51→22:16)
[2018-12-21] MEDS: LEVOTHYROXINE SODIUM 0.075 MG TABLET PO SCH (05:14)
[2018-12-21] MEDS: LANSOPRAZOLE 30 MG TAB.RAP.DR PO SCH (05:14)
[2018-12-21] MEDS: BUSPIRONE HCL 10 MG TABLET PO SCH ×3 (05:14→21:32)
[2018-12-21] MEDS: GABAPENTIN 300 MG CAPSULE PO SCH ×3 (05:14→21:32)
[2018-12-21] MEDS: LEVOTHYROXINE SODIUM 0.1 MG TABLET PO SCH (05:14)
[2018-12-21 05:45] LABS: HEMOGLOBIN 8.5 g/dL (13.5-17.0); MEAN CORPUSCULAR HEMOGLOBIN 25.7 pg (27.0-33.4); MEAN CORPUSCULAR HGB CONC 32.8 g/dL (32.0-36.0); MEAN CORPUSCULAR VOLUME 78 fl (80-97); PLATELET COUNT 208 10^3/uL (150-450); RED BLOOD COUNT 3.32 10^6/uL (4.35-5.55); RED CELL DISTRIBUTION WIDTH 24.2 % (11.5-14.0)
[2018-12-21 06:17] LABS: ABSOLUTE LYMPHOCYTES# (MANUAL) 0.1 10^3/uL (0.5-4.7); ABSOLUTE MONOCYTES # (MANUAL) 0.4 10^3/uL (0.1-1.4); ABSOLUTE NEUTROPHILS# (MANUAL) 5.5 10^3/uL (1.7-8.2); BASOPHILS % (MANUAL) 0 % (0-2); EOSINOPHILS % (MANUAL) 0 % (0-6); LYMPHOCYTES % (MANUAL) 1 % (13-45); MONOCYTES % (MANUAL) 7 % (3-13); SEGMENTED NEUTROPHILS % (MAN) 92 % (42-78); TOTAL CELLS COUNTED 100
[2018-12-21 06:19] LABS: ANISOCYTOSIS 3+; PLATELET COMMENT ADEQUATE; TOXIC VACUOLATION PRESENT
[2018-12-21] MEDS ORDERED: SIMETHICONE 80 MG TAB.CHEW PO PRN (08:00)
[2018-12-21] MEDS: METFORMIN HCL 500 MG TABLET PO SCH ×2 (08:04→17:33)
--- NOTE | 2018-12-21 08:23 | PDOC PROGRESS REPORT ---
Subjective Progress Note for:: 12/21/18 Subjective:: Looks good today, tolerated chemo well thus far, still having back pain. Reason For Visit: INTRACTABLE VOMITING, STAGE 4 COLON CANCER Physical Exam Vital Signs: Temp Pulse Resp BP Pulse Ox 97.5 F 77 18 117/67 97 12/21/18 04:00 12/21/18 07:00 12/21/18 04:00 12/21/18 04:00 12/21/18 04:00 Intake & Output 12/20/18 12/21/18 12/22/18 06:59 06:59 06:59 Intake Total 2548 2281.36 Output Total 300 1000 Balance 2248 1281.36 Weight 100.4 kg 102.9 kg General appearance: PRESENT: no acute distress, well-developed, well-nourished Head exam: PRESENT: atraumatic, normocephalic Eye exam: PRESENT: conjunctiva pink, EOMI, PERRLA. ABSENT: scleral icterus Ear exam: PRESENT: normal external ear exam Mouth exam: PRESENT: moist, tongue midline Neck exam: ABSENT: carotid bruit, JVD, lymphadenopathy, thyromegaly Respiratory exam: PRESENT: clear to auscultation leida. ABSENT: rales, rhonchi, wheezes Cardiovascular exam: PRESENT: RRR. ABSENT: diastolic murmur, rubs, systolic murmur Pulses: PRESENT: normal dorsalis pedis pul Vascular exam: PRESENT: normal capillary refill GI/Abdominal exam: PRESENT: normal bowel sounds, soft. ABSENT: distended, guarding, mass, organolmegaly, rebound, tenderness Rectal exam: PRESENT: deferred Extremities exam: PRESENT: full ROM. ABSENT: calf tenderness, clubbing, pedal edema Neurological exam: PRESENT: alert, awake, oriented to person, oriented to place, oriented to time, oriented to situation, CN II-XII grossly intact. ABSENT: motor sensory deficit Psychiatric exam: PRESENT: appropriate affect, normal mood. ABSENT: homicidal ideation, suicidal ideation Skin exam: PRESENT: dry, intact, warm. ABSENT: cyanosis, rash Results Laboratory Results: 12/21/18 05:10 12/19/18 10:17 12/21/18 05:10 WBC 6.0 RBC 3.32 L Hgb 8.5 L Hct 26.0 L MCV 78 L MCH 25.7 L MCHC 32.8 RDW 24.2 H Plt Count 208 Seg Neutrophils % Not Reportable Lymphocytes % Not Reportable Monocytes % Not Reportable Eosinophils % Not Reportable Basophils % Not Reportable Absolute Neutrophils Not Reportable Absolute Lymphocytes Not Reportable Absolute Monocytes Not Reportable Absolute Eosinophils Not Reportable Absolute Basophils Not Reportable Impressions: Chest X-Ray 12/08/18 10:19 IMPRESSION: NO ACUTE RADIOGRAPHIC FINDING IN THE CHEST. Abdomen/Pelvis CT 12/13/18 00:00 IMPRESSION: Extensive peritoneal carcinomatosis and large amount of abdominal and pelvic ascites, worsening neoplastic findings. No evidence for small bowel obstruction. Paracentesis Ultrasound 12/19/18 00:00 IMPRESSION: SUCCESSFUL ULTRASOUND GUIDED PARACENTESIS. Assessment & Plan - Diagnosis (1) Intractable vomiting Qualifiers: Vomiting type: cyclical vomiting Nausea presence: with nausea Qualified Code(s): G43.A1 - Cyclical vomiting, intractable Is this a current diagnosis for this admission?: Yes Plan: Coint antiemetics (2) Colon cancer Qualifiers: Colon location: ascending Qualified Code(s): C18.2 - Malignant neoplasm of ascending colon Is this a current diagnosis for this admission?: Yes Plan: chemo pump on now (3) Antineoplastic chemotherapy induced anemia Is this a current diagnosis for this admission?: Yes Plan: hb stable, will follow (4) Malignant ascites Is this a current diagnosis for this admission?: Yes Plan: s/p paracentesuis, will follow (5) Physical deconditioning Is this a current diagnosis for this admission?: Yes Plan: cont PT (6) Pain, neoplasm-related Is this a current diagnosis for this admission?: Yes Plan: cont fentanyl patch, was not changed on time so should get to steady state today, cont IV dilaudid, pt on po dilaudid at home.
--- NOTE | 2018-12-21 08:42 | PDOC PROGRESS REPORT ---
Subjective Progress Note for:: 12/21/18 Subjective:: And is currently doing well Patient's denied any chest pain denied any shortness of the breath Patient starting the chemotherapy yesterday Reason For Visit: INTRACTABLE VOMITING, STAGE 4 COLON CANCER Physical Exam Vital Signs: Temp Pulse Resp BP Pulse Ox 97.5 F 77 18 117/67 97 12/21/18 04:00 12/21/18 07:00 12/21/18 04:00 12/21/18 04:00 12/21/18 04:00 Intake & Output 12/20/18 12/21/18 12/22/18 06:59 06:59 06:59 Intake Total 2548 2281.36 Output Total 300 1000 Balance 2248 1281.36 Weight 100.4 kg 102.9 kg General appearance: PRESENT: no acute distress, well-developed, well-nourished Head exam: PRESENT: atraumatic, normocephalic Eye exam: PRESENT: conjunctiva pink, EOMI, PERRLA. ABSENT: scleral icterus Ear exam: PRESENT: normal external ear exam Mouth exam: PRESENT: moist, tongue midline Neck exam: PRESENT: full ROM. ABSENT: carotid bruit, JVD, lymphadenopathy, thyr omegaly Cardiovascular exam: PRESENT: RRR. ABSENT: diastolic murmur, rubs, systolic murmur Vascular exam: PRESENT: normal capillary refill GI/Abdominal exam: PRESENT: normal bowel sounds, soft. ABSENT: distended, guarding, mass, organolmegaly, rebound, tenderness Rectal exam: PRESENT: deferred Musculoskeletal exam: PRESENT: ambulatory Neurological exam: PRESENT: alert, awake, oriented to person, oriented to place, oriented to time, oriented to situation, CN II-XII grossly intact. ABSENT: motor sensory deficit Psychiatric exam: PRESENT: appropriate affect, normal mood. ABSENT: homicidal ideation, suicidal ideation Skin exam: PRESENT: dry, intact, warm. ABSENT: cyanosis, rash Results Laboratory Results: 12/21/18 05:10 12/19/18 10:17 12/21/18 05:10 WBC 6.0 RBC 3.32 L Hgb 8.5 L Hct 26.0 L MCV 78 L MCH 25.7 L MCHC 32.8 RDW 24.2 H Plt Count 208 Seg Neutrophils % Not Reportable Lymphocytes % Not Reportable Monocytes % Not Reportable Eosinophils % Not Reportable Basophils % Not Reportable Absolute Neutrophils Not Reportable Absolute Lymphocytes Not Reportable Absolute Monocytes Not Reportable Absolute Eosinophils Not Reportable Absolute Basophils Not Reportable Impressions: Chest X-Ray 12/08/18 10:19 IMPRESSION: NO ACUTE RADIOGRAPHIC FINDING IN THE CHEST. Abdomen/Pelvis CT 12/13/18 00:00 IMPRESSION: Extensive peritoneal carcinomatosis and large amount of abdominal and pelvic ascites, worsening neoplastic findings. No evidence for small bowel obstruction. Paracentesis Ultrasound 12/19/18 00:00 IMPRESSION: SUCCESSFUL ULTRASOUND GUIDED PARACENTESIS. Assessment & Plan - Diagnosis (1) Colon cancer metastasized to lung Is this a current diagnosis for this admission?: Yes (2) Intractable vomiting Qualifiers: Vomiting type: cyclical vomiting Nausea presence: with nausea Qualified Code(s): G43.A1 - Cyclical vomiting, intractable Is this a current diagnosis for this admission?: Yes (3) Lung cancer Qualifiers: Laterality: unspecified laterality Lung location: unspecified part of lung Qualified Code(s): C34.90 - Malignant neoplasm of unspecified part of unspecified bronchus or lung Is this a current diagnosis for this admission?: Yes (4) Malignant ascites Is this a current diagnosis for this admission?: Yes (5) Peritoneal carcinomatosis Is this a current diagnosis for this admission?: Yes - Time Time Spent with patient: 15-24 minutes Medications reviewed and adjusted accordingly: Yes Anticipated discharge: Home Within: within 48 hours - Plan Summary Plan Summary: to current medication
[2018-12-21] MEDS: DILTIAZEM HCL 120 MG CAP.SR.24H PO SCH (11:03)
[2018-12-21] MEDS: FLUTICASONE/UMECLIDIN/VILANTER 100-62.5-25 MCG/DOSE IH SCH (11:04)
[2018-12-21] MEDS: POLYETHYLENE GLYCOL 3350 POWDER 17 GM/1 PACKET PO SCH (11:04)
[2018-12-21] MEDS: DOCUSATE SODIUM 100 MG CAPSULE PO SCH (11:04)
[2018-12-21] MEDS: ENOXAPARIN SODIUM INJ 40 MG/0.4 ML DISP.SYRIN SUBCUT SCH (21:39)
[2018-12-22] MEDS: ONDANSETRON HCL INJ/PF 4 MG/2 ML SDV IV PRN ×6 (01:26→22:09)
[2018-12-22] MEDS: HYDROMORPHONE HCL INJ/PF 2 MG/ML AMPULE IV PRN ×6 (01:28→22:11)
[2018-12-22] MEDS: GABAPENTIN 300 MG CAPSULE PO SCH ×3 (05:27→21:01)
[2018-12-22] MEDS: LEVOTHYROXINE SODIUM 0.1 MG TABLET PO SCH (05:27)
[2018-12-22] MEDS: LANSOPRAZOLE 30 MG TAB.RAP.DR PO SCH (05:27)
[2018-12-22] MEDS: BUSPIRONE HCL 10 MG TABLET PO SCH ×3 (05:28→21:01)
[2018-12-22] MEDS: LEVOTHYROXINE SODIUM 0.075 MG TABLET PO SCH (05:28)
[2018-12-22 05:42] LABS: ABSOLUTE LYMPHOCYTES (AUTO) 0.2 10^3/uL (0.5-4.7); ABSOLUTE MONOCYTES (AUTO) 0.2 10^3/uL (0.1-1.4); ABSOLUTE NEUT (AUTO) 3.5 10^3/uL (1.7-8.2); BASOPHILS % (AUTO) 0.3 % (0-2); EOSINOPHILS % (AUTO) 0.5 % (0-6); HEMATOCRIT 25.7 % (37.9-51.0); HEMOGLOBIN 8.5 g/dL (13.5-17.0); LYMPHOCYTES % (AUTO) 5.8 % (13-45); MEAN CORPUSCULAR HEMOGLOBIN 26.1 pg (27.0-33.4); MEAN CORPUSCULAR HGB CONC 32.9 g/dL (32.0-36.0); MEAN CORPUSCULAR VOLUME 79 fl (80-97); MONOCYTES % (AUTO) 3.9 % (3-13); PLATELET COUNT 217 10^3/uL (150-450); RED BLOOD COUNT 3.24 10^6/uL (4.35-5.55); RED CELL DISTRIBUTION WIDTH 24.7 % (11.5-14.0); SEGMENTED NEUTROPHILS % (AUTO) 89.5 % (42-78); TOTAL CELLS COUNTED % (AUTO) 100 %; WHITE BLOOD COUNT 3.9 10^3/uL (4.0-10.5)
[2018-12-22 06:30] LABS: POLYCHROMASIA 1+
[2018-12-22 06:31] LABS: ANISOCYTOSIS 3+; HYPOCHROMASIA SLIGHT; OVALOCYTES SLIGHT; PLATELET COMMENT ADEQUATE; POIKILOCYTOSIS SLIGHT; TEAR DROP CELLS SLIGHT
[2018-12-22] MEDS: METFORMIN HCL 500 MG TABLET PO SCH ×2 (08:18→18:14)
[2018-12-22] MEDS: INSULIN LISPRO 100 UNIT/ML 3 ML VIAL SUBCUT SCH ×4 (08:19→23:23)
--- NOTE | 2018-12-22 08:20 | PDOC PROGRESS REPORT ---
Subjective Progress Note for:: 12/22/18 Subjective:: And is currently doing well Patient's denied any chest pain denied any shortness of the breath Patient starting the chemotherapy yesterday Reason For Visit: INTRACTABLE VOMITING, STAGE 4 COLON CANCER Physical Exam Vital Signs: Temp Pulse Resp BP Pulse Ox 98.1 F 80 18 112/68 99 12/22/18 03:49 12/22/18 07:00 12/22/18 03:49 12/22/18 03:49 12/22/18 03:49 Intake & Output 12/21/18 12/22/18 12/23/18 06:59 06:59 06:59 Intake Total 2281.36 1092 Output Total 1000 750 Balance 1281.36 342 Weight 102.9 kg 103.2 kg General appearance: PRESENT: no acute distress, well-developed, well-nourished Head exam: PRESENT: atraumatic, normocephalic Eye exam: PRESENT: conjunctiva pink, EOMI, PERRLA. ABSENT: scleral icterus Ear exam: PRESENT: normal external ear exam Mouth exam: PRESENT: moist, tongue midline Neck exam: PRESENT: full ROM. ABSENT: carotid bruit, JVD, lymphadenopathy, thyromegaly Respiratory exam: PRESENT: clear to auscultation leida Cardiovascular exam: PRESENT: RRR. ABSENT: diastolic murmur, rubs, systolic murmur Vascular exam: PRESENT: normal capillary refill GI/Abdominal exam: PRESENT: normal bowel sounds, soft. ABSENT: distended, guarding, mass, organolmegaly, rebound, tenderness Rectal exam: PRESENT: deferred Neurological exam: PRESENT: alert, awake, oriented to person, oriented to place, oriented to time, oriented to situation, CN II-XII grossly intact. ABSENT: motor sensory deficit Psychiatric exam: PRESENT: appropriate affect, normal mood. ABSENT: homicidal ideation, suicidal ideation Skin exam: PRESENT: dry, intact, warm. ABSENT: cyanosis, rash Results Laboratory Results: 12/22/18 04:25 12/19/18 10:17 12/22/18 04:25 WBC 3.9 L RBC 3.24 L Hgb 8.5 L Hct 25.7 L MCV 79 L MCH 26.1 L MCHC 32.9 RDW 24.7 H Plt Count 217 Seg Neutrophils % 89.5 H Lymphocytes % 5.8 L Monocytes % 3.9 Eosinophils % 0.5 Basophils % 0.3 Absolute Neutrophils 3.5 Absolute Lymphocytes 0.2 L Absolute Monocytes 0.2 Absolute Eosinophils 0.0 Absolute Basophils 0.0 Impressions: Chest X-Ray 12/08/18 10:19 IMPRESSION: NO ACUTE RADIOGRAPHIC FINDING IN THE CHEST. Abdomen/Pelvis CT 12/13/18 00:00 IMPRESSION: Extensive peritoneal carcinomatosis and large amount of abdominal and pelvic ascites, worsening neoplastic findings. No evidence for small bowel obstruction. Paracentesis Ultrasound 12/19/18 00:00 IMPRESSION: SUCCESSFUL ULTRASOUND GUIDED PARACENTESIS. Assessment & Plan - Diagnosis (1) Colon cancer metastasized to lung Is this a current diagnosis for this admission?: Yes (2) Intractable vomiting Qualifiers: Vomiting type: cyclical vomiting Nausea presence: with nausea Qualified Code(s): G43.A1 - Cyclical vomiting, intractable Is this a current diagnosis for this admission?: Yes (3) Lung cancer Qualifiers: Laterality: unspecified laterality Lung location: unspecified part of lung Qualified Code(s): C34.90 - Malignant neoplasm of unspecified part of unspecified bronchus or lung Is this a current diagnosis for this admission?: Yes (4) Malignant ascites Is this a current diagnosis for this admission?: Yes (5) Peritoneal carcinomatosis Is this a current diagnosis for this admission?: Yes - Time Time Spent with patient: 15-24 minutes Medications reviewed and adjusted accordingly: Yes Anticipated discharge: Other Within: Other - Plan Summary Plan Summary: Continues to current medication
--- NOTE | 2018-12-22 08:40 | PDOC PROGRESS REPORT ---
Subjective Progress Note for:: 12/22/18 Subjective:: Patient improving, but we noted that nausea will probably start tonight, having cold neuropathy Reason For Visit: INTRACTABLE VOMITING, STAGE 4 COLON CANCER Physical Exam Vital Signs: Temp Pulse Resp BP Pulse Ox 98.1 F 80 18 112/68 99 12/22/18 03:49 12/22/18 07:00 12/22/18 03:49 12/22/18 03:49 12/22/18 03:49 Intake & Output 12/21/18 12/22/18 12/23/18 06:59 06:59 06:59 Intake Total 2281.36 1092 Output Total 1000 750 Balance 1281.36 342 Weight 102.9 kg 103.2 kg General appearance: PRESENT: no acute distress, well-developed, well-nourished Head exam: PRESENT: atraumatic, normocephalic Eye exam: PRESENT: conjunctiva pink, EOMI, PERRLA. ABSENT: scleral icterus Ear exam: PRESENT: normal external ear exam Mouth exam: PRESENT: moist, tongue midline Neck exam: ABSENT: carotid bruit, JVD, lymphadenopathy, thyromegaly Respiratory exam: PRESENT: clear to auscultation leida. ABSENT: rales, rhonchi, wheezes Cardiovascular exam: PRESENT: RRR. ABSENT: diastolic murmur, rubs, systolic murmur Pulses: PRESENT: normal dorsalis pedis pul Vascular exam: PRESENT: normal capillary refill GI/Abdominal exam: PRESENT: normal bowel sounds, soft. ABSENT: distended, guarding, mass, organolmegaly, rebound, tenderness Rectal exam: PRESENT: deferred Extremities exam: PRESENT: full ROM. ABSENT: calf tenderness, clubbing, pedal edema Neurological exam: PRESENT: alert, awake, oriented to person, oriented to place, oriented to time, oriented to situation, CN II-XII grossly intact. ABSENT: motor sensory deficit Psychiatric exam: PRESENT: appropriate affect, normal mood. ABSENT: homicidal ideation, suicidal ideation Skin exam: PRESENT: dry, intact, warm. ABSENT: cyanosis, rash Results Laboratory Results: 12/22/18 04:25 12/19/18 10:17 12/22/18 04:25 WBC 3.9 L RBC 3.24 L Hgb 8.5 L Hct 25.7 L MCV 79 L MCH 26.1 L MCHC 32.9 RDW 24.7 H Plt Count 217 Seg Neutrophils % 89.5 H Lymphocytes % 5.8 L Monocytes % 3.9 Eosinophils % 0.5 Basophils % 0.3 Absolute Neutrophils 3.5 Absolute Lymphocytes 0.2 L Absolute Monocytes 0.2 Absolute Eosinophils 0.0 Absolute Basophils 0.0 Impressions: Chest X-Ray 12/08/18 10:19 IMPRESSION: NO ACUTE RADIOGRAPHIC FINDING IN THE CHEST. Abdomen/Pelvis CT 12/13/18 00:00 IMPRESSION: Extensive peritoneal carcinomatosis and large amount of abdominal and pelvic ascites, worsening neoplastic findings. No evidence for small bowel obstruction. Paracentesis Ultrasound 12/19/18 00:00 IMPRESSION: SUCCESSFUL ULTRASOUND GUIDED PARACENTESIS. Assessment & Plan - Diagnosis (1) Intractable vomiting Qualifiers: Vomiting type: cyclical vomiting Nausea presence: with nausea Qualified Code(s): G43.A1 - Cyclical vomiting, intractable Is this a current diagnosis for this admission?: Yes Plan: Improved, continue to monitor closely (2) Colon cancer Qualifiers: Colon location: ascending Qualified Code(s): C18.2 - Malignant neoplasm of ascending colon Is this a current diagnosis for this admission?: Yes Plan: Status post cycle #3 of chemotherapy, tolerating well so far, last cycle was complicated with severe nausea and vomiting so we recommended that we give this cycle inpatient and monitor him for a few days post chemotherapy, so he could be inpatient during the chemo induced nausea standpoint so that we can continue continuous IV fluids. (3) Antineoplastic chemotherapy induced anemia Is this a current diagnosis for this admission?: Yes Plan: Hemoglobin stable but may need transfusion in the next few days. (4) Malignant ascites Is this a current diagnosis for this admission?: Yes Plan: Status post paracentesis, will probably need another one in the next couple weeks. (5) Physical deconditioning Is this a current diagnosis for this admission?: Yes Plan: PT needs to keep working with patient (6) Pain, neoplasm-related Is this a current diagnosis for this admission?: Yes Plan: Continue with current pain regimen - Time Time Spent with patient: 35 or more minutes - Inpatient Certification Based on my medical assessment, after consideration of the patient's comorbidities, presenting symptoms, or acuity I expect that the services needed warrant INPATIENT care.: Yes I certify that my determination is in accordance with my understanding of Medicare's requirements for reasonable and necessary INPATIENT services [42 CFR 412.3e].: Yes Medical Necessity: Need For IV Fluids, Need For Continuous Telemetry Monitoring, Need for Pain Control
[2018-12-22] MEDS: DOCUSATE SODIUM 100 MG CAPSULE PO SCH (10:13)
[2018-12-22] MEDS: DILTIAZEM HCL 120 MG CAP.SR.24H PO SCH (10:13)
[2018-12-22] MEDS: POLYETHYLENE GLYCOL 3350 POWDER 17 GM/1 PACKET PO SCH (10:14)
[2018-12-22] MEDS: FLUTICASONE/UMECLIDIN/VILANTER 100-62.5-25 MCG/DOSE IH SCH (10:14)
[2018-12-22] MEDS: PROMETHAZINE HCL 25 MG TABLET PO PRN (21:01)
[2018-12-22] MEDS: ENOXAPARIN SODIUM INJ 40 MG/0.4 ML DISP.SYRIN SUBCUT SCH (23:25)
[2018-12-23] MEDS: ONDANSETRON HCL INJ/PF 4 MG/2 ML SDV IV PRN ×5 (02:12→22:39)
[2018-12-23] MEDS: HYDROMORPHONE HCL INJ/PF 2 MG/ML AMPULE IV PRN ×5 (02:12→22:39)
[2018-12-23] MEDS: LEVOTHYROXINE SODIUM 0.1 MG TABLET PO SCH (05:36)
[2018-12-23] MEDS: LEVOTHYROXINE SODIUM 0.075 MG TABLET PO SCH (05:36)
[2018-12-23] MEDS: LANSOPRAZOLE 30 MG TAB.RAP.DR PO SCH (05:36)
[2018-12-23] MEDS: GABAPENTIN 300 MG CAPSULE PO SCH ×3 (05:36→21:42)
[2018-12-23] MEDS: BUSPIRONE HCL 10 MG TABLET PO SCH ×3 (05:41→21:42)
[2018-12-23 06:37] LABS: ABSOLUTE LYMPHOCYTES (AUTO) 0.2 10^3/uL (0.5-4.7); ABSOLUTE MONOCYTES (AUTO) 0.1 10^3/uL (0.1-1.4); ABSOLUTE NEUT (AUTO) 2.9 10^3/uL (1.7-8.2); BASOPHILS % (AUTO) 0.5 % (0-2); EOSINOPHILS % (AUTO) 1.2 % (0-6); HEMATOCRIT 26.5 % (37.9-51.0); HEMOGLOBIN 8.8 g/dL (13.5-17.0); LYMPHOCYTES % (AUTO) 5.2 % (13-45); MEAN CORPUSCULAR HEMOGLOBIN 25.6 pg (27.0-33.4); MEAN CORPUSCULAR VOLUME 78 fl (80-97); MONOCYTES % (AUTO) 3.2 % (3-13); PLATELET COUNT 240 10^3/uL (150-450); RED BLOOD COUNT 3.42 10^6/uL (4.35-5.55); RED CELL DISTRIBUTION WIDTH 24.2 % (11.5-14.0); SEGMENTED NEUTROPHILS % (AUTO) 89.9 % (42-78); TOTAL CELLS COUNTED % (AUTO) 100 %; WHITE BLOOD COUNT 3.2 10^3/uL (4.0-10.5)
[2018-12-23 07:01] LABS: ANISOCYTOSIS 3+; HYPOCHROMASIA SLIGHT; OVALOCYTES SLIGHT; POIKILOCYTOSIS SLIGHT; POLYCHROMASIA 1+; TEAR DROP CELLS SLIGHT
[2018-12-23 07:02] LABS: PLATELET COMMENT ADEQUATE
[2018-12-23] MEDS: INSULIN LISPRO 100 UNIT/ML 3 ML VIAL SUBCUT SCH ×4 (08:00→21:47)
--- NOTE | 2018-12-23 08:19 | PDOC PROGRESS REPORT ---
Subjective Progress Note for:: 12/23/18 Subjective:: Nausea and anxiety overnight Reason For Visit: INTRACTABLE VOMITING, STAGE 4 COLON CANCER Physical Exam Vital Signs: Temp Pulse Resp BP Pulse Ox 97.7 F 97 18 117/84 97 12/22/18 23:45 12/23/18 07:00 12/22/18 23:45 12/22/18 23:45 12/22/18 23:45 Intake & Output 12/22/18 12/23/18 12/24/18 06:59 06:59 06:59 Intake Total 1092 1665 Output Total 750 1275 Balance 342 390 Weight 103.2 kg 102.6 kg General appearance: PRESENT: no acute distress, well-developed, well-nourished Head exam: PRESENT: atraumatic, normocephalic Eye exam: PRESENT: conjunctiva pink, EOMI, PERRLA. ABSENT: scleral icterus Ear exam: PRESENT: normal external ear exam Mouth exam: PRESENT: moist, tongue midline Neck exam: ABSENT: carotid bruit, JVD, lymphadenopathy, thyromegaly Respiratory exam: PRESENT: clear to auscultation leida. ABSENT: rales, rhonchi, wheezes Cardiovascular exam: PRESENT: RRR. ABSENT: diastolic murmur, rubs, systolic murmur Pulses: PRESENT: normal dorsalis pedis pul Vascular exam: PRESENT: normal capillary refill GI/Abdominal exam: PRESENT: normal bowel sounds, soft. ABSENT: distended, guarding, mass, organolmegaly, rebound, tenderness Rectal exam: PRESENT: deferred Extremities exam: PRESENT: full ROM. ABSENT: calf tenderness, clubbing, pedal edema Neurological exam: PRESENT: alert, awake, oriented to person, oriented to place, oriented to time, oriented to situation, CN II-XII grossly intact. ABSENT: motor sensory deficit Psychiatric exam: PRESENT: appropriate affect, normal mood. ABSENT: homicidal ideation, suicidal ideation Skin exam: PRESENT: dry, intact, warm. ABSENT: cyanosis, rash Results Laboratory Results: 12/23/18 06:28 12/19/18 10:17 12/23/18 06:28 WBC 3.2 L RBC 3.42 L Hgb 8.8 L Hct 26.5 L MCV 78 L MCH 25.6 L MCHC 33.0 RDW 24.2 H Plt Count 240 Seg Neutrophils % 89.9 H Lymphocytes % 5.2 L Monocytes % 3.2 Eosinophils % 1.2 Basophils % 0.5 Absolute Neutrophils 2.9 Absolute Lymphocytes 0.2 L Absolute Monocytes 0.1 Absolute Eosinophils 0.0 Absolute Basophils 0.0 Impressions: Chest X-Ray 12/08/18 10:19 IMPRESSION: NO ACUTE RADIOGRAPHIC FINDING IN THE CHEST. Abdomen/Pelvis CT 12/13/18 00:00 IMPRESSION: Extensive peritoneal carcinomatosis and large amount of abdominal and pelvic ascites, worsening neoplastic findings. No evidence for small bowel obstruction. Paracentesis Ultrasound 12/19/18 00:00 IMPRESSION: SUCCESSFUL ULTRASOUND GUIDED PARACENTESIS. Assessment & Plan - Diagnosis (1) Intractable vomiting Qualifiers: Vomiting type: cyclical vomiting Nausea presence: with nausea Qualified Code(s): G43.A1 - Cyclical vomiting, intractable Is this a current diagnosis for this admission?: Yes Plan: Nausea again, slight emesis, add Ativan today, believe is probably related also in part to anxiety (2) Colon cancer Qualifiers: Colon location: ascending Qualified Code(s): C18.2 - Malignant neoplasm of ascending colon Is this a current diagnosis for this admission?: Yes Plan: Chemotherapy given, now getting chemo induced nausea as expected (3) Antineoplastic chemotherapy induced anemia Is this a current diagnosis for this admission?: Yes Plan: Hemoglobin stable (4) Malignant ascites Is this a current diagnosis for this admission?: Yes Plan: Will need paracentesis in the next few weeks (5) Physical deconditioning Is this a current diagnosis for this admission?: Yes Plan: Continue physical therapy (6) Pain, neoplasm-related Is this a current diagnosis for this admission?: Yes Plan: Continue current pain regimen - Time Time Spent with patient: 35 or more minutes - Inpatient Certification Based on my medical assessment, after consideration of the patient's comorbidities, presenting symptoms, or acuity I expect that the services needed warrant INPATIENT care.: Yes I certify that my determination is in accordance with my understanding of Medicare's requirements for reasonable and necessary INPATIENT services [42 CFR 412.3e].: Yes Medical Necessity: Need For IV Fluids, Need for Pain Control, Risk of Complication if Not Cared For in Hospital
[2018-12-23] MEDS ORDERED: LORAZEPAM INJ 2 MG/1 ML VIAL IV PRN (08:21)
--- NOTE | 2018-12-23 08:32 | PDOC PROGRESS REPORT ---
Subjective Progress Note for:: 12/23/18 Subjective:: And is currently doing well Patient's denied any chest pain denied any shortness of the breath Patient starting the chemotherapy yesterday Reason For Visit: INTRACTABLE VOMITING, STAGE 4 COLON CANCER Physical Exam Vital Signs: Temp Pulse Resp BP Pulse Ox 98.3 F 99 15 120/75 98 12/23/18 08:00 12/23/18 08:00 12/23/18 08:00 12/23/18 08:00 12/23/18 08:00 Intake & Output 12/22/18 12/23/18 12/24/18 06:59 06:59 06:59 Intake Total 1092 1665 Output Total 750 1275 Balance 342 390 Weight 103.2 kg 102.6 kg General appearance: PRESENT: no acute distress, well-developed, well-nourished Head exam: PRESENT: atraumatic, normocephalic Eye exam: PRESENT: conjunctiva pink, EOMI, PERRLA. ABSENT: scleral icterus Ear exam: PRESENT: normal external ear exam Mouth exam: PRESENT: moist, tongue midline Neck exam: PRESENT: full ROM. ABSENT: carotid bruit, JVD, lymphadenopathy, thyromegaly Respiratory exam: PRESENT: clear to auscultation leida Cardiovascular exam: PRESENT: RRR. ABSENT: diastolic murmur, rubs, systolic murmur Pulses: PRESENT: normal dorsalis pedis pul, +2 pedal pulses bilateral Vascular exam: PRESENT: normal capillary refill GI/Abdominal exam: PRESENT: normal bowel sounds, soft. ABSENT: distended, guarding, mass, organolmegaly, rebound, tenderness Rectal exam: PRESENT: deferred Neurological exam: PRESENT: alert, awake, oriented to person, oriented to place, oriented to time, oriented to situation, CN II-XII grossly intact. ABSENT: motor sensory deficit Psychiatric exam: PRESENT: appropriate affect, normal mood. ABSENT: homicidal ideation, suicidal ideation Skin exam: PRESENT: dry, intact, warm. ABSENT: cyanosis, rash Results Laboratory Results: 12/23/18 06:28 12/19/18 10:17 12/23/18 06:28 WBC 3.2 L RBC 3.42 L Hgb 8.8 L Hct 26.5 L MCV 78 L MCH 25.6 L MCHC 33.0 RDW 24.2 H Plt Count 240 Seg Neutrophils % 89.9 H Lymphocytes % 5.2 L Monocytes % 3.2 Eosinophils % 1.2 Basophils % 0.5 Absolute Neutrophils 2.9 Absolute Lymphocytes 0.2 L Absolute Monocytes 0.1 Absolute Eosinophils 0.0 Absolute Basophils 0.0 Impressions: Chest X-Ray 12/08/18 10:19 IMPRESSION: NO ACUTE RADIOGRAPHIC FINDING IN THE CHEST. Abdomen/Pelvis CT 12/13/18 00:00 IMPRESSION: Extensive peritoneal carcinomatosis and large amount of abdominal and pelvic ascites, worsening neoplastic findings. No evidence for small bowel obstruction. Paracentesis Ultrasound 12/19/18 00:00 IMPRESSION: SUCCESSFUL ULTRASOUND GUIDED PARACENTESIS. Assessment & Plan - Diagnosis (1) Colon cancer metastasized to lung Is this a current diagnosis for this admission?: Yes (2) Intractable vomiting Qualifiers: Vomiting type: cyclical vomiting Nausea presence: with nausea Qualified Code(s): G43.A1 - Cyclical vomiting, intractable Is this a current diagnosis for this admission?: Yes (3) Lung cancer Qualifiers: Laterality: unspecified laterality Lung location: unspecified part of lung Qualified Code(s): C34.90 - Malignant neoplasm of unspecified part of unspecified bronchus or lung Is this a current diagnosis for this admission?: Yes (4) Malignant ascites Is this a current diagnosis for this admission?: Yes (5) Peritoneal carcinomatosis Is this a current diagnosis for this admission?: Yes - Plan Summary Plan Summary: cont curr med
[2018-12-23] MEDS: DILTIAZEM HCL 120 MG CAP.SR.24H PO SCH (09:33)
[2018-12-23] MEDS: FENTANYL 50 MCG/HR PATCH.TD72 TD SCH (09:35)
[2018-12-23] MEDS: POLYETHYLENE GLYCOL 3350 POWDER 17 GM/1 PACKET PO SCH (09:41)
[2018-12-23] MEDS: DOCUSATE SODIUM 100 MG CAPSULE PO SCH (09:41)
[2018-12-23] MEDS: FLUTICASONE/UMECLIDIN/VILANTER 100-62.5-25 MCG/DOSE IH SCH (09:44)
[2018-12-23] MEDS: METFORMIN HCL 500 MG TABLET PO SCH ×2 (18:05→18:11)
[2018-12-23] MEDS: ENOXAPARIN SODIUM INJ 40 MG/0.4 ML DISP.SYRIN SUBCUT SCH (21:39)
[2018-12-24] MEDS: HYDROMORPHONE HCL INJ/PF 2 MG/ML AMPULE IV PRN ×5 (03:43→21:44)
[2018-12-24] MEDS: ONDANSETRON HCL INJ/PF 4 MG/2 ML SDV IV PRN ×5 (03:44→21:43)
[2018-12-24] MEDS: GABAPENTIN 300 MG CAPSULE PO SCH ×3 (05:27→21:44)
[2018-12-24] MEDS: BUSPIRONE HCL 10 MG TABLET PO SCH ×3 (05:28→21:44)
[2018-12-24] MEDS: LEVOTHYROXINE SODIUM 0.1 MG TABLET PO SCH (05:28)
[2018-12-24] MEDS: LANSOPRAZOLE 30 MG TAB.RAP.DR PO SCH (05:28)
[2018-12-24] MEDS: LEVOTHYROXINE SODIUM 0.075 MG TABLET PO SCH (05:31)
[2018-12-24] MEDS: METFORMIN HCL 500 MG TABLET PO SCH ×2 (07:45→17:19)
[2018-12-24] MEDS: INSULIN LISPRO 100 UNIT/ML 3 ML VIAL SUBCUT SCH ×4 (07:45→21:44)
[2018-12-24] MEDS: PROMETHAZINE HCL 25 MG TABLET PO PRN (10:17)
[2018-12-24] MEDS: DOCUSATE SODIUM 100 MG CAPSULE PO SCH (10:18)
[2018-12-24] MEDS: FLUTICASONE/UMECLIDIN/VILANTER 100-62.5-25 MCG/DOSE IH SCH (10:18)
[2018-12-24] MEDS: DILTIAZEM HCL 120 MG CAP.SR.24H PO SCH (10:18)
[2018-12-24] MEDS: POLYETHYLENE GLYCOL 3350 POWDER 17 GM/1 PACKET PO SCH (10:18)
--- NOTE | 2018-12-24 11:51 | PDOC PROGRESS REPORT ---
Subjective Progress Note for:: 12/24/18 Subjective:: Patient having more nausea this morning. Reason For Visit: INTRACTABLE VOMITING, STAGE 4 COLON CANCER Physical Exam Vital Signs: Temp Pulse Resp BP Pulse Ox 97.7 F 86 19 120/73 97 12/24/18 08:00 12/24/18 08:00 12/24/18 08:00 12/24/18 08:00 12/24/18 08:00 Intake & Output 12/23/18 12/24/18 12/25/18 06:59 06:59 06:59 Intake Total 1665 580 Output Total 1275 700 Balance 390 -120 Weight 102.6 kg 104.4 kg General appearance: PRESENT: no acute distress, well-developed, well-nourished Head exam: PRESENT: atraumatic, normocephalic Eye exam: PRESENT: conjunctiva pink, EOMI, PERRLA. ABSENT: scleral icterus Ear exam: PRESENT: normal external ear exam Mouth exam: PRESENT: moist, tongue midline Neck exam: ABSENT: carotid bruit, JVD, lymphadenopathy, thyromegaly Respiratory exam: PRESENT: clear to auscultation leida. ABSENT: rales, rhonchi, wheezes Cardiovascular exam: PRESENT: RRR. ABSENT: diastolic murmur, rubs, systolic mu rmur Pulses: PRESENT: normal dorsalis pedis pul Vascular exam: PRESENT: normal capillary refill GI/Abdominal exam: PRESENT: normal bowel sounds, soft. ABSENT: distended, guarding, mass, organolmegaly, rebound, tenderness Rectal exam: PRESENT: deferred Extremities exam: PRESENT: full ROM. ABSENT: calf tenderness, clubbing, pedal edema Neurological exam: PRESENT: alert, awake, oriented to person, oriented to place, oriented to time, oriented to situation, CN II-XII grossly intact. ABSENT: motor sensory deficit Psychiatric exam: PRESENT: appropriate affect, normal mood. ABSENT: homicidal ideation, suicidal ideation Skin exam: PRESENT: dry, intact, warm. ABSENT: cyanosis, rash Results Laboratory Results: 12/23/18 06:28 12/19/18 10:17 Impressions: Chest X-Ray 12/08/18 10:19 IMPRESSION: NO ACUTE RADIOGRAPHIC FINDING IN THE CHEST. Abdomen/Pelvis CT 12/13/18 00:00 IMPRESSION: Extensive peritoneal carcinomatosis and large amount of abdominal and pelvic ascites, worsening neoplastic findings. No evidence for small bowel obstruction. Paracentesis Ultrasound 12/19/18 00:00 IMPRESSION: SUCCESSFUL ULTRASOUND GUIDED PARACENTESIS. Assessment & Plan - Diagnosis (1) Intractable vomiting Qualifiers: Vomiting type: cyclical vomiting Nausea presence: with nausea Qualified Code(s): G43.A1 - Cyclical vomiting, intractable Is this a current diagnosis for this admission?: Yes Plan: Increased, secondary to chemo induced nausea, continue with antiemetics. (2) Colon cancer Qualifiers: Colon location: ascending Qualified Code(s): C18.2 - Malignant neoplasm of ascending colon Is this a current diagnosis for this admission?: Yes Plan: Status post cycle #3, now having side effects secondary to that, will need a few more days inpatient for continuous IV hydration and close IV antiemetic administration (3) Antineoplastic chemotherapy induced anemia Is this a current diagnosis for this admission?: Yes Plan: Continue with monitoring, no need for transfusion as of yet (4) Malignant ascites Is this a current diagnosis for this admission?: Yes Plan: Will need continued paracentesis as clinically indicated (5) Physical deconditioning Is this a current diagnosis for this admission?: Yes Plan: Continue PT (6) Pain, neoplasm-related Is this a current diagnosis for this admission?: Yes Plan: Continue pain control - Time Time Spent with patient: 35 or more minutes - Inpatient Certification Based on my medical assessment, after consideration of the patient's comorbidities, presenting symptoms, or acuity I expect that the services needed warrant INPATIENT care.: Yes I certify that my determination is in accordance with my understanding of Medicare's requirements for reasonable and necessary INPATIENT services [42 CFR 412.3e].: Yes Medical Necessity: Need For IV Fluids
[2018-12-24] MEDS: ENOXAPARIN SODIUM INJ 40 MG/0.4 ML DISP.SYRIN SUBCUT SCH (23:07)
[2018-12-25] MEDS: HYDROMORPHONE HCL INJ/PF 2 MG/ML AMPULE IV PRN ×5 (02:21→20:27)
[2018-12-25] MEDS: ONDANSETRON HCL INJ/PF 4 MG/2 ML SDV IV PRN ×5 (02:22→20:27)
[2018-12-25] MEDS: LEVOTHYROXINE SODIUM 0.075 MG TABLET PO SCH (06:02)
[2018-12-25] MEDS: LEVOTHYROXINE SODIUM 0.1 MG TABLET PO SCH (06:02)
[2018-12-25] MEDS: BUSPIRONE HCL 10 MG TABLET PO SCH ×3 (06:02→21:38)
[2018-12-25] MEDS: GABAPENTIN 300 MG CAPSULE PO SCH ×3 (06:02→21:38)
[2018-12-25] MEDS: LANSOPRAZOLE 30 MG TAB.RAP.DR PO SCH (06:02)
[2018-12-25] MEDS: PROMETHAZINE HCL 25 MG TABLET PO PRN ×2 (07:17→16:56)
--- NOTE | 2018-12-25 07:28 | PDOC PROGRESS REPORT ---
Subjective Progress Note for:: 12/25/18 Subjective:: Patient still having quite a bit of nausea, no emesis, nursing feels like the Ativan makes him slightly confused. He falls asleep with antiemetic medication and then wakes up with both nausea and pain. Today I discussed with patient that this is chemo induced nausea and will probably last for the next 24-48 hours as is. We do have all the antiemetics on board ordered. Reason For Visit: INTRACTABLE VOMITING, STAGE 4 COLON CANCER Physical Exam Vital Signs: Temp Pulse Resp BP Pulse Ox 97.8 F 82 15 105/60 97 12/25/18 03:41 12/25/18 03:41 12/25/18 03:41 12/25/18 03:41 12/25/18 03:41 Intake & Output 12/24/18 12/25/18 12/26/18 06:59 06:59 06:59 Intake Total 580 1064 Output Total 700 875 Balance -120 189 Weight 104.4 kg 105.5 kg General appearance: PRESENT: no acute distress, well-developed, well-nourished Head exam: PRESENT: atraumatic, normocephalic Eye exam: PRESENT: conjunctiva pink, EOMI, PERRLA. ABSENT: scleral icterus Ear exam: PRESENT: normal external ear exam Mouth exam: PRESENT: moist, tongue midline Neck exam: ABSENT: carotid bruit, JVD, lymphadenopathy, thyromegaly Respiratory exam: PRESENT: clear to auscultation leida. ABSENT: rales, rhonchi, wheezes Cardiovascular exam: PRESENT: RRR. ABSENT: diastolic murmur, rubs, systolic murmur Pulses: PRESENT: normal dorsalis pedis pul Vascular exam: PRESENT: normal capillary refill GI/Abdominal exam: PRESENT: normal bowel sounds, soft. ABSENT: distended, guarding, mass, organolmegaly, rebound, tenderness Rectal exam: PRESENT: deferred Extremities exam: PRESENT: full ROM. ABSENT: calf tenderness, clubbing, pedal edema Neurological exam: PRESENT: alert, awake, oriented to person, oriented to place, oriented to time, oriented to situation, CN II-XII grossly intact. ABSENT: motor sensory deficit Psychiatric exam: PRESENT: appropriate affect, normal mood. ABSENT: homicidal ideation, suicidal ideation Skin exam: PRESENT: dry, intact, warm. ABSENT: cyanosis, rash Results Laboratory Results: 12/23/18 06:28 12/19/18 10:17 Impressions: Chest X-Ray 12/08/18 10:19 IMPRESSION: NO ACUTE RADIOGRAPHIC FINDING IN THE CHEST. Abdomen/Pelvis CT 12/13/18 00:00 IMPRESSION: Extensive peritoneal carcinomatosis and large amount of abdominal and pelvic ascites, worsening neoplastic findings. No evidence for small bowel obstruction. Paracentesis Ultrasound 12/19/18 00:00 IMPRESSION: SUCCESSFUL ULTRASOUND GUIDED PARACENTESIS. Assessment & Plan - Diagnosis (1) Intractable vomiting Qualifiers: Vomiting type: cyclical vomiting Nausea presence: with nausea Qualified Code(s): G43.A1 - Cyclical vomiting, intractable Is this a current diagnosis for this admission?: Yes Plan: Nausea still severe, related to chemo induced, continue with IV antiemetics. (2) Colon cancer Qualifiers: Colon location: ascending Qualified Code(s): C18.2 - Malignant neoplasm of ascending colon Is this a current diagnosis for this admission?: Yes Plan: Status post cycle #3, patient having fairly severe side effects of that now (3) Antineoplastic chemotherapy induced anemia Is this a current diagnosis for this admission?: Yes Plan: FRANK globin stable, hold on transfusion (4) Malignant ascites Is this a current diagnosis for this admission?: Yes Plan: Will need paracentesis in the next few weeks (5) Physical deconditioning Is this a current diagnosis for this admission?: Yes Plan: Continue physical therapy (6) Pain, neoplasm-related Is this a current diagnosis for this admission?: Yes Plan: Continue current pain regimen - Time Time Spent with patient: 35 or more minutes - Inpatient Certification Based on my medical assessment, after consideration of the patient's comorbiditi es, presenting symptoms, or acuity I expect that the services needed warrant INPATIENT care.: Yes I certify that my determination is in accordance with my understanding of [facility]'s requirements for reasonable and necessary INPATIENT services [42 CFR 412.3e].: Yes Medical Necessity: Need For IV Fluids, Need for Pain Control, Risk of Co mplication if Not Cared For in Hospital
[2018-12-25] MEDS: METFORMIN HCL 500 MG TABLET PO SCH ×2 (08:08→17:00)
[2018-12-25] MEDS: INSULIN LISPRO 100 UNIT/ML 3 ML VIAL SUBCUT SCH ×4 (08:09→21:39)
[2018-12-25] MEDS: DILTIAZEM HCL 120 MG CAP.SR.24H PO SCH (10:00)
[2018-12-25] MEDS: FLUTICASONE/UMECLIDIN/VILANTER 100-62.5-25 MCG/DOSE IH SCH (10:36)
[2018-12-25] MEDS: POLYETHYLENE GLYCOL 3350 POWDER 17 GM/1 PACKET PO SCH (10:52)
[2018-12-25] MEDS: DOCUSATE SODIUM 100 MG CAPSULE PO SCH (10:52)
[2018-12-25] MEDS: LOPERAMIDE HCL 2 MG CAPSULE PO PRN (15:18)
[2018-12-25] MEDS: ENOXAPARIN SODIUM INJ 40 MG/0.4 ML DISP.SYRIN SUBCUT SCH (21:39)
[2018-12-26] MEDS: HYDROMORPHONE HCL INJ/PF 2 MG/ML AMPULE IV PRN ×6 (00:27→22:30)
[2018-12-26] MEDS: ONDANSETRON HCL INJ/PF 4 MG/2 ML SDV IV PRN ×6 (00:27→22:30)
[2018-12-26] MEDS: LEVOTHYROXINE SODIUM 0.1 MG TABLET PO SCH (05:15)
[2018-12-26] MEDS: LEVOTHYROXINE SODIUM 0.075 MG TABLET PO SCH (05:15)
[2018-12-26] MEDS: LANSOPRAZOLE 30 MG TAB.RAP.DR PO SCH (05:16)
[2018-12-26] MEDS: GABAPENTIN 300 MG CAPSULE PO SCH ×3 (05:16→21:56)
[2018-12-26] MEDS: BUSPIRONE HCL 10 MG TABLET PO SCH ×3 (05:16→21:56)
--- NOTE | 2018-12-26 07:47 | PDOC PROGRESS REPORT ---
Subjective Progress Note for:: 12/26/18 Subjective:: Patient is a bit confused this morning. States that he is thirst. Nurses report that the avitan is making him confused. Patient is still very nauseated without meds. ROS: Patient denied abdominal pain. No fevers or chills. Reason For Visit: INTRACTABLE VOMITING, STAGE 4 COLON CANCER Physical Exam Vital Signs: Temp Pulse Resp BP Pulse Ox 98.1 F 76 16 129/56 H 100 12/26/18 03:55 12/26/18 03:55 12/26/18 03:55 12/26/18 03:55 12/26/18 03:55 Intake & Output 12/25/18 12/26/18 12/27/18 06:59 06:59 06:59 Intake Total 1064 1000 Output Total 875 750 Balance 189 250 Weight 105.5 kg 105.7 kg General appearance: PRESENT: no acute distress Respiratory exam: PRESENT: decreased breath sounds, unlabored Cardiovascular exam: PRESENT: RRR GI/Abdominal exam: PRESENT: ascites Extremities exam: PRESENT: +2 edema Neurological exam: PRESENT: alert Results Laboratory Results: 12/23/18 06:28 12/19/18 10:17 Impressions: Chest X-Ray 12/08/18 10:19 IMPRESSION: NO ACUTE RADIOGRAPHIC FINDING IN THE CHEST. Abdomen/Pelvis CT 12/13/18 00:00 IMPRESSION: Extensive peritoneal carcinomatosis and large amount of abdominal and pelvic ascites, worsening neoplastic findings. No evidence for small bowel obstruction. Paracentesis Ultrasound 12/19/18 00:00 IMPRESSION: SUCCESSFUL ULTRASOUND GUIDED PARACENTESIS. Assessment & Plan - Diagnosis (1) Colon cancer Qualifiers: Colon location: ascending Qualified Code(s): C18.2 - Malignant neoplasm of ascending colon Is this a current diagnosis for this admission?: Yes Plan: Patient received most recent cycle of chemo last week. However, he continues to have side effects from the chemo. Ultimately, goal is for palliation. I will repeat CBC, CMP in the morning. Patient remains full code and declines Hospice services, as he is still receiving chemotherapy. (2) Intractable vomiting Qualifiers: Vomiting type: cyclical vomiting Nausea presence: with nausea Qualified Code(s): G43.A1 - Cyclical vomiting, intractable Is this a current diagnosis for this admission?: Yes Plan: Continue current meds for nausea. I will add Haldol PRN for the nausea to see if this helps without causing as much confusion. (3) Pain, neoplasm-related Is this a current diagnosis for this admission?: Yes Plan: Currently controlled. (4) Ascites Qualifiers: Ascites type: malignant Qualified Code(s): R18.0 - Malignant ascites Is this a current diagnosis for this admission?: Yes Plan: We discussed further paracentesis. May consider this later, but risk will be increased with low blood counts from chemo. He does not feel this is currently necessary.
[2018-12-26] MEDS ORDERED: HALOPERIDOL LACTATE INJ 5 MG/1 ML VIAL IV PRN (07:58)
[2018-12-26] MEDS: INSULIN LISPRO 100 UNIT/ML 3 ML VIAL SUBCUT SCH ×4 (08:00→21:56)
[2018-12-26] MEDS: DILTIAZEM HCL 120 MG CAP.SR.24H PO SCH (09:36)
[2018-12-26] MEDS: METFORMIN HCL 500 MG TABLET PO SCH ×2 (09:37→18:25)
[2018-12-26] MEDS: FENTANYL 50 MCG/HR PATCH.TD72 TD SCH (09:38)
--- NOTE | 2018-12-26 13:34 | PDOC PROGRESS REPORT ---
Subjective Progress Note for:: 12/26/18 Subjective:: Patient still feels nauseating Patient is actually feeling better compared to yesterday No chest pain no short of breath Patient is still very weak Reason For Visit: INTRACTABLE VOMITING, STAGE 4 COLON CANCER Physical Exam Vital Signs: Temp Pulse Resp BP Pulse Ox 98.3 F 94 17 108/68 96 12/26/18 11:46 12/26/18 11:46 12/26/18 11:46 12/26/18 11:46 12/26/18 11:46 Intake & Output 12/25/18 12/26/18 12/27/18 06:59 06:59 06:59 Intake Total 1064 1000 266 Output Total 875 750 Balance 189 250 266 Weight 105.5 kg 105.7 kg General appearance: PRESENT: no acute distress, well-developed, well-nourished Head exam: PRESENT: atraumatic, normocephalic Eye exam: PRESENT: conjunctiva pink, EOMI, PERRLA. ABSENT: scleral icterus Ear exam: PRESENT: normal external ear exam Mouth exam: PRESENT: moist, tongue midline Neck exam: PRESENT: full ROM. ABSENT: carotid bruit, JVD, lymphadenopathy, thyromegaly Respiratory exam: PRESENT: clear to auscultation leida Cardiovascular exam: PRESENT: RRR. ABSENT: diastolic murmur, rubs, systolic murmur Vascular exam: PRESENT: normal capillary refill GI/Abdominal exam: PRESENT: ascites, normal bowel sounds, soft. ABSENT: distended, guarding, mass, organolmegaly, rebound, tenderness Rectal exam: PRESENT: deferred Neurological exam: PRESENT: alert, awake, oriented to person, oriented to place, oriented to time, oriented to situation, CN II-XII grossly intact. ABSENT: motor sensory deficit Psychiatric exam: PRESENT: appropriate affect, normal mood. ABSENT: homicidal ideation, suicidal ideation Skin exam: PRESENT: dry, intact, warm. ABSENT: cyanosis, rash Results Laboratory Results: 12/23/18 06:28 12/19/18 10:17 Impressions: Chest X-Ray 12/08/18 10:19 IMPRESSION: NO ACUTE RADIOGRAPHIC FINDING IN THE CHEST. Abdomen/Pelvis CT 12/13/18 00:00 IMPRESSION: Extensive peritoneal carcinomatosis and large amount of abdominal and pelvic ascites, worsening neoplastic findings. No evidence for small bowel obstruction. Paracentesis Ultrasound 12/19/18 00:00 IMPRESSION: SUCCESSFUL ULTRASOUND GUIDED PARACENTESIS. Assessment & Plan - Diagnosis (1) Colon cancer metastasized to lung Is this a current diagnosis for this admission?: Yes (2) Intractable vomiting Qualifiers: Vomiting type: cyclical vomiting Nausea presence: with nausea Qualified Code(s): G43.A1 - Cyclical vomiting, intractable Is this a current diagnosis for this admission?: Yes (3) Lung cancer Qualifiers: Laterality: unspecified laterality Lung location: unspecified part of lung Qualified Code(s): C34.90 - Malignant neoplasm of unspecified part of unspecified bronchus or lung Is this a current diagnosis for this admission?: Yes (4) Malignant ascites Is this a current diagnosis for this admission?: Yes (5) Peritoneal carcinomatosis Is this a current diagnosis for this admission?: Yes - Time Time Spent with patient: 15-24 minutes Medications reviewed and adjusted accordingly: Yes Anticipated discharge: Other Within: Other - Plan Summary Plan Summary: Will get the physical therapy evaluations Discussed with the patient he claimed that he has enough help at home Will arrange the home health and physical therapy
[2018-12-26] MEDS: FLUTICASONE/UMECLIDIN/VILANTER 100-62.5-25 MCG/DOSE IH SCH (14:25)
[2018-12-26] MEDS: POLYETHYLENE GLYCOL 3350 POWDER 17 GM/1 PACKET PO SCH (14:35)
[2018-12-26] MEDS: DOCUSATE SODIUM 100 MG CAPSULE PO SCH (14:35)
[2018-12-26] MEDS: ENOXAPARIN SODIUM INJ 40 MG/0.4 ML DISP.SYRIN SUBCUT SCH (21:56)
[2018-12-26] MEDS: PROMETHAZINE HCL 25 MG TABLET PO PRN (22:02)
[2018-12-27] MEDS: HYDROMORPHONE HCL INJ/PF 2 MG/ML AMPULE IV PRN ×5 (03:02→21:50)
[2018-12-27] MEDS: ONDANSETRON HCL INJ/PF 4 MG/2 ML SDV IV PRN ×4 (03:02→22:14)
[2018-12-27] MEDS: LEVOTHYROXINE SODIUM 0.1 MG TABLET PO SCH (05:11)
[2018-12-27] MEDS: BUSPIRONE HCL 10 MG TABLET PO SCH ×3 (05:11→21:49)
[2018-12-27] MEDS: GABAPENTIN 300 MG CAPSULE PO SCH ×3 (05:11→21:49)
[2018-12-27] MEDS: LANSOPRAZOLE 30 MG TAB.RAP.DR PO SCH (05:11)
[2018-12-27] MEDS: LEVOTHYROXINE SODIUM 0.075 MG TABLET PO SCH (05:13)
[2018-12-27 05:45] LABS: ALANINE AMINOTRANSFERASE 28 U/L (21-72); ALBUMIN 2.2 g/dL (3.5-5.0); ALKALINE PHOSPHATASE 90 U/L (38-126); ANION GAP 5 (5-19); ASPARTATE AMINO TRANSFERASE 28 U/L (17-59); BILIRUBIN,DIRECT 0.2 mg/dL (0.0-0.4); BILIRUBIN,TOTAL 0.3 mg/dL (0.2-1.3); BLOOD UREA NITROGEN 12 mg/dL (7-20); CALCIUM 7.8 mg/dL (8.4-10.2); CARBON DIOXIDE 34 mmol/L (22-30); CHLORIDE 94 mmol/L (98-107); GLUCOSE 89 mg/dL (75-110); POTASSIUM 4.1 mmol/L (3.6-5.0); SODIUM 133.4 mmol/L (137-145); TOTAL PROTEIN 4.4 g/dL (6.3-8.2)
[2018-12-27 06:28] LABS: HEMATOCRIT 24.5 % (37.9-51.0); HEMOGLOBIN 8.1 g/dL (13.5-17.0); MEAN CORPUSCULAR HEMOGLOBIN 25.9 pg (27.0-33.4); MEAN CORPUSCULAR HGB CONC 32.9 g/dL (32.0-36.0); MEAN CORPUSCULAR VOLUME 79 fl (80-97); PLATELET COUNT 192 10^3/uL (150-450); RED BLOOD COUNT 3.12 10^6/uL (4.35-5.55); RED CELL DISTRIBUTION WIDTH 23.2 % (11.5-14.0); WHITE BLOOD COUNT 4.3 10^3/uL (4.0-10.5)
[2018-12-27 07:23] LABS: ABSOLUTE LYMPHOCYTES# (MANUAL) 0.3 10^3/uL (0.5-4.7); ABSOLUTE MONOCYTES # (MANUAL) 0.5 10^3/uL (0.1-1.4); ABSOLUTE NEUTROPHILS# (MANUAL) 3.4 10^3/uL (1.7-8.2); BAND NEUTROPHILS % (MANUAL) 4 % (3-5); BASOPHILS % (MANUAL) 0 % (0-2); EOSINOPHILS % (MANUAL) 2 % (0-6); LYMPHOCYTES % (MANUAL) 7 % (13-45); METAMYELOCYTES % (MANUAL) 2 % (0); MONOCYTES % (MANUAL) 11 % (3-13); SEGMENTED NEUTROPHILS % (MAN) 74 % (42-78); TOTAL CELLS COUNTED 100; TOXIC GRANULATION SLIGHT
[2018-12-27 07:24] LABS: ANISOCYTOSIS 2+; HYPOCHROMASIA SLIGHT; PLATELET COMMENT ADEQUATE; STOMATOCYTES 1+
[2018-12-27] MEDS: METFORMIN HCL 500 MG TABLET PO SCH ×2 (07:54→17:37)
[2018-12-27] MEDS: INSULIN LISPRO 100 UNIT/ML 3 ML VIAL SUBCUT SCH ×4 (07:54→21:49)
--- NOTE | 2018-12-27 08:35 | PDOC PROGRESS REPORT ---
Subjective Progress Note for:: 12/27/18 Subjective:: Still getting severely nauseous, almost throwing up, Zofran covering only for 1- 2 hours, having a lot of breakthrough nausea. Plan to initiate IV Phenergan today along with IV dexamethasone. Reason For Visit: INTRACTABLE VOMITING, STAGE 4 COLON CANCER Physical Exam Vital Signs: Temp Pulse Resp BP Pulse Ox 97.8 F 97 19 116/57 L 98 12/27/18 04:00 12/27/18 04:00 12/27/18 04:00 12/27/18 04:00 12/27/18 04:00 Intake & Output 12/26/18 12/27/18 12/28/18 06:59 06:59 06:59 Intake Total 1000 366 Output Total 750 250 Balance 250 116 Weight 105.7 kg 104.2 kg General appearance: PRESENT: no acute distress, well-developed, well-nourished Head exam: PRESENT: atraumatic, normocephalic Eye exam: PRESENT: conjunctiva pink, EOMI, PERRLA. ABSENT: scleral icterus Ear exam: PRESENT: normal external ear exam Mouth exam: PRESENT: moist, tongue midline Neck exam: ABSENT: carotid bruit, JVD, lymphadenopathy, thyromegaly Respiratory exam: PRESENT: clear to auscultation leida. ABSENT: rales, rhonchi, wheezes Cardiovascular exam: PRESENT: RRR. ABSENT: diastolic murmur, rubs, systolic murmur Pulses: PRESENT: normal dorsalis pedis pul Vascular exam: PRESENT: normal capillary refill GI/Abdominal exam: PRESENT: normal bowel sounds, soft. ABSENT: distended, guarding, mass, organolmegaly, rebound, tenderness Rectal exam: PRESENT: deferred Extremities exam: PRESENT: full ROM. ABSENT: calf tenderness, clubbing, pedal edema Neurological exam: PRESENT: alert, awake, oriented to person, oriented to place, oriented to time, oriented to situation, CN II-XII grossly intact. ABSENT: motor sensory deficit Psychiatric exam: PRESENT: appropriate affect, normal mood. ABSENT: homicidal ideation, suicidal ideation Skin exam: PRESENT: dry, intact, warm. ABSENT: cyanosis, rash Results Laboratory Results: 12/27/18 04:12 12/27/18 04:12 12/27/18 12/27/18 04:12 04:12 WBC 4.3 RBC 3.12 L Hgb 8.1 L Hct 24.5 L MCV 79 L MCH 25.9 L MCHC 32.9 RDW 23.2 H Plt Count 192 Seg Neutrophils % Not Reportable Lymphocytes % Not Reportable Monocytes % Not Reportable Eosinophils % Not Reportable Basophils % Not Reportable Absolute Neutrophils Not Reportable Absolute Lymphocytes Not Reportable Absolute Monocytes Not Reportable Absolute Eosinophils Not Reportable Absolute Basophils Not Reportable Sodium 133.4 L Potassium 4.1 Chloride 94 L Carbon Dioxide 34 H Anion Gap 5 BUN 12 Creatinine 0.73 Est GFR ( Amer) > 60 Est GFR (Non-Af Amer) > 60 Glucose 89 Calcium 7.8 L Total Bilirubin 0.3 AST 28 ALT 28 Alkaline Phosphatase 90 Total Protein 4.4 L Albumin 2.2 L Impressions: Chest X-Ray 12/08/18 10:19 IMPRESSION: NO ACUTE RADIOGRAPHIC FINDING IN THE CHEST. Abdomen/Pelvis CT 12/13/18 00:00 IMPRESSION: Extensive peritoneal carcinomatosis and large amount of abdominal and pelvic ascites, worsening neoplastic findings. No evidence for small bowel obstruction. Paracentesis Ultrasound 12/19/18 00:00 IMPRESSION: SUCCESSFUL ULTRASOUND GUIDED PARACENTESIS. Assessment & Plan - Diagnosis (1) Intractable vomiting Qualifiers: Vomiting type: cyclical vomiting Nausea presence: with nausea Qualified Code(s): G43.A1 - Cyclical vomiting, intractable Is this a current diagnosis for this admission?: Yes Plan: We were hoping for discharge today but still very very nauseous, unable to be off IV, plan for changing antiemetics with IV Phenergan and IV Ativan, and IV Dex. (2) Colon cancer Qualifiers: Colon location: ascending Qualified Code(s): C18.2 - Malignant neoplasm of ascending colon Is this a current diagnosis for this admission?: Yes Plan: Status post cycle #3, still in chemo induced nausea. (3) Antineoplastic chemotherapy induced anemia Is this a current diagnosis for this admission?: Yes Plan: Hemoglobin still 8.1, hold on transfusion (4) Malignant ascites Is this a current diagnosis for this admission?: Yes Plan: Repeat ultrasound today or tomorrow will probably need another paracentesis soon. (5) Physical deconditioning Is this a current diagnosis for this admission?: Yes Plan: Continue physical therapy (6) Pain, neoplasm-related Is this a current diagnosis for this admission?: Yes Plan: Continue pain control
[2018-12-27] MEDS ORDERED: ALBUMIN HUMAN 25 GM/100 ML RTUINJ IV PRN (09:18)
--- NOTE | 2018-12-27 11:11 | PDOC PROGRESS REPORT ---
Subjective Progress Note for:: 12/27/18 Subjective:: And is still feeling nauseating Patient also feeling tightness in the abdominal area Other than that patient appetite is still poor Still weak Reason For Visit: INTRACTABLE VOMITING, STAGE 4 COLON CANCER Physical Exam Vital Signs: Temp Pulse Resp BP Pulse Ox 97.8 F 97 19 116/57 L 98 12/27/18 04:00 12/27/18 04:00 12/27/18 04:00 12/27/18 04:00 12/27/18 04:00 Intake & Output 12/26/18 12/27/18 12/28/18 06:59 06:59 06:59 Intake Total 1000 366 Output Total 750 250 Balance 250 116 Weight 105.7 kg 104.2 kg General appearance: PRESENT: no acute distress, well-developed, well-nourished Head exam: PRESENT: atraumatic, normocephalic Eye exam: PRESENT: conjunctiva pink, EOMI, PERRLA. ABSENT: scleral icterus Ear exam: PRESENT: normal external ear exam Mouth exam: PRESENT: moist, tongue midline Neck exam: PRESENT: full ROM. ABSENT: carotid bruit, JVD, lymphadenopathy, thyromegaly Respiratory exam: PRESENT: clear to auscultation leida Cardiovascular exam: PRESENT: RRR. ABSENT: diastolic murmur, rubs, systolic murmur Vascular exam: PRESENT: normal capillary refill GI/Abdominal exam: PRESENT: ascites, normal bowel sounds, soft. ABSENT: distended, guarding, mass, organolmegaly, rebound, tenderness Rectal exam: PRESENT: deferred Neurological exam: PRESENT: alert, awake, oriented to person, oriented to place, oriented to time, oriented to situation, CN II-XII grossly intact. ABSENT: motor sensory deficit Psychiatric exam: PRESENT: appropriate affect, normal mood. ABSENT: homicidal ideation, suicidal ideation Skin exam: PRESENT: dry, intact, warm. ABSENT: cyanosis, rash Results Laboratory Results: 12/27/18 04:12 12/27/18 04:12 12/27/18 12/27/18 04:12 04:12 WBC 4.3 RBC 3.12 L Hgb 8.1 L Hct 24.5 L MCV 79 L MCH 25.9 L MCHC 32.9 RDW 23.2 H Plt Count 192 Seg Neutrophils % Not Reportable Lymphocytes % Not Reportable Monocytes % Not Reportable Eosinophils % Not Reportable Basophils % Not Reportable Absolute Neutrophils Not Reportable Absolute Lymphocytes Not Reportable Absolute Monocytes Not Reportable Absolute Eosinophils Not Reportable Absolute Basophils Not Reportable Sodium 133.4 L Potassium 4.1 Chloride 94 L Carbon Dioxide 34 H Anion Gap 5 BUN 12 Creatinine 0.73 Est GFR ( Amer) > 60 Est GFR (Non-Af Amer) > 60 Glucose 89 Calcium 7.8 L Total Bilirubin 0.3 AST 28 ALT 28 Alkaline Phosphatase 90 Total Protein 4.4 L Albumin 2.2 L Impressions: Chest X-Ray 12/08/18 10:19 IMPRESSION: NO ACUTE RADIOGRAPHIC FINDING IN THE CHEST. Abdomen/Pelvis CT 12/13/18 00:00 IMPRESSION: Extensive peritoneal carcinomatosis and large amount of abdominal and pelvic ascites, worsening neoplastic findings. No evidence for small bowel obstruction. Paracentesis Ultrasound 12/19/18 00:00 IMPRESSION: SUCCESSFUL ULTRASOUND GUIDED PARACENTESIS. Assessment & Plan - Diagnosis (1) Colon cancer metastasized to lung Is this a current diagnosis for this admission?: Yes (2) Intractable vomiting Qualifiers: Vomiting type: cyclical vomiting Nausea presence: with nausea Qualified Code(s): G43.A1 - Cyclical vomiting, intractable Is this a current diagnosis for this admission?: Yes (3) Lung cancer Qualifiers: Laterality: unspecified laterality Lung location: unspecified part of lung Qualified Code(s): C34.90 - Malignant neoplasm of unspecified part of unspec ified bronchus or lung Is this a current diagnosis for this admission?: Yes (4) Malignant ascites Is this a current diagnosis for this admission?: Yes (5) Peritoneal carcinomatosis Is this a current diagnosis for this admission?: Yes - Time Time Spent with patient: 15-24 minutes Medications reviewed and adjusted accordingly: Yes Anticipated discharge: Home Within: Other - Plan Summary Plan Summary: Scheduled ultrasound-guided paracentesis Continues to care with the oncology
[2018-12-27] MEDS: POLYETHYLENE GLYCOL 3350 POWDER 17 GM/1 PACKET PO SCH (11:39)
[2018-12-27] MEDS: DOCUSATE SODIUM 100 MG CAPSULE PO SCH (11:46)
[2018-12-27] MEDS: DILTIAZEM HCL 120 MG CAP.SR.24H PO SCH (11:46)
[2018-12-27] MEDS: FLUTICASONE/UMECLIDIN/VILANTER 100-62.5-25 MCG/DOSE IH SCH (11:46)
[2018-12-27] MEDS: PROMETHAZINE HCL INJ 25 MG/1 ML VIAL IV PRN (12:58)
--- NOTE | 2018-12-27 15:21 | RADIOLOGY REPORT (SQ) ---
EXAM DESCRIPTION: U/S ABD PARACENTESIS COMPLETED DATE/TIME: 12/27/2018 2:59 pm REASON FOR STUDY: fluid removal COMPARISON None. LIMITATIONS: None. PROCEDURE: After obtaining informed consent, the patient was brought to the ultrasound suite. The p rocedure was performed with the patient on a gurney. Ultrasound was used to identify a prominent poc ket of ascites in the right lower quadrant. An appropriate access site was selected. The patient wa s prepped and draped in usual sterile fashion. The access site was anesthetized with 10 mL 1% lidoc vesna. A [id number] needle was advanced into the fluid. After aspiration of fluid the needle, t he catheter was advanced off the needle into the fluid. A total of 3,750 mL of straw-colored fluid w as removed. The patient tolerated the procedure well left the department in satisfactory condition. IMPRESSION: Successful ultrasound-guided paracentesis COMMENT: Patient medication list reviewed: Yes- Quality ID# [id number]:Eligible professional attests to doc umenting in the medical record they obtained, updated, or reviewed the patient's current medications. TECHNICAL DOCUMENTATION: JOB ID: [id number] [employer]- All Rights Reserved Reading location - IP/workstation name: [email or web address]
[2018-12-27] MEDS ORDERED: ALBUMIN HUMAN 12.5 GM/50 ML RTUINJ IV ONE (20:45)
[2018-12-28] MEDS: PROMETHAZINE HCL INJ 25 MG/1 ML VIAL IV PRN ×3 (00:09→21:22)
[2018-12-28] MEDS: HYDROMORPHONE HCL INJ/PF 2 MG/ML AMPULE IV PRN ×4 (02:15→19:08)
[2018-12-28] MEDS: ONDANSETRON HCL INJ/PF 4 MG/2 ML SDV IV PRN ×3 (02:16→19:08)
[2018-12-28] MEDS: LEVOTHYROXINE SODIUM 0.075 MG TABLET PO SCH (05:14)
[2018-12-28] MEDS: BUSPIRONE HCL 10 MG TABLET PO SCH ×3 (05:14→21:22)
[2018-12-28] MEDS: LEVOTHYROXINE SODIUM 0.1 MG TABLET PO SCH (05:14)
[2018-12-28] MEDS: LANSOPRAZOLE 30 MG TAB.RAP.DR PO SCH (05:14)
[2018-12-28] MEDS: GABAPENTIN 300 MG CAPSULE PO SCH ×3 (05:14→21:23)
[2018-12-28 06:46] LABS: INTERNATIONAL RATION (INR) 1.09; PROTHROMBIN TIME 14.6 SEC (11.4-15.4)
[2018-12-28 06:47] LABS: PARTIAL THROMBOPLASTIN TIME 46.9 SEC (23.5-35.8)
--- NOTE | 2018-12-28 08:42 | PDOC PROGRESS REPORT ---
Subjective Progress Note for:: 12/28/18 Subjective:: Still feels sick, got phenergan yesterday and was asleep good portion of day. Had paracentesis w/ about 3-4L out. Vomited yesterday pm Reason For Visit: INTRACTABLE VOMITING, STAGE 4 COLON CANCER Physical Exam Vital Signs: Temp Pulse Resp BP Pulse Ox 98.4 F 92 16 110/60 96 12/28/18 03:35 12/28/18 03:35 12/28/18 03:35 12/28/18 03:35 12/28/18 03:35 Intake & Output 12/27/18 12/28/18 12/29/18 06:59 06:59 06:59 Intake Total 366 838 Output Total 250 310 Balance 116 528 Weight 104.2 kg 104.2 kg General appearance: PRESENT: no acute distress, well-developed, well-nourished Head exam: PRESENT: atraumatic, normocephalic Eye exam: PRESENT: conjunctiva pink, EOMI, PERRLA. ABSENT: scleral icterus Ear exam: PRESENT: normal external ear exam Mouth exam: PRESENT: moist, tongue midline Neck exam: ABSENT: carotid bruit, JVD, lymphadenopathy, thyromegaly Respiratory exam: PRESENT: clear to auscultation leida. ABSENT: rales, rhonchi, wheezes Cardiovascular exam: PRESENT: RRR. ABSENT: diastolic murmur, rubs, systolic murmur Pulses: PRESENT: normal dorsalis pedis pul Vascular exam: PRESENT: normal capillary refill GI/Abdominal exam: PRESENT: normal bowel sounds, soft. ABSENT: distended, guarding, mass, organolmegaly, rebound, tenderness Rectal exam: PRESENT: deferred Extremities exam: PRESENT: full ROM. ABSENT: calf tenderness, clubbing, pedal edema Neurological exam: PRESENT: alert, awake, oriented to person, oriented to place, oriented to time, oriented to situation, CN II-XII grossly intact. ABSENT: motor sensory deficit Psychiatric exam: PRESENT: appropriate affect, normal mood. ABSENT: homicidal ideation, suicidal ideation Skin exam: PRESENT: dry, intact, warm. ABSENT: cyanosis, rash Results Laboratory Results: 12/27/18 04:12 12/27/18 04:12 Impressions: Chest X-Ray 12/08/18 10:19 IMPRESSION: NO ACUTE RADIOGRAPHIC FINDING IN THE CHEST. Abdomen/Pelvis CT 12/13/18 00:00 IMPRESSION: Extensive peritoneal carcinomatosis and large amount of abdominal and pelvic ascites, worsening neoplastic findings. No evidence for small bowel obstruction. Paracentesis Ultrasound 12/27/18 09:15 IMPRESSION: Successful ultrasound-guided paracentesis Assessment & Plan - Diagnosis (1) Intractable vomiting Qualifiers: Vomiting type: cyclical vomiting Nausea presence: with nausea Qualified Code(s): G43.A1 - Cyclical vomiting, intractable Is this a current diagnosis for this admission?: Yes Plan: 2nd chemo induced, cont, cont IVF and IV antiemetics (2) Colon cancer Qualifiers: Colon location: ascending Qualified Code(s): C18.2 - Malignant neoplasm of ascending colon Is this a current diagnosis for this admission?: Yes Plan: s/p cycle #3, hopefully chemo induced nausea will get better by end of week (3) Antineoplastic chemotherapy induced anemia Is this a current diagnosis for this admission?: Yes Plan: repeat cbc, cmp tomorrow (4) Malignant ascites Is this a current diagnosis for this admission?: Yes Plan: s/p paracentesis (5) Physical deconditioning Is this a current diagnosis for this admission?: Yes Plan: Cont PT (6) Pain, neoplasm-related Is this a current diagnosis for this admission?: Yes Plan: Cont pain control - Time Time Spent with patient: 35 or more minutes
--- NOTE | 2018-12-28 09:15 | PDOC PROGRESS REPORT ---
Subjective Progress Note for:: 12/28/18 Subjective:: Patient underwent for the paracentesis and removed almost 4 L of fluid Patient still feels very nauseating due to the chemotherapy Denied any chest pain to than any shortness of the breath Still have abdominal discomfort Reason For Visit: INTRACTABLE VOMITING, STAGE 4 COLON CANCER Physical Exam Vital Signs: Temp Pulse Resp BP Pulse Ox 97.3 F 94 18 95/62 L 96 12/28/18 07:39 12/28/18 07:39 12/28/18 07:39 12/28/18 07:39 12/28/18 07:39 Intake & Output 12/27/18 12/28/18 12/29/18 06:59 06:59 06:59 Intake Total 366 838 Output Total 250 310 Balance 116 528 Weight 104.2 kg 104.2 kg General appearance: PRESENT: no acute distress, well-developed, well-nourished Head exam: PRESENT: atraumatic, normocephalic Eye exam: PRESENT: conjunctiva pink, EOMI, PERRLA. ABSENT: scleral icterus Ear exam: PRESENT: normal external ear exam Mouth exam: PRESENT: moist, tongue midline Neck exam: PRESENT: full ROM. ABSENT: carotid bruit, JVD, lymphadenopathy, thyromegaly Respiratory exam: PRESENT: clear to auscultation leida Cardiovascular exam: PRESENT: RRR. ABSENT: diastolic murmur, rubs, systolic murmur Vascular exam: PRESENT: normal capillary refill GI/Abdominal exam: PRESENT: ascites, normal bowel sounds, soft. ABSENT: distended, guarding, mass, organolmegaly, rebound, tenderness Rectal exam: PRESENT: deferred Neurological exam: PRESENT: alert, awake, oriented to person, oriented to place, oriented to time, oriented to situation, CN II-XII grossly intact. ABSENT: motor sensory deficit Psychiatric exam: PRESENT: appropriate affect, normal mood. ABSENT: homicidal ideation, suicidal ideation Skin exam: PRESENT: dry, intact, warm. ABSENT: cyanosis, rash Results Laboratory Results: 12/27/18 04:12 12/27/18 04:12 Impressions: Chest X-Ray 12/08/18 10:19 IMPRESSION: NO ACUTE RADIOGRAPHIC FINDING IN THE CHEST. Abdomen/Pelvis CT 12/13/18 00:00 IMPRESSION: Extensive peritoneal carcinomatosis and large amount of abdominal and pelvic ascites, worsening neoplastic findings. No evidence for small bowel obstruction. Paracentesis Ultrasound 12/27/18 09:15 IMPRESSION: Successful ultrasound-guided paracentesis Assessment & Plan - Diagnosis (1) Colon cancer metastasized to lung Is this a current diagnosis for this admission?: Yes (2) Intractable vomiting Qualifiers: Vomiting type: cyclical vomiting Nausea presence: with nausea Qualified Code(s): G43.A1 - Cyclical vomiting, intractable Is this a current diagnosis for this admission?: Yes (3) Lung cancer Qualifiers: Laterality: unspecified laterality Lung location: unspecified part of lung Qualified Code(s): C34.90 - Malignant neoplasm of unspecified part of unspecified bronchus or lung Is this a current diagnosis for this admission?: Yes (4) Malignant ascites Is this a current diagnosis for this admission?: Yes (5) Peritoneal carcinomatosis Is this a current diagnosis for this admission?: Yes - Time Time Spent with patient: 15-24 minutes Medications reviewed and adjusted accordingly: Yes Anticipated discharge: Home Within: Other - Plan Summary Plan Summary: Patient still very weak still feels nauseating follow with the oncology continues to current medications
[2018-12-28] MEDS: INSULIN LISPRO 100 UNIT/ML 3 ML VIAL SUBCUT SCH ×3 (09:48→21:23)
[2018-12-28] MEDS: METFORMIN HCL 500 MG TABLET PO SCH ×2 (09:49→18:56)
[2018-12-28] MEDS: POLYETHYLENE GLYCOL 3350 POWDER 17 GM/1 PACKET PO SCH (09:55)
[2018-12-28] MEDS: DOCUSATE SODIUM 100 MG CAPSULE PO SCH (09:55)
[2018-12-28] MEDS: FLUTICASONE/UMECLIDIN/VILANTER 100-62.5-25 MCG/DOSE IH SCH (10:04)
[2018-12-28] MEDS: DILTIAZEM HCL 120 MG CAP.SR.24H PO SCH (15:00)
[2018-12-28] MEDS: DEXAMETHASONE SOD PHOSPHATE INJ 4 MG/1 ML VIAL IV SCH ×2 (15:16→21:22)
[2018-12-29] MEDS: HYDROMORPHONE HCL INJ/PF 2 MG/ML AMPULE IV PRN ×6 (00:10→21:22)
[2018-12-29] MEDS: ONDANSETRON HCL INJ/PF 4 MG/2 ML SDV IV PRN ×6 (00:10→21:22)
[2018-12-29] MEDS: LEVOTHYROXINE SODIUM 0.1 MG TABLET PO SCH (06:17)
[2018-12-29] MEDS: GABAPENTIN 300 MG CAPSULE PO SCH ×3 (06:18→21:22)
[2018-12-29] MEDS: LEVOTHYROXINE SODIUM 0.075 MG TABLET PO SCH (06:18)
[2018-12-29] MEDS: BUSPIRONE HCL 10 MG TABLET PO SCH ×3 (06:18→21:22)
[2018-12-29] MEDS: LANSOPRAZOLE 30 MG TAB.RAP.DR PO SCH (06:18)
[2018-12-29] MEDS: PROMETHAZINE HCL INJ 25 MG/1 ML VIAL IV PRN ×2 (06:18→18:32)
[2018-12-29] MEDS: METFORMIN HCL 500 MG TABLET PO SCH ×2 (08:06→17:25)
[2018-12-29] MEDS: INSULIN LISPRO 100 UNIT/ML 3 ML VIAL SUBCUT SCH ×4 (08:06→21:47)
--- NOTE | 2018-12-29 08:06 | PDOC PROGRESS REPORT ---
Subjective Progress Note for:: 12/29/18 Subjective:: Patient looks better today, nausea has improved. Seems to be slowly getting better. Of note his hemoglobin 2 days ago dropped down to 8.1, we will check it today. He may need 1 unit of packed red blood cell. Reason For Visit: INTRACTABLE VOMITING, STAGE 4 COLON CANCER Physical Exam Vital Signs: Temp Pulse Resp BP Pulse Ox 98.2 F 88 16 100/64 97 12/29/18 03:39 12/29/18 03:39 12/29/18 03:39 12/29/18 03:39 12/29/18 03:39 Intake & Output 12/28/18 12/29/18 12/30/18 06:59 06:59 06:59 Intake Total 838 1071 Output Total 310 450 Balance 528 621 Weight 104.2 kg 104.2 kg General appearance: PRESENT: no acute distress, well-developed, well-nourished Head exam: PRESENT: atraumatic, normocephalic Eye exam: PRESENT: conjunctiva pink, EOMI, PERRLA. ABSENT: scleral icterus Ear exam: PRESENT: normal external ear exam Mouth exam: PRESENT: moist, tongue midline Neck exam: ABSENT: carotid bruit, JVD, lymphadenopathy, thyromegaly Respiratory exam: PRESENT: clear to auscultation leida. ABSENT: rales, rhonchi, wheezes Cardiovascular exam: PRESENT: RRR. ABSENT: diastolic murmur, rubs, systolic murmur Pulses: PRESENT: normal dorsalis pedis pul Vascular exam: PRESENT: normal capillary refill GI/Abdominal exam: PRESENT: normal bowel sounds, soft. ABSENT: distended, guarding, mass, organolmegaly, rebound, tenderness Rectal exam: PRESENT: deferred Extremities exam: PRESENT: full ROM. ABSENT: calf tenderness, clubbing, pedal edema Neurological exam: PRESENT: alert, awake, oriented to person, oriented to place, oriented to time, oriented to situation, CN II-XII grossly intact. ABSENT: motor sensory deficit Psychiatric exam: PRESENT: appropriate affect, normal mood. ABSENT: homicidal ideation, suicidal ideation Skin exam: PRESENT: dry, intact, warm. ABSENT: cyanosis, rash Results Laboratory Results: 12/27/18 04:12 12/27/18 04:12 Impressions: Chest X-Ray 12/08/18 10:19 IMPRESSION: NO ACUTE RADIOGRAPHIC FINDING IN THE CHEST. Abdomen/Pelvis CT 12/13/18 00:00 IMPRESSION: Extensive peritoneal carcinomatosis and large amount of abdominal and pelvic ascites, worsening neoplastic findings. No evidence for small bowel obstruction. Paracentesis Ultrasound 12/27/18 09:15 IMPRESSION: Successful ultrasound-guided paracentesis Assessment & Plan - Diagnosis (1) Intractable vomiting Qualifiers: Vomiting type: cyclical vomiting Nausea presence: with nausea Qualified Code(s): G43.A1 - Cyclical vomiting, intractable Is this a current diagnosis for this admission?: Yes Plan: Chemo induced, improving (2) Colon cancer Qualifiers: Colon location: ascending Qualified Code(s): C18.2 - Malignant neoplasm of ascending colon Is this a current diagnosis for this admission?: Yes Plan: Further treatment as an outpatient (3) Antineoplastic chemotherapy induced anemia Is this a current diagnosis for this admission?: Yes Plan: Hemoglobin was down 2 days ago, may need transfusion. (4) Malignant ascites Is this a current diagnosis for this admission?: Yes Plan: Status post paracentesis (5) Physical deconditioning Is this a current diagnosis for this admission?: Yes Plan: Physical therapy working with patient will need home PT (6) Pain, neoplasm-related Is this a current diagnosis for this admission?: Yes Plan: Continue with current pain regimen
--- NOTE | 2018-12-29 08:54 | PDOC PROGRESS REPORT ---
Subjective Progress Note for:: 12/29/18 Subjective:: Patient is currently doing fair Still some nauseating but able to keep the food down No chest pain no short of breath Reason For Visit: INTRACTABLE VOMITING, STAGE 4 COLON CANCER Physical Exam Vital Signs: Temp Pulse Resp BP Pulse Ox 97.9 F 83 18 115/72 98 12/29/18 08:00 12/29/18 08:00 12/29/18 08:00 12/29/18 08:00 12/29/18 08:00 Intake & Output 12/28/18 12/29/18 12/30/18 06:59 06:59 06:59 Intake Total 838 1071 Output Total 310 450 Balance 528 621 Weight 104.2 kg 104.2 kg General appearance: PRESENT: no acute distress, well-developed, well-nourished Head exam: PRESENT: atraumatic, normocephalic Eye exam: PRESENT: conjunctiva pink, EOMI, PERRLA. ABSENT: scleral icterus Ear exam: PRESENT: normal external ear exam Mouth exam: PRESENT: moist, tongue midline Neck exam: PRESENT: full ROM. ABSENT: carotid bruit, JVD, lymphadenopathy, thyromegaly Respiratory exam: PRESENT: clear to auscultation leida Cardiovascular exam: PRESENT: RRR. ABSENT: diastolic murmur, rubs, systolic murmur Vascular exam: PRESENT: normal capillary refill GI/Abdominal exam: PRESENT: ascites, normal bowel sounds, soft. ABSENT: distended, guarding, mass, organolmegaly, rebound, tenderness Rectal exam: PRESENT: deferred Neurological exam: PRESENT: alert, awake, oriented to person, oriented to place, oriented to time, oriented to situation, CN II-XII grossly intact. ABSENT: motor sensory deficit Psychiatric exam: PRESENT: appropriate affect, normal mood. ABSENT: homicidal ideation, suicidal ideation Skin exam: PRESENT: dry, intact, warm. ABSENT: cyanosis, rash Results Laboratory Results: 12/27/18 04:12 12/27/18 04:12 Impressions: Chest X-Ray 12/08/18 10:19 IMPRESSION: NO ACUTE RADIOGRAPHIC FINDING IN THE CHEST. Abdomen/Pelvis CT 12/13/18 00:00 IMPRESSION: Extensive peritoneal carcinomatosis and large amount of abdominal and pelvic ascites, worsening neoplastic findings. No evidence for small bowel obstruction. Paracentesis Ultrasound 12/27/18 09:15 IMPRESSION: Successful ultrasound-guided paracentesis Assessment & Plan - Diagnosis (1) Colon cancer metastasized to lung Is this a current diagnosis for this admission?: Yes (2) Intractable vomiting Qualifiers: Vomiting type: cyclical vomiting Nausea presence: with nausea Qualified Code(s): G43.A1 - Cyclical vomiting, intractable Is this a current diagnosis for this admission?: Yes (3) Lung cancer Qualifiers: Laterality: unspecified laterality Lung location: unspecified part of lung Qualified Code(s): C34.90 - Malignant neoplasm of unspecified part of unspecified bronchus or lung Is this a current diagnosis for this admission?: Yes (4) Malignant ascites Is this a current diagnosis for this admission?: Yes (5) Peritoneal carcinomatosis Is this a current diagnosis for this admission?: Yes - Time Time Spent with patient: 15-24 minutes Medications reviewed and adjusted accordingly: Yes Anticipated discharge: Home, Home with Homehealth Within: Other - Plan Summary Plan Summary: Patient is apparently doing fair Discussed with the oncology while patient is currently remained stable for almost 2 weeks plus in the hospital patients get a maximum benefit in the hospital at this point discharged back to the home with the home health while patient unable to go to the nursing facility and see how the patient's response with this ongoing chemotherapy His prognosis is pretty much poor due to the ongoing colon cancer with the metastatic disease with the recurrent ascites discussed with the patient and the family understand very well
[2018-12-29] MEDS: DOCUSATE SODIUM 100 MG CAPSULE PO SCH (09:17)
[2018-12-29] MEDS: POLYETHYLENE GLYCOL 3350 POWDER 17 GM/1 PACKET PO SCH (09:17)
[2018-12-29] MEDS: DILTIAZEM HCL 120 MG CAP.SR.24H PO SCH (09:23)
[2018-12-29] MEDS: DEXAMETHASONE SOD PHOSPHATE INJ 4 MG/1 ML VIAL IV SCH ×2 (09:23→21:22)
[2018-12-29] MEDS: FENTANYL 50 MCG/HR PATCH.TD72 TD SCH (09:23)
[2018-12-29] MEDS: FLUTICASONE/UMECLIDIN/VILANTER 100-62.5-25 MCG/DOSE IH SCH (09:24)
[2018-12-29 09:43] LABS: HEMOGLOBIN 8.4 g/dL (13.5-17.0); MEAN CORPUSCULAR HEMOGLOBIN 25.5 pg (27.0-33.4); MEAN CORPUSCULAR HGB CONC 32.4 g/dL (32.0-36.0); MEAN CORPUSCULAR VOLUME 79 fl (80-97); PLATELET COUNT 209 10^3/uL (150-450); RED BLOOD COUNT 3.31 10^6/uL (4.35-5.55); RED CELL DISTRIBUTION WIDTH 23.9 % (11.5-14.0)
[2018-12-29 09:55] LABS: WHITE BLOOD COUNT 9.1 10^3/uL (4.0-10.5)
[2018-12-29 10:17] LABS: ALANINE AMINOTRANSFERASE 12 U/L (21-72); ALBUMIN 2.5 g/dL (3.5-5.0); ALKALINE PHOSPHATASE 103 U/L (38-126); ANION GAP 9 (5-19); ASPARTATE AMINO TRANSFERASE 29 U/L (17-59); BILIRUBIN,DIRECT 0.3 mg/dL (0.0-0.4); BILIRUBIN,TOTAL 0.3 mg/dL (0.2-1.3); BLOOD UREA NITROGEN 11 mg/dL (7-20); CALCIUM 7.9 mg/dL (8.4-10.2); CARBON DIOXIDE 32 mmol/L (22-30); CHLORIDE 94 mmol/L (98-107); GLUCOSE 106 mg/dL (75-110); POTASSIUM 4.2 mmol/L (3.6-5.0); SODIUM 134.5 mmol/L (137-145); TOTAL PROTEIN 4.9 g/dL (6.3-8.2)
[2018-12-29] MEDS ORDERED: HYDROMORPHONE HCL 2 MG TABLET PO PRN (10:28)
[2018-12-29 10:41] LABS: ABSOLUTE LYMPHOCYTES# (MANUAL) 0.2 10^3/uL (0.5-4.7); ABSOLUTE MONOCYTES # (MANUAL) 0.5 10^3/uL (0.1-1.4); ABSOLUTE NEUTROPHILS# (MANUAL) 8.5 10^3/uL (1.7-8.2); ANISOCYTOSIS 2+; BAND NEUTROPHILS % (MANUAL) 1 % (3-5); BASOPHILS % (MANUAL) 0 % (0-2); EOSINOPHILS % (MANUAL) 0 % (0-6); HYPOCHROMASIA 1+; LYMPHOCYTES % (MANUAL) 2 % (13-45); METAMYELOCYTES % (MANUAL) 1 % (0); MONOCYTES % (MANUAL) 5 % (3-13); PLATELET COMMENT ADEQUATE; POLYCHROMASIA 1+; SEGMENTED NEUTROPHILS % (MAN) 91 % (42-78); TOTAL CELLS COUNTED 100; TOXIC GRANULATION SLIGHT
[2018-12-30] MEDS: PROMETHAZINE HCL INJ 25 MG/1 ML VIAL IV PRN (00:50)
[2018-12-30] MEDS: ONDANSETRON HCL INJ/PF 4 MG/2 ML SDV IV PRN ×3 (02:35→14:14)
[2018-12-30] MEDS: HYDROMORPHONE HCL INJ/PF 2 MG/ML AMPULE IV PRN ×3 (02:36→14:36)
[2018-12-30] MEDS: GABAPENTIN 300 MG CAPSULE PO SCH ×2 (06:15→14:14)
[2018-12-30] MEDS: LANSOPRAZOLE 30 MG TAB.RAP.DR PO SCH (06:16)
[2018-12-30] MEDS: BUSPIRONE HCL 10 MG TABLET PO SCH ×2 (06:16→14:14)
[2018-12-30] MEDS: LEVOTHYROXINE SODIUM 0.075 MG TABLET PO SCH (06:16)
[2018-12-30] MEDS: LEVOTHYROXINE SODIUM 0.1 MG TABLET PO SCH (06:16)
[2018-12-30 07:37] LABS: HEMATOCRIT 24.4 % (37.9-51.0); MEAN CORPUSCULAR HGB CONC 32.5 g/dL (32.0-36.0); MEAN CORPUSCULAR VOLUME 80 fl (80-97); PLATELET COUNT 187 10^3/uL (150-450); RED BLOOD COUNT 3.06 10^6/uL (4.35-5.55); RED CELL DISTRIBUTION WIDTH 23.7 % (11.5-14.0)
[2018-12-30 07:47] LABS: HEMOGLOBIN 7.9 g/dL (13.5-17.0)
--- NOTE | 2018-12-30 08:01 | PDOC PROGRESS REPORT ---
Subjective Progress Note for:: 12/30/18 Subjective:: Patient did generally well yesterday was able to tolerate diet, drinking fluids, was able to tolerate some p.o. pain medication as well. Still needed some IV. Reason For Visit: INTRACTABLE VOMITING, STAGE 4 COLON CANCER Physical Exam Vital Signs: Temp Pulse Resp BP Pulse Ox 98.4 F 88 16 122/74 97 12/30/18 03:40 12/30/18 03:40 12/30/18 03:40 12/30/18 03:40 12/30/18 03:40 Intake & Output 12/29/18 12/30/18 12/31/18 06:59 06:59 06:59 Intake Total 1071 1180 Output Total 450 1700 Balance 621 -520 Weight 104.2 kg 104.2 kg General appearance: PRESENT: no acute distress, well-developed, well-nourished Head exam: PRESENT: atraumatic, normocephalic Eye exam: PRESENT: conjunctiva pink, EOMI, PERRLA. ABSENT: scleral icterus Ear exam: PRESENT: normal external ear exam Mouth exam: PRESENT: moist, tongue midline Neck exam: ABSENT: carotid bruit, JVD, lymphadenopathy, thyromegaly Respiratory exam: PRESENT: clear to auscultation leida. ABSENT: rales, rhonchi, wheezes Cardiovascular exam: PRESENT: RRR. ABSENT: diastolic murmur, rubs, systolic murmur Pulses: PRESENT: normal dorsalis pedis pul Vascular exam: PRESENT: normal capillary refill GI/Abdominal exam: PRESENT: normal bowel sounds, soft. ABSENT: distended, guarding, mass, organolmegaly, rebound, tenderness Rectal exam: PRESENT: deferred Extremities exam: PRESENT: full ROM. ABSENT: calf tenderness, clubbing, pedal edema Neurological exam: PRESENT: alert, awake, oriented to person, oriented to place, oriented to time, oriented to situation, CN II-XII grossly intact. ABSENT: motor sensory deficit Psychiatric exam: PRESENT: appropriate affect, normal mood. ABSENT: homicidal ideation, suicidal ideation Skin exam: PRESENT: dry, intact, warm. ABSENT: cyanosis, rash Results Laboratory Results: 12/30/18 06:00 12/29/18 12/29/18 12/30/18 09:15 09:15 06:00 WBC 9.1 D 10.0 RBC 3.31 L 3.06 L Hgb 8.4 L 7.9 L Hct 26.0 L 24.4 L MCV 79 L 80 MCH 25.5 L 26.0 L MCHC 32.4 32.5 RDW 23.9 H 23.7 H Plt Count 209 187 Seg Neutrophils % Not Reportable Not Reportable Lymphocytes % Not Reportable Not Reportable Monocytes % Not Reportable Not Reportable Eosinophils % Not Reportable Not Reportable Basophils % Not Reportable Not Reportable Absolute Neutrophils Not Reportable Not Reportable Absolute Lymphocytes Not Reportable Not Reportable Absolute Monocytes Not Reportable Not Reportable Absolute Eosinophils Not Reportable Not Reportable Absolute Basophils Not Reportable Not Reportable Sodium 134.5 L Potassium 4.2 Chloride 94 L Carbon Dioxide 32 H Anion Gap 9 BUN 11 Creatinine 0.71 Est GFR ( Amer) > 60 Est GFR (Non-Af Amer) > 60 Glucose 106 Calcium 7.9 L Total Bilirubin 0.3 AST 29 ALT 12 L Alkaline Phosphatase 103 Total Protein 4.9 L Albumin 2.5 L Impressions: Chest X-Ray 12/08/18 10:19 IMPRESSION: NO ACUTE RADIOGRAPHIC FINDING IN THE CHEST. Abdomen/Pelvis CT 12/13/18 00:00 IMPRESSION: Extensive peritoneal carcinomatosis and large amount of abdominal and pelvic ascites, worsening neoplastic findings. No evidence for small bowel obstruction. Paracentesis Ultrasound 12/27/18 09:15 IMPRESSION: Successful ultrasound-guided paracentesis Assessment & Plan - Diagnosis (1) Intractable vomiting Qualifiers: Vomiting type: cyclical vomiting Nausea presence: with nausea Qualified Code(s): G43.A1 - Cyclical vomiting, intractable Is this a current diagnosis for this admission?: Yes Plan: Improved enough to consider discharge today. (2) Colon cancer Qualifiers: Colon location: ascending Qualified Code(s): C18.2 - Malignant neoplasm of ascending colon Is this a current diagnosis for this admission?: Yes Plan: Plan for outpatient chemotherapy (3) Antineoplastic chemotherapy induced anemia Is this a current diagnosis for this admission?: Yes Plan: Hemoglobin stable did not transfuse (4) Malignant ascites Is this a current diagnosis for this admission?: Yes Plan: Will need periodic paracentesis (5) Physical deconditioning Is this a current diagnosis for this admission?: Yes Plan: Home PT planned (6) Pain, neoplasm-related Is this a current diagnosis for this admission?: Yes Plan: Asked nursing to check and see how much Dilaudid patient has, he may need a prescription for Dilaudid. He does have pain patches - Time Time Spent with patient: 35 or more minutes Anticipated discharge: Home Within: within 24 hours
[2018-12-30 08:27] LABS: ANION GAP 5 (5-19); BLOOD UREA NITROGEN 13 mg/dL (7-20); CALCIUM 7.6 mg/dL (8.4-10.2); CARBON DIOXIDE 35 mmol/L (22-30); CHLORIDE 95 mmol/L (98-107); GLUCOSE 117 mg/dL (75-110); POTASSIUM 3.9 mmol/L (3.6-5.0); SODIUM 135.3 mmol/L (137-145)
[2018-12-30] MEDS: INSULIN LISPRO 100 UNIT/ML 3 ML VIAL SUBCUT SCH ×2 (08:40→13:56)
[2018-12-30] MEDS: METFORMIN HCL 500 MG TABLET PO SCH (08:42)
[2018-12-30 08:43] LABS: ABSOLUTE LYMPHOCYTES# (MANUAL) 0.3 10^3/uL (0.5-4.7); ABSOLUTE MONOCYTES # (MANUAL) 0.2 10^3/uL (0.1-1.4); ABSOLUTE NEUTROPHILS# (MANUAL) 9.5 10^3/uL (1.7-8.2); ANISOCYTOSIS 2+; BASOPHILS % (MANUAL) 0 % (0-2); EOSINOPHILS % (MANUAL) 0 % (0-6); HYPOCHROMASIA 1+; LYMPHOCYTES % (MANUAL) 3 % (13-45); METAMYELOCYTES % (MANUAL) 2 % (0); MONOCYTES % (MANUAL) 2 % (3-13); POLYCHROMASIA SLIGHT; SEGMENTED NEUTROPHILS % (MAN) 93 % (42-78); STOMATOCYTES SLIGHT; TOTAL CELLS COUNTED 100
[2018-12-30 08:45] LABS: PLATELET COMMENT ADEQUATE; TOXIC GRANULATION SLIGHT
[2018-12-30] MEDS: DOCUSATE SODIUM 100 MG CAPSULE PO SCH (10:05)
[2018-12-30] MEDS: POLYETHYLENE GLYCOL 3350 POWDER 17 GM/1 PACKET PO SCH (10:05)
[2018-12-30] MEDS: DEXAMETHASONE SOD PHOSPHATE INJ 4 MG/1 ML VIAL IV SCH (10:13)
[2018-12-30] MEDS: DILTIAZEM HCL 120 MG CAP.SR.24H PO SCH (10:16)
[2018-12-30] MEDS: FLUTICASONE/UMECLIDIN/VILANTER 100-62.5-25 MCG/DOSE IH SCH (10:17)
--- NOTE | 2018-12-30 13:27 | PDOC DISCHARGE SUMMARY ---
General - Admit/Disc Date/PCP Admission Date/Primary Care Provider: 12/10/18 14:05 JAMES SULLIVAN MD Discharge Date: 12/30/18 - Discharge Diagnosis (1) Colon cancer metastasized to lung Is this a current diagnosis for this admission?: Yes (2) Intractable vomiting Is this a current diagnosis for this admission?: Yes (3) Lung cancer Is this a current diagnosis for this admission?: Yes (4) Malignant ascites Is this a current diagnosis for this admission?: Yes (5) Peritoneal carcinomatosis Is this a current diagnosis for this admission?: Yes - Additional Information Resuscitation Status: Full Code Discharge Diet: Cardiac Discharge Activity: Activity As Tolerated Home Medications: Buspirone HCl [Buspar 10 mg Tablet] 10 mg PO Q8 12/08/18 Diltiazem HCl [Diltiazem 24Hr ER] 120 mg PO DAILY 12/08/18 Fentanyl [Duragesic 50 Mcg/Hr Transdermal Patch] 50 mcg TOP Q3D 12/08/18 Fluticasone/Umeclidin/Vilanter [Trelegy 100-62.5-25 Mcg Ellipta 14 Dose/Dpi] 1 puff IH DAILY 12/08/18 Gabapentin [Neurontin 300 mg Capsule] 300 mg PO Q8 12/08/18 Hydromorphone HCl [Dilaudid] 4 mg PO Q8HP PRN 12/08/18 Levothyroxine Sodium [Synthroid] 175 mcg PO Q6AM 12/08/18 Metformin HCl [Glucophage] 1,000 mg PO BID 12/08/18 Ondansetron HCl [Zofran] 8 mg PO Q8HP PRN 12/08/18 Pantoprazole Sodium [Protonix] 40 mg PO DAILY 12/08/18 Promethazine HCl [Phenergan 25 mg Tablet] 25 mg PO Q6HP PRN 12/08/18 History of Present Illness History of Present Illness: ADRIEN BELTRAN is a 58 year old male This is a 58-year-old male with a significant history of the colon cancer with the metastases in the lung cancer with recurrent malignant ascites COPD oxygen dependent chronic pain and anemia from chronic disease and multiple other issues present in the emergency department with abdominal pain nausea vomiting unable to keep it down getting the chemotherapy decided to admit in the hospital for further evaluation and treatments Hospital Course Hospital Course: This is a 58-year-old male with a significant history of the colon cancer is with the metastatic disease currently on chemotherapy per oncology with recurrent malignant ascites history of the lung cancer history of the COPD and a history of oxygen dependent and multiple other medical issues present in the emergency department with persistent nausea vomiting abdominal pain patient admitting in the hospital for further evaluation and treatments Patient is received IV fluid and IV nausea medications Patient underwent for the paracentesis Patients also very weak get the physical therapy According to the oncology most likely a side effect from the chemotherapy with the ongoing colon cancer with the metastatic disease Patient stay in the hospital for 20 days also received the chemotherapy which patients makes the nausea vomiting require other week to get all the other medication and IV fluid Today's patients feel better at this point oncology suggest patients can go home and see how the patient's does that Patient still have a overall poor prognosis Very extensive discussed with the patient's family regarding the patient's current conditions with the poor prognosis Patient said that he has enough help at home will arrange the home health and physical therapy We also arrange the wheelchair and walker Patient hemoglobin was stable as per oncology We also scheduled the paracentesis next weeks Follow next week with the oncology The patient is some persistent issue with the chemotherapy next step is probably hospice care Physical Exam Vital Signs: Temp Pulse Resp BP Pulse Ox 97.8 F 76 18 123/65 99 12/30/18 11:35 12/30/18 11:35 12/30/18 11:35 12/30/18 11:35 12/30/18 11:35 Intake & Output 12/29/18 12/30/18 12/31/18 06:59 06:59 06:59 Intake Total 1071 1180 Output Total 450 1700 Balance 621 -520 Weight 104.2 kg 104.2 kg General appearance: PRESENT: no acute distress, well-developed, well-nourished Head exam: PRESENT: atraumatic, normocephalic Eye exam: PRESENT: conjunctiva pink, EOMI, PERRLA. ABSENT: scleral icterus Ear exam: PRESENT: normal external ear exam Mouth exam: PRESENT: moist, tongue midline Neck exam: PRESENT: full ROM. ABSENT: carotid bruit, JVD, lymphadenopathy, thyromegaly Respiratory exam: PRESENT: clear to auscultation leida Cardiovascular exam: PRESENT: RRR. ABSENT: diastolic murmur, rubs, systolic murmur Vascular exam: PRESENT: normal capillary refill GI/Abdominal exam: PRESENT: ascites, normal bowel sounds, soft. ABSENT: distended, guarding, mass, organolmegaly, rebound, tenderness Rectal exam: PRESENT: deferred Musculoskeletal exam: PRESENT: ambulatory Neurological exam: PRESENT: alert, awake, oriented to person, oriented to place, oriented to time, oriented to situation, CN II-XII grossly intact. ABSENT: motor sensory deficit Psychiatric exam: PRESENT: appropriate affect, normal mood. ABSENT: homicidal ideation, suicidal ideation Skin exam: PRESENT: dry, intact, warm. ABSENT: cyanosis, rash Results Laboratory Results: 12/30/18 06:00 12/30/18 06:00 12/30/18 12/30/18 06:00 06:00 WBC 10.0 RBC 3.06 L Hgb 7.9 L Hct 24.4 L MCV 80 MCH 26.0 L MCHC 32.5 RDW 23.7 H Plt Count 187 Seg Neutrophils % Not Reportable Lymphocytes % Not Reportable Monocytes % Not Reportable Eosinophils % Not Reportable Basophils % Not Reportable Absolute Neutrophils Not Reportable Absolute Lymphocytes Not Reportable Absolute Monocytes Not Reportable Absolute Eosinophils Not Reportable Absolute Basophils Not Reportable Sodium 135.3 L Potassium 3.9 Chloride 95 L Carbon Dioxide 35 H Anion Gap 5 BUN 13 Creatinine 0.88 Est GFR ( Amer) > 60 Est GFR (Non-Af Amer) > 60 Glucose 117 H Calcium 7.6 L Impressions: Chest X-Ray 12/08/18 10:19 IMPRESSION: NO ACUTE RADIOGRAPHIC FINDING IN THE CHEST. Abdomen/Pelvis CT 12/13/18 00:00 IMPRESSION: Extensive peritoneal carcinomatosis and large amount of abdominal and pelvic ascites, worsening neoplastic findings. No evidence for small bowel obstruction. Paracentesis Ultrasound 12/27/18 09:15 IMPRESSION: Successful ultrasound-guided paracentesis Qualifiers - * PATIENT BEING DISCHARGED WITH ANY OF THE FOLLOWING DIAGNOSIS: No VTE patient discharged on overlapping Therapy?: Yes Plan Time Spent: Greater than 30 Minutes - Patient at this point maximum benefit in the hospital Patient will discharge to the home with the home health physical therapy unable to go to the nursing facility because patient was to continue the chemotherapy The patient and the family understand if the patient still have a issue with the chemotherapy unable to handle it nothing else needs to be offered consider hospice care Patient overall prognosis is poor
[2018-12-30 14:21] VITALS: BP 122/74
[2018-12-30] MEDS ORDERED: NORMAL SALINE 10 ML SDV (AFTER EACH USE) IV PRN (15:00)
[2018-12-30] MEDS ORDERED: NORMAL SALINE 10 ML SDV (SCHEDULED) IV SCH (22:00)
== END 2018-12-30 15:20 | disposition home health service (06) | DRG 375 ==
LOC: ER 09:18 → EH 13:04 → 5 17:51 → OBSVTOIN 12-10 14:05
PROVIDERS: ADMIT Family Medicine; ATTEND Family Medicine
PROC: 30233N1 Transfusion of Nonautologous Red Blood Cells into Peripheral Vein, Percutaneous Approach (ICD-10-PCS; 2018-12-16)
PROC: 0W9G3ZZ Drainage of Peritoneal Cavity, Percutaneous Approach (ICD-10-PCS; principal; 2018-12-19)
PROC: 0W9G3ZZ Drainage of Peritoneal Cavity, Percutaneous Approach (ICD-10-PCS; 2018-12-19)
DX: C18.2 Malignant neoplasm of ascending colon (principal); C78.00 Secondary malignant neoplasm of unspecified lung; C78.6 Secondary malignant neoplasm of retroperitoneum and peritoneum; R18.0 Malignant ascites; T45.1X5A Adverse effect of antineoplastic and immunosuppressive drugs, initial encounter; D64.81 Anemia due to antineoplastic chemotherapy; D63.0 Anemia in neoplastic disease; G43.A1 Cyclical vomiting, in migraine, intractable; G89.3 Neoplasm related pain (acute) (chronic); I25.10 Atherosclerotic heart disease of native coronary artery without angina pectoris; E78.5 Hyperlipidemia, unspecified; I10 Essential (primary) hypertension; J44.9 Chronic obstructive pulmonary disease, unspecified; E11.9 Type 2 diabetes mellitus without complications; M19.90 Unspecified osteoarthritis, unspecified site; F32.9 Major depressive disorder, single episode, unspecified; Z83.3 Family history of diabetes mellitus; Z82.49 Family history of ischemic heart disease and other diseases of the circulatory system; Z79.02 Long term (current) use of antithrombotics/antiplatelets; Z79.899 Other long term (current) drug therapy; Z99.81 Dependence on supplemental oxygen; Z79.891 Long term (current) use of opiate analgesic; Z79.84 Long term (current) use of oral hypoglycemic drugs
CPT/HCPCS: 36415; 36430; 49083; 71045; 74177; 80048; 80053; 81001; 82607; 82728; 82962; 83540; 83550; 83615; 83690; 85025; 85027; 85610; 85730; 86850; 86900; 86901; 86920; 93005; 93010; 96360; 96361; 96365; 96367; 96374; 96375; 96376; 96409; 96413; 96415; 96416; 99285; A4222; G0378; J0610; J1100; J1170; J1200; J1642; J1650; J1815; J1940; J2060; J2405; J2469; J2550; J2765; J3490; J7030; J7060; J9190; J9263; P9016; P9047

== ENCOUNTER 2019-01-02 13:16 | Inpatient (IN) | payer MEDICARE, MEDICAID ==
[2019-01-02 14:19] LABS: HEMATOCRIT 28.2 % (37.9-51.0); MEAN CORPUSCULAR HEMOGLOBIN 25.5 pg (27.0-33.4); MEAN CORPUSCULAR VOLUME 80 fl (80-97); PLATELET COUNT 205 10^3/uL (150-450); RED BLOOD COUNT 3.54 10^6/uL (4.35-5.55); RED CELL DISTRIBUTION WIDTH 24.3 % (11.5-14.0); WHITE BLOOD COUNT 18.7 10^3/uL (4.0-10.5)
[2019-01-02 14:37] LABS: ALANINE AMINOTRANSFERASE 13 U/L (21-72); ALBUMIN 2.7 g/dL (3.5-5.0); ALKALINE PHOSPHATASE 106 U/L (38-126); ANION GAP 10 (5-19); ASPARTATE AMINO TRANSFERASE 34 U/L (17-59); BILIRUBIN,DIRECT 0.3 mg/dL (0.0-0.4); BILIRUBIN,TOTAL 0.6 mg/dL (0.2-1.3); BLOOD UREA NITROGEN 13 mg/dL (7-20); CALCIUM 7.9 mg/dL (8.4-10.2); CARBON DIOXIDE 30 mmol/L (22-30); CHLORIDE 94 mmol/L (98-107); GLUCOSE 153 mg/dL (75-110); SODIUM 134.3 mmol/L (137-145); TOTAL PROTEIN 5.1 g/dL (6.3-8.2)
[2019-01-02] MEDS ORDERED: MORPHINE SULFATE 10 MG/ML INJ IV ONE (14:50)
[2019-01-02] MEDS ORDERED: ONDANSETRON HCL INJ/PF 4 MG/2 ML SDV IV ONE (14:50)
[2019-01-02] MEDS ORDERED: NORMAL SALINE 1000 ML 1,000 ML IV ONE (14:50)
[2019-01-02] MEDS ORDERED: PIPERACILLIN/TAZOBACTAM 3.375 GM VIAL IV ONE (14:52)
[2019-01-02] MEDS ORDERED: VANCOMYCIN HCL INJ 1000 MG VIAL IV ONE (14:52)
[2019-01-02 15:07] LABS: ABSOLUTE LYMPHOCYTES# (MANUAL) 0.4 10^3/uL (0.5-4.7); ABSOLUTE MONOCYTES # (MANUAL) 0.6 10^3/uL (0.1-1.4); ABSOLUTE NEUTROPHILS# (MANUAL) 17.8 10^3/uL (1.7-8.2); BAND NEUTROPHILS % (MANUAL) 1 % (3-5); BASOPHILS % (MANUAL) 0 % (0-2); EOSINOPHILS % (MANUAL) 0 % (0-6); LYMPHOCYTES % (MANUAL) 2 % (13-45); METAMYELOCYTES % (MANUAL) 1 % (0); MONOCYTES % (MANUAL) 3 % (3-13); SEGMENTED NEUTROPHILS % (MAN) 93 % (42-78); TOTAL CELLS COUNTED 100
[2019-01-02 15:08] LABS: ANISOCYTOSIS 3+; HYPOCHROMASIA SLIGHT; OVALOCYTES 1+; PLATELET COMMENT ADEQUATE; POIKILOCYTOSIS 1+; POLYCHROMASIA SLIGHT
--- NOTE | 2019-01-02 15:09 | ER Document Report ---
ED General - General Chief Complaint: Nausea/Vomiting Stated Complaint: ABDOMINAL PAIN Time Seen by Provider: 01/02/19 14:08 Primary Care Provider: JAMES SULLIVAN MD [Primary Care Provider] - Follow up as needed TRAVEL OUTSIDE OF THE [place] IN LAST 30 DAYS: No - HPI Notes: Patient is a 58-year-old male that presents to the emergency department for chief complaint of nausea, vomiting and abdominal pain. Patient reports recently being discharged from the hospital. He has had nausea with vomiting for 2 days. He has a history of colon cancer with metastasis to his lungs. He is currently on chemotherapy and states his last dose was last week. He believes that he is having a reaction to his chemotherapy which is causing his discomfort. He did have paracentesis done while in the hospital and states he is scheduled to have that again on Wednesday. Patient denies any feve rs or chills. He denies any diarrhea. He states he has diffuse abdominal pain that is achy in nature. He denies aggravating or relieving factors to his pain. Past Medical History: Colon cancer with metastasis to lungs, COPD Past Surgical History: Reviewed in chart Social History: Reviewed in chart Family History: Reviewed and noncontributory for presenting illness Allergies: Reviewed, see documented allergy list. REVIEW OF SYSTEMS: CONSTITUTIONAL : No fever No chills No diaphoresis No recent illness EENT: No vision changes No congestion No sore throat CARDIOVASCULAR: No chest pain No palpitations RESPIRATORY: No shortness of breath No cough No difficulty breathing GASTROINTESTINAL: abdominal pain nausea vomiting No diarrhea GENITOURINARY: No dysuria No hematuria No difficulty urinating MUSCULOSKELETAL: No back pain No leg pain No arm pain SKIN: No rashes No lesions LYMPHATIC: No swollen, enlarged glands. NEUROLOGICAL: No lightheadedness No headache No weakness No paresthesias PSYCHIATRIC: No anxiety No depression PHYSICAL EXAMINATION: Vital signs reviewed, nursing noted reviewed. GENERAL: Ill-appearing, well-nourished and in no acute distress. HEAD: Atraumatic, normocephalic. EYES: Eyes appear normal, extraocular movements intact, sclera anicteric, conjunctiva are normal. ENT: nares patent, oropharynx clear without exudates. Dry mucous membranes. NECK: Normal range of motion, supple without lymphadenopathy LUNGS: Breath sounds diminished bilaterally. No wheezing rhonchi or rales. No accessory muscle use. HEART: Tachycardic rate and regular rhythm without murmurs ABDOMEN: Distended, soft, mild diffuse tenderness. No rebound, guarding, or rigidity. No masses appreciated. Right upper quadrant punctate lesion consistent with recent paracentesis, no erythema or induration EXTREMITIES: Nontender, trace pretibial edema bilaterally, symmetric. NEUROLOGICAL: No focal neurological deficits. Generalized motor weakness but able to move all extremities on command. Sensory grossly intact. Flat PSYCH: Normal mood, flat affect. SKIN: Warm, Dry, normal turgor, no rashes or lesions noted on exposed skin - Related Data Allergies/Adverse Reactions: No Known Allergies Allergy (Verified 12/08/18 09:38) Past Medical History - Social History Smoking Status: Former Smoker Family History: Reviewed & Not Pertinent, DM, Hypertension Patient has suicidal ideation: No Patient has homicidal ideation: No - Past Medical History Cardiac Medical History: Reports: Hx Coronary Artery Disease, Hx Hypercholesterolemia, Hx Hypertension Denies: Hx Heart Attack Pulmonary Medical History: Reports: Hx COPD Denies: Hx Asthma, Hx Bronchitis, Hx Pneumonia Neurological Medical History: Denies: Hx Cerebrovascular Accident, Hx Seizures Endocrine Medical History: Reports: Hx Diabetes Mellitus Type 2 Renal/ Medical History: Denies: Hx Peritoneal Dialysis Malignancy Medical History: Reports Hx Bone Cancer, Reports Hx Colorectal Cancer, Reports Hx Lung Cancer GI Medical History: Denies: Hx Liver Failure Musculoskeletal Medical History: Reports Hx Arthritis Psychiatric Medical History: Reports: Hx Depression Past Surgical History: Reports: Hx Vascular Surgery - LEFT CHEST PORT - Immunizations Immunizations up to date: Yes Hx Diphtheria, Pertussis, Tetanus Vaccination: No Physical Exam - Vital signs Vitals: Pulse BP Pulse Ox 114 H 113/64 100 01/02/19 13:24 01/02/19 13:24 01/02/19 13:24 Course - Re-evaluation Re-evalutation: 01/02/19 15:08 Vitals reviewed. Nursing notes reviewed. Patient is tachycardic and appears dehydrated. He was started on IV fluids and given Zofran for symptom medic management. He does have a leukocytosis which was ordered in triage. Patient will be given vancomycin and Zosyn for concern of sepsis while on chemotherapy. Urinalysis and chest x-ray were added to further evaluate for underlying i nfection. 01/02/19 16:[address] scan shows no significant change however the carcinomatosis finding was discussed with the radiologist who states it can be related to SBP. I am clinically concerned that patient has SBP. Patient will be admitted to the hospital for further management. Case discussed with Dr. Sullivan who evaluated the patient in the emergency room. He did request I order paracentesis which have confirmed with ultrasound is available today. Patient's care was also discussed with Dr. Waldron who will be placed on consultation. Laboratory 01/02/19 01/02/19 14:06 14:06 WBC 18.7 H RBC 3.54 L Hgb 9.0 L Hct 28.2 L MCV 80 MCH 25.5 L MCHC 32.0 RDW 24.3 H Plt Count 205 Total Counted 100 Seg Neutrophils % Not Reportable Seg Neuts % (Manual) 93 H Band Neutrophils % 1 L Lymphocytes % Not Reportable Lymphocytes % (Manual) 2 L Monocytes % Not Reportable Monocytes % (Manual) 3 Eosinophils % Not Reportable Eosinophils % (Manual) 0 Basophils % Not Reportable Basophils % (Manual) 0 Metamyelocytes % 1 H Absolute Neutrophils Not Reportable Abs Neuts (Manual) 17.8 H Absolute Lymphocytes Not Reportable Abs Lymphs (Manual) 0.4 L Absolute Monocytes Not Reportable Abs Monocytes (Manual) 0.6 Absolute Eosinophils Not Reportable Absolute Eos (Manual) 0.0 Absolute Basophils Not Reportable Abs Basophils (Manual) 0.0 Platelet Comment ADEQUATE Polychromasia SLIGHT Hypochromasia SLIGHT Poikilocytosis 1+ Basophilic Stippling PRESENT Anisocytosis 3+ Microcytosis SLIGHT Ovalocytes 1+ Sodium 134.3 L Potassium 4.0 Chloride 94 L Carbon Dioxide 30 Anion Gap 10 BUN 13 Creatinine 0.66 Est GFR ( Amer) > 60 Est GFR (Non-Af Amer) > 60 Glucose 153 H Calcium 7.9 L Total Bilirubin 0.6 Direct Bilirubin 0.3 Neonat Total Bilirubin Not Reportable Neonat Direct Bilirubin Not Reportable Neonat Indirect Bili Not Reportable AST 34 ALT 13 L Alkaline Phosphatase 106 Total Protein 5.1 L Albumin 2.7 L Lipase 48.0 Chest X-Ray 01/02/19 14:50 IMPRESSION: NO ACUTE RADIOGRAPHIC FINDING IN THE CHEST. Abdomen/Pelvis CT 01/02/19 15:09 IMPRESSION: Known colon cancer with peritoneal carcinomatosis and moderate ascites. No significant change. 01/02/19 16:58 - Vital Signs Vital signs: Temp Pulse Resp BP Pulse Ox 114 H 113/64 100 01/02/19 13:24 01/02/19 13:24 01/02/19 13:24 - Laboratory Result Diagrams: 01/02/19 14:06 01/02/19 14:06 Laboratory results interpreted by me: 01/02/19 01/02/19 14:06 14:06 WBC 18.7 H RBC 3.54 L Hgb 9.0 L Hct 28.2 L MCH 25.5 L RDW 24.3 H Seg Neuts % (Manual) 93 H Band Neutrophils % 1 L Lymphocytes % (Manual) 2 L Metamyelocytes % 1 H Abs Neuts (Manual) 17.8 H Abs Lymphs (Manual) 0.4 L Sodium 134.3 L Chloride 94 L Glucose 153 H Calcium 7.9 L ALT 13 L Total Protein 5.1 L Albumin 2.7 L - EKG Interpretation by Me Additional EKG results interpreted by me: 01/02/19 15:52 Interpreted by myself [id number]: Sinus tachycardia, rate 105, left axis, left anterior fascicular block, no STEMI Discharge - Discharge Clinical Impression: SBP (spontaneous bacterial peritonitis) Sepsis Qualifiers: Sepsis type: sepsis due to unspecified organism Qualified Code(s): A41.9 - Sepsis, unspecified organism Abdominal pain Qualifiers: Abdominal location: generalized Qualified Code(s): R10.84 - Generalized abdominal pain Condition: Stable Disposition: ADMITTED INPATIENT Admitting Provider: Sullivan Unit Admitted: [facility] Referrals: JAMES SULLIVAN MD [Primary Care Provider] - Follow up as needed
--- NOTE | 2019-01-02 15:22 | RADIOLOGY REPORT (SQ) ---
EXAM DESCRIPTION: CHEST SINGLE VIEW COMPLETED DATE/TIME: 01/02/2019 3:08 pm REASON FOR STUDY: cough COMPARISON: 12/08/2018 EXAM PARAMETERS: NUMBER OF VIEWS: One view. TECHNIQUE: Single frontal radiographic view of the chest acquired. RADIATION DOSE: NA LIMITATIONS: None. FINDINGS: LUNGS AND PLEURA: No opacities, masses or pneumothorax. No pleural effusion. MEDIASTINUM AND HILAR STRUCTURES: No masses. Contour normal. HEART AND VASCULAR STRUCTURES: Heart normal in size. Normal vasculature. BONES: Multiple callused fracture deformities of the right ribs. HARDWARE: None in the chest. OTHER: Left chest port catheter. IMPRESSION: NO ACUTE RADIOGRAPHIC FINDING IN THE CHEST. TECHNICAL DOCUMENTATION: JOB ID: [id number] [employer]- All Rights Reserved Reading location - IP/workstation name: [email or web address]
--- NOTE | 2019-01-02 16:41 | RADIOLOGY REPORT (SQ) ---
EXAM DESCRIPTION: CT ABD/PELVIS WITH IV ONLY COMPLETED DATE/TIME: 01/02/2019 4:09 pm REASON FOR STUDY: Abdominal pain COMPARISON: 12/13/2018 TECHNIQUE: CT scan of the abdomen and pelvis performed using helical scanning technique with dynamic intravenous contrast injection. No oral contrast. Images reviewed with lung, soft tissue, and bone windows. Reconstructed coronal and sagittal MPR images reviewed. Delayed images for evaluation of the urinary system also acquired. All images stored on PACS. All CT scanners at this facility use dose modulation, iterative reconstruction, and/or weight based d osing when appropriate to reduce radiation dose to as low as reasonably achievable (ALARA). [facility]: Dose Right [facility]: CareDose [facility]: Dose Right [facility]: Teradose 4D [facility]: [employer] CONTRAST TYPE AND DOSE: contrast/concentration: Isovue 350.00 mg/ml; Total Contrast Delivered: 100.0 ml; Total Saline Delivered: 50.0 ml RENAL FUNCTION: GFR > 60. RADIATION DOSE: CT Rad equipment meets quality standard of care and radiation dose reduction techniq ues were employed. CTDIvol: 16.8 - 18.6 mGy. DLP: 2068 mGy-cm.. LIMITATIONS: None. FINDINGS: LOWER CHEST: Small left pleural effusion. LIVER: Diffuse decreased attenuation. There are 2 subcentimeter low-density lesions that are too sma ll to characterize. SPLEEN: Normal size. No focal lesions. PANCREAS: No masses. No significant calcifications. No adjacent inflammation or peripancreatic fluid collections. Pancreatic duct not dilated. GALLBLADDER: No identified stones by CT criteria. No inflammatory changes to suggest cholecystitis. ADRENAL GLANDS: No significant masses or asymmetry. RIGHT KIDNEY AND URETER: No solid masses. No significant calcifications. No hydronephrosis or hyd roureter. LEFT KIDNEY AND URETER: No solid masses. No significant calcifications. No hydronephrosis or hydr oureter. AORTA AND VESSELS: No aneurysm. RETROPERITONEUM: No retroperitoneal adenopathy, hemorrhage or masses. BOWEL AND PERITONEAL CAVITY: Moderate ascites. Increased density in the omental fat. 6 cm peritonea l implant versus loculated ascites right lower quadrant image 42 series 601. No bowel obstruction. No free air. APPENDIX: Not visualized. PELVIS: No pelvic adenopathy. ABDOMINAL WALL: No masses. No hernias. BONES: Nothing acute. OTHER: No other significant finding. IMPRESSION: Known colon cancer with peritoneal carcinomatosis and moderate ascites. No significant change. TECHNICAL DOCUMENTATION: JOB ID: [id number] Quality ID # [id number]: Final reports with documentation of one or more dose reduction techniques (e.g., Au tomated exposure control, adjustment of the mA and/or kV according to patient size, use of iterative reconstruction technique) 2010 [employer]- All Rights Reserved Reading location - IP/workstation name: [email or web address]
[2019-01-02] MEDS ORDERED: ACETAMINOPHEN 325 MG TABLET PO PRN (16:56)
[2019-01-02] MEDS ORDERED: GLUCAGON,HUMAN RECOMB 1 MG INJ IM PRN (17:00)
[2019-01-02] MEDS ORDERED: DEXTROSE 50%-WATER 25 GM/50 ML DISP.SYRIN IV PRN ×2 (17:00)
[2019-01-02] MEDS ORDERED: DEXTROSE 40% GEL 15 GM TUBE PO PRN ×2 (17:00)
--- NOTE | 2019-01-02 17:09 | PDOC H&P ---
History of Present Illness Admission Date/PCP: JAMES SULLIVAN MD Patient complains of: Nausea and vomiting and abdominal pain History of Present Illness: ADRIEN BELTRAN is a 58 year old male This is a 58-year-old male with a history of the colon cancer with a metastatic disease and recurrent malignant ascites with a history of the lung cancer COPD history of the A. fib and multiple medical problems with overall poor prognosis recently admitted more than 2 weeks in the hospital for nausea vomiting abdominal pain and a recurrent ascites with the paracentesis was done twice and more than 10 L of the fluid each time was removed recent getting the chemotherapy with persistent nausea vomiting getting better was discharged on a Wednesday Patient is came today's with unable to handle at home very weak still persistent nausea vomiting poor p.o. intake and patient initial workup in the ER with the white count was 18,000 which questionable SBP which is most likely while the patient's chest x-ray is clear and no other symptoms with questionable ongoing metastatic disease on the CT scan decided to admit in the hospital Patient is already received the IV antibiotics Discussed with the patient and discussed with the oncology doctor tomorrow regarding the patient's possible hospice care while the patient's unable to handle the chemotherapy Patient is denied any chest pain to than any shortness of the breath Past Medical History Cardiac Medical History: Reports: Coronary Artery Disease, Hyperlipidema, Hypertension Denies: Myocardial Infarction Pulmonary Medical History: Reports: Chronic Obstructive Pulmonary Disease (COPD) Denies: Asthma, Bronchitis, Pneumonia Neurological Medical History: Denies: Seizures Endocrine Medical History: Reports: Diabetes Mellitus Type 2 Malignancy Medical History: Reports: Bone Cancer, Colorectal Cancer, Lung Cancer Musculoskeltal Medical History: Reports: Arthritis Psychiatric Medical History: Reports: Depression Hematology: Denies: Anemia Past Surgical History Past Surgical History: Reports: Vascular Surgery - LEFT CHEST PORT Social History Smoking Status: Former Smoker Frequency of Alcohol Use: Occasional Hx Recreational Drug Use: No Drugs: None Hx Prescription Drug Abuse: No Family History Family History: Reviewed & Not Pertinent, DM, Hypertension Parental Family History Reviewed: Yes Children Family History Reviewed: Yes Sibling(s) Family History Reviewed.: Yes Medication/Allergy Home Medications: Buspirone HCl [Buspar 10 mg Tablet] 10 mg PO Q8 12/08/18 Diltiazem HCl [Diltiazem 24Hr ER] 120 mg PO DAILY 12/08/18 Fentanyl [Duragesic 50 Mcg/Hr Transdermal Patch] 50 mcg TOP Q3D 12/08/18 Fluticasone/Umeclidin/Vilanter [Trelegy 100-62.5-25 Mcg Ellipta 14 Dose/Dpi] 1 puff IH DAILY 12/08/18 Gabapentin [Neurontin 300 mg Capsule] 300 mg PO Q8 12/08/18 Hydromorphone HCl [Dilaudid] 4 mg PO Q8HP PRN 12/08/18 Levothyroxine Sodium [Synthroid] 175 mcg PO Q6AM 12/08/18 Metformin HCl [Glucophage] 1,000 mg PO BID 12/08/18 Ondansetron HCl [Zofran] 8 mg PO Q8HP PRN 12/08/18 Pantoprazole Sodium [Protonix] 40 mg PO DAILY 12/08/18 Promethazine HCl [Phenergan 25 mg Tablet] 25 mg PO Q6HP PRN 12/08/18 Allergies/Adverse Reactions: No Known Allergies Allergy (Verified 12/08/18 09:38) Review of Systems Constitutional: PRESENT: anorexia, fatigue, weakness. ABSENT: chills, fever(s), headache(s), weight gain, weight loss Eyes: ABSENT: visual disturbances Ears: ABSENT: hearing changes Cardiovascular: ABSENT: chest pain, dyspnea on exertion, edema, orthropnea, palpitations Respiratory: ABSENT: cough, hemoptysis Gastrointestinal: PRESENT: abdominal pain, dysphagia, nausea, vomiting. ABSENT: constipation, diarrhea, hematemesis, hematochezia Genitourinary: ABSENT: dysuria, hematuria Musculoskeletal: ABSENT: joint swelling Integumentary: ABSENT: rash, wounds Neurological: ABSENT: abnormal gait, abnormal speech, confusion, dizziness, focal weakness, syncope Psychiatric: ABSENT: anxiety, depression, homidical ideation, suicidal ideation Endocrine: ABSENT: cold intolerance, heat intolerance, menstrual abnormalities, polydipsia, polyuria Hematologic/Lymphatic: ABSENT: easy bleeding, easy bruising, lymphadenopathy Physical Exam Vital Signs: Temp Pulse Resp BP Pulse Ox 114 H 113/64 100 01/02/19 13:24 01/02/19 13:24 01/02/19 13:24 Intake & Output 01/01/19 01/02/19 01/03/19 06:59 06:59 06:59 Weight 108.862 kg General appearance: PRESENT: no acute distress, well-developed, well-nourished Head exam: PRESENT: atraumatic, normocephalic Eye exam: PRESENT: conjunctiva pink, EOMI, PERRLA. ABSENT: scleral icterus Ear exam: PRESENT: normal external ear exam Mouth exam: PRESENT: moist, tongue midline Neck exam: PRESENT: full ROM. ABSENT: carotid bruit, JVD, lymphadenopathy, thyromegaly Respiratory exam: PRESENT: clear to auscultation leida Cardiovascular exam: PRESENT: RRR, +S1, +S2. ABSENT: diastolic murmur, rubs, systolic murmur Vascular exam: PRESENT: normal capillary refill GI/Abdominal exam: PRESENT: ascites, normal bowel sounds, soft, tenderness. ABSENT: distended, guarding, mass, organolmegaly, rebound Rectal exam: PRESENT: deferred Neurological exam: PRESENT: alert, awake, oriented to person, oriented to place, oriented to time, oriented to situation, CN II-XII grossly intact. ABSENT: motor sensory deficit Psychiatric exam: PRESENT: appropriate affect, normal mood. ABSENT: homicidal ideation, suicidal ideation Skin exam: PRESENT: dry, intact, warm. ABSENT: cyanosis, rash Results Laboratory Results: 01/02/19 14:06 01/02/19 14:06 01/02/19 01/02/19 14:06 14:06 WBC 18.7 H RBC 3.54 L Hgb 9.0 L Hct 28.2 L MCV 80 MCH 25.5 L MCHC 32.0 RDW 24.3 H Plt Count 205 Seg Neutrophils % Not Reportable Lymphocytes % Not Reportable Monocytes % Not Reportable Eosinophils % Not Reportable Basophils % Not Reportable Absolute Neutrophils Not Reportable Absolute Lymphocytes Not Reportable Absolute Monocytes Not Reportable Absolute Eosinophils Not Reportable Absolute Basophils Not Reportable Sodium 134.3 L Potassium 4.0 Chloride 94 L Carbon Dioxide 30 Anion Gap 10 BUN 13 Creatinine 0.66 Est GFR ( Amer) > 60 Est GFR (Non-Af Amer) > 60 Glucose 153 H Calcium 7.9 L Total Bilirubin 0.6 AST 34 ALT 13 L Alkaline Phosphatase 106 Total Protein 5.1 L Albumin 2.7 L Lipase 48.0 Impressions: Chest X-Ray 01/02/19 14:50 IMPRESSION: NO ACUTE RADIOGRAPHIC FINDING IN THE CHEST. Abdomen/Pelvis CT 01/02/19 15:09 IMPRESSION: Known colon cancer with peritoneal carcinomatosis and moderate ascites. No significant change. Assessment & Plan - Diagnosis (1) Abdominal pain Qualifiers: Abdominal location: generalized Qualified Code(s): R10.84 - Generalized abdominal pain Is this a current diagnosis for this admission?: Yes Plan: Due to the ongoing colon cancers with the metastatic disease with possible SBP (2) SBP (spontaneous bacterial peritonitis) Is this a current diagnosis for this admission?: Yes Plan: Will order the fluid analysis and culture once the interventional radiology is coming due date Will cover the IV antibiotic until the cultures come back At this point there is no surgical abdomen (3) Sepsis Qualifiers: Sepsis type: sepsis due to unspecified organism Qualified Code(s): A41.9 - Sepsis, unspecified organism Is this a current diagnosis for this admission?: Yes Plan: Will get the blood culture urine culture peritoneal fluid culture start on broad-spectrum antibiotic including the zosyn and vancomycin (4) Anxiety disorder Qualifiers: Anxiety disorder type: generalized anxiety disorder Is this a current diagnosis for this admission?: Yes Plan: Continues the BuSpar (5) Colon cancer Qualifiers: Colon location: unspecified part of colon Qualified Code(s): C18.9 - Malignant neoplasm of colon, unspecified Is this a current diagnosis for this admission?: Yes Plan: Consult the oncology (6) Lung cancer Qualifiers: Lung location: unspecified part of lung Is this a current diagnosis for this admission?: Yes (7) Peritoneal carcinomatosis Is this a current diagnosis for this admission?: Yes (8) Thyroid disorder Is this a current diagnosis for this admission?: Yes (9) Type 2 diabetes mellitus Qualifiers: Is this a current diagnosis for this admission?: Yes Plan: Cover with a sliding scale - Time Time Spent: 50 to 70 Minutes Medications reviewed and adjusted accordingly: Yes Anticipated discharge: Hospice Within: Other - Inpatient Certification Based on my medical assessment, after consideration of the patient's comorbidities, presenting symptoms, or acuity I expect that the services needed warrant INPATIENT care.: Yes I certify that my determination is in accordance with my understanding of Medic are's requirements for reasonable and necessary INPATIENT services [42 CFR 412.3e].: Yes Medical Necessity: Significant Comorbidiites Make Outpatient Treatment Too Risky, Need Close Monitoring Due to Risk of Patient Decompensation, Need for IV Antibiotics 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
[2019-01-02 17:49] LABS: INTERNATIONAL RATION (INR) 1.01; PROTHROMBIN TIME 13.9 SEC (11.4-15.4)
[2019-01-02] MEDS: LANSOPRAZOLE 15 MG TAB.RAP.DR PO SCH (18:02)
[2019-01-02] MEDS: PROMETHAZINE HCL 25 MG TABLET PO PRN (18:02)
[2019-01-02] MEDS: HYDROMORPHONE HCL INJ/PF 2 MG/ML AMPULE IV PRN ×2 (18:03→21:28)
[2019-01-02] MEDS: DOCUSATE SODIUM 100 MG CAPSULE PO SCH (18:04)
[2019-01-02] MEDS: PIPERACILLIN SODIUM/TAZOBACTAM 3.375 GM in NORMAL SALINE 100 ML IV SCH (18:22)
[2019-01-02 19:19] LABS: VENOUS BLOOD BASE EXCESS 4.6 mmol/L; VENOUS BLOOD HCO3 32.7 mmol/L (20-32); VENOUS BLOOD PCO2 62.6 mmHg (35-63); VENOUS BLOOD PH 7.34 (7.30-7.42)
[2019-01-02] MEDS: ONDANSETRON HCL INJ/PF 4 MG/2 ML SDV IV PRN (20:01)
[2019-01-02 20:11] LABS: APPEARANCE,URINE CLEAR; BILIRUBIN,URINE NEGATIVE (NEGATIVE); COLOR,URINE YELLOW; GLUCOSE, URINE NEGATIVE (NEGATIVE); KETONES,URINE TRACE mg/dL (NEGATIVE); LEUKOCYTE ESTERASE,URINE NEGATIVE (NEGATIVE); NITRITE,URINE NEGATIVE (NEGATIVE); PROTEIN,URINE 30 mg/dL (NEGATIVE); UROBILINOGEN,URINE NEGATIVE mg/dL (<2.0)
[2019-01-02 20:14] LABS: URINE SPECIFIC GRAVITY > 1.060
[2019-01-02] MEDS: IPRATROPIUM/ALBUTEROL 0.5-2.5 MG/3 ML AMPUL NEB SCH (20:14)
[2019-01-02] MEDS: INSULIN LISPRO 100 UNIT/ML 3 ML VIAL SUBCUT SCH (21:24)
[2019-01-03] MEDS: PROMETHAZINE HCL 25 MG TABLET PO PRN ×2 (00:19→08:56)
[2019-01-03] MEDS ORDERED: PIPERACILLIN/TAZOBACTAM 3.375 GM VIAL IV ONE (00:40)
[2019-01-03] MEDS: PIPERACILLIN SODIUM/TAZOBACTAM 3.375 GM in NORMAL SALINE 100 ML IV SCH ×5 (01:20→23:34)
[2019-01-03] MEDS: HYDROMORPHONE HCL INJ/PF 2 MG/ML AMPULE IV PRN ×6 (01:43→21:04)
[2019-01-03] MEDS: ONDANSETRON HCL INJ/PF 4 MG/2 ML SDV IV PRN ×3 (01:43→21:04)
[2019-01-03] MEDS: IPRATROPIUM/ALBUTEROL 0.5-2.5 MG/3 ML AMPUL NEB SCH ×4 (02:02→19:56)
[2019-01-03] MEDS: LANSOPRAZOLE 15 MG TAB.RAP.DR PO SCH ×2 (05:48→18:24)
[2019-01-03 06:35] LABS: HEMATOCRIT 24.2 % (37.9-51.0); MEAN CORPUSCULAR HEMOGLOBIN 25.8 pg (27.0-33.4); MEAN CORPUSCULAR HGB CONC 32.3 g/dL (32.0-36.0); MEAN CORPUSCULAR VOLUME 80 fl (80-97); PLATELET COUNT 198 10^3/uL (150-450); RED BLOOD COUNT 3.02 10^6/uL (4.35-5.55); WHITE BLOOD COUNT 12.2 10^3/uL (4.0-10.5)
[2019-01-03 06:50] LABS: ANION GAP 8 (5-19); BLOOD UREA NITROGEN 13 mg/dL (7-20); CALCIUM 7.9 mg/dL (8.4-10.2); CARBON DIOXIDE 34 mmol/L (22-30); CHLORIDE 96 mmol/L (98-107); GLUCOSE 90 mg/dL (75-110); POTASSIUM 3.8 mmol/L (3.6-5.0); SODIUM 137.8 mmol/L (137-145)
[2019-01-03 07:03] LABS: ABSOLUTE LYMPHOCYTES# (MANUAL) 0.5 10^3/uL (0.5-4.7); ABSOLUTE MONOCYTES # (MANUAL) 0.4 10^3/uL (0.1-1.4); ABSOLUTE NEUTROPHILS# (MANUAL) 11.3 10^3/uL (1.7-8.2); BASOPHILS % (MANUAL) 0 % (0-2); EOSINOPHILS % (MANUAL) 0 % (0-6); LYMPHOCYTES % (MANUAL) 4 % (13-45); MONOCYTES % (MANUAL) 3 % (3-13); SEGMENTED NEUTROPHILS % (MAN) 93 % (42-78); TOTAL CELLS COUNTED 100
[2019-01-03 07:04] LABS: ANISOCYTOSIS 2+; PLATELET COMMENT ADEQUATE; POLYCHROMASIA 2+
[2019-01-03 07:08] LABS: HEMOGLOBIN 7.8 g/dL (13.5-17.0)
[2019-01-03] MEDS ORDERED: ALBUMIN HUMAN 25 GM/100 ML RTUINJ IV PRN (08:15)
[2019-01-03] MEDS: INSULIN LISPRO 100 UNIT/ML 3 ML VIAL SUBCUT SCH ×4 (08:32→22:31)
[2019-01-03] MEDS ORDERED: ONDANSETRON HCL 8 MG TABLET PO PRN (08:33)
[2019-01-03] MEDS ORDERED: PROMETHAZINE HCL 25 MG TABLET PO PRN (08:33)
--- NOTE | 2019-01-03 08:34 | PDOC CONSULTATION ---
Consultation Consult Date: 01/03/19 Attending physician:: JAMES SULLIVAN Consult reason:: Known history of stage IV colon cancer with omental metastases here with intractable nausea vomiting and diarrhea History of Present Illness Admission Date/PCP: 01/02/19 17:24 JAMES SULLIVAN MD Patient complains of: Abdominal pain, nausea vomiting, diarrhea History of Present Illness: ADRIEN BELTRAN is a 58 year old male with stage IV colon cancer with omental metastasis. Most recently he has been on chemotherapy with FOLFOX. He received cycle #3 about 3 weeks ago. Of note after cycle #2 he presented to the hospital and was here for almost 21 days. After about 14 days after cycle #2 his nausea and vomiting improved and we attempted cycle #3 but after cycle #3, even though he had significant dose reduction, he had persistent nausea and vomiting. He began to improve by the last few days of admission and we tried to discharge him home thereafter. Unfortunately at home the nausea came right back and he was consistently vomiting along with having on and off diarrhea. Because of that he presented back to the ED. Here he also has been nauseous consistently. He is having increased pain and were planning on increasing his IV Dilaudid. He is unable to tolerate p.o. pain medications. Past Medical History Cardiac Medical History: Reports: Coronary Artery Disease, Hyperlipidema, Hypertension Denies: Myocardial Infarction Pulmonary Medical History: Reports: Chronic Obstructive Pulmonary Disease (COPD) Denies: Asthma, Bronchitis, Pneumonia Neurological Medical History: Denies: Seizures Endocrine Medical History: Reports: Diabetes Mellitus Type 2 Malignancy Medical History: Reports: Bone Cancer, Colorectal Cancer, Lung Cancer Musculoskeltal Medical History: Reports: Arthritis Psychiatric Medical History: Reports: Depression Hematology: Denies: Anemia Past Surgical History Past Surgical History: Reports: Vascular Surgery - LEFT CHEST PORT Social History Information Source: Patient Smoking Status: Former Smoker Last Time Smoked: 12/09/2014 Frequency of Alcohol Use: None Hx Recreational Drug Use: No Drugs: None Hx Prescription Drug Abuse: No - Advance Directive Resuscitation Status: Full Code Family History Family History: Reviewed & Not Pertinent, DM, Hypertension Parental Family History Reviewed: Yes Children Family History Reviewed: Yes Sibling(s) Family History Reviewed.: Yes Medication/Allergy Home Medications: Buspirone HCl [Buspar 10 mg Tablet] 10 mg PO Q8 12/08/18 Fentanyl [Duragesic 50 Mcg/Hr Transdermal Patch] 50 mcg TOP Q3D 12/08/18 Fluticasone/Umeclidin/Vilanter [Trelegy 100-62.5-25 Mcg Ellipta 14 Dose/Dpi] 1 puff IH DAILY 12/08/18 Gabapentin [Neurontin 300 mg Capsule] 300 mg PO Q8 12/08/18 Hydromorphone HCl [Dilaudid] 4 mg PO Q8HP PRN 12/08/18 Levothyroxine Sodium [Synthroid] 175 mcg PO Q6AM 12/08/18 Metformin HCl [Glucophage] 1,000 mg PO BID 12/08/18 Ondansetron HCl [Zofran] 8 mg PO Q8HP PRN 12/08/18 Pantoprazole Sodium [Protonix] 40 mg PO DAILY 12/08/18 Promethazine HCl [Phenergan 25 mg Tablet] 25 mg PO Q6HP PRN 12/08/18 Clopidogrel Bisulfate [Plavix 75 mg Tablet] 75 mg PO DAILY 01/02/19 Diltiazem HCl [Dilt-Xr] 120 mg PO DAILY 01/02/19 Pravastatin Sodium [Pravachol] 20 mg PO QHS 01/02/19 Allergies/Adverse Reactions: No Known Allergies Allergy (Verified 12/08/18 09:38) Review of Systems Constitutional: PRESENT: anorexia, fatigue, weakness, weight loss Gastrointestinal: PRESENT: abdominal pain, bloating, nausea, vomiting Musculoskeletal: PRESENT: back pain Neurological: PRESENT: weakness Psychiatric: PRESENT: anxiety, depression Physical Exam Vital Signs: Temp Pulse Resp BP Pulse Ox 97.9 F 92 16 111/61 97 01/03/19 03:54 01/03/19 03:54 01/03/19 03:54 01/03/19 03:54 01/03/19 03:54 Intake & Output 01/02/19 01/03/19 01/04/19 06:59 06:59 06:59 Intake Total 300 Output Total 200 Balance 100 Weight 92.3 kg General appearance: PRESENT: no acute distress, well-developed, well-nourished Head exam: PRESENT: atraumatic, normocephalic Eye exam: PRESENT: conjunctiva pink, EOMI, PERRLA. ABSENT: scleral icterus Ear exam: PRESENT: normal external ear exam Mouth exam: PRESENT: moist, tongue midline Neck exam: ABSENT: carotid bruit, JVD, lymphadenopathy, thyromegaly Respiratory exam: PRESENT: clear to auscultation leida. ABSENT: rales, rhonchi, wheezes Cardiovascular exam: PRESENT: RRR. ABSENT: diastolic murmur, rubs, systolic murmur Pulses: PRESENT: normal dorsalis pedis pul Vascular exam: PRESENT: normal capillary refill GI/Abdominal exam: PRESENT: normal bowel sounds, soft. ABSENT: distended, guarding, mass, organolmegaly, rebound, tenderness Rectal exam: PRESENT: deferred Extremities exam: PRESENT: full ROM. ABSENT: calf tenderness, clubbing, pedal edema Neurological exam: PRESENT: alert, awake, oriented to person, oriented to place, oriented to time, oriented to situation, CN II-XII grossly intact. ABSENT: motor sensory deficit Psychiatric exam: PRESENT: appropriate affect, normal mood. ABSENT: homicidal ideation, suicidal ideation Skin exam: PRESENT: dry, intact, warm. ABSENT: cyanosis, rash Results Laboratory Results: 01/03/19 05:25 01/03/19 05:25 01/02/19 01/02/19 01/02/19 14:06 14:06 18:50 WBC 18.7 H RBC 3.54 L Hgb 9.0 L Hct 28.2 L MCV 80 MCH 25.5 L MCHC 32.0 RDW 24.3 H Plt Count 205 Seg Neutrophils % Not Reportable Lymphocytes % Not Reportable Monocytes % Not Reportable Eosinophils % Not Reportable Basophils % Not Reportable Absolute Neutrophils Not Reportable Absolute Lymphocytes Not Reportable Absolute Monocytes Not Reportable Absolute Eosinophils Not Reportable Absolute Basophils Not Reportable VBG pH VBG pCO2 VBG HCO3 VBG Base Excess Sodium 134.3 L Potassium 4.0 Chloride 94 L Carbon Dioxide 30 Anion Gap 10 BUN 13 Creatinine 0.66 Est GFR ( Amer) > 60 Est GFR (Non-Af Amer) > 60 Glucose 153 H Lactic Acid 0.6 L Calcium 7.9 L Magnesium Total Bilirubin 0.6 AST 34 ALT 13 L Alkaline Phosphatase 106 Total Protein 5.1 L Albumin 2.7 L Lipase 48.0 Urine Color Urine Appearance Urine pH Ur Specific [place] Urine Protein Urine Glucose (UA) Urine Ketones Urine Blood Urine Nitrite Ur Leukocyte Esterase Urine WBC (Auto) Urine RBC (Auto) 01/02/19 01/02/19 01/03/19 19:00 19:52 05:25 WBC 12.2 H RBC 3.02 L Hgb 7.8 L Hct 24.2 L MCV 80 MCH 25.8 L MCHC 32.3 RDW 24.0 H Plt Count 198 Seg Neutrophils % Not Reportable Lymphocytes % Not Reportable Monocytes % Not Reportable Eosinophils % Not Reportable Basophils % Not Reportable Absolute Neutrophils Not Reportable Absolute Lymphocytes Not Reportable Absolute Monocytes Not Reportable Absolute Eosinophils Not Reportable Absolute Basophils Not Reportable VBG pH 7.34 VBG pCO2 62.6 VBG HCO3 32.7 H VBG Base Excess 4.6 Sodium Potassium Chloride Carbon Dioxide Anion Gap BUN Creatinine Est GFR ( Amer) Est GFR (Non-Af Amer) Glucose Lactic Acid Calcium Magnesium Total Bilirubin AST ALT Alkaline Phosphatase Total Protein Albumin Lipase Urine Color YELLOW Urine Appearance CLEAR Urine pH 7.0 Ur Specific [place] > 1.060 Urine Protein 30 H Urine Glucose (UA) NEGATIVE Urine Ketones TRACE H Urine Blood SMALL H Urine Nitrite NEGATIVE Ur Leukocyte Esterase NEGATIVE Urine WBC (Auto) 0 Urine RBC (Auto) 0 01/03/19 05:25 WBC RBC Hgb Hct MCV MCH MCHC RDW Plt Count Seg Neutrophils % Lymphocytes % Monocytes % Eosinophils % Basophils % Absolute Neutrophils Absolute Lymphocytes Absolute Monocytes Absolute Eosinophils Absolute Basophils VBG pH VBG pCO2 VBG HCO3 VBG Base Excess Sodium 137.8 Potassium 3.8 Chloride 96 L Carbon Dioxide 34 H Anion Gap 8 BUN 13 Creatinine 0.71 Est GFR ( Amer) > 60 Est GFR (Non-Af Amer) > 60 Glucose 90 Lactic Acid Calcium 7.9 L Magnesium 1.9 Total Bilirubin AST ALT Alkaline Phosphatase Total Protein Albumin Lipase Urine Color Urine Appearance Urine pH Ur Specific [place] Urine Protein Urine Glucose (UA) Urine Ketones Urine Blood Urine Nitrite Ur Leukocyte Esterase Urine WBC (Auto) Urine RBC (Auto) Impressions: Chest X-Ray 01/02/19 14:50 IMPRESSION: NO ACUTE RADIOGRAPHIC FINDING IN THE CHEST. Abdomen/Pelvis CT 01/02/19 15:09 IMPRESSION: Known colon cancer with peritoneal carcinomatosis and moderate ascites. No significant change. Assessment & Plan - Diagnosis (1) Peritoneal carcinomatosis Is this a current diagnosis for this admission?: Yes Plan: He has known peritoneal carcinomatosis from the colon cancer, unfortunately I do not believe he is a candidate for further therapy. He has been bedbound and really total care. Unfortunately the nausea that is persistent is because of the omental metastasis and I believe he would not benefit from further edwin motherapy. He needs continuous IV pain medication as well as IV antiemetics. I believe this can only be achieved by inpatient hospice admission. I believe he is qualified for inpatient hospice because is imminent. He is unable to tolerate any oral fluids or food so it is very likely that he will pass quickly. I discussed his case with Tiffany from [facility] who will be m eeting with the patient and family later today. I believe he would be a good candidate for inpatient hospice admission at [facility]. (2) Colon cancer Qualifiers: Colon location: sigmoid Qualified Code(s): C18.7 - Malignant neoplasm of sigmoid colon Is this a current diagnosis for this admission?: Yes Plan: As noted above not a candidate for further therapy, good candidate for hospice, trying for inpatient hospice as above. - Time Time Spent: Greater than 70 Minutes Anticipated discharge: Hospice, Other - Inpatient - Inpatient Certification Based on my medical assessment, after consideration of the patient's comorbidities, presenting symptoms, or acuity I expect that the services needed warrant INPATIENT care.: Yes I certify that my determination is in accordance with my understanding of Medicare's requirements for reasonable and necessary INPATIENT services [42 CFR 412.3e].: Yes Medical Necessity: Need For IV Fluids, Need for Pain Control, Risk of Complication if Not Cared For in Hospital
[2019-01-03] MEDS ORDERED: (PENDING PHARMACY ID) (Levothyroxine Sodium [Synthroid] 175 MCG) PO SCH (08:45)
[2019-01-03] MEDS ORDERED: HYDROMORPHONE HCL 2 MG TABLET PO PRN ×2 (08:45→19:00)
[2019-01-03] MEDS ORDERED: CLOPIDOGREL BISULFATE 75 MG TABLET PO SCH (10:00)
[2019-01-03] MEDS: ENOXAPARIN SODIUM INJ 40 MG/0.4 ML DISP.SYRIN SUBCUT SCH (10:15)
[2019-01-03] MEDS: DOCUSATE SODIUM 100 MG CAPSULE PO SCH ×2 (10:17→18:24)
[2019-01-03] MEDS: LEVOTHYROXINE SODIUM 0.1 MG TABLET PO SCH (10:18)
[2019-01-03] MEDS: DILTIAZEM HCL 120 MG CAP.SR.24H PO SCH (10:18)
[2019-01-03] MEDS: LEVOTHYROXINE SODIUM 0.075 MG TABLET PO SCH (10:19)
--- NOTE | 2019-01-03 12:45 | PDOC PROGRESS REPORT ---
Subjective Progress Note for:: 01/03/19 Subjective:: Patient is currently doing fair Denied any chest pain to than any shortness of the breath Still feels nausea vomiting No fever Patient's white count is coming down Reason For Visit: ABDOMINAL PAIN, SBP, ASCITES, COLON CANCER Physical Exam Vital Signs: Temp Pulse Resp BP Pulse Ox 97.6 F 90 16 106/62 100 01/03/19 11:40 01/03/19 11:40 01/03/19 11:40 01/03/19 11:40 01/03/19 11:40 Intake & Output 01/02/19 01/03/19 01/04/19 06:59 06:59 06:59 Intake Total 300 Output Total 200 Balance 100 Weight 92.3 kg General appearance: PRESENT: no acute distress, well-developed, well-nourished Head exam: PRESENT: atraumatic, normocephalic Eye exam: PRESENT: conjunctiva pink, EOMI, PERRLA. ABSENT: scleral icterus Ear exam: PRESENT: normal external ear exam Mouth exam: PRESENT: moist, tongue midline Neck exam: PRESENT: full ROM. ABSENT: carotid bruit, JVD, lymphadenopathy, thyromegaly Cardiovascular exam: PRESENT: RRR. ABSENT: diastolic murmur, rubs, systolic murmur Vascular exam: PRESENT: normal capillary refill GI/Abdominal exam: PRESENT: ascites, normal bowel sounds, soft. ABSENT: distended, guarding, mass, organolmegaly, rebound, tenderness Rectal exam: PRESENT: deferred Neurological exam: PRESENT: alert, awake, oriented to person, oriented to place, oriented to time, oriented to situation, CN II-XII grossly intact. ABSENT: motor sensory deficit Psychiatric exam: PRESENT: appropriate affect, normal mood. ABSENT: homicidal ideation, suicidal ideation Skin exam: PRESENT: dry, intact, warm. ABSENT: cyanosis, rash Results Laboratory Results: 01/03/19 05:25 01/03/19 05:25 01/02/19 01/02/19 01/02/19 14:06 14:06 18:50 WBC 18.7 H RBC 3.54 L Hgb 9.0 L Hct 28.2 L MCV 80 MCH 25.5 L MCHC 32.0 RDW 24.3 H Plt Count 205 Seg Neutrophils % Not Reportable Lymphocytes % Not Reportable Monocytes % Not Reportable Eosinophils % Not Reportable Basophils % Not Reportable Absolute Neutrophils Not Reportable Absolute Lymphocytes Not Reportable Absolute Monocytes Not Reportable Absolute Eosinophils Not Reportable Absolute Basophils Not Reportable VBG pH VBG pCO2 VBG HCO3 VBG Base Excess Sodium 134.3 L Potassium 4.0 Chloride 94 L Carbon Dioxide 30 Anion Gap 10 BUN 13 Creatinine 0.66 Est GFR ( Amer) > 60 Est GFR (Non-Af Amer) > 60 Glucose 153 H Lactic Acid 0.6 L Calcium 7.9 L Magnesium Total Bilirubin 0.6 AST 34 ALT 13 L Alkaline Phosphatase 106 Total Protein 5.1 L Albumin 2.7 L Lipase 48.0 Urine Color Urine Appearance Urine pH Ur Specific [place] Urine Protein Urine Glucose (UA) Urine Ketones Urine Blood Urine Nitrite Ur Leukocyte Esterase Urine WBC (Auto) Urine RBC (Auto) 01/02/19 01/02/19 01/03/19 19:00 19:52 05:25 WBC 12.2 H RBC 3.02 L Hgb 7.8 L Hct 24.2 L MCV 80 MCH 25.8 L MCHC 32.3 RDW 24.0 H Plt Count 198 Seg Neutrophils % Not Reportable Lymphocytes % Not Reportable Monocytes % Not Reportable Eosinophils % Not Reportable Basophils % Not Reportable Absolute Neutrophils Not Reportable Absolute Lymphocytes Not Reportable Absolute Monocytes Not Reportable Absolute Eosinophils Not Reportable Absolute Basophils Not Reportable VBG pH 7.34 VBG pCO2 62.6 VBG HCO3 32.7 H VBG Base Excess 4.6 Sodium Potassium Chloride Carbon Dioxide Anion Gap BUN Creatinine Est GFR ( Amer) Est GFR (Non-Af Amer) Glucose Lactic Acid Calcium Magnesium Total Bilirubin AST ALT Alkaline Phosphatase Total Protein Albumin Lipase Urine Color YELLOW Urine Appearance CLEAR Urine pH 7.0 Ur Specific [place] > 1.060 Urine Protein 30 H Urine Glucose (UA) NEGATIVE Urine Ketones TRACE H Urine Blood SMALL H Urine Nitrite NEGATIVE Ur Leukocyte Esterase NEGATIVE Urine WBC (Auto) 0 Urine RBC (Auto) 0 01/03/19 05:25 WBC RBC Hgb Hct MCV MCH MCHC RDW Plt Count Seg Neutrophils % Lymphocytes % Monocytes % Eosinophils % Basophils % Absolute Neutrophils Absolute Lymphocytes Absolute Monocytes Absolute Eosinophils Absolute Basophils VBG pH VBG pCO2 VBG HCO3 VBG Base Excess Sodium 137.8 Potassium 3.8 Chloride 96 L Carbon Dioxide 34 H Anion Gap 8 BUN 13 Creatinine 0.71 Est GFR ( Amer) > 60 Est GFR (Non-Af Amer) > 60 Glucose 90 Lactic Acid Calcium 7.9 L Magnesium 1.9 Total Bilirubin AST ALT Alkaline Phosphatase Total Protein Albumin Lipase Urine Color Urine Appearance Urine pH Ur Specific [place] Urine Protein Urine Glucose (UA) Urine Ketones Urine Blood Urine Nitrite Ur Leukocyte Esterase Urine WBC (Auto) Urine RBC (Auto) Impressions: Chest X-Ray 01/02/19 14:50 IMPRESSION: NO ACUTE RADIOGRAPHIC FINDING IN THE CHEST. Abdomen/Pelvis CT 01/02/19 15:09 IMPRESSION: Known colon cancer with peritoneal carcinomatosis and moderate ascites. No significant change. Assessment & Plan - Diagnosis (1) Abdominal pain Qualifiers: Abdominal location: generalized Qualified Code(s): R10.84 - Generalized abdominal pain Is this a current diagnosis for this admission?: Yes Plan: Due to the ongoing colon cancers with the metastatic disease with possible SBP (2) SBP (spontaneous bacterial peritonitis) Is this a current diagnosis for this admission?: Yes Plan: Will order the fluid analysis and culture once the interventional radiology is coming due date Will cover the IV antibiotic until the cultures come back At this point there is no surgical abdomen (3) Sepsis Qualifiers: Sepsis type: sepsis due to unspecified organism Qualified Code(s): A41.9 - Sepsis, unspecified organism Is this a current diagnosis for this admission?: Yes Plan: Will get the blood culture urine culture peritoneal fluid culture start on broad-spectrum antibiotic including the zosyn and vancomycin (4) Anxiety disorder Qualifiers: Anxiety disorder type: generalized anxiety disorder Qualified Code(s): F41.1 - Generalized anxiety disorder Is this a current diagnosis for this admission?: Yes Plan: Continues the BuSpar (5) Colon cancer Qualifiers: Colon location: unspecified part of colon Qualified Code(s): C18.9 - Malignant neoplasm of colon, unspecified Is this a current diagnosis for this admission?: Yes Plan: Consult the oncology (6) Lung cancer Qualifiers: Lung location: unspecified part of lung Is this a current diagnosis for this admission?: Yes (7) Peritoneal carcinomatosis Is this a current diagnosis for this admission?: Yes (8) Thyroid disorder Is this a current diagnosis for this admission?: Yes (9) Type 2 diabetes mellitus Qualifiers: Is this a current diagnosis for this admission?: Yes - Time Time Spent with patient: 15-24 minutes Medications reviewed and adjusted accordingly: Yes Anticipated discharge: Other Within: Other - Inpatient Certification Based on my medical assessment, after consideration of the patient's comorbidities, presenting symptoms, or acuity I expect that the services needed warrant INPATIENT care.: Yes I certify that my determination is in accordance with my understanding of Medicare's requirements for reasonable and necessary INPATIENT services [42 CFR 412.3e].: Yes - Plan Summary Plan Summary: As per discussed with the patient and the family and discussed by oncology and myself patient is going to inpatient hospice
[2019-01-03] MEDS: GABAPENTIN 300 MG CAPSULE PO SCH ×2 (13:07→21:05)
[2019-01-03] MEDS: FLUTICASONE/UMECLIDIN/VILANTER 100-62.5-25 MCG/DOSE IH SCH (13:07)
[2019-01-03] MEDS: BUSPIRONE HCL 10 MG TABLET PO SCH ×2 (13:07→21:05)
[2019-01-03] MEDS ORDERED: METFORMIN HCL 500 MG TABLET PO SCH (16:00)
[2019-01-03] MEDS ORDERED: FENTANYL 50 MCG/HR PATCH.TD72 TD ONE (19:30)
[2019-01-03] MEDS ORDERED: ATORVASTATIN CALCIUM 10 MG TABLET PO SCH (22:00)
[2019-01-04] MEDS: PROMETHAZINE HCL 25 MG TABLET PO PRN ×3 (00:09→16:08)
[2019-01-04] MEDS: HYDROMORPHONE HCL INJ/PF 2 MG/ML AMPULE IV PRN ×5 (01:09→14:30)
[2019-01-04] MEDS: IPRATROPIUM/ALBUTEROL 0.5-2.5 MG/3 ML AMPUL NEB SCH ×3 (02:16→14:23)
[2019-01-04] MEDS: ONDANSETRON HCL INJ/PF 4 MG/2 ML SDV IV PRN ×2 (04:10→08:58)
[2019-01-04 04:15] VITALS: BP 109/59
[2019-01-04] MEDS: PIPERACILLIN SODIUM/TAZOBACTAM 3.375 GM in NORMAL SALINE 100 ML IV SCH ×2 (05:05→12:29)
[2019-01-04] MEDS: BUSPIRONE HCL 10 MG TABLET PO SCH ×2 (05:05→14:32)
[2019-01-04] MEDS: LEVOTHYROXINE SODIUM 0.1 MG TABLET PO SCH (05:05)
[2019-01-04] MEDS: LEVOTHYROXINE SODIUM 0.075 MG TABLET PO SCH (05:05)
[2019-01-04] MEDS: LANSOPRAZOLE 15 MG TAB.RAP.DR PO SCH (05:05)
[2019-01-04] MEDS: GABAPENTIN 300 MG CAPSULE PO SCH ×2 (05:14→14:32)
[2019-01-04 05:45] LABS: HEMATOCRIT 22.5 % (37.9-51.0); MEAN CORPUSCULAR HEMOGLOBIN 25.9 pg (27.0-33.4); MEAN CORPUSCULAR HGB CONC 33.1 g/dL (32.0-36.0); MEAN CORPUSCULAR VOLUME 78 fl (80-97); PLATELET COUNT 200 10^3/uL (150-450); RED BLOOD COUNT 2.87 10^6/uL (4.35-5.55); RED CELL DISTRIBUTION WIDTH 24.3 % (11.5-14.0); WHITE BLOOD COUNT 9.9 10^3/uL (4.0-10.5)
[2019-01-04] MEDS ORDERED: LANSOPRAZOLE 30 MG TAB.RAP.DR PO SCH (06:00)
[2019-01-04 06:09] LABS: ANION GAP 8 (5-19); BLOOD UREA NITROGEN 10 mg/dL (7-20); CALCIUM 7.7 mg/dL (8.4-10.2); CARBON DIOXIDE 31 mmol/L (22-30); CHLORIDE 96 mmol/L (98-107); GLUCOSE 94 mg/dL (75-110); POTASSIUM 3.5 mmol/L (3.6-5.0); SODIUM 134.7 mmol/L (137-145)
[2019-01-04 06:22] LABS: HEMOGLOBIN 7.4 g/dL (13.5-17.0)
[2019-01-04 06:23] LABS: ABSOLUTE LYMPHOCYTES# (MANUAL) 0.1 10^3/uL (0.5-4.7); ABSOLUTE MONOCYTES # (MANUAL) 0.1 10^3/uL (0.1-1.4); ABSOLUTE NEUTROPHILS# (MANUAL) 9.7 10^3/uL (1.7-8.2); BASOPHILS % (MANUAL) 0 % (0-2); EOSINOPHILS % (MANUAL) 0 % (0-6); LYMPHOCYTES % (MANUAL) 1 % (13-45); MONOCYTES % (MANUAL) 1 % (3-13); OVALOCYTES SLIGHT; PLATELET CLUMPS PRESENT; PLATELET COMMENT ADEQUATE; POIKILOCYTOSIS 1+; POLYCHROMASIA SLIGHT; SEGMENTED NEUTROPHILS % (MAN) 98 % (42-78); STOMATOCYTES 1+; TOTAL CELLS COUNTED 100
[2019-01-04] MEDS: INSULIN LISPRO 100 UNIT/ML 3 ML VIAL SUBCUT SCH ×3 (07:57→16:17)
--- NOTE | 2019-01-04 08:48 | PDOC PROGRESS REPORT ---
Subjective Progress Note for:: 01/04/19 Subjective:: Patient is currently doing fair Patient asking to increase the more pain medications Patient is currently expressed DNR and DNI Patient is going for the inpatient hospice Patient did not take her Plavix once he discharged from the hospital and patient was off the Plavix patient should get the paracentesis done today for the comfort measure Reason For Visit: ABDOMINAL PAIN, SBP, ASCITES, COLON CANCER Physical Exam Vital Signs: Temp Pulse Resp BP Pulse Ox 98.0 F 93 16 109/59 L 97 01/04/19 02:59 01/04/19 02:59 01/04/19 02:59 01/04/19 02:59 01/04/19 02:59 Intake & Output 01/03/19 01/04/19 01/05/19 06:59 06:59 06:59 Intake Total 300 670 Output Total 200 475 Balance 100 195 Weight 92.3 kg 93.3 kg General appearance: PRESENT: no acute distress, well-developed, well-nourished Head exam: PRESENT: atraumatic, normocephalic Eye exam: PRESENT: conjunctiva pink, EOMI, PERRLA. ABSENT: scleral icterus Ear exam: PRESENT: normal external ear exam Mouth exam: PRESENT: moist, tongue midline Neck exam: PRESENT: full ROM. ABSENT: carotid bruit, JVD, lymphadenopathy, thyromegaly Respiratory exam: PRESENT: clear to auscultation leida Cardiovascular exam: PRESENT: RRR. ABSENT: diastolic murmur, rubs, systolic murmur Vascular exam: PRESENT: normal capillary refill GI/Abdominal exam: PRESENT: ascites, normal bowel sounds, soft. ABSENT: distended, guarding, mass, organolmegaly, rebound, tenderness Rectal exam: PRESENT: deferred Neurological exam: PRESENT: alert, awake, oriented to person, oriented to place, oriented to time, oriented to situation, CN II-XII grossly intact. ABSENT: motor sensory deficit Psychiatric exam: PRESENT: appropriate affect, normal mood. ABSENT: homicidal ideation, suicidal ideation Skin exam: PRESENT: dry, intact, warm. ABSENT: cyanosis, rash Results Laboratory Results: 01/04/19 05:07 01/04/19 05:07 01/04/19 01/04/19 05:07 05:07 WBC 9.9 RBC 2.87 L Hgb 7.4 L Hct 22.5 L MCV 78 L MCH 25.9 L MCHC 33.1 RDW 24.3 H Plt Count 200 Seg Neutrophils % Not Reportable Lymphocytes % Not Reportable Monocytes % Not Reportable Eosinophils % Not Reportable Basophils % Not Reportable Absolute Neutrophils Not Reportable Absolute Lymphocytes Not Reportable Absolute Monocytes Not Reportable Absolute Eosinophils Not Reportable Absolute Basophils Not Reportable Sodium 134.7 L Potassium 3.5 L Chloride 96 L Carbon Dioxide 31 H Anion Gap 8 BUN 10 Creatinine 0.70 Est GFR ( Amer) > 60 Est GFR (Non-Af Amer) > 60 Glucose 94 Calcium 7.7 L Magnesium 1.7 01/02/19 19:52 Clean Catch Midstream Urine Culture - Final NO GROWTH 2 DAYS Impressions: Chest X-Ray 01/02/19 14:50 IMPRESSION: NO ACUTE RADIOGRAPHIC FINDING IN THE CHEST. Abdomen/Pelvis CT 01/02/19 15:09 IMPRESSION: Known colon cancer with peritoneal carcinomatosis and moderate ascites. No significant change. Assessment & Plan - Diagnosis (1) Abdominal pain Qualifiers: Abdominal location: generalized Qualified Code(s): R10.84 - Generalized abdominal pain Is this a current diagnosis for this admission?: Yes Plan: Continues IV antibiotic (2) SBP (spontaneous bacterial peritonitis) Is this a current diagnosis for this admission?: Yes Plan: Will order the fluid analysis and culture once the interventional radiology is coming due date Will cover the IV antibiotic until the cultures come back At this point there is no surgical abdomen (3) Sepsis Qualifiers: Sepsis type: sepsis due to unspecified organism Qualified Code(s): A41.9 - Sepsis, unspecified organism Is this a current diagnosis for this admission?: Yes Plan: Will get the blood culture urine culture peritoneal fluid culture start on broad-spectrum antibiotic including the zosyn and vancomycin (4) Anxiety disorder Qualifiers: Anxiety disorder type: generalized anxiety disorder Qualified Code(s): F4 1.1 - Generalized anxiety disorder Is this a current diagnosis for this admission?: Yes Plan: Continues the BuSpar (5) Colon cancer Qualifiers: Colon location: unspecified part of colon Qualified Code(s): C18.9 - Malignant neoplasm of colon, unspecified Is this a current diagnosis for this admission?: Yes Plan: Consult the oncology (6) Lung cancer Qualifiers: Lung location: unspecified part of lung Is this a current diagnosis for this admission?: Yes (7) Peritoneal carcinomatosis Is this a current diagnosis for this admission?: Yes (8) Thyroid disorder Is this a current diagnosis for this admission?: Yes (9) Type 2 diabetes mellitus Qualifiers: Is this a current diagnosis for this admission?: Yes Plan: Cover with a sliding scale - Time Time Spent with patient: 15-24 minutes Medications reviewed and adjusted accordingly: Yes Anticipated discharge: Hospice Within: within 24 hours - Plan Summary Plan Summary: Will get the paracentesis done Continues to current medications
--- NOTE | 2019-01-04 10:32 | EKG REPORT ---
SEVERITY:- ABNORMAL ECG - SINUS RHYTHM WITH APC LEFT ANTERIOR FASCICULAR BLOCK BORDERLINE T ABNORMALITIES, ANT-LAT LEADS : Confirmed by: Eva Schafer 04-Jan-2019 10:31:56
--- NOTE | 2019-01-04 11:01 | RADIOLOGY REPORT (SQ) ---
EXAM DESCRIPTION: U/S ABD PARACENTESIS COMPLETED DATE/TIME: 01/04/2019 10:52 am REASON FOR STUDY: SBP, abdominal pain COMPARISON None. LIMITATIONS: 12/27/2018 PROCEDURE: After obtaining informed consent, the patient was brought to the ultrasound suite. The p rocedure was performed with the patient on a gurney. Ultrasound was used to identify a prominent poc ket of ascites in the right lower quadrant. An appropriate access site was selected. The patient wa s prepped and draped in usual sterile fashion. The access site was anesthetized with 10 mL 1% lidoc vesna. A [id number] needle was advanced into the fluid. After aspiration of fluid the needle, t he catheter was advanced off the needle into the fluid. A total of 2,500 mL of clear yellow fluid wa s removed. The patient tolerated the procedure well left the department in satisfactory condition. IMPRESSION: Successful ultrasound-guided paracentesis COMMENT: Patient medication list reviewed: Yes- Quality ID# [id number]:Eligible professional attests to doc umenting in the medical record they obtained, updated, or reviewed the patient's current medications. TECHNICAL DOCUMENTATION: JOB ID: [id number] [employer]- All Rights Reserved Reading location - IP/workstation name: [email or web address]
[2019-01-04] MEDS: DILTIAZEM HCL 120 MG CAP.SR.24H PO SCH (11:20)
[2019-01-04] MEDS: FLUTICASONE/UMECLIDIN/VILANTER 100-62.5-25 MCG/DOSE IH SCH (11:20)
[2019-01-04] MEDS: ENOXAPARIN SODIUM INJ 40 MG/0.4 ML DISP.SYRIN SUBCUT SCH (11:20)
[2019-01-04] MEDS: DOCUSATE SODIUM 100 MG CAPSULE PO SCH (11:20)
[2019-01-04] MEDS ORDERED: ONDANSETRON HCL INJ/PF 4 MG/2 ML SDV IV PRN (11:30)
[2019-01-04] MEDS: ALBUMIN HUMAN 12.5 GM/50 ML RTUINJ IV SCH ×2 (11:48→12:21)
--- NOTE | 2019-01-04 13:57 | PDOC TRANSFER SUMMARY ---
General - Admit/Disc Date/PCP Admission Date/Primary Care Provider: 01/02/19 17:24 JAMES SULLIVAN MD Discharge Date: 01/04/19 - Discharge Diagnosis (1) Abdominal pain Is this a current diagnosis for this admission?: Yes Summary: Most likely ongoing colon cancers with metastatic disease (2) SBP (spontaneous bacterial peritonitis) Is this a current diagnosis for this admission?: Yes Summary: Continues to Cipro (3) Sepsis Is this a current diagnosis for this admission?: Yes Summary: Currently all stable (4) Anxiety disorder Is this a current diagnosis for this admission?: Yes Summary: Continues to current medications (5) Colon cancer Is this a current diagnosis for this admission?: Yes Summary: As per discussed with the oncology and patient is going for the inpatient hospice while patients have a no surgical indications unable to handle the chemotherapy with the advanced disease and patient and the family agree for inpatient hospice (6) Lung cancer Is this a current diagnosis for this admission?: Yes (7) Peritoneal carcinomatosis Is this a current diagnosis for this admission?: Yes (8) Thyroid disorder Is this a current diagnosis for this admission?: Yes (9) Type 2 diabetes mellitus Is this a current diagnosis for this admission?: Yes - Additional Information Resuscitation Status: Full Code Discharge Diet: As Tolerated, Regular Discharge Activity: Activity As Tolerated Prescriptions: Ciprofloxacin HCl [Cipro 500 mg Tablet] 500 mg PO BID #20 tablet Home Medications: Buspirone HCl [Buspar 10 mg Tablet] 10 mg PO Q8 12/08/18 Fentanyl [Duragesic 50 Mcg/Hr Transdermal Patch] 50 mcg TOP Q3D 12/08/18 Fluticasone/Umeclidin/Vilanter [Trelegy 100-62.5-25 Mcg Ellipta 14 Dose/Dpi] 1 puff IH DAILY 12/08/18 Gabapentin [Neurontin 300 mg Capsule] 300 mg PO Q8 12/08/18 Hydromorphone HCl [Dilaudid] 4 mg PO Q8HP PRN 12/08/18 Levothyroxine Sodium [Synthroid] 175 mcg PO Q6AM 12/08/18 Metformin HCl [Glucophage] 1,000 mg PO BID 12/08/18 Ondansetron HCl [Zofran] 8 mg PO Q8HP PRN 12/08/18 Pantoprazole Sodium [Protonix] 40 mg PO DAILY 12/08/18 Promethazine HCl [Phenergan 25 mg Tablet] 25 mg PO Q6HP PRN 12/08/18 Clopidogrel Bisulfate [Plavix 75 mg Tablet] 75 mg PO DAILY 01/02/19 Diltiazem HCl [Dilt-Xr] 120 mg PO DAILY 01/02/19 Pravastatin Sodium [Pravachol] 20 mg PO QHS 01/02/19 Ciprofloxacin HCl [Cipro 500 mg Tablet] 500 mg PO BID #20 tablet 01/04/19 History of Present Illness Admission Date/PCP: 01/02/19 17:24 JAMES SULLIVAN MD History of Present Illness: ADRIEN BELTRAN is a 58 year old male This is a 58-year-old male with a history of the colon cancer with a metastatic disease and recurrent malignant ascites with a history of the lung cancer COPD history of the A. fib and multiple medical problems with overall poor prognosis recently admitted more than 2 weeks in the hospital for nausea vomiting abdominal pain and a recurrent ascites with the paracentesis was done twice and more than 10 L of the fluid each time was removed recent getting the chemotherapy with persistent nausea vomiting getting better was discharged on a Wednesday Patient is came today's with unable to handle at home very weak still persistent nausea vomiting poor p.o. intake and patient initial workup in the ER with the white count was 18,000 which questionable SBP which is most likely while the patient's chest x-ray is clear and no other symptoms with questionable ongoing metastatic disease on the CT scan decided to admit in the hospital Patient is already received the IV antibiotics Discussed with the patient and discussed with the oncology doctor tomorrow regarding the patient's possible hospice care while the patient's unable to handle the chemotherapy Patient is denied any chest pain to than any shortness of the breath Hospital Course Hospital Course: This is a 58-year-old male with a colon cancer with metastatic disease with the malignant ascites which is recurrent and also history of the lung cancer with the multiple treatments recently treated with the chemotherapy unable to handle it patient is not candidate for any surgical options with the metastatic disease admitting in the hospital for more than 2 weeks went home and came back because of the persistent nausea vomiting abdominal pain which is all coming from the a dvanced disease and at this point discussed with the oncology and oncology consult with the family member and the patient and decided to inpatient hospice and comfort care Patient is currently expressed DNR/DNI Patient's discharge to the inpatient hospice facility Patient and family understand very well about the hospice Overall patient's prognosis is very poor patient's life expectancy is less than 6-month Physical Exam Vital Signs: Temp Pulse Resp BP Pulse Ox 98.0 F 89 16 109/59 L 96 01/04/19 02:59 01/04/19 09:26 01/04/19 09:26 01/04/19 02:59 01/04/19 09:26 Intake & Output 01/03/19 01/04/19 01/05/19 06:59 06:59 06:59 Intake Total 300 670 28 Output Total 200 475 Balance 100 195 28 Weight 92.3 kg 93.3 kg Results Laboratory Results: 01/04/19 05:07 01/04/19 05:07 01/04/19 01/04/19 05:07 05:07 WBC 9.9 RBC 2.87 L Hgb 7.4 L Hct 22.5 L MCV 78 L MCH 25.9 L MCHC 33.1 RDW 24.3 H Plt Count 200 Seg Neutrophils % Not Reportable Lymphocytes % Not Reportable Monocytes % Not Reportable Eosinophils % Not Reportable Basophils % Not Reportable Absolute Neutrophils Not Reportable Absolute Lymphocytes Not Reportable Absolute Monocytes Not Reportable Absolute Eosinophils Not Reportable Absolute Basophils Not Reportable Sodium 134.7 L Potassium 3.5 L Chloride 96 L Carbon Dioxide 31 H Anion Gap 8 BUN 10 Creatinine 0.70 Est GFR ( Amer) > 60 Est GFR (Non-Af Amer) > 60 Glucose 94 Calcium 7.7 L Magnesium 1.7 01/02/19 19:52 Clean Catch Midstream Urine Culture - Final NO GROWTH 2 DAYS Impressions: Chest X-Ray 01/02/19 14:50 IMPRESSION: NO ACUTE RADIOGRAPHIC FINDING IN THE CHEST. Abdomen/Pelvis CT 01/02/19 15:09 IMPRESSION: Known colon cancer with peritoneal carcinomatosis and moderate ascites. No significant change. Paracentesis Ultrasound 01/04/19 00:00 IMPRESSION: Successful ultrasound-guided paracentesis Transfer Plan - Time Spent with Patient Time spent with patient: Greater than 30 Minutes Qualifiers - * PATIENT BEING DISCHARGED WITH ANY OF THE FOLLOWING DIAGNOSIS: No VTE patient discharged on overlapping Therapy?: Yes Plan Time Spent: Greater than 30 Minutes - Discharge to the inpatient hospice for comfort care
[2019-01-04] MEDS ORDERED: LANSOPRAZOLE 15 MG TAB.RAP.DR PO SCH (17:00)
[2019-01-05] MEDS ORDERED: FENTANYL 50 MCG/HR PATCH.TD72 TOP SCH (10:00)
[2019-01-06] MEDS ORDERED: FENTANYL 50 MCG/HR PATCH.TD72 TOP SCH (18:00)
== END 2019-01-04 16:50 | disposition hospice, inpatient (51) | DRG 871 ==
LOC: ER 13:16 → EH 17:24 → 3S 22:31
PROVIDERS: ADMIT Family Medicine; ATTEND Family Medicine
PROC: 3E0F3GC Introduction of Other Therapeutic Substance into Respiratory Tract, Percutaneous Approach (ICD-10-PCS; 2019-01-03)
PROC: 0W9G3ZX Drainage of Peritoneal Cavity, Percutaneous Approach, Diagnostic (ICD-10-PCS; principal; 2019-01-04)
DX: A41.9 Sepsis, unspecified organism (principal); K65.2 Spontaneous bacterial peritonitis; R18.0 Malignant ascites; C78.6 Secondary malignant neoplasm of retroperitoneum and peritoneum; C78.00 Secondary malignant neoplasm of unspecified lung; C79.51 Secondary malignant neoplasm of bone; C18.7 Malignant neoplasm of sigmoid colon; Z51.5 Encounter for palliative care; R13.10 Dysphagia, unspecified; I48.91 Unspecified atrial fibrillation; I25.10 Atherosclerotic heart disease of native coronary artery without angina pectoris; I10 Essential (primary) hypertension; E78.5 Hyperlipidemia, unspecified; J44.9 Chronic obstructive pulmonary disease, unspecified; E11.9 Type 2 diabetes mellitus without complications; M19.90 Unspecified osteoarthritis, unspecified site; F32.9 Major depressive disorder, single episode, unspecified; R63.0 Anorexia; Z66 Do not resuscitate; F41.9 Anxiety disorder, unspecified; E07.9 Disorder of thyroid, unspecified; E86.0 Dehydration; I44.4 Left anterior fascicular block; R19.7 Diarrhea, unspecified; R11.2 Nausea with vomiting, unspecified; M54.9 Dorsalgia, unspecified; Z87.891 Personal history of nicotine dependence; Z83.3 Family history of diabetes mellitus; Z82.49 Family history of ischemic heart disease and other diseases of the circulatory system; Z79.84 Long term (current) use of oral hypoglycemic drugs; Z74.01 Bed confinement status
CPT/HCPCS: 36415; 49083; 71045; 74177; 80048; 80053; 81001; 82803; 82962; 83605; 83690; 83735; 85025; 85610; 85730; 87040; 87086; 93005; 93010; 94640; 96365; 96375; 99285; J1170; J2270; J2405; J2543; J3370; J3490; J7030; J7620; P9047